=== PATIENT | female | born 1960 | race Caucasian/White ===

== ENCOUNTER 2024-01-24 06:56 | Outpatient (RCR) | payer BC, SELFPAY | END 2024-02-27 16:28 | disposition home or self-care (01) | LOC: PT 06:56 | PROVIDERS: PCP Family Medicine; Visit Provider Orthopaedic Surgery Orthopaedic Trauma | DX: M41.9 Scoliosis, unspecified (principal); M47.816 Spondylosis without myelopathy or radiculopathy, lumbar region; M19.90 Unspecified osteoarthritis, unspecified site; R29.3 Abnormal posture; R26.89 Other abnormalities of gait and mobility; R26.9 Unspecified abnormalities of gait and mobility | CPT/HCPCS: 97014; 97110; 97161 ==

== ENCOUNTER 2024-01-28 10:02 | Outpatient (OUT) | payer BC, SELFPAY ==
--- NOTE | 2024-01-28 10:11 | MM_ITS ---
Patient Name: JACK COBURN MR#: [id number] : 1960 Exam Date: 01/28/2024 Ordering Doctor: DR Antonette Gamboa M.D. RADIOLOGY REPORT PROCEDURE: MM TOMOSYNTHESIS SCREENING BI COMPARISON: MG MAMM LISY SCRN W CAD DIG, 05/25/2016. MG MAMM LISY SCRN W CAD DIG, 05/24/2015. INDICATIONS: Screening Calculator Name NCI Breast Cancer Risk Assessment Tool 5 Year Breast Cancer Risk 1.50% Lifetime Breast Cancer Risk 5.60% Personal Breast Cancer No Personal Ovarian Cancer No Treatments None Family Cancers Mother with colo-rectal cancer at age 50. LOCATION: [facility] BREAST COMPOSITION: There are scattered areas of fibroglandular density. FINDINGS: DIAGNOSTIC CATEGORY 2--BENIGN FINDING: RIGHT BREAST: No significant suspicious finding. Scattered benign-appearing calcifications are present. No significant change has occurred. LEFT BREAST: No significant suspicious finding. Scattered benign-appearing calcifications are present. No significant change has occurred. RECOMMENDATIONS: ROUTINE MAMMOGRAM AND CLINICAL EVALUATION IN 12 MONTHS. PLEASE NOTE: A NORMAL MAMMOGRAM DOES NOT EXCLUDE THE POSSIBILITY OF BREAST CANCER. A CLINICALLY SUSPICIOUS PALPABLE LUMP SHOULD BE BIOPSIED. Dictated by: Reid Vasquez M.D. on 01/28/2024 at 15:20 Approved by: Reid Vasquez M.D. on 01/28/2024 at 15:22
== END 2024-01-28 10:03 | disposition home or self-care (01) ==
LOC: MAMMO 10:04
PROVIDERS: PCP Family Medicine; Visit Provider Family Medicine
DX: Z12.31 Encounter for screening mammogram for malignant neoplasm of breast (principal); Z80.0 Family history of malignant neoplasm of digestive organs
CPT/HCPCS: 77063; 77067

== ENCOUNTER 2025-03-01 16:45 | Outpatient (OUT) | payer MEDICARE, OTHER, SELFPAY ==
--- OUTSIDE RECORDS SUMMARY | 2021-08-13 10:15 | XMS_ITS | Continuity of Care Document ---
Author Organization [employer] [facility] Address [address] [place] [address] Phone Care Team Providers Care Javascript Ui Developer Name Role Phone Jose David Connors MD Unavailable Unavailable Procedures Procedure Date OFFICE/OUTPATIENT VISIT, [facility] Advance Directives Directive Yes / No Effective Date File Name No Information Encounters Encounter Description Practice Location Reason(s) For Visit Diagnoses Date Provider Providers Copied on Encounter OFFICE/OUTPATI ENT VISIT, Identiv [facility], [address], [place], [place], [id number], tel:[phone] [facility] No Information [facility] [address]. [address], [place], [id number], [place]. tel:[phone] Referring Provider: Jose David Vance, [address], [place], [address]. tel:[phone] Family History Family Member Type Diagnosis Age At Onset No Information Payers Payer name Insurance type Covered green party ID Authoriza ticorey(s) Bind Benefits CI [id number] Social History Type Description Quantity Date Captured Comments Sex Female Smoking Status No Information Chief Complaint And Reason For Visit No Information Reason For Referral Reason For Referral No Information History Of Present Illness Encounter Date Complaint History Of Prese nt Illness No Information Functional Status Date Functional Assessmen t No Information Instructions Date Instruction Additional Infor mation No Information Assessments Type Assessment Date No Information Patient Care Teams Name Effective Dates (start - stop) Status Members No Information
--- OUTSIDE RECORDS SUMMARY | 2025-02-14 23:59 | XMS_ITS | Continuity of Care Document ---
Author Organization [facility] Address Unknown Care Team Providers Care Environmental Field Professional Name Role Phone JANNA KAITLYN Primary Care Physician Encounter FT_FIN [id number] Date(s): 02/14/25 - 02/14/[address] [id number] Encounter Diagnosis JASWINDER (obstructive sleep apnea)(Discharge Diagnosis) - 02/14/25 Discharge Disposition: Home (Routine DC) Attending Physician: Quyen BOO, Aishwarya Blanc Referring Physician: NONE, XXXX Encounter Type: Outpatient Allergies, Adverse Reactions, Alerts Substance Criticality Severity Reaction Reaction Severity Status kiwi Tongue swelling Swelling of throat Active Cats Unknown Active Dust Unknown Active amLODIPine Eruption Active FLUoxetine Wheal Active Immunizations Given and Recorded Vaccine Date Status Refusal Reason pneumococcal 20-valent conjugate vaccine 03/09/24 Recorded influenza virus vaccine, inactivated 03/09/24 Eliazar rded influenza virus vaccine, inactivated 05/16/23 Eliazar rded influenza virus vaccine, inactivated 03/17/22 Eliazar rded influenza virus vaccine, inactivated 03/2021 Eliazar rded influenza virus vaccine, inactivated 03/25/21 Eliazar rded influenza virus vaccine, inactivated 03/25/20 Eliazar rded influenza virus vaccine, inactivated 04/12/19 Eliazar rded influenza virus vaccine, inactivated 03/24/17 Eliazar rded SARSCoV2 mRNA(qrmglmoyy-zetu-agbtnu) vac 11/12/21 Recorded SARS-CoV-2 (COVID-19) mRNA BNT-162b2 vax 05/13/21 Recorded SARS-CoV-2 (COVID-19) mRNA BNT-162b2 vax 09/26/20 Recorded SARS-CoV-2 (COVID-19) mRNA BNT-162b2 vax 09/05/20 Recorded zoster vaccine, inactivated 12/18/19 Recorded zoster vaccine, inactivated 07/26/19 Recorded pneumococcal 23-valent vaccine 04/12/19 Recorded Not Given Vaccine Date Status Refusal Reason influenza virus vaccine, inactivated 02/25/22 Not Given Patient Refuses Medications Adderall 5 mg oral tablet 5 mg, 1 tab(s), Oral, qAM, Refill(s) 0, Prophylaxis Start Date: 02/23/19 Status: Ordered Repeat number: 1 busPIRone 15 mg Tab mg tab(s), Oral, BID, Refills(s) 0, Anxiety Start Date: 02/25/22 Status: Ordered Repeat number: 1 calcium-vitamin D 1 TAB, Oral, Daily Prophylaxis, Refill(s) 0 Start Date: 08/22/13 Status: Ordered Repeat number: 1 cetirizine 5 mg oral tablet 5 mg = 1 tab(s), Oral, Daily, PRN for allergy symptoms Start Date: 08/11/21 Status: Ordered Repeat number: 1 cholestyramine 4 g/9 g Oral Pwdr Oral, BID, Refill(s) 0, Diarrhea Start Date: 08/26/23 Status: Ordered Repeat number: 1 Fiber Tabs 1,250 mg, Oral, QID, PRN Constipation, Refills(s) 0 Start Date: 05/27/22 Status: Ordered Repeat number: 1 Gas-X 80 mg, Chewed, QIDPCHS, PRN Gas, Refills(s) 0 Start Date: 08/26/23 Status: Ordered Repeat number: 1 Ibgard 90 mg oral delayed release capsule 180 mg = 2 cap(s), Oral, BID, # 90 cap(s), Refills(s) 6, Pharmacy: [id number], 170,cm, 01/31/24 9:31:00 EDT, Height/Length Dosing, 95, kg, 01/31/24 9:31:00 EDT, Weight Dosing Start Date: 02/16/24 Status: Ordered Quantity: 90.0 Unit: cap(s) Repeat number: 7 Iron Chews 15 mg, Oral, Daily, Refills(s) 0, Prophylaxis Start Date: 02/09/23 Status: Ordered Repeat number: 1 losartan 100 mg Tab 100 mg = 1 tab(s), Oral, Daily, High blood pressure Start Date: 02/23/19 Status: Ordered Repeat number: 1 Miralax 3350 17 gram packet 17 gm, Oral, Daily, PRN Constipation, # 100 EA, Refills(s) 6, Pharmacy: [id number], 170, cm, 10/04/23 8:59:00 EDT, Height/Length Dosing, 97, kg, 10/04/23 8:59:00 EDT, Weight Dosing Start Date: 10/04/23 Status: Ordered Quantity: 100.0 Unit: EA Repeat number: 7 Multivitamins and Minerals 1 TAB, Oral, Daily, Refill(s) 0, Prophylaxis Start Date: 08/22/13 Status: Ordered Repeat number: 1 Nature's Bounty Probiotic Refill(s) 0, Prophylaxis Start Date: 02/09/23 Status: Ordered Repeat number: 1 Vitamin B Complex oral tablet 1 tab(s), Chewed, Daily, Refill(s) 0, Prophylaxis Start Date: 01/10/15 Status: Ordered Repeat number: 1 Vitamin D Oral, Daily, Refills(s) 0, Prophylaxis Start Date: 02/09/23 Status: Ordered Repeat number: 1 Wellbutrin SR 150 mg Tab-ER 150 mg = 1 tab(s), Oral, BID, Depression Start Date: 02/23/19 Status: Ordered Repeat number: 1 Xanax 0.5 mg Tab 0.5 mg = 1 tab(s), Oral, BID, PRN for anxiety, Refills(s) 0 Start Date: 01/10/15 Status: Ordered Repeat number: 1 Problem List Condition Confirmation Course Effective Dates Status H ealth Status Informant Bloating Confirmed Active Dyssynergic defecation Confirmed Active Constipation Confirmed Active MRSA (methicillin resistant staph aureus) culture positive Confirmed Active Renal cyst Confirmed Active Depression Confirmed Active Family history of colon cancer Confirmed Active Abdominal cramping Confirmed Resolved Acid reflux Confirmed Active History of anal cancer Confirmed Active History of colon polyps Confirmed Active Fecal incontinence Confirmed Active Irregular bowel habits Confirmed Active Loose stools Confirmed Active Lower abdominal pain Confirmed Active Cancer of anus 1 Confirmed Active Nausea Confirmed Resolved Bile salt-induced diarrhea Confirmed Active JASWINDER (obstructive sleep apnea) Confirmed Active Colon polyp Confirmed Active Recurrent UTI Confirmed Active Urinary leakage Confirmed Active UTI symptoms Confirmed Resolved 12741 Procedures Procedure Date Related Diagnosis Body Site Status Colonoscopy 04/10/24 Completed Colonoscopy 1 09/21/23 Completed Esophagogastroduodenoscopy 07/22/22 Completed Cataract extraction and inse rtion of intraocular lens 2 03/14/19 Completed Cataract extraction and inse rtion of intraocular lens 3 02/28/19 Completed Cystourethroscopy with dilat ion of urethral stricture 02/28/16 Completed removal of right ean bull jaswinder, septoplasty and bilateral inferior turbinate submucosal resection 01/10/15 C ompleted Cholecystectomy 4 06/28/07 Complet ed Cholecystectomy 05/28/07 Completed Gastric bypass 06/28/02 Completed Hysterectomy 5 06/28/00 Completed Tubal ligation 06/28/99 Completed Carpal tunnel release 6 06/28/97 C ompleted Sinus probing 06/28/97 Completed EGD (esophagogastroduodenosc opic) electrohydraulic lithotripsy of bezoar in stomach 7 Completed LEFT Knee Scope Completed 12794 2left eye 3right 4revision 5partial 6left or 2022 Social History Social History Type Response Smoking Status Former smoker, quit more than 30 days ago entered on: 04/28/24 Sex Female Sex Representation Female (finding) Hospital Discharge Instructions Follow Up Care 01/25/2025 12:56:33 With:Quyen BOO, Aishwarya Blanc, PUL, CHARITY Address: [address] [place] [address] [facility] [place] [place] [address]- When:6 weeks Patient Care team information Care Team Personnel Name: KAITLYN SALDIVAR MD Position: FT Physician Member Role: Primary Care Physician Address: [address] [place] [address]- Telecom: Care Team Related Persons Name: TRAMAINE HINKLE Name: MAINOR COBURN Name: IRISH SAVANAH Name: SAVANAH COBURN Name: SAVANAH COBURN Name: SAVANAH COBURN Insurance Providers Guarantor name: JACK COBURN Health Plan Information #: 1 Payer: [employer] Payer Identifier: [id number] Member Number: [id number] Group Number: [id number] Subscriber Identifier: [id number] Relationship to Subscriber: Self Coverage Type: PRIVATE HEALTH INSURANCE Coverage Verification Date: 25 Telecom: NA Address: [facility] [address] [place] [address] Health Plan Information #: 2 Payer: MEDICARE Payer Identifier: [id number] Member Number: [id number] Group Number: [id number] Subscriber Identifier: [id number] Relationship to Subscriber: Self Coverage Type: MEDICARE Coverage Verification Date: 25 Telecom: [phone] Address: [facility] [address] Health Plan Information #: 3 Payer: [employer] Payer Identifier: [id number] Member Number: [id number] Group Number: [id number] Subscriber Identifier: [id number] Relationship to Subscriber: spouse Coverage Type: PRIVATE HEALTH INSURANCE Coverage Verification Date: NA Telecom: [phone] Address: [facility] [address] [place] [address]
--- OUTSIDE RECORDS SUMMARY | 2025-03-01 16:58 | XMS_ITS | Clinical Summary ---
Author Organization [facility] tem Address [id number] [place] [address] Care Team Providers Care Convict Guard Name Role Phone Unavailable Primary Care Provider Unavailabl e Social History Tobacco Use Types Packs/Day Years Used Date Smoking Tobacco: Never Assessed Childcare Answer Date Recorded Childcare Unknown 12/07/2018 Employment Answer Date Recorded Employment Unknown 12/07/2018 Comments Unknown Sex and Gender Information Value Date Recorded Sex Assigned at Not on file Legal Sex Female 11:57 AM EDT Gender Identity Not on file Sexual Orientation Not on file Plan of Treatment Health Maintenance Due Date Last Done Comments Depression Screening 1970 Tobacco Screening 1970 Adult BMI Screening 1976 DTaP,Tdap and Td Vaccines (1 - Tdap) 1977 Zoster (Shingles) Vaccine (1 of 2) 2008 Colonoscopy 08/02/2016 08/02/2013 Fall Risk Screening 2023 Influenza Vaccine 02/26/2025 Medical Devices Not on file Procedures Procedure Name Priority Date/Time Associated Diagnosis Comments COLONOSCOPY Routine 08/02/2013 from Last 3 Months or Most Recently Relevant to Health Maintenance Results * COLONOSCOPY (08/02/2013) Colonoscopy COLONOSCOPY [facility] EXTERNAL NON-INTERFACE D REF LAB 08/02/2013 us Scanning Provider External HEALTH MAINTENANCE Ed ited Result - Final [facility] EXTERNAL NON-INTERFACED REF LAB [address] [facility] [place] [address] from Last 3 Months or Most Recently Relevant to Health Maintenance
--- OUTSIDE RECORDS SUMMARY | 2025-03-01 16:58 | XMS_ITS ---
Author Organization [facility] Address [address] [place] [address] Care Team Providers Care Lehr Tender Name Role Phone Antonette Gamboa MD Primary Care Provider [phone] Stefan Ortega MD Unavailable [phone] Active Problems Problem Noted Date Diagnosed Date Essential hypertension 10/08/2016 H/O gastric bypass 09/12/2015 Iron deficiency anemia 09/12/2015 Squamous cell skin cancer 08/30/2013 Chest pain 08/14/2013 Abnormal stress test 08/14/2013 Current Treatment and Therapy Plans No current plan information found. Past Treatment and Therapy Plans
--- OUTSIDE RECORDS SUMMARY | 2025-03-01 16:58 | XMS_ITS | Clinical Summary ---
Author Organization [facility] Address [address] [place] [address] Care Team Providers Care Scientific Systems Analyst Name Role Phone Unavailable Primary Care Provider Unavailabl e Social History Tobacco Use Types Packs/Day Years Used Date Smoking Tobacco: Never Assessed Comments Unknown Sex and Gender Information Value Date Recorded Sex Assigned at Not on file Legal Sex Female 9:24 PM EDT Gender Identity Not on file Sexual Orientation Not on file Last Filed Vital Signs Vital Sign Reading Time Taken Comments Blood Pressure - - Pulse - - Temperature - - Respiratory Rate - - Oxygen Saturation - - Inhaled Oxygen Concentration - - Weight 104 kg (230 lb) 06/30/2019 9:17 AM EST Height 170.2 cm (5' 7 ) 08/24/2019 1:21 PM EST Body Mass Index 36.02 06/30/2019 9:17 AM EST Plan of Treatment Not on file
--- OUTSIDE RECORDS SUMMARY | 2025-03-01 16:58 | XMS_ITS | Encounter Summary ---
Author Organization [facility] Address [address] [place] [address] Care Team Providers Care Kitchen Supervisor Name Role Phone Unavailable Primary Care Provider Unavailabl e Reason for Visit * Reason Onset Date Comments Med Refill 08/05/2024 Encounter Details Date Type Department Care Team (Late st Contact Info) Description 08/05/2024 Refill [facility] [address] [place] [id number] Destiney Hernandez PA [address] [place] [address] Social History Tobacco Use Types Packs/Day Years Used Date Smoking Tobacco: Never Smokeless Tobacco: Never Comments Unknown Sex and Gender Information Value Date Recorded Sex Assigned at Not on file Legal Sex Female 7:12 PM EDT Gender Identity Not on file Sexual Orientation Not on file documented as of this encounter Miscellaneous Notes * Telephone Encounter - Mariangel Gonzales LPN - 08/07/2024 8:58 AM EST Not prescribed by our office. documented in this encounter Plan of Treatment Upcoming Encounters Date Type Department Care Team (Late st Contact Info) Description 04/24/2025 8:20 AM EDT Office Visit [facility] [address] [place] [phone] Destiney Hernandez PA [address] [place] [address] documented as of this encounter Visit Diagnoses Not on filedocumented in this encounter
--- OUTSIDE RECORDS SUMMARY | 2025-03-01 16:58 | XMS_ITS | Clinical Summary ---
Author Organization [facility] Address [address] [place] [address] Phone Care Team Providers Care Sterile Instrument Technician Name Role Phone Antonette Gamboa MD Primary Care Provider [phone] Social History Tobacco Use Types Packs/Day Years Used Date Smoking Tobacco: Never Assessed Comments Unknown Sex and Gender Information Value Date Recorded Sex Assigned at Not on file Legal Sex Female 2:37 PM EST Gender Identity Not on file Sexual Orientation Not on file Plan of Treatment Not on file Care Teams Sterile Instrument Technician Relationship Specialty Start Date End Date Antonette Gamboa MD [address] [place] [address] [place] [address] PCP - General 12/04/13
--- OUTSIDE RECORDS SUMMARY | 2025-03-01 16:58 | XMS_ITS | Clinical Summary ---
Author Organization [facility] Address [address] [place] [address] Care Team Providers Care Tongsman Name Role Phone Antonette Gamboa MD Primary Care Provider Allergies No known active allergies Medications buPROPion (WELLBUTRIN SR) 200 MG extended release tablet Take 200 mg by mouth 2 times daily Active busPIRone (BUSPAR) 15 MG tablet Take 15 mg by mouth 3 times daily Active amphetamine-dex troamphetamine (ADDERALL) 10 MG tablet Take 10 mg by mouth daily.. Active losartan (COZAAR) 100 MG tablet Take 100 mg by mouth daily Active meloxicam (MOBIC) 15 MG tablet Take 15 mg by mouth daily Active gabapentin (NEURONTIN) 100 MG capsule Take 1 capsule by mouth 3 times daily for 30 days. 90 capsule 09/09/2018 Active Active Problems No known active problems Family History Medical History Relation Name Comments Coronary Art Dis Father Heart Disease Father High Blood Pressure Father Stroke Father Cancer Mother Relation Name Status Comments Father Mother Social History Tobacco Use Types Packs/Day Years Used Date Smoking Tobacco: Never Assessed Smokeless Tobacco: Never Comments Unknown Sex and Gender Information Value Date Recorded Sex Assigned at Not on file Legal Sex Female 7:40 PM EST Gender Identity Not on file Sexual Orientation Not on file Last Filed Vital Signs Vital Sign Reading Time Taken Comments Blood Pressure - - Pulse - - Temperature 36.7 C (98.1 F) 12/23/2018 2:06 PM EDT Respiratory Rate - - Oxygen Saturation - - Inhaled Oxygen Concentration - - Weight 106.6 kg (235 lb) 12/23/2018 2:06 PM EDT Height 171.5 cm (5' 7.5 ) 12/23/2018 2:06 PM EDT Body Mass Index 36.26 12/23/2018 2:06 PM EDT Plan of Treatment Health Maintenance Due Date Last Done Comments Depression Screen 1970 Hepatitis C screen 1976 DTaP/Tdap/Td vaccine (1 - Tdap) 1977 Lipids 1998 Colonoscopy 2003 Colorectal Cancer Screen 2003 FIT/FOBT: Average risk 2003 Fecal-DNA (Cologuard): Average risk 2003 Sigmoidoscopy/CT colonography 2003 DEXA (modify frequency per FRAX score) 2013 Breast cancer screen 08/31/2019 08/30/2017, 08/31/19 18 Pneumococcal 50+ years Vaccine (2 of 2 - PCV) 04/12/2020 04/12/2019 COVID-19 Vaccine ( - season) 2024 11/12/2021, 05/13/2021, 09/26/2020, Additional history exists Flu vaccine (#1) 01/26/2025 05/16/2023, , 03/25/2021, Additional history exists Respiratory Syncytial Virus (RSV) or age 60 yrs+ (1 - 1-dose 75+ series) 2033 Pneumococcal 0-49 years Vaccine Discontinued 04/12/2019 Shingles vaccine Completed 12/18/2019, 07/26/2019 Hepatitis A vaccine Aged Out No longe r eligible based on patient's age to complete this topic Hepatitis B vaccine Aged Out No longe r eligible based on patient's age to complete this topic Hib vaccine Aged Out No longer eligi ble based on patient's age to complete this topic Meningococcal (ACWY) vaccine Aged Out No longer eligible based on patient's age to complete this topic Meningococcal B vaccine Aged Out No l onger eligible based on patient's age to complete this topic Polio vaccine Aged Out No longer elig ible based on patient's age to complete this topic Insurance [place] [employer] [place] [id number] Care Teams Tongsman Relationship Specialty Start Date End Date Antonette Gamboa MD PCP - General Family Medicine 07/19/18
--- OUTSIDE RECORDS SUMMARY | 2025-03-01 16:58 | XMS_ITS | Encounter Summary ---
Author Organization [facility] Address [address], [address] [place] [address] Care Team Providers Care Surgery Assistant Name Role Phone Antonette Gamboa MD Primary Care Provider [phone] Reason for Referral * Imaging (Routine) - Closed Specialty Diagnoses / Procedures Referred By Contac t Referred To Contact Radiology Diagnoses Lower abdominal pain Procedures CT ABDOMEN PELVIS W IV CONTRAST Additional Contrast? None Rani Schaffer APRN - JABARI [address] [place] [address] Phone: tel: fax: Referral ID Status Reason Start Date Expiration Date Visits Re quested Visits Authorized [id number] Closed 08/27/2023 09/09/2024 1 1 Encounter Details Date Type Department Care Team ([facility] st Contact Info) Description 09/10/2023 Transcribe Orders Sharri Ballesteros Pre Access [address] [place] [address] Rani Schafefr APRN - JABARI [id number] [place] [address] Lower abdominal pain (Primary Dx) Social History Tobacco Use Types Packs/Day Years Used Date Smoking Tobacco: Never Assessed Smokeless Tobacco: Never Comments Unknown Sex and Gender Information Value Date Recorded Sex Assigned at Not on file Legal Sex Female 7:40 PM EST Gender Identity Not on file Sexual Orientation Not on file documented as of this encounter Plan of Treatment Not on file documented as of this encounter Results * CT ABDOMEN PELVIS W IV CONTRAST Additional Contrast? None (09/17/2023 2:44 PM EDT) Anatomical Region Laterality Modality Abdomen, Pelvis, Hip Computed To mography 09/17/2023 4:38 PM EDT Impressions 09/17/2023 4:40 PM EDT There is no evidence of acute abnormality. Narrative 09/17/2023 4:40 PM EDT EXAMINATION: CT OF THE ABDOMEN AND PELVIS WITH CONTRAST09/17/2023 2:42 pm TECHNIQUE: CT of the abdomen and pelvis was performed with the administration of intravenous contrast. Multiplanar reformatted images are provided for review. Automated exposure control, iterative reconstruction, and/or weight based adjustment of the mA/kV was utilized to reduce the radiation dose to as low as reasonably achievable. COMPARISON: None HISTORY: ORDERING SYSTEM PROVIDED HISTORY: Lower abdominal pain TECHNOLOGIST PROVIDED HISTORY: Additional Contrast?->None STAT Creatinine as needed:->No What reading provider will be dictating this exam?->CRC FINDINGS: There is no evidence of pulmonary nodule or pleural effusion at the level of the lung bases. The gallbladder is surgically absent and there is gastric bypass procedure change. The liver, spleen, pancreas, adrenals, abdominal aorta, kidneys and urinary bladder have an unremarkable appearance. There is no evidence of free intraperitoneal fluid or air. Vermiform appendix is not dilated. There is no evidence of large or small bowel obstruction. There is no gross evidence of bowel inflammation. No enlarged abdominal or pelvic lymph nodes are identified. There is no evidence of anterior abdominal wall hernia. Bone windows reveal no evidence of acute fracture or osteolytic/osteoblastic lesion. Moderate degenerative changes are present at the L3-4 intervertebral disc space with moderate to severe bilateral hip joint space narrowing and spur formation. Procedure Note Dalton Adam MD - 09/17/2023 EXAMINATION: CT OF THE ABDOMEN AND PELVIS WITH CONTRAST09/17/2023 2:42 pm TECHNIQUE: CT of the abdomen and pelvis was performed with the administration of intravenous contrast. Multiplanar reformatted images are provided forreview. Automated exposure control, iterative reconstruction, and/or weightbased adjustment of the mA/kV was utilized to reduce the radiation dose to aslow as reasonably achievable. COMPARISON: None HISTORY: ORDERING SYSTEM PROVIDED HISTORY: Lower abdominal pain TECHNOLOGIST PROVIDED HISTORY: Additional Contrast?->None STAT Creatinine as needed:->No What reading provider will be dictating this exam?->CRC FINDINGS: There is no evidence of pulmonary nodule or pleural effusion at the levelof the lung bases. The gallbladder is surgically absent and there is gastric bypassprocedure change. The liver, spleen, pancreas, adrenals, abdominal aorta, kidneysand urinary bladder have an unremarkable appearance. There is no evidenceof free intraperitoneal fluid or air. Vermiform appendix is not dilated.There is no evidence of large or small bowel obstruction. There is no gross evidence of bowel inflammation. No enlarged abdominal or pelvic lymphnodes are identified. There is no evidence of anterior abdominal wall hernia. Bone windowsreveal no evidence of acute fracture or osteolytic/osteoblastic lesion.Moderate degenerative changes are present at the L3-4 intervertebral disc spacewith moderate to severe bilateral hip joint space narrowing and spurformation. IMPRESSION: There is no evidence of acute abnormality. us Rani Schaffer MALTHOUSE LABORER - K [address] ORDERABLES Fin al Result documented in this encounter Visit Diagnoses Diagnosis Lower abdominal pain- Primary Abdominal pain, other specified site Lower abdominal pain Abdominal pain, other specified site documented in this encounter Care Teams Surgery Assistant Relationship Specialty Start Date End Date Antonette Gamboa MD PCP - General Family Medicine 07/19/18 documented as of this encounter
--- OUTSIDE RECORDS SUMMARY | 2025-03-01 16:58 | XMS_ITS | Clinical Summary ---
Author Organization [facility] Address [address] [place], [place] [address] Care Team Providers Care Steam Fitter Supervisor Maintenance Name Role Phone Antonette Gamboa MD Primary Care Provider [phone] Stefan Ortega MD Unavailable [phone] Allergies Active Allergy Reactions Criticality Noted Date Comments Cats Unknown 08/14/2013 Dust Unknown 08/14/2013 Amlodipine Besylate Rash 05/13/2017 Medications ALPRAZOLAM 0.5 mg tablet as needed. 07/21/2013 Active VITAMIN B COMPLEX (B COMPLEX ORAL) Take by mouth once daily. Active CALCIUM CARBONATE/VITAM IN D3 (CALCIUM + D ORAL) Take by mouth once daily. Active nitroglycerin sublingual (NITROQUICK) 0.4 mg SL tabletIndicatio ns:Precordial pain Dissolve 0.4 mg under the tongue every 5 minutes as needed. Active buPROPion XL (WELLBUTRIN XL) 300 mg 24 hr tablet Take 400 mg by mouth once daily. Active busPIRone (BUSPAR) 15 mg tablet Take 15 mg by mouth three times daily. Active ADDERALL XR 10 mg 24 hr capsule 10/02/2016 Active hydrOXYzine pamoate (VISTARIL) 25 mg capsule Take 25 mg by mouth daily at bedtime. 0 05/11/2017 Active losartan (COZAAR) 50 mg tablet Take 100 mg by mouth once daily. 0 04/09/2017 Active Active Problems Problem Noted Date Diagnosed Date Essential hypertension 10/08/2016 H/O gastric bypass 09/12/2015 Iron deficiency anemia 09/12/2015 Squamous cell skin cancer 08/30/2013 Chest pain 08/14/2013 Abnormal stress test 08/14/2013 Family History Medical History Relation Comments Cancer Brother 2 skin colon polyps Brother 3 Coronary Artery Disease Father [place] at [place] 67 Stroke Father Cancer Mother colon Colon Cancer Mother Diabetes Sister 2 Relation Status Comments Brother 1 Alive Brother 2 Brother 3 Father (Age 67) Mother (Age 50) Sister 1 Alive Sister 2 Social History Tobacco Use Types Packs/Day Years Used Date Smoking Tobacco: Former Cigarettes 0.5 25 0 06/28/1974 - 06/28/1999 Smokeless Tobacco: Never Comments:06/29 PPD/ 25 years Alcohol Use Standard Drinks/Week Comments Yes 0 (1 standard drink = 0.6 oz pur e alcohol) up to 4 drinks weekly Area Deprivation Index Answer Date Eliazar rded National Score (1-100), lower number is lower ri sk Not on file 06/05/2020 State Score (1-10), lower number is lower risk N ot on file 06/05/2020 Data from: https://www.neighborhoodatlas.medicine.[facility].edu/. 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 Not on file Not o n file Last Filed Vital Signs Vital Sign Reading Time Taken Comments Blood Pressure 129/81 05/13/2018 9:31 AM EST Pulse 80 05/13/2018 9:31 AM EST Temperature 36.7 C (98.1 F) 10/15/2016 11:06 AM EDT Respiratory Rate 18 11/10/2017 9:16 AM EDT Oxygen Saturation 97% 11/10/2017 9:16 AM EDT Inhaled Oxygen Concentration - - Weight 107 kg (236 lb) 05/13/2018 9:31 AM EST Height 171.5 cm (5' 7.5 ) 05/13/2018 9:31 AM EST Body Mass Index 36.42 05/13/2018 9:31 AM EST Plan of Treatment Health Maintenance Due Date Last Done Comments Anxiety Screening 1976 Depression Screening 1976 Hepatitis C Screening 1976 DTaP,Tdap,Td Vaccine (1 - Tdap) [address] Colonography 2003 Cologuard (FIT-DNA) 2003 Colonoscopy 2003 Colorectal Cancer Screening 2003 Diabetes Screening 2003 Fecal Occult Blood 2003 Lipid Screening 2003 Sigmoidoscopy 2003 Pneumococcal Vaccine: 50+ (1 of 1 - PCV) 2008 Shingrix Vaccine (1 of 2) 2008 Bone Density Screening 2023 Advance Directive Discussion 06/28/2024 Influenza Vaccine (#1) 2025 03/24/2017 RSV Vaccine (1 - 1-dose 75+ series) 2033 Insurance O [employer] PPO Care Teams Steam Fitter Supervisor Maintenance Relationship Specialty Start Date End Date Antonette Gamboa MD [address] [place] [address] PCP - General Family Medicine 07/21/13 Stefan Ortega MD [address] [address] Primary Staff Physician Cardiology 09/13/18
--- OUTSIDE RECORDS SUMMARY | 2025-03-01 16:58 | XMS_ITS | Clinical Summary ---
Author Organization [facility] Address [address] [place] [address] Care Team Providers Care Wet Crown Blocking Operator Name Role Phone Unavailable Primary Care Provider Unavailabl e Allergies Active Allergy Reactions Criticality Noted Date Comments Amlodipine Rash Low 05/12/2017 Amoxicillin-Pot Clavulanate Unknown 04/27/20 23 Fluoxetine Other 04/27/2023 Medications cholestyramine (Questran) 4 g packet take 1 packet ( 4 grams ) by mouth once daily 3 Active buPROPion (Wellbutrin) 75 MG tablet Active pantoprazole (ProtoNix) 40 MG EC tablet Take 40 mg by mouth in the morning. Active albuterol HFA 90 mcg/act inhaler inhale 2 puffs by mouth every 4 hours if needed 3 Active dicyclomine (Bentyl) 20 MG tablet Take 20 mg by mouth as needed in the morning and 20 mg as needed at noon and 20 mg as needed in the evening and 20 mg as needed before bedtime. 3 Active benzonatate (Tessalon) 200 MG capsule Take 200 mg by mouth as needed in the morning and 200 mg as needed at noon and 200 mg as needed in the evening. 3 Active ALPRAZolam (Xanax) 0.5 MG tablet Take 0.5 mg by mouth at bedtime Active losartan (Cozaar) 100 MG tablet Active Multiple Vitamin (MULTIVITAMIN ADULT PO) Active Calcium Citrate-Vitamin D (CALCIUM + D PO) Active Pediatric Multivitamins-I andrea (FRUITY CHEWS/IRON PO) 3 Active saccharomyces boulardii (Florastor) 250 MG capsule Take 250 mg by mouth in the morning and 250 mg before bedtime. Active Hydrocortisone Acetate 2.5 % creamIndication s:Other specified dermatitis Apply to affected areas on the face, ears, and neck bid when flared 30 g 11 3 Active hydrocortisone 2.5 % creamIndication s:Other specified dermatitis Apply topically 2 (two) times a day as needed (Rash) Apply thin layer to affected areas on the face and around the ears bid prn for flares 30 g 11 4 Active triamcinolone (Kenalog) 0.1 % creamIndication s:Other specified dermatitis Apply topically 2 (two) times a day as needed for rash Apply to affected areas on the body bid when flared. Avoid the face, armpits, and groin 240 g 11 5 Active fluocinonide (Lidex) 0.05 % external solutionIndicat ions:Other seborrheic dermatitis Apply to affected areas on the scalp, up to once a day when flared, 30 day supply 60 mL 11 5 Active Active Problems No known active problems Social History Tobacco Use Types Packs/Day Years Used Date Smoking Tobacco: Never Smokeless Tobacco: Never Comments Unknown Sex and Gender Information Value Date Recorded Sex Assigned at Not on file Legal Sex Female 7:12 PM EDT Gender Identity Not on file Sexual Orientation Not on file Last Filed Vital Signs Vital Sign Reading Time Taken Comments Blood Pressure 117/70 09/17/2021 12:00 PM EDT Pulse - - Temperature - - Respiratory Rate - - Oxygen Saturation - - Inhaled Oxygen Concentration - - Weight 102 kg (224 lb) 09/17/2021 12:00 PM EDT Height 167.6 cm (5' 6 ) 06/01/2022 12:00 PM EST Body Mass Index 36.15 09/17/2021 12:00 PM EDT Plan of Treatment Upcoming Encounters Date Type Department Care Team (Late st Contact Info) Description 04/24/2025 8:20 AM EDT Office Visit [facility] [address] [place] [id number] Destiney Hernandez, OFELIA [address] [place] [address] Health Maintenance Due Date Last Done Comments CT Colonography 1958 FIT-DNA 1958 FIT 1958 FOBT 1960 Sigmoidoscopy 1958 Mammogram 08/30/2018 08/30/2017, 08/30/2017 Influenza Vaccine (#1) 2025 4, 05/16/2023, 03/17/2022, Additional history exists Colonoscopy 04/10/2034 04/10/2024 Colorectal Cancer Screening 04/10/2034 Pneumococcal Vaccine: 65+ Years Completed 4, 04/12/2019 Procedures Procedure Name Priority Date/Time Associated Diagnosis Comments BI MAMMOGRAM SCREENING BILATERAL Routine 08/30/2017 Encounter for screening for malignant neoplasm of vagina Diffuse cystic mastopathy of right breast Encounter for gynecological examination (general) (routine) without abnormal findings Encounter for screening mammogram for malignant neoplasm of breast from Last 3 Months or Most Recently Relevant to Health Maintenance Results * Bilateral screening mammogram (08/30/2017) Anatomical Region Laterality Modality Breast Bilateral Mammography Impressions 08/30/2017 12:00 AM EST IMPRESSION:No mammographic evidence of malignancy. Routine follow-up recommended in one year. RESULT CODE: 1 Negative DENSITY CODE: 2 FOLLOW UP: 1YR THE FALSE-NEGATIVE RATE OF MAMMOGRAPHY IS APPROXIMATELY 10%. IMAGING OF A PALPABLE ABNORMALITY MUST BE BASED ON CLINICAL GROUNDS. PATIENT WAS ENTERED INTO A REMINDER SYSTEM WITH A TARGET DUE DATE FOR THE NEXT MAMMOGRAM. Dictation Location: [id number] Transcribed By: AARON 08/30/17946 Dictated By: Stefan Gross DO 08/30/17943 Signed By: <Electronically signed by Stefan Gross DO in OV> 08/30/17946 Narrative 08/30/2017 12:00 AM EST PERFORMED AT [facility] LOCATION:[address] [place] [address] [place] [address] Mammography Report Signed Patient: Kathy Juilan MR#: [id number] : 1960 Acct:[id number] Age/Sex: 57 / F ADM Date: 08/26/17 Loc: [place] Room: Type: [facility] Attending Dr: Clint New MD Ordering Physician: Francisco New MD Date of Service: 08/26/17 MM/MM screening mammo BI w/CAD: scrn Copies to: Clint New MD Bilateral Screening Full Field digital mammogram with 3-D imaging. Full field digital CC and MLO imaging performed. CAD utilized. COMPARISON: 05/25/16 HISTORY:Screening FINDINGS: Scattered fibroglandular densities of the breast parenchyma identified. No developing architectural distortion, developing focal breast asymmetry or developing malignant calcifications identified. Benign calcifications identified. Procedure Note CONVERSION, GENERIC - 01/01/2023 PERFORMED AT [facility] LOCATION:[address] [place] [address] [place] [address] Mammography Report Signed Patient: Kathy Julian MR#: [id number] : 1960 Acct:[id number] Age/Sex: 57 / F ADM Date: 08/26/17 Loc: [place] Room: Type: [facility] Attending Dr: Clint New MD Ordering Physician: Francisco New MD Date of Service: 08/26/17 MM/MM screening mammo BI w/CAD: scrn Copies to: Clint New MD Bilateral Screening Full Field digital mammogram with 3-D imaging. Full field digital CC and MLO imaging performed. CAD utilized. COMPARISON: 05/25/16 HISTORY:Screening FINDINGS: Scattered fibroglandular densities of the breast parenchymaidentified. No developing architectural distortion, developing focal breast asymmetry or developingmalignant calcifications identified. Benign calcifications identified. IMPRESSION: IMPRESSION:No mammographic evidence of malignancy. Routine follow-uprecommended in one year. RESULT CODE: 1 Negative DENSITY CODE: 2 FOLLOW UP: 1YR THE FALSE-NEGATIVE RATE OF MAMMOGRAPHY IS APPROXIMATELY 10%. IMAGING OF A PALPABLE ABNORMALITY MUST BE BASED ON CLINICAL GROUNDS. PATIENT WAS ENTERED INTO A REMINDER SYSTEM WITH A TARGET DUE DATE FOR THENEXT MAMMOGRAM. Dictation Location: [facility] Transcribed By: AARON 08/30/17 0947 Dictated By: Stefan Gross DO 08/30/17 0944 Signed By: <Electronically signed by Stefan Gross DO in OV> [address] IMG BI PROCEDURES Final Result from Last 3 Months or Most Recently Relevant to Health Maintenance Insurance [facility]
--- OUTSIDE RECORDS SUMMARY | 2025-03-01 16:58 | XMS_ITS | Encounter Summary ---
Author Organization [facility] Address [address] [place] [address] Care Team Providers Care Exhibit Specialist Name Role Phone Antonette Gamboa MD Primary Care Provider Stefan Ortega MD Unavailable [phone] Source Comments In the event this information is protected by the Federal Confidentiality of Alcohol and Drug AbusePatient Records regulations: The Federal rules restrict any use of the information to criminally investigate or prosecute any alcohol or drug abuse patient.[facility] Encounter Details Date Type Department Care Team (Late st Contact Info) Description 2023 [place] [address] Provider, [facility] Medicare Coverage of Physical Exams Social History Tobacco Use Types Packs/Day Years Used Date Smoking Tobacco: Former Cigarettes 0.5 25 0 06/28/1974 - 06/28/1999 Smokeless Tobacco: Never Comments:1/2 PPD/ 25 years Alcohol Use Standard Drinks/Week Comments Yes 0 (1 standard drink = 0.6 oz pur e alcohol) up to 4 drinks weekly Area Deprivation Index Answer Date Eliazar rded National Score (1-100), lower number is lower ri sk Not on file 06/05/2020 State Score (1-10), lower number is lower risk N ot on file 06/05/2020 Data from: https://www.neighborhoodatlas.medicine.[facility]/. 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 Answer Date of Assessment Author No 02/15/2014 3:05 PM Osmani Ness * Are you blind or do you have serious difficulty seeing, even when wearing glasses? Answer Date of Assessment Author No 02/15/2014 3:05 PM Osmani Ness ismaurizio * Do you have serious difficulty walking or climbing stairs? Answer Date of Assessment Author No 02/15/2014 3:05 PM Osmani Nesse * Do you have difficulty dressing or bathing? Answer Date of Assessment Author No 02/15/2014 3:05 PM Osmani Ness ismaurizio * Because of a physical, mental, or emotional condition, do you have difficulty doing errands alone such as visiting a doctor's office or shopping? Answer Date of Assessment Author No 02/15/2014 3:05 PM Osmani Ness documented as of this encounter Mental Status * Because of a physical, mental, or emotional condition, do you have serious difficulty concentrating, remembering, or making decisions? Answer Entry Date Author No 02/15/2014 3:05 PM Osmani Ness documented in this encounter Plan of Treatment Not on file documented as of this encounter Visit Diagnoses Not on filedocumented in this encounter Care Teams Exhibit Specialist Relationship Specialty Start Date End Date Antonette Gamboa MD [address] [place] [address] PCP - General Family Medicine 07/21/13 Stefan Ortega MD [address] [facility] [address] [place] [phone] Primary Staff Physician Cardiology 09/13/18 documented as of this encounter
--- OUTSIDE RECORDS SUMMARY | 2025-03-01 16:59 | XMS_ITS | Encounter Summary ---
Author Organization [facility] Address [address] [place], [place] [address] Care Team Providers Care Pottery Decoration Designer Name Role Phone Antonette Gamboa MD Primary Care Provider [phone] Rik Pedraza MD Unavailable Stefan Ortega MD Unavailable [phone] Stefan Ortega MD Unavailable [phone] Source Comments In the event this information is protected by the Federal Confidentiality of Alcohol and Drug AbusePatient Records regulations: The Federal rules restrict any use of the information to criminally investigate or prosecute any alcohol or drug abuse patient.[facility] Encounter Details Date Type Department Care Team (Late st Contact Info) Description 08/09/2013 Abstract Cardiology [address] [place] [address] Rik Pedraza MD [facility] [place] [address] Social History Tobacco Use Types Packs/Day Years Used Date Smoking Tobacco: Never Assessed Comments Unknown Sex and Gender Information Value Date Recorded Sex Assigned at Not on file Legal Sex Female 11:44 AM EST Gender Identity Not on file Sexual Orientation Not on file documented as of this encounter Plan of Treatment Scheduled Orders Name Type Priority Associated Diagnoses Orde r Schedule CATH PLMT L HRT & ARTS W/NJX & ANGIO IMG S&I Procedures Routine Chest pain Abnormal stress test Ordered: 08/18/2013 documented as of this encounter Visit Diagnoses Diagnosis Chest pain- Primary Chest pain, unspecified Abnormal stress test Other nonspecific abnormal cardiovascular system function study documented in this encounter Care Teams Pottery Decoration Designer Relationship Specialty Start Date End Date Antonette Gamboa MD [address] [place] [address] PCP - General Family Medicine 07/21/13 Rik Pedraza MD [address] [place] [address] Primary Staff Physician Cardiology 09/26/14 6 Stefan Ortega MD [address] [facility] [address] [place] [address] Primary Staff Physician Cardiology 09/13/1809/13 Stefan Ortega MD [address] [facility] [address] [place] [address] Primary Staff Physician Cardiology 09/13/18 documented as of this encounter
--- OUTSIDE RECORDS SUMMARY | 2025-03-01 17:02 | XMS_ITS | CCD ---
Author Organization [facility] Care Team Providers Care Business Transformation Analyst Name Role Phone STEFAN ORTEGA Unavailable Unavailab le SALDIVAR, KAITLYN Encarnacion Unavailable Unavailable STEFAN ORTEGA Unavailable Unavailab le SALDIVAR, KAITLYN Encarnacion Unavailable Unavailable Shruthi Seals Attending Unavaila ble Saldivar, Kaitlyn Becerra Primary Care Unavaila ble Manohar, Antonieta Johnston Attending Unavailable Saldivar, Kaitlyn Becerra Primary Care Unavaildamion maharaj Manohar, Antonieta Johnston Attending Unavailable Janna, Kaitlyn Becerra Primary Care Unavaila ble SaldivarKaitlyn Primary Care Provider UnavailAntonieta Chavez Provider Unavailable MISC, DR HAHN Admitting Unavailable MISC, DR HAHN Attending Unavailable SALDIVAR, DR KAITLYN Encarnacion Primary Care Unavailable MISC, DR HAHN Consulting Unavailable SALDIVAR, DR KAITLYN Encarnacion Admitting Unavailable SALDIVAR, DR AKITLYN Encarnacion Attending Unavailable SALDIVAR, DR KAITLYN Encarnacion Primary Care Unavailable SALDIVAR, DR KAITLYN Encarnacion Consulting Unavailable SALDIVAR, DR KAITLYN Encarnacion Admitting Unavailable SALDIVAR, DR KAITLYN Encarnacion Attending Unavailable SALDIVAR, DR KAITLYN Encarnacion Primary Care Unavailable SALDIVAR, DR KAITLYN Encarnacion Consulting Unavailable SALDIVAR, DR KAITLYN Encarnacion Admitting Unavailable SALDIVAR, DR KAITLYN Encarnacion Attending Unavailable SALDIVAR, DR KAITLYN Encarnacion Primary Care Unavailable SALDIVAR, DR KAITLYN Encarnacion Consulting Unavailable SALDIVAR, DR KAITLYN Encarnacion Admitting Unavailable SALDIVAR, DR KAITLYN Encarnacion Attending Unavailable SALDIVAR, DR KAITLYN Encarnacion Primary Care Unavailable SALDIVAR, DR KAITLYN Encarnacion Consulting Unavailable KAITLYN SALDIVAR Primary Care Physician Angely Alonzo Unavailable Kaitlyn Saldivar Unavailable Brit Sharif Unavailable MD Kaitlyn Saldivar Primary Care Provider MD Kaitlyn Saldivar Attending Provider Kaitlyn Saldivar MD Primary Care Provider LEONA, RANI A Referring Unavailable KAITLYN SALDIVAR Primary Care Unavailable MD Kaitlyn Saldivar Primary Care Provider DO Blaise Thompson Attending Provider MD Kaitlyn Saldivar Attending Provider MD Kaitlyn Saldivar Primary Care Provider Sarmini, Gutierrez Talal Attending Unavaila ble Sarmini, Gutierrez Talal Referring Unavaila ble Sarmini, Gutierrez Talal Attending Unavaila ble Sarmini, Gutierrez Talal Referring Unavaila ble Sarmini, Gutierrez Talal Admitting Unavaila ble Napier, Basem G. Attending Unavailable Napier, Basem G. Referring Unavailable Napier, Basem G. Attending Unavailable Napier, Basem G. Referring Unavailable Leona, Rani A Admitting Unavailable Leona, Rani A Attending Unavailable Sarmini, Gutierrez Talal Admitting Unavaila ble Sarmini, Gutierrez Talal Attending Unavaila ble Leona, Rnai A Attending Unavailable Sarmini, Gutierrez Talal Attending Unavaila ble Sarmini, Gutierrez Talal Attending Unavaila ble Unavailable Primary Care Provider Unavailabl e DESTINEY ROMERO Attending Unavailable DESTINEY ROMERO Attending Unavailable Kaitlyn Saldivar MD Primary Care Provider Kaitlyn Saldivar MD Attending Provider Lanre Coats DO Attending Provider [phone] Kaitlyn Saldivar Admitting Unavailable Kaitlyn Saldivar Attending Unavailable Lanre Coats Admitting Unavailable Lanre Coats Attending Unavailable Napier, Aishwarya GGricelda Attending Unavailable NONE, XXXX Referring Unavailable Sarmini, Gutierrez Talal Attending Unavaila ble Unavailable Unavailable Unavailable Allergies Allergy Classification Reported Allergen(s) Allergy Type Date of Onset Reaction(s) Facility (1 source) amLODIPine; Translations: [AMLODIPINE BESYLATE] Drug Allergy 7 AOF [facility] Repository (20 sources) Cat; Translations: [CATS] Propensity to adverse reactions (disorder) 4 AOF, Unknown [facility] Repository (20 sources) Dust; Translations: [DUST] Propensity to adverse reactions (disorder) 4 AOF, Unknown [facility] Repository (20 sources) amLODIPine; Translations: [Amlodipine] Drug Allergy 7 Eruption of skin (disorder), Rash [facility] Repository (20 sources) kiwi; Translations: [kiwi] Allergy to substance 0 throat swelled, Tongue swelling, Swelling of throat [facility] (18 sources) cats,dust,mites ,mold Allergy to substance 8 Watery Eye, congestion [facility] (1 source) FLUoxetine Drug Allergy [facility] Repository (20 sources) FLUoxetine; Translations: [fluoxetine] Drug Allergy 3 Weal (disorder), hives, Other [facility] Other (15 sources) Amoxicillin Drug Allergy 4 Unknown Reaction [facility] (15 sources) Clavulanate Drug Allergy 4 Unknown Reaction [facility] (2 sources) No Known Medication Allergies; Translations: [No Known Medication Allergies] Propensity to adverse reactions (disorder) [facility] Repository (6 sources) Amoxicillin-Pot Clavulanate Drug Allergy 3 Unknown [facility] Medications Current Medications Medication Drug Class(es) Dates Sig (Normalized) Sig (Original) [id number] 200 actuat albuterol 0.09 mg/actuat metered dose inhaler (6 sources) beta2-Adrenergic Agonist Start: 03-12-2023 take 2 puff(s) by mouth every four hours albuterol HFA 90 mcg/act inhaler inhale 2 puffs by mouth every 4 hours if needed 03/12/2023 Active ALPRAZolam 0.5 mg oral tablet (20 sources) Benzodiazepine Start: 03-31-2017 take 1 tablet by mouth once daily Alprazolam (Xanax) 0.5 mg Tablet Active 1 TAB PO Daily March 31, 2017 12:00am Complies with drug therapy Start: 01-10-2015 take 1 tablet by higinio twice daily as needed for anxiety Xanax 0.5 mg Tab 0.5 mg = 1 tab(s), Oral, BID, PRN for anxiety, Refills(s) 0 Start Date: 01/10/15 Status: Ordered ALPRAZolam Activ e amoxicillin 875 mg oral tablet (3 sources) Penicillin-class Antibacterial Start: 11-06-2021 take 1 tablet by mouth every twelve hours Amoxicillin 875 MG 1 tablet Orally every 12 hrs for 7 days October, Active Amphetamine / Dextroamphetamine (5 sources) Central Nervous System Stimulant Start: 02-23-2019 take 1 tablet by mouth once daily in the morning Adderall 5 mg oral tablet 5 mg, 1 tab(s), Oral, qAM, Refill(s) 0, Prophylaxis Start Date: 02/23/19 Status: Ordered Amphetamine-Dext roamphetamine Active amphetamine aspartate 1.25 mg / amphetamine sulfate 1.25 mg / dextroamphetamine saccharate 1.25 mg / dextroamphetamine sulfate 1.25 mg oral tablet (20 sources) Central Nervous System Stimulant Start: 02-22-2025 take 2 tablets by mouth once daily Dextroamphetamine-Amphetamine 5 mg tablet Active 10 MG PO Daily February 22, 2025 8:31am Complies with drug therapy Start: 10-27-2023 End: 01-12-2024 take 1 tablet by mouth once daily Dextroamphetamine-Amphetamine (Adderall) 7.5 mg tablet Discontinued 7.5 MG PO Daily October 27, 2023 12:00am January 12, 2024 9:30am Start: 02-23-2019 End: 02-22-2025 take 1 tablet by mouth once daily Dextroamphetamine-Amphetamine 5 mg table t Discontinued 5 MG PO Daily October 07, 2023 12:00am February 22, 2025 8:31am Start: 03-31-2017 End: 10-07-2023 take 1 tablet by mouth once daily Dextroamphetamine-Amphetamine (Adderall) 10 mg Tablet Discontinued 10 MG PO Daily March 31, 2017 12:00am October 07, 2023 3:15pm benzonatate 200 mg oral capsule (6 sources) Non-narcotic Antitussive Start: 03-12-2023 benzonatate (Tessalon) 200 MG capsule Take 200 mg by mouth as needed in the morning and 200 mg as needed at noon and 200 mg as needed in the evening. 03/12/2023 Active bifidobacterium infantis 4 mg oral capsule (2 sources) Start: 06-08-2022 End: 07-06-2022 take 1 capsule by mouth once daily Align 4 mg oral capsule 4 mg = 1 cap(s), Oral, Daily, Take after completing the Antibiotics course, X 28 day(s), # 28 cap(s), Refills(s) 0, Pharmacy: [facility] [place] [facility] #[id number], 170, cm, 05/27/22 9:35:00 EST, Height/Length Dosing, 106.1, kg, 05/27/22 9:35:00 EST, Weight Dosing Start Date: 06/08/22 Stop Date: 07/06/22 Status: Ordered 12 hr buPROPion hydrochloride 150 mg extended release oral tablet (20 sources) Aminoketone Start: 02-23-2019 take 1 tablet by mouth twice daily Bupropion Hcl (Wellbutrin Sr) 150 mg tablet sustained-release 12 hr Active 150 MG PO Twice daily October 07, 2023 12:00am Complies with drug therapy Start: 11-25-2017 End: 10-07-2023 Bupropion Hcl 200 mg tablet extended release 12 hr Discontinued 150 MG PO Twice daily November 25, 2017 12:00am October 07, 2023 3:15pm Start: 11-25-2017 End: 10-07-2023 take 150 mg by mouth twice daily Bupropion Hcl Discontinued 150 MG PO Twice daily November 25, 2017 12:00am October 07, 2023 3:15pm Start: 03-31-2017 End: 11-25-2017 Bupropion Hcl (Wellbutrin Sr ) 100 mg Tablet Extended Release 12 Hr Discontinued 150 MG PO Twice daily March 31, 2017 12:00am November 25, 2017 12:12pm buPROPion (Wellb utrin) 75 MG tablet Active take 1 tablet by higinio th twice daily buPROPion (WELLBUTRIN SR) 200 MG extended release tablet Take 200 mg by mouth 2 times daily 0 Active busPIRone hydrochloride 15 mg oral tablet (20 sources) Start: 03-31-2017 take 1 tablet by mouth twice daily Buspirone 15 mg Tablet Active 15 MG PO Twice daily March 31, 2017 12:00am Complies with drug therapy take 1 tablet by mouth three aimee es daily busPIRone (BUSPAR) 15 MG tablet Take 15 mg by mouth 3 times daily 0 Active BuSpar Active Calcium (11 sources) Phosphate Binder, Calcium Calcium Active calcium carbonate 1500 mg / cholecalciferol 0.01 mg oral capsule (18 sources) Vitamin D Start: 7 take 1 capsule by mouth twice daily Calcium Carbonate-Vitamin D3 600 mg(1,500mg) -400 unit Capsule Active 600 MG PO Twice daily March 31, 2017 12:00am Complies with drug therapy Calcium Citrate / Vitamin D (20 sources) Start: 4 take 1 tablet by mouth once daily calcium-vitamin D 1 TAB, Oral, Daily Prophylaxis, Refill(s) 0 Start Date: 08/22/13 Status: Ordered Calcium Citrate- Vitamin D (CALCIUM + D PO) Active Calcium Citrate- Vitamin D (CALCIUM + D PO) Calcium + D Active cetirizine hydrochloride 5 mg oral tablet (20 sources) Histamine-1 Receptor Antagonist Start: 08-11-2021 take 1 tablet by mouth once daily as needed cetirizine 5 mg oral tablet 5 mg = 1 tab(s), Oral, Daily, PRN for allergy symptoms Start Date: 08/11/21 Status: Ordered Start: 05-14-2017 End: 12-09-2017 take 1 capsule by mouth once daily as needed Cetirizine (Allergy Relief (Cetirizine)) 10 mg Capsule Discontinued 10 MG PO Daily as needed for Allergy Symptoms May 14, 2017 1:00am December 09, 2017 9:15am cholestyramine resin 4000 mg powder for oral suspension (20 sources) Bile Acid Sequestrant Start: 10-07-2023 Cholestyramine (With Sugar) Active 1 EACH PO Daily October 07, 2023 12:00am Start: 08-26-2023 cholestyramine 4 g/9 g Oral Pwdr Oral, BID, Refill(s) 0, Diarrhea Start Date: 08/26/23 Status: Ordered Start: 08-10-2022 End: 02-06-2023 Questran 4 g/9 g oral powder = 1 packet(s), Oral, Daily, X 90 day(s), # 90 packet(s), Refills(s) 1, Pharmacy: [facility] #[id number], 170, cm, 08/10/22 15:03:00 EST, Height/Length Dosing, 106.1, kg, 08/10/22 15:03:00 EST, Weight Dosing Start Date: 08/10/22 Stop Date: 02/06/23 Status: Ordered Start: 08-10-2022 Cholestyramine (With Sugar) 4 gram powder Active 1 EACH PO Daily as needed October 07, 2023 12:00am Complies with drug therapy Start: 07-30-2021 Questran 4 g/9 g oral powder = 1 packet(s), Oral, Daily, # 30 EA, Refills(s) 11, Pharmacy: [id number], 170, cm, 07/30/21 9:23:00 EST, Height/Length Dosing, 102.6, kg, 07/30/21 9:23:00 EST, Weight Dosing Start Date: 07/30/21 Status: Ordered Start: 07-30-2021 Questran 4 g/9 g oral powder = 1 packet(s), Oral, Daily, # 30 EA, Refills(s) 11, Pharmacy: [id number] [place] [id number], 170, cm, 07/30/21 9:23:00 EST, Height/Length Dosing, 102.6, kg, 07/30/21 9:23:00 EST, Weight Dosing Start Date: 07/30/21 Status: Ordered take 1 dose by mouth once daily as needed Cholestyramine 4 GM/DOSE 1 packet mixed with water or non-carbonated drink Orally Once a day prn Active Cholestyramine A ctive dicyclomine hydrochloride 20 mg oral tablet (6 sources) Anticholinergic Start: 03-12-2023 dicyclomine (Bentyl) 20 MG tablet Take 20 mg by mouth as needed in the morning and 20 mg as needed at noon and 20 mg as needed in the evening and 20 mg as needed before bedtime. 03/12/2023 Active doxycycline monohydrate 100 mg oral tablet (6 sources) Tetracycline-class Drug Start: 08-31-2024 take 1 tablet by mouth twice daily Doxycycline Monohydrate 100 mg tablet Active 100 MG PO Twice daily 08 01August 31, 2024 1:00am Complies with drug therapy ferrous sulfate 325 mg oral tablet (12 sources) Start: 01-12-2024 take 1 tablet by mouth once daily Ferrous Sulfate (Feosol) 325 mg (65 mg iron) tablet Active 325 MG PO Daily January 12, 2024 12:00am Complies with drug therapy Fiber (7 sources) take 2 tablets by mouth three times daily as needed Fiber 625 MG 2 tablets as needed Orally Three times a day Active fluocinonide 0.5 mg/ml topical solution (10 sources) Corticosteroid Start: 10-23-2024 fluocinonide (Lidex) 0.05 % external solution Indications: Other seborrheic dermatitis Apply to affected areas on the scalp, up to once a day when flared, 30 day supply 60 mL 11 10/23/2024 Active Start: 10-23-2024 fluocinonide ( Lidex) 0.05 % external solution Indications: Other seborrheic dermatitis Apply to affected areas on the scalp, up to once a day when flared, 30 day supply 60 mL 10/23/2024 Active Start: 04-27-2023 End: 10-23-2024 fluocinonide (Lidex) 0.05 % external solution Indications: Other seborrheic dermatitis Apply to affected areas on the scalp, up to once a day when flared, 30 day supply 60 mL 04/24/2024 10/23/2024 Discontinued gabapentin 100 mg oral capsule (1 source) Anti-epileptic Agent Start: 09-09-2018 take 1 capsule by mouth three times daily gabapentin (NEURONTIN) 100 MG capsule Take 1 capsule by mouth 3 times daily for 30 days. 90 capsule 0 09/09/2018 Active hydrocortisone 25 mg/ml topical cream (11 sources) Corticosteroid Start: 04-24-2024 hydrocortisone 2.5 % cream Indications: Other specified dermatitis Apply topically 2 (two) times a day as needed (Rash) Apply thin layer to affected areas on the face and around the ears bid prn for flares 30 g 04/24/2024 Active Start: 04-27-2023 Hydrocortisone Acetate 2.5 % cream Indications: Other specified dermatitis Apply to affected areas on the face, ears, and neck bid when flared 30 g 11 04/27/2023 Active Ibgard 90 mg oral delayed release capsule (5 sources) Start: 02-16-2024 take 2 capsules by mouth twice daily Ibgard 90 mg oral delayed release capsule 180 mg = 2 cap(s), Oral, BID, # 90 cap(s), Refills(s) 6, Pharmacy: [facility] #[id number], 170, cm, 01/31/24 9:31:00 EDT, Height/Length Dosing, 95, kg, 01/31/24 9:31:00 EDT, Weight Dosing Start Date: 02/16/24 Status: Ordered Start: 10-04-2023 take 2 capsules by m outh twice daily Ibgard 90 mg oral delayed release capsule 180 mg = 2 cap(s), Oral, BID, # 90 cap(s), Refills(s) 6, [id number], 170, cm, 10/04/23 8:59:00 EDT, Height/Length Dosing, 97, kg, 10/04/23 8:59:00 EDT, Weight Dosing Start Date: 10/04/23 Status: Ordered Iron Chews (9 sources) Start: 02-09-2023 take 15 mg by mouth once daily Iron Chews 15 mg, Oral, Daily, Refills(s) 0, Prophylaxis Start Date: 02/09/23 Status: Ordered Start: 02-09-2023 Iron Chews Ref ills(s) 0 Start Date: 02/09/23 Status: Ordered losartan potassium 100 mg oral tablet (20 sources) Angiotensin 2 Receptor Mike Start: 05-23-2024 End: 11-17-2024 take 1 tablet by mouth once daily Losartan 100 mg tablet Active 0 .ROUTE .COMPLEX 90 November 17, 2024 8:29am TAKE 1 TABLET BY MOUTH ONCE DAILY Complies with drug therapy Start: 02-23-2019 End: 05-23-2024 take 1 tablet by mouth once daily Losartan 100 mg tablet Discontinued 100 MG PO Daily October 07, 2023 12:00am May 23, 2024 9:32am Start: 11-25-2017 End: 10-07-2023 take 2 tablets by mouth once daily in the morning Losartan 50 mg tablet Discontinued 100 MG PO Every morning November 25, 2017 12:00am October 07, 2023 3:15pm Start: 11-25-2017 End: 10-07-2023 take 100 mg by mouth once daily in the morning Losartan Discontinued 100 MG PO Every morning November 25, 2017 12:00am October 07, 2023 3:15pm Start: 05-14-2017 End: 05-14-2017 Losartan 50 mg tablet Discon tinued May 14, 2017 1:00am May 14, 2017 12:25pm Start: 05-14-2017 End: 05-14-2017 Losartan 50 mg tablet Discon tinued TABLET May 14, 2017 1:00am May 14, 2017 12:25pm Start: 05-14-2017 End: 05-14-2017 Losartan Discontinued TABLET May 14, 2017 1:00am May 14, 2017 12:25pm Losartan Potassi um Active meloxicam 15 mg oral tablet (1 source) Nonsteroidal Anti-inflammatory Drug take 1 tablet by mouth once daily meloxicam (MOBIC) 15 MG tablet Take 15 mg by mouth daily 0 Active metroNIDAZOLE 250 mg oral tablet (2 sources) Nitroimidazole Antimicrobial Start: 06-08-20 End: 06-15-20 take 1 tablet by mouth three times daily Flagyl 250 mg Tab 250 mg = 1 tab(s), Oral, TID, X 7 day(s), # 21 tab(s), Refills(s) 0, [id number], 170, cm, 05/27/22 9:35:00 EST, Height/Length Dosing, 106.1, kg, 05/27/22 9:35:00 EST, Weight Dosing Start Date: 06/08/22 Stop Date: 06/15/22 Status: Ordered Multiple Vitamin (MULTIVITAMIN ADULT PO) (6 sources) Multiple Vitamin (MULTIVITAMIN ADULT PO) Active Multiple Vitamin (MULTIVITAMIN ADULT PO) Multivitamin Active Multivitamin Capsule (7 sources) Start: 03-31-2017 take 1 capsule by mouth once daily Multivitamin Capsule Active 1 CAP PO Daily March 31, 2017 12:00am Complies with drug therapy Start: 03-31-2017 take 1 capsule by mo uth once daily Start: 03-31-2017 take 1 capsule by mo uth once daily Multivitamin Capsule Active 1 CAP PO Daily March 31, 2017 12:00am Start: 03-31-2017 take 1 capsule by mo uth once daily Multivitamin Capsule Active 1 CAP PO Daily March 30, 2017 11:00pm Multivitamin preparation (11 sources) Start: 03-31-2017 take 1 capsule by mouth once daily Multivitamin Active 1 CAP Oral Daily March 31, 2017 4:22pm Start: 03-31-2017 take 1 capsule by mo uth once daily Multivitamin Active 1 CAP PO Daily March 31, 2017 12:00am Multivitamins (11 sources) Multivitamins Or ally Active Multivitamins and Minerals (20 sources) Start: 08-22-2013 take 1 tablet by mouth once daily Multivitamins and Minerals 1 TAB, Oral, Daily, Refill(s) 0, Prophylaxis Start Date: 08/22/13 Status: Ordered Nature's Bounty Probiotic (9 sources) Start: 02-09-2023 Nature's Bounty Probiotic Refill(s) 0, Prophylaxis Start Date: 02/09/23 Status: Ordered Start: 02-09-2023 Nature's Bount y Probiotic Refill(s) 0 Start Date: 02/09/23 Status: Ordered Pediatric Multivitamins-Iron (FRUITY CHEWS/IRON PO) (6 sources) Start: 02-09-2023 Pediatric Mult ivitamins-Iron (FRUITY CHEWS/IRON PO) 02/09/2023 Active Start: 02-09-2023 Pediatric Mult ivitamins-Iron (FRUITY CHEWS/IRON PO) Refills(s) 0 02/09/2023 Active [employer] (14 sources) Start: 11-25-2021 [facility] Oral, Daily, Refill(s) 0 Start Date: 11/25/21 Status: Ordered polyethylene glycol 3350 32631 mg powder for oral solution (5 sources) Osmotic Laxative Start: 10-04-2023 take 17 g by mouth once daily as needed for constipation Miralax 3350 17 gram packet 17 gm, Oral, Daily, PRN Constipation, # 100 EA, Refills(s) 6, Pharmacy: [facility] #[id number], 170, cm, 10/04/23 8:59:00 EDT, Height/Length Dosing, 97, kg, 10/04/23 8:59:00 EDT, Weight Dosing Start Date: 10/04/23 Status: Ordered polyethylene glycol 3350 [id number] mg / potassium chloride 1480 mg / sodium bicarbonate 5720 mg / sodium chloride 64690 mg powder for oral solution (1 source) Osmotic Laxative Start: 02-01-2024 NuLYTELY [place] oral powder for reconstitution See Instructions, 1 EA, Refill(s) 0, See physician's instruction prior to procedure., [facility] #[id number], 170, cm, 01/31/24 9:31:00 EDT, Height/Length Dosing, 95, kg, 01/31/24 9:31:00 EDT, Weight Dosing Start Date: 02/01/24 Status: Ordered saccharomyces boulardii 250 mg oral capsule (20 sources) Start: 01-12-2024 take 1 capsule by mouth twice daily Saccharomyces Boulardii (Daily Probiotic (S. Boulardii)) 250 mg capsule Active 250 MG PO Twice daily January 12, 2024 12:00am Complies with drug therapy Gas-X (7 sources) Start: 08-26-2023 Gas-X 80 mg, Chewed, QIDPCHS, PRN Gas, Refills(s) 0 Start Date: 08/26/23 Status: Ordered Start: 08-26-2023 Gas-X mg, Chew ed, QIDPCHS, Refills(s) 0 Start Date: 08/26/23 Status: Ordered triamcinolone acetonide 1 mg/ml topical cream (20 sources) Corticosteroid Start: 10-23-2024 triamcinolone (Kenalog) 0.1 % cream Indications: Other specified dermatitis Apply topically 2 (two) times a day as needed for rash Apply to affected areas on the body bid when flared. Avoid the face, armpits, and groin 240 g 11 10/23/2024 Active Start: 10-23-2024 triamcinolone (Kenalog) 0.1 % cream Indications: Other specified dermatitis Apply topically 2 (two) times a day as needed for rash Apply to affected areas on the body bid when flared. Avoid the face, armpits, and groin 240 g 11 10/23/2024 Active Start: 04-27-2023 End: 10-23-2024 triamcinolone (Kenalog) 0.1 % cream Indications: Other specified dermatitis Apply topically 2 (two) times a day as needed for rash Apply to affected areas on the body bid when flared. Avoid the face, armpits, and groin 240 g 11 04/24/2024 10/23/2024 Discontinued Start: 11-25-2017 End: 10-07-2023 Triamcinolone Acetonide 0.1 % cream Discontinued 0.1 PERCENT TOPICAL Daily as needed for Rash November 25, 2017 12:00am October 07, 2023 3:15pm Start: 05-14-2017 End: 09-13-2017 Triamcinolone Acetonide 0.1 % Cream Discontinued 1 APPLIC TOPICAL Daily May 14, 2017 1:00am September 13, 2017 11:16am vitamin b12 1 mg oral tablet (20 sources) Vitamin B12 Start: 05-14-2017 take 1 tablet by mouth once daily Cyanocobalamin (Vitamin B-12) (Vitamin B-12) 1,000 mcg Tablet Active 1000 MCG PO Daily May 14, 2017 1:00am Complies with drug therapy Vitamin B 12 Act vaishali Vitamin B Complex oral tablet (20 sources) Start: 01-10-2015 take 1 tablet by mouth once daily Vitamin B Complex oral tablet 1 tab(s), Chewed, Daily, Refill(s) 0, Prophylaxis Start Date: 01/10/15 Status: Ordered Vitamin D (20 sources) Start: 02-09-2023 Vitamin D Oral , Daily, Refills(s) 0, Prophylaxis Start Date: 02/09/23 Status: Ordered Start: 02-09-2023 Vitamin D Refi lls(s) 0 Start Date: 02/09/23 Status: Ordered Vitamin D Active Completed/Discontinued Medications Medication Drug Class(es) Dates Sig (Normalized) Sig (Original) aspirin 325 mg oral tablet (17 sources) Platelet Aggregation Inhibitor, Nonsteroidal Anti-inflammatory Drug Start: 03-31-2017 End: 05-14-2017 take 1 tablet by mouth once daily Aspirin 325 mg Tablet Discontinued 325 MG PO Daily March 31, 2017 12:00am May 14, 2017 12:25pm calcium polycarbophil 625 mg oral tablet (20 sources) Start: 10-07-2023 End: 10-27-2023 Calcium Polycarbophil (Fiber (Calcium Polycarbophil)) 625 mg tablet Discontinued 1250 MG PO Three times daily October 07, 2023 12:00am October 27, 2023 8:26am Start: 05-27-2022 take 1 tablet by higinio th four times daily as needed for constipation Fiber Tabs 1,250 mg, Oral, QID, PRN Constipation, Refills(s) 0 Start Date: 05/27/22 Status: Ordered Start: 05-27-2022 Fiber Tabs Ref ills(s) 0 Start Date: 05/27/22 Status: Ordered cephalexin 500 mg oral capsule (4 sources) Cephalosporin Antibacterial Start: 07-07-2021 take 1 capsule by mouth every eight hours Cephalexin 500 MG 1 capsule Orally three times a day for 7 days Jun, Not-Taking cyclobenzaprine hydrochloride 10 mg oral tablet (13 sources) Muscle Relaxant Start: 04-27-2024 End: 02-22-2025 take 1 tablet by mouth once Cyclobenzaprine 10 mg tablet Discontinued 10 MG PO Once 30 June 07, 2024 1:00am February 22, 2025 8:30am hydrOXYzine hydrochloride 25 mg oral tablet (17 sources) Antihistamine Start: 05-14-2017 End: 01-30-2019 take 1 tablet by mouth once daily at bedtime Hydroxyzine Hcl 25 mg Tablet Discontinued 25 MG PO Daily at bedtime May 14, 2017 1:00am January 30, 2019 10:10am iopamidol (ISOVUE-370) 76 % injection 75 mL (1 source) Start: 09-17-2023 End: 09-17-2023 iopamidol (ISOVUE-370) 76 % injection 75 mL Lactobacillus Comb No.10 (Probiotic) 20 billion cell Capsule (17 sources) Start: 05-14-2017 End: 11-25-2017 Lactobacillus Comb No.10 (Probiotic) 20 billion cell Capsule Discontinued 09543 MMU CELLS PO Daily as needed for Constipation May 14, 2017 1:00am November 25, 2017 12:14pm Start: 05-14-2017 End: 11-25-2017 Lactobacillus Comb No.10 (Pr obiotic) 20 billion cell Capsule Discontinued 75785 MMU CELLS PO Daily as needed for Constipation May 14, 2017 12:00am November 25, 2017 11:14am Start: 05-14-2017 End: 11-25-2017 Lactobacillus Comb No.10 (Pr obiotic) 20 billion cell Capsule Discontinued 54555 MMU CELLS PO Daily May 14, 2017 1:00am November 25, 2017 12:14pm loratadine 10 mg oral tablet (17 sources) Start: 02-01-2020 End: 10-07-2023 take 1 tablet by mouth once daily Loratadine 10 mg Tablet Discontinued 10 MG PO Daily February 01, 2020 12:00am October 07, 2023 3:15pm methylPREDNISolone 4 mg oral tablet (17 sources) Corticosteroid Start: 01-13-2018 End: 02-07-2018 take 1 tablet by mouth once Methylprednisolone (Medrol (Dylan)) 4 mg Tablets,Dose Pack Discontinued 0 PO per package directions January 13, 2018 12:00am February 07, 2018 12:46pm For 6 days nitroglycerin 0.4 mg sublingual tablet (17 sources) Nitrate Vasodilator Start: 03-31-2017 End: 01-30-2019 Nitroglycerin (Nitrostat) 0.4 mg Tablet, Sublingual Discontinued 0.4 MG SUBLINGUAL every 5 to 15 minutes as needed for Chest Pain March 31, 2017 12:00am January 30, 2019 10:10am nystatin 100 unt/mg topical powder (18 sources) Polyene Antifungal Start: 08-03-2019 End: 10-07-2023 Nystatin 100,000 unit/gram Powder Discontinued 1 APPLIC TOPICAL Twice daily 60 30 August 03, 2019 1:00am October 07, 2023 3:15pm pantoprazole 40 mg delayed release oral tablet (20 sources) Proton Pump Inhibitor Start: 11-09-2022 End: 02-22-2025 take 1 tablet by mouth once daily Pantoprazole 40 mg tablet,delayed release (DR/EC) Discontinued 40 MG PO Daily January 12, 2024 12:00am February 22, 2025 8:30am Start: 05-27-2022 End: 11-08-2022 take 1 tablet by mouth once daily Pantoprazole [address] Tab 40 mg = 1 tab(s), Oral, Daily, X 90 day(s), # 90 tab(s), Refills(s) 0, Pharmacy: [facility] #[id number], 170, cm, 08/10/22 15:03:00 EST, Height/Length Dosing, 106.1, kg, 08/10/22 15:03:00 EST, Weight Dosing Start Date: 08/10/22 Stop Date: 11/08/22 Status: Ordered phenazopyridine hydrochloride 200 mg oral tablet (4 sources) Start: 07-07-2021 take 1 tablet by mouth every eight hours Pyridium 200 MG 1 tablet after meals Orally Three times a day for 2 day(s) Jun, Not-Taking sulfamethoxazole 800 mg / trimethoprim 160 mg oral tablet (2 sources) Dihydrofolate Reductase Inhibitor Antibacterial, Sulfonamide Antimicrobial Start: 02-05-2025 End: 02-22-2025 take 1 tablet by mouth twice daily Sulfamethoxazole- Trimethoprim 800-160 mg tablet Discontinued 1 TAB PO Twice daily February 05, 2025 12:00am February 22, 2025 8:27am Problems Active Problems Problem Classification Problem Date Documented Da te Episodic/Chronic Abdominal pain (20 sources) Abdominal pain; Translations: [Unspecified abdominal pain] Onset: 2 Episodic Allergic reactions (4 sources) Eczema; Translations: [Other specified dermatitis] 04-24-2024 Episodic Anxiety disorders (5 sources) Anxiety; Translations: [Anxiety disorder, unspecified] Chronic Cancer of other GI organs; peritoneum (1 source) Malignant neoplasm of gastrointestinal tract; 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 Cancer of rectum and anus (14 sources) Malignant tumor of anus 08-18-2022 Chronic Comment on above: 2013 Cancer of rectum and anus (8 sources) History of malignant neoplasm of rectum; Translations: [Personal history of other malignant neoplasm of rectum, rectosigmoid junction, and anus] Onset: 4 Episodic Deficiency and other anemia (11 sources) Anemia due to blood loss; Translations: [Iron deficiency anemia secondary to blood loss (chronic)] Chronic Deficiency and other anemia (20 sources) Iron deficiency anemia; Translations: [Iron deficiency anemia, unspecified] 05-14-2017 Episodic Deficiency and other anemia (1 source) Iron deficiency anemia, unspecified; Translations: [Chronic iron deficiency anemia] Episodic Disorders of lipid metabolism (17 sources) Hyperlipidemia; Translations: [Hyperlipidemia, unspecified] Onset: 7 01-12-2024 Chronic Esophageal disorders (20 sources) Gastroesophageal reflux disease without esophagitis; Translations: [Gastro-esophageal reflux disease without esophagitis] Onset: 2 Chronic Essential hypertension (1 source) Essential (primary) hypertension; Translations: [Essential (primary) hypertension] Onset: 5 Chronic Fracture of upper limb (19 sources) Fracture of unspecified phalanx of right thumb, initial encounter for closed fracture; Translations: [Closed fracture of phalanx of thumb] 08-04-2019 Episodic Gastrointestinal hemorrhage (11 sources) Hematochezia; Translations: [Melena] Episodic Genitourinary symptoms and ill-defined conditions (15 sources) Unspecified urinary incontinence; Translations: [Urinary incontinence] Onset: 3 Chronic Genitourinary symptoms and ill-defined conditions (20 sources) Unspecified symptoms and signs involving the genitourinary system; Translations: [Dysuria] Onset: 2 Resolved: 2 Episodic Headache; including migraine (19 sources) Headache; Translations: [Chronic headache disorder] 01-30-2019 Episodic Immunizations and screening for infectious disease (2 sources) Contact with and (suspected) exposure to other viral communicable diseases Onset: 2 Resolved: 2 Episodic Mood disorders (20 sources) Depressive disorder 01-10-2015 Chronic Nausea and vomiting (20 sources) Nausea; Translations: [Nausea] Onset: 2 Episodic Nutritional deficiencies (17 sources) Vitamin D deficiency; Translations: [Vitamin D deficiency, unspecified] Onset: 5 01-12-2024 Chronic Osteoarthritis (20 sources) Osteoarthritis of hip; Translations: [Osteoarthritis of hip, unspecified] 10-08-2023 Chronic Other acquired deformities (14 sources) Scoliosis deformity of spine; Translations: [Scoliosis, unspecified] 10-27-2023 Chronic Other acquired deformities (10 sources) Scoliosis, unspecified; Translations: [Scoliosis [and kyphoscoliosis], idiopathic] 10-27-2023 Chronic Other and unspecified benign neoplasm (1 source) Benign neoplasm, unspecified site; Translations: [Tumor cells, benign] Episodic Other and unspecified benign neoplasm (20 sources) History of polyp of colon; Translations: [Personal history of colonic polyps] Onset: 2 Episodic Other and unspecified benign neoplasm (18 sources) Tubular adenoma ; Translations: [Benign neoplasm, unspecified site] 05-14-2017 Episodic Other and unspecified benign neoplasm (20 sources) Polyp of colon 08-26-2021 Episodic Other and unspecified benign neoplasm (2 sources) Melanocytic nevus of trunk; Translations: [Melanocytic nevi of trunk] 04-24-2024 Episodic Other and unspecified benign neoplasm (2 sources) Senile angioma; Translations: [Hemangioma of skin and subcutaneous tissue] 10-23-2024 Episodic Other congenital anomalies (2 sources) Porokeratosis; Translations: [Other specified congenital malformations of skin] 10-23-2024 Chronic Other connective tissue disease (1 source) Pain in left lower leg Episodic Other diseases of kidney and ureters (1 source) Acquired renal cyst without neoplastic change; Translations: [Cyst of kidney, acquired] Onset: 3 Episodic Other diseases of kidney and ureters (14 sources) Cyst of kidney 08-25-2022 Episodic Other female genital disorders (1 source) Vulvar cyst; Translations: [Pelvic hematoma in female] Episodic Other female genital disorders (18 sources) Labial cyst; Translations: [Vulvar cyst] 05-14-2017 Episodic Other gastrointestinal disorders (9 sources) Intestinal malabsorption; Translations: [Other intestinal malabsorption] Onset: 2 Chronic Other gastrointestinal disorders (5 sources) Bariatric surgery status; Translations: [Bariatric surgery status] 01-12-2024 Episodic Other gastrointestinal disorders (14 sources) H/O: GIT by-pass; Translations: [Bariatric surgery status] 04-05-2018 Episodic Other gastrointestinal disorders (4 sources) Toxic gastroenteritis and colitis; Translations: [TOXIC GASTROENTERITIS AND COLITIS] Onset: 2 Episodic Other gastrointestinal disorders (2 sources) Digestive system finding; Translations: [Other specified symptoms and signs involving the digestive system and abdomen] Onset: 2 Episodic Other gastrointestinal disorders (20 sources) Incontinence of feces; Translations: [Full incontinence of feces] Onset: 2 Episodic Other gastrointestinal disorders (20 sources) Irregular bowel habits 11-25-2021 Episodic Other gastrointestinal disorders (20 sources) Loose stool 08-26-2021 Episodic Other gastrointestinal disorders (20 sources) Non-infective diarrhea 11-25-2021 Episodic Other gastrointestinal disorders (11 sources) Diarrhea; Translations: [Diarrhea, unspecified] Episodic Other gastrointestinal disorders (4 sources) Constipation by outlet obstruction; Translations: [Outlet dysfunction constipation] Onset: 2 Episodic Other gastrointestinal disorders (1 source) Abnormal feces; Translations: [Other fecal abnormalities] Onset: 2 Episodic Other gastrointestinal disorders (19 sources) Abnormal defecation 05-27-2022 Episodic Other gastrointestinal disorders (1 source) Swollen abdomen; Translations: [Abdominal distension (gaseous)] Onset: 4 Episodic Other gastrointestinal disorders (7 sources) Abdominal bloating 08-26-2023 Episodic Other gastrointestinal disorders (3 sources) Constipation, unspecified; Translations: [Constipation, unspecified] Onset: Episodic Other gastrointestinal disorders (4 sources) Constipation 01-28-2024 Episodic Other hematologic conditions (20 sources) Personal history of diseases of the blood and blood-forming organs and certain disorders involving the immune mechanism; Translations: [H/O: anemia - iron deficient] Onset: 5 01-30-2019 Episodic Other inflammatory condition of skin (4 sources) Seborrheic dermatitis; Translations: [Other seborrheic dermatitis] 04-24-2024 Episodic Other nervous system disorders (20 sources) Chronic pain; Translations: [Other chronic pain] 11-16-2023 Chronic Other nervous system disorders (12 sources) Other chronic pain; Translations: [Other chronic pain] 11-18-2023 Chronic Other non-epithelial cancer of skin (20 sources) Squamous cell carcinoma of anal skin; Translations: [Malignant tumor of anus] 05-14-2017 Episodic Other non-traumatic joint disorders (11 sources) Elbow joint effusion; Translations: [Effusion of elbow joint, right] Episodic Other non-traumatic joint disorders (11 sources) Pain in elbow; Translations: [Elbow pain, right] Episodic Other non-traumatic joint disorders (1 source) Pain in unspecified joint Episodic Other non-traumatic joint disorders (5 sources) Pain in unspecified knee; Translations: [Knee pain] 09-27-2024 Episodic Other nutritional; endocrine; and metabolic disorders (11 sources) Obese class II; Translations: [Body mass index (BMI) 36.0-36.9, adult] Chronic Other nutritional; endocrine; and metabolic disorders (1 source) Obesity; Translations: [Class 1 obesity with body mass index (BMI) of 34.0 to 34.9 in adult] 02-22-2025 Chronic Other screening for suspected conditions (not mental disorders or infectious disease) (20 sources) Culture positive for methicillin resistant Staphylococcus aureus; Translations: [Patient encounter status] 08-18-2022 Episodic Other skin disorders (1 source) Rash and other nonspecific skin eruption Episodic Other skin disorders (4 sources) Seborrheic keratosis; Translations: [Other seborrheic keratosis] 04-24-2024 Episodic Other skin disorders (2 sources) Inflamed seborrheic keratosis; Translations: [Inflamed seborrheic keratosis] 04-24-2024 Episodic Other skin disorders (2 sources) Asteatosis cutis; Translations: [Xerosis cutis] 04-24-2024 Episodic Other skin disorders (2 sources) Skin tag; Translations: [Other hypertrophic disorders of the skin] 04-24-2024 Episodic Other upper respiratory infections (8 sources) Maxillary sinusitis; Translations: [Chronic maxillary sinusitis] 08-31-2024 Chronic Other upper respiratory infections (11 sources) Sore throat symptom; Translations: [Acute pharyngitis, unspecified] Onset: 2 Resolved: 2 Episodic Residual codes; unclassified (10 sources) Obstructive sleep apnea syndrome; Translations: [Obstructive sleep apnea (adult) (pediatric)] Onset: 3 Chronic Residual codes; unclassified (1 source) Obstructive sleep apnea (adult) (pediatric) Chronic Residual codes; unclassified (20 sources) Family history of cancer of colon; Translations: [Family history of malignant neoplasm of digestive organs] 08-04-2019 Episodic Residual codes; unclassified (4 sources) Family history of malignant neoplasm of digestive organ; Translations: [Family history of malignant neoplasm of digestive organs] Onset: 4 Episodic Residual codes; unclassified (2 sources) Menopause present; Translations: [Asymptomatic menopausal state] 02-22-2025 Episodic Spondylosis; intervertebral disc disorders; other back problems (20 sources) Cervical disc disorder, unspecified, unspecified cervical region; Translations: [Cervical disc disorder] 01-30-2019 Chronic Spondylosis; intervertebral disc disorders; other back problems (20 sources) Sacroiliac joint pain; Translations: [Sacrococcygeal disorders, not elsewhere classified] 10-27-2023 Episodic Sprains and strains (11 sources) Strain of muscle and/or tendon of elbow region; Translations: [Strain of elbow, right] Episodic Systemic lupus erythematosus and connective tissue disorders (4 sources) Other giant cell arteritis; Translations: [OTHER GIANT CELL ARTERITIS] Onset: 1 Chronic Unclassified (3 sources) CONTACT W/AND (SUSP) EXPOS COVID-19; Translations: [CONTACT W/AND (SUSP) EXPOS COVID-19] Onset: 2 Urinary tract infections (16 sources) Acute cystitis with hematuria; Translations: [Urinary tract infectious disease] Onset: 2 Resolved: 2 Episodic Past or Other Problems Problem Classification Problem Date Documented Da papito Episodic/Chronic Otitis media and related conditions (1 source) Otitis media, unspecified, right ear Onset: 11-06-2021 Resolved: 11-06-2021 Episodic Unclassified (1 source) CONTACT W/AND (SUSP) EXPOS COVID-19; Translations: [CONTACT W/AND (SUSP) EXPOS COVID-19] Onset: 07-03-2021 Unclassified (20 sources) Finding of sensation of abdomen 11-25-2021 Viral infection (2 sources) COVID-19 Results Test Name Value Interpretation Reference Range Facility Pulmonology Office/Clinic Janice ho 02-14-2025 Pulmonology Office/Clinic Note Pulmonology Office/Clinic Note History of Present Illness Here for follow-up for underlying obstructive sleep apnea. The patient reports that she continues to use her auto titrating CPAP with a pressure range of 5 to 15 cm via a fullface mask and has been tolerating relatively well. She reports that her sleep quality has improved along with her energy and daytime sleepiness. Her weight has been relatively stable since her last visit. Review of Systems Constitutional: no fever, no chills, no sweats, no weakness Skin: no Jaundice, no rash, no lesions, no petechiae ENT: no ear pain, no sore throat, no congestion, no hoarseness Respiratory: Denies shortness of breath, cough or wheezing Cardiovascular: no chest pain, no palpitations, no edema Gastrointestinal: no nausea, no vomiting, no diarrhea, no GI bleeding Genitourinary: no dysuria, no hematuria, no discharge, no pain Musculoskeletal: no back pain, no trauma Neurologic: no headache, no dizziness, no numbness, no weakness Psychiatric: no irritability, no mood swings/depression. Heme/Lymph: no bleeding tendency, no bruising tendency, no petechiae, no swollen nodes Allergy/Immunologic: no seasonal allergies, no food allergies, no recurrent infections, no impaired immunity Additional ROS info: Except as noted in the above Review of Systems and in the History of Present Illness all other systems have been reviewed and are negative or noncontributory. Physical Exam Vitals & Measurements HR: 77(Peripheral) BP: 125/78 SpO2: 99% HT: 170 cm WT: 100 kg BMI: 34.6 General: Awake and alert in no acute distress HEENT: NC, AT. Prolonged soft palate Neck: Supple no JVD Assessment/Plan 1. JASWINDER (obstructive sleep apnea) (G47.33: Obstructive sleep apnea (adult) (pediatric)) Appears to be doing well on current pressures without significant side effects with good tolerance and compliance with CPAP with a significant improvement in the apnea hypopnea index to 5/hour with mild leakage based on her most recent download from January 14, 2025 till February 12, 2025 which was reviewed with the patient today. The patient was advised to clean the machine regularly and change supplies as needed. Avoid driving while sleepy and avoid sedatives and hypnotics such as alcohol. We will continue with same pressure unless new issues develop and see the patient back after 1 year. The patient will call us back in the meantime if any issues. Follow-up With When Contact Information Quyen BOO, Aishwarya Blanc, PUL, CHARITY Within 6 weeks [address] [facility] [place] [address]- Additional Instructions: Problem List/Past Medical History Ongoing Acid reflux Bile salt-induced diarrhea Bloating Colon polyp Constipation Dyssynergic defecation Family history of colon cancer Fecal incontinence History of anal cancer History of colon polyps Irregular bowel habits Loose stools Lower abdominal pain JASWINDER (obstructive sleep apnea) Recurrent UTI Renal cyst Urinary leakage Historical Abdominal cramping Nausea UTI symptoms Procedure/Surgical History Colonoscopy (04/10/2024), Colonoscopy (09/21/2023), Esophagogastroduodenos copy (07/22/2022), Cataract extraction and insertion of intraocular lens (03/14/2019), Cataract extraction and insertion of intraocular lens (02/28/2019), Cystourethroscopy with dilation of urethral stricture (02/28/2016), removal of right ean bullosa, septoplasty and bilateral inferior turbinate submucosal resection (01/10/2015), Cholecystectomy (06/28/2007), Cholecystectomy (05/28/2007), Gastric bypass (06/28/2002), Hysterectomy (06/28/2000), Tubal ligation (06/28/1999), Carpal tunnel release (06/28/1997), Sinus probing (06/28/1997), EGD (esophagogastroduodeno scopic) electrohydraulic lithotripsy of bezoar in stomach, Knee. Medications Adderall 5 mg oral tablet, 5 mg= 1 tab(s), Oral, qAM busPIRone 15 mg Tab, Oral, BID calcium-vitamin D, 1 TAB, Oral, Daily, PRN cetirizine 5 mg oral tablet, 5 mg= 1 tab(s), Oral, Daily, PRN, Self Directed cholestyramine 4 g/9 g Oral Pwdr, Oral, BID Fiber Tabs, 1250 mg, Oral, QID, PRN, Self Directed Gas-X, 80 mg, Chewed, QIDPCHS, PRN, Self Directed Ibgard 90 mg oral delayed release capsule, 180 mg= 2 cap(s), Oral, BID, 6 refills, Not taking Iron Chews, 15 mg, Oral, Daily losartan 100 mg Tab, 100 mg= 1 tab(s), Oral, Daily Miralax 3350 17 gram packet, 17 gm, Oral, Daily, PRN, 6 refills, Self Directed Multivitamins and Minerals, 1 TAB, Oral, Daily Nature's Bounty Probiotic, Self Directed: pt does not take daily MSRN Vitamin B Complex oral tablet, 1 tab(s), Chewed, Daily Vitamin D, Oral, Daily Wellbutrin SR 150 mg Tab-ER, 150 mg= 1 tab(s), Oral, BID Xanax 0.5 mg Tab, 0.5 mg= 1 tab(s), Oral, BID, PRN, Self Directed Allergies Cats (Unknown) Dust (Unknown) FLUoxetine (Wheal) amLODIPine (Eruption) kiwi (Tongue swelling, Swelling of throat) Social History Alcohol - Low Risk, (more content not included)... Normal [facility] Comment on above: Result Comment: Elec tronically Signed By: Quyen BOO, Aishwarya Blanc\.br\Date and Time Signed: 02/14/25 11:11 EDT Alanine aminotransferase [En zymatic activity/volume] in Serum or PlasmaOrdered By: Kaitlyn Saldivar on 02-08-2025 ALT [Catalytic activity/Vol] 19 U/L 7-52 [facility] Comment on above: Performed By: #### B 12, [id number], WHITNEY, CBC, FE and TIBC, CMP, LIPID #### [facility] [address] [place] [address] Albumin [Mass/volume] in Ser um or Plasma by Bromocresol green (BCG) dye binding methoOrdered By: Kaitlyn Saldivar on 02-08-2025 Albumin BCG dye [Mass/Vol] 4.1 g/dL 3.5-5.7 [facility] Alkaline phosphatase [Enzyma tic activity/volume] in Serum or PlasmaOrdered By: Kaitlyn Saldivar on 02-08-2025 ALP [Catalytic activity/Vol] 86 U/L 34-104 [facility] Comment on above: Performed By: #### B 12, [id number], WHITNEY, CBC, FE and TIBC, CMP, LIPID #### [address] Aspartate aminotransferase [ Enzymatic activity/volume] in Serum or PlasmaOrdered By: Kaitlyn Saldivar on 02-08-2025 AST [Catalytic activity/Vol] 23 U/L 13-39 [facility] Comment on above: Performed By: #### B 12, [id number], WHITNEY, CBC, FE and TIBC, CMP, LIPID #### [facility] [address] [place] [address] [place] Basophils [#/volume] in Bloo d by Automated countOrdered By: Kaitlyn Saldivar on 02-08-2025 Basophils (Bld) [#/Vol] 0.0 10*3/uL 0.0-0.2 [facility] Comment on above: Result Comment: PERF ORMED BY: [place] [address] PATHOLOGIST [employer] RENETTA LOPES M.D. Performed By: #### B 12, [id number], WHITNEY, CBC, FE and TIBC, CMP, LIPID #### [place] [address] [place] Basophils/100 leukocytes in Blood by Automated countOrdered By: Kaitlyn Saldivar on 02-08-2025 Basophils/100 WBC (Bld) 0.4 % . [facility] Comment on above: Performed By: #### B 12, [id number], WHITNEY, CBC, FE and TIBC, CMP, LIPID #### [facility] [address] Bilirubin.total [Mass/volume ] in Serum or PlasmaOrdered By: Kaitlyn Saldivar on 02-08-2025 Bilirubin [Mass/Vol] 0.6 mg/dL 0.3-1.0 [facility] Comment on above: Performed By: #### B 12, [id number], WHITNEY, CBC, FE and TIBC, CMP, LIPID #### [facility] [address] Calcium [Mass/volume] in Ser um or PlasmaOrdered By: Kaitlyn Saldivar on 02-08-2025 Calcium [Mass/Vol] 9.2 mg/dL 8.6-10.3 [facility] Comment on above: Performed By: #### B 12, [id number], WHITNEY, CBC, FE and TIBC, CMP, LIPID #### [facility] [address] Carbon dioxide, total [Moles /volume] in Serum or PlasmaOrdered By: Kaitlyn Saldivar on 02-08-2025 CO2 [Moles/Vol] 29.2 mmol/L 21.0-31.0 [facility] Comment on above: Performed By: #### B 12, [id number], WHITNEY, CBC, FE and TIBC, CMP, LIPID #### [facility] [address] [place] [address] [place] Chloride [Moles/volume] in S yari or PlasmaOrdered By: Kaitlyn Saldivar on 02-08-2025 Chloride [Moles/Vol] 105 mmol/L 98-107 [facility] Comment on above: Performed By: #### B 12, [id number], WHITNEY, CBC, FE and TIBC, CMP, LIPID #### [facility] [address] [place] [address] Cholesterol [Mass/volume] in Serum or PlasmaOrdered By: Kaitlyn Saldivar on 02-08-2025 Cholesterol [Mass/Vol] 169 mg/dL 140-200 [facility] Comment on above: Chol less than 200 m g/dl low riskChol 201-239 mg/dl borderline riskChol 240 mg/dl and greater high risk Result Comment: Chol less than 200 mg/dl low risk Chol 201-239 mg/dl borderline risk Chol 240 mg/dl and greater high risk Performed By: #### B 12, [id number], WHITNEY, CBC, FE and TIBC, CMP, LIPID #### [facility] [address] [place] [address] [place] Cholesterol in HDL [Mass/vol ume] in Serum or PlasmaOrdered By: Kaitlyn Saldivar on 02-08-2025 Cholesterol in HDL [Mass/Vol] 49 mg/dL [facility] Comment on above: HDL CHOL ATP-III CLA SSIFICATION Cardiovascular RiskHDL > or equal to 60 mg/dL LOWHDL < 40 mg/dL HIGH Result Comment: HDL CHOL ATP-III CLASSIFICATION Cardiovascular Risk HDL > or equal to 60 mg/dL LOW HDL < 40 mg/dL HIGH Performed By: #### B 12, [id number], WHITNEY, CBC, FE and TIBC, CMP, LIPID #### [facility] [address] [place] [address] [place] Cholesterol in LDL Calc [Mas s/Vol]Ordered By: Kaitlyn Saldivar on 02-08-2025 Cholesterol in LDL [Mass/Vol] 104 mg/dL High 0-100 [facility] Comment on above: LDL ATP III CLASSIFI CATIONLDL less than 100 mg/dL OptimalLDL 100-129 mg/dL Near or above optimalLDL 130-159 mg/dL Borderline highLDL 160-189 mg/dL HighLDL greater than 189 mg/dL Very high Cholesterol in VLDL Calc [Ma ss/Vol]Ordered By: Kaitlyn Saldivar on 02-08-2025 Cholesterol in VLDL [Mass/Vol] 16 mg/dL [facility] Complete Blood Count Auto Di ffon 02-08-2025 Mean Corpuscular HGB Conc 34.3 g/dL Normal 32.0-35.0 [facility] Comment on above: Performed By: #### B 12, [id number], WHITNEY, CBC, FE and TIBC, CMP, LIPID #### [facility] [address] [place] [address] [place] NRBC% 0.2 /100{WBC} Normal 0-0.5 [facility] Comment on above: Performed By: #### B 12, [id number], WHITNEY, CBC, FE and TIBC, CMP, LIPID #### [address] White Blood Count 7.6 [CFU]/mL Normal 3.8-11.6 The Counts include 234 beds at the [facility] Comment on above: Performed By: #### B 12, [id number], WHITNEY, CBC, FE and TIBC, CMP, LIPID #### [address] Comprehensive Metabolic Pane lennie 02-08-2025 Albumin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 electrohydraulic lithotripsy of bezoar in stomach, Knee. Discharge Vitals Temperature (Temporal Artery) 36.7 ?C Heart Rate (Monitored) 67 Respiratory Rate 18 Blood Pressure 97/47 Height 170 cm Weight 95 kg BMI 32.87 What to do next Instructions From Your Doctor Event Name Event Result Discharge Activity Resume normal activities in 24 hours Discharge Restrictions No driving for 24 hrs Discharge Diet(s) Regular Call Your Doctor For Persistent or heavy bleeding Discharge Instructions Discharge Instructions New Follow Up Appointments after Discharge Follow Up with Selvin BOO, CORI Benson, [facility] When: Comments: Call for any problems. Office will call to schedule follow up appointment Where: Medications What How Much When Instructions Next Dose Changed pantoprazole (Pantoprazole [address] Tab) 1 Tablets By Mouth Every day Duration: 90 Days Unchanged alprazolam (Xanax 0.5 mg Tab) 1 Tablets By Mouth 2 times a day as needed for for anxiety Unchanged amphetamine-dextroamph etamine (Adderall 5 mg oral tablet) 1 Tablets By Mouth Once a day (in the morning) Unchanged bifidobacterium-lactob acillus (Nature's Bounty Probiotic) Unchanged buPROPion (Wellbutrin SR 150 mg Tab-ER) 1 Tablets By Mouth 2 times a day Unchanged busPIRone (busPIRone 15 mg Tab) By Mouth 2 times a day Unchanged calcium-vitamin D 1 TAB By Mouth Every day as needed for Prophylaxis Unchanged carbonyl iron (Iron Chews) 15 Milligram By Mouth Every day Unchanged cetirizine (cetirizine 5 mg oral tablet) 1 Tablets By Mouth Every day as needed for for allergy symptoms Unchanged cholestyramine (cholestyramine 4 g/ 9 g Oral Pwdr) By Mouth 2 times a day Unchanged ergocalciferol (Vitamin D) By Mouth Every day Unchanged losartan (losartan 100 mg Tab) 1 Tablets By Mouth Every day Unchanged multivitamin (Vitamin B Complex oral tablet) 1 Tablets Chewed Every day Unchanged multivitamin with minerals (Multivitamins and Minerals) 1 TAB By Mouth Every day Unchanged peppermint oil (Ibgard 90 mg oral delayed release capsule) 2 Capsules By Mouth 2 times a day Unchanged polycarbophil (Fiber Tabs) 1,250 Milligram By Mouth 4 times a day as needed for Constipation Unchanged polyethylene glycol 3350 (Miralax 3350 17 gram packet) 17 Gram By Mouth Every day as needed for Constipation Unchanged simethicone (Gas-X) 80 Milligram Chewed Four times a day (after meals and at bedtime) as needed for Gas Test Results No qualifying data available. Allergies Cats (Unknown) Dust (Unknown) FLUoxetine (Wheal) amLODIPine (Eruption) kiwi (Tongue swelling, Swelling of throat) Problems Ongoing - Any problem that you are currently receiving treatment for. Acid reflux Bile salt-induced diarrhea Bloating Colon polyp Constipation Dyssynergic defecation Family history of colon cancer Fecal incontinence History of anal (more content not included)... [facility] Comment on above: Result Comment: Elec tronically Signed By: Lily Ryan I\.br\Date and Time Signed: 04/10/24 14:25 EDT Inpatient Patient Summaryon 04-10-2024 Inpatient Patient Summary Inpatient Patient Summary [place] [id number] [facility] Clinical Discharge Instructions PERSON INFORMATION Name: KATHY JULIAN PHYSICIANS Admitting Physician: Matt Montalvo MD Attending Physician: Matt Montalvo MD PCP: KAITLYN SALDIVAR MD Discharge Diagnosis: History of anal cancer Comment: PATIENT EDUCATION INFORMATION Instructions: Medication Leaflets: Follow up: MEDICATION LIST Medications to Continue Taking That Have Changed Other Medications START: pantoprazole (Pantoprazole [address] Tab) 1 Tablets By Mouth every day for 90 Days. Refills: 3. Medications to Continue with No Changes Other Medications alprazolam (Xanax 0.5 mg Tab) 1 Tablets By Mouth 2 times a day as needed for anxiety. amphetamine-dextroamph etamine (Adderall 5 mg oral tablet) 1 Tablets By Mouth once a day (in the morning). bifidobacterium-lactob acillus (Nature's Bounty Probiotic) buPROPion (Wellbutrin SR 150 mg Tab-ER) 1 Tablets By Mouth 2 times a day. busPIRone (busPIRone 15 mg Tab) By Mouth 2 times a day. calcium-vitamin D 1 TAB By Mouth every day as needed Prophylaxis. carbonyl iron (Iron Chews) 15 Milligram By Mouth every day. cetirizine (cetirizine 5 mg oral tablet) 1 Tablets By Mouth every day as needed for allergy symptoms. cholestyramine (cholestyramine 4 g/9 g Oral Pwdr) By Mouth 2 times a day. ergocalciferol (Vitamin D) By Mouth every day. losartan (losartan 100 mg Tab) 1 Tablets By Mouth every day. multivitamin (Vitamin B Complex oral tablet) 1 Tablets Chewed every day. multivitamin with minerals (Multivitamins and Minerals) 1 TAB By Mouth every day. peppermint oil (Ibgard 90 mg oral delayed release capsule) 2 Capsules By Mouth 2 times a day. Refills: 6. polycarbophil (Fiber Tabs) 1,250 Milligram By Mouth 4 times a day as needed Constipation. polyethylene glycol 3350 (Miralax 3350 17 gram packet) 17 Gram By Mouth every day as needed Constipation. Refills: 6. simethicone (Gas-X) 80 Milligram Chewed four times a day (after meals and at bedtime) as needed Gas. Comment: [facility] Main OR PACU II Recordon Main OR PACU II Record Main OR PACU II Record PACU Phase II Document Type FT Summary Primary Physician: Matt Montalvo MD Finalized Date/Time: 04/10/24 14:54:04 Pt. Name: KATHY JULIAN/Sex: 1960 Female Med Rec #: [id number] Physician: Matt Montalvo MD Financial #: [id number] Pt. Type: O Room/Bed: / Admit/Disch: 04/10/24 12:03:56 - Institution: Case Times PACU II FT Pre-Care Text: Identifies barriers to communication and implements measures to provide psychological support and determines knowledge level Develops individualized plan of care, and ensures continuity of care Maintains patient's dignity and privacy, and maintains patient confidentiality Identifies and reports philosophical, cultural, and spiritual beliefs and values Identifies individual values and wishes concerning care administers prescribed antibiotic therapy and immunizing agents as ordered, Evaluates postoperative tissue perfusion Implements thermoregulation measures, and monitors body temperature Evaluates postoperative respiratory status Evaluates postoperative cardiac status Evaluates postoperative neurological status Assesses pain control, collaborated in initiating patient-controlled analgesia and implements alternative methods of pain control Verifies allergies, administers prescribed medications and solutions, evaluates response to medications Entry 1 In PACU II 04/10/24 14:16:00 Discharge from PACU 04/10/24 14:46:00 II Outcomes Met? Yes Last Modified By: Lily Ryan I 04/10/24 14:53:59 Post-Care Text: The patient demonstrates knowledge of the expected response to the operative or invasive procedure The patient's care is consistent with the individualized perioperative plan of care The patient's right to privacy is maintained The patient's value system, lifestyle, ethnicity, and culture are considered, respected, and incorporated into the perioperative plan of care The patient participates in decisions affecting his or her perioperative plan of care. The patient is free from signs and symptoms of infection The patient has wound/tissue perfusion consistent with or improved from baseline levels established preoperatively The patient is at or returning to normothermia at the conclusion of the immediate postoperative period The patient's respiratory function is consistent with or improved from baseline levels established preoperatively The patient's cardiovascular status is consistent with or improved from baseline levels established preoperatively The patient's neurological status is consistent with or improved from baseline levels established preoperatively The patient demonstrates and/or reports adequate pain control throughout the perioperative period The patient received appropriate medication(s), safely administered during the perioperative period Finalized By: Lily Ryan I Document Signatures Signed By: Lily Ryan I 04/10/24 14:54 [facility] Main OR Preoperative Recordo n 04-10-2024 Main OR Preoperative Record Main OR Preoperative Record Holding Area Document Type FT Summary Primary Physician: Matt Montalvo MD Finalized Date/Time: 04/10/24 12:21:20 Pt. Name: IRISHKATHY/Sex: 1960 Female Med Rec #: [id number] Physician: Matt Montalvo MD Financial #: [id number] Pt. Type: O Room/Bed: / Admit/Disch: 04/10/24 12:03:56 - Institution: Case Times Holding FT Pre-Care Text: Verifies consent for planned procedure, identifies individual values and wishes concerning care, includes family members in perioperative teaching Secures patient's records' belongings, and valuables, maintains patient's dignity and privacy, and maintains patient confidentiality Entry 1 In Holding 04/10/24 12:11:00 Outcomes Met? Yes Last Modified By: Chris SOSA, Silviano Encarnacion 04/10/24 12:11:24 Post-Care Text: The patient participates in decisions affecting his or her perioperative plan of care The patient's right to privacy is maintained Surgery Checklist FT Entry 1 Patient Birthday, ID Band Procedure History and Physical, Identification: Check, Patient Verification: Surgical Consent, With Participation Patient NPO after Midnight: No Date/Time: 04/10/24 09:00:00 Results Reviewed clear-yellow liquid Personal Items: Cataract Lens Implant, Comments: bowel reuslts Jewelry Personal Items clothing, shoes, watch, Limitations: none Comment: bilateral cataract lens implants Complaints of Pain: No Pain Comment: denies Operative Site n/a Marked By: n/a Marking: Location: n/a Availability Equipment Verified: Does Patient Smoke No Patient states Yes Comment - Adult elzbieta- son postop adult Supervision supervision available Case Cancelled in No Holding Area see comments below for reason Last Modified By: Silviano Perez RN 04/10/24 12:21:19 General Comments: pt finished bowel prep at 0900, per patient nothing to eat or drink since MSRN Finalized By: Silviano Perez RN Document Signatures Signed By: Silviano Perez RN 04/10/24 12:21 [facility] Outpatient Surgery Discharge Instructionon 04-10-2024 Outpatient Surgery Discharge Instruction Outpatient Surgery Discharge Instruction [place] [id number] Patient Discharge Instructions PERSON INFORMATION Name: KATHY JULIAN Date of : 1960 Current Date: 04/10/2024 13:51:00 PHYSICIANS Admitting Physician: Matt Montalvo MD Discharge Diagnosis: History of anal cancer KATHY JULIAN has been given the following list of follow-up instructions, prescriptions, and patient education materials: PATIENT FOLLOW-UP INFORMATION Diet: Regular Discharge Activity: Resume normal activities in 24 hours Discharge Restrictions: No driving for 24 hrs Call Your Doctor For: Persistent or heavy bleeding IF UNABLE TO CONTACT YOUR PHYSICIAN AND YOU FEEL IT IS AN EMERGENCY, GO TO THE NEAREST EMERGENCY ROOM OR CALL 911 I, KATHY JULIAN, have received the attached patient education materials/instructions and have verbalized understanding: May we do a follow up call? Yes No I was present when discharge instructions were given Patient Signature Date Clinican/Nurse Signature ___ Date Follow up: Pharmacy Information: You may receive a survey from [employer] asking you to rate your care experience. Your feedback is important and will help us understand what we do well and how we can improve the quality of care we provide to you, your loved ones and our community. It?s an honor to serve you. Thank you for choosing [facility] HERE ARE THE MEDICATION CHANGES THAT OCCURRED DURING YOUR HOSPITAL STAY Medications to Continue Taking That Have Changed Other Medications START: pantoprazole (Pantoprazole [address] Tab) 1 Tablets By Mouth every day for 90 Days. Refills: 3. Medications to Continue with No Changes Other Medications alprazolam (Xanax 0.5 mg Tab) 1 Tablets By Mouth 2 times a day as needed for anxiety. amphetamine-dextroamph etamine (Adderall 5 mg oral tablet) 1 Tablets By Mouth once a day (in the morning). bifidobacterium-lactob acillus (Nature's Bounty Probiotic) buPROPion (Wellbutrin SR 150 mg Tab-ER) 1 Tablets By Mouth 2 times a day. busPIRone (busPIRone 15 mg Tab) By Mouth 2 times a day. calcium-vitamin D 1 TAB By Mouth every day as needed Prophylaxis. carbonyl iron (Iron Chews) 15 Milligram By Mouth every day. cetirizine (cetirizine 5 mg oral tablet) 1 Tablets By Mouth every day as needed for allergy symptoms. cholestyramine (cholestyramine 4 g/9 g Oral Pwdr) By Mouth 2 times a day. ergocalciferol (Vitamin D) By Mouth every day. losartan (losartan 100 mg Tab) 1 Tablets By Mouth every day. multivitamin (Vitamin B Complex oral tablet) 1 Tablets Chewed every day. multivitamin with minerals (Multivitamins and Minerals) 1 TAB By Mouth every day. peppermint oil (Ibgard 90 mg oral delayed release capsule) 2 Capsules By Mouth 2 times a day. Refills: 6. polycarbophil (Fiber Tabs) 1,250 Milligram By Mouth 4 times a day as needed Constipation. polyethylene glycol 3350 (Miralax 3350 17 gram packet) 17 Gram By Mouth every day as needed Constipation. Refills: 6. simethicone (Gas-X) 80 Milligram Chewed four times a day (after meals and at bedtime) as needed Gas. PATIENT EDUCATION INFORMATION Instructions: Medication Leaflets: [facility] Pulmonology Office/Clinic Janice ho 02-25-2024 Pulmonology Office/Clinic Note Pulmonology Office/Clinic Note History of Present Illness Here for follow-up for underlying obstructive sleep apnea. The patient reports that she continues to use her CPAP via a fullface mask and has been tolerating relatively well after we have switched her from a pressure of 14 cm to an auto titrating mode with a pressure range of 5 to 15 cm. She reports that her sleep quality has improved along with her energy and daytime sleepiness. Her weight has been relatively stable since her last visit. Review of Systems Constitutional: no fever, no chills, no sweats, no weakness Skin: no Jaundice, no rash, no lesions, no petechiae ENT: no ear pain, no sore throat, no congestion, no hoarseness Respiratory: Denies shortness of breath, cough or wheezing Cardiovascular: no chest pain, no palpitations, no edema Gastrointestinal: no nausea, no vomiting, no diarrhea, no GI bleeding Genitourinary: no dysuria, no hematuria, no discharge, no pain Musculoskeletal: no back pain, no trauma Neurologic: no headache, no dizziness, no numbness, no weakness Psychiatric: no irritability, no mood swings/depression. Heme/Lymph: no bleeding tendency, no bruising tendency, no petechiae, no swollen nodes Allergy/Immunologic: no seasonal allergies, no food allergies, no recurrent infections, no impaired immunity Additional ROS info: Except as noted in the above Review of Systems and in the History of Present Illness all other systems have been reviewed and are negative or noncontributory. Physical Exam General: Awake and alert in no acute distress HEENT: NC, AT. Prolonged soft palate Neck: Supple no JVD Assessment/Plan 1. JASWINDER (obstructive sleep apnea) (G47.33: Obstructive sleep apnea (adult) (pediatric)) Appears to be doing well on current pressures without significant side effects with good tolerance and compliance with CPAP with a significant improvement in the apnea hypopnea index to 3.6/hour with mild leakage based on her most recent download from January 24, 2024 till February 22, 2024 which was reviewed by me today with the patient. The patient was advised to clean the machine regularly and change supplies as needed. Avoid driving while sleepy and avoid sedatives and hypnotics such as alcohol. We will continue with same pressure unless new issues develop and see the patient back after 1 year. The patient will call us back in the meantime if any issues. Follow-up With When Contact Information Quyen BOO, Aishwarya Blanc, PUL, CHARITY Within 1 year [address] [facility] [place] [address]- Additional Instructions: Problem List/Past Medical History Ongoing Acid reflux Bile salt-induced diarrhea Bloating Colon polyp Constipation Dyssynergic defecation Family history of colon cancer Fecal incontinence History of anal cancer History of colon polyps Irregular bowel habits Loose stools Lower abdominal pain JASWINDER (obstructive sleep apnea) Recurrent UTI Renal cyst Urinary leakage Historical Abdominal cramping Nausea UTI symptoms Procedure/Surgical History Esophagogastroduodenos copy (07/22/2022), Cataract extraction and insertion of intraocular lens (03/14/2019), Cataract extraction and insertion of intraocular lens (02/28/2019), Cystourethroscopy with dilation of urethral stricture (02/28/2016), removal of right ean bullosa, septoplasty and bilateral inferior turbinate submucosal resection (01/10/2015), Cholecystectomy (06/28/2007), Cholecystectomy (05/28/2007), Gastric bypass (06/28/2002), Hysterectomy (06/28/2000), Tubal ligation (06/28/1999), Carpal tunnel release (06/28/1997), Sinus probing (06/28/1997), Colonoscopy, EGD (esophagogastroduodeno scopic) electrohydraulic lithotripsy of bezoar in stomach, Knee. Medications Adderall 5 mg oral tablet, 5 mg= 1 tab(s), Oral, qAM busPIRone 15 mg Tab, Oral, BID calcium-vitamin D, 1 TAB, Oral, Daily, PRN cetirizine 5 mg oral tablet, 5 mg= 1 tab(s), Oral, Daily, PRN cholestyramine 4 g/9 g Oral Pwdr Fiber Tabs Gas-X, Chewed, QIDPCHS Ibgard 90 mg oral delayed release capsule, 180 mg= 2 cap(s), Oral, BID, 6 refills Iron Chews losartan 100 mg Tab, 100 mg= 1 tab(s), Oral, Daily Miralax 3350 17 gram packet, 17 gm, Oral, Daily, PRN, 6 refills Multivitamins and Minerals, 1 TAB, Oral, Daily Nature's Bounty Probiotic NuLYTELY [place] oral powder for reconstitution, See Instructions Pantoprazole [address] Tab, 40 mg= 1 tab(s), Oral, Daily, 3 refills Pantoprazole [address] Tab, 40 mg= 1 tab(s), Oral, Daily Vitamin B Complex oral tablet, 1 tab(s), Chewed, Daily Vitamin D Wellbutrin SR 150 mg Tab-ER, 150 mg= 1 tab(s), Oral, BID Xanax 0.5 mg Tab, 0.5 mg= 1 tab(s), Oral, BID, PRN Allergies Cats (Unknown) Dust (Unknown) FLUoxetine (Wheal) amLODIPine (Eruption) kiwi (Tongue swelling, Swelling of throat) Social History Alcohol - Low Risk, 12/25/2014 Current, Beer, Wine, 1-2 times per week, Previous treatment: None. Alcohol use interferes with work or home (more content not included)... [facility] Ambulatory Visit Summaryon 0 01-31-2024 Ambulatory Visit Summary Ambulatory Visit Summary KATHY JULIAN :1960 Visit Date:01/31/2024 Ambulatory Visit Instructions Your Diagnosis Lower abdominal pain Bile salt-induced diarrhea Acid reflux Family history of colon cancer Constipation History of anal cancer Your Care Team Attending Physician - Selvin BOO, Matt Malhotra Primary Care Physician - KAITLYN SALDIVAR MD This Is Your Medications List Contact prescribing physician if questions or concerns alprazolam (Xanax 0.5 mg Tab) amphetamine-dextroamph etamine (Adderall 5 mg oral tablet) bifidobacterium-lactob acillus (Nature's Bounty Probiotic) buPROPion (Wellbutrin SR 150 mg Tab-ER) busPIRone (busPIRone 15 mg Tab) calcium-vitamin D carbonyl iron (Iron Chews) cetirizine (cetirizine 5 mg oral tablet) cholestyramine (cholestyramine 4 g/9 g Oral Pwdr) ergocalciferol (Vitamin D) losartan (losartan 100 mg Tab) multivitamin (Vitamin B Complex oral tablet) multivitamin with minerals (Multivitamins and Minerals) pantoprazole (Pantoprazole [address] Tab) pantoprazole (Pantoprazole [address] Tab) peppermint oil (Ibgard 90 mg oral delayed release capsule) polycarbophil (Fiber Tabs) polyethylene glycol 3350 (Miralax 3350 17 gram packet) simethicone (Gas-X) Procedures Performed Esophagogastroduodenos copy (07/22/2022), Cataract extraction and insertion of intraocular lens (03/14/2019), Cataract extraction and insertion of intraocular lens (02/28/2019), Cystourethroscopy with dilation of urethral stricture (02/28/2016), removal of right ean bullosa, septoplasty and bilateral inferior turbinate submucosal resection (01/10/2015), Cholecystectomy (06/28/2007), Cholecystectomy (05/28/2007), Gastric bypass (06/28/2002), Hysterectomy (06/28/2000), Tubal ligation (06/28/1999), Carpal tunnel release (06/28/1997), Sinus probing (06/28/1997), Colonoscopy, EGD (esophagogastroduodeno scopic) electrohydraulic lithotripsy of bezoar in stomach, Knee. Discharge Vitals Heart Rate (Peripheral) 77 Blood Pressure 112/76 Height 170 cm Height 67 in Weight 95 kg Weight 209 lb BMI 32.87 What to do next Scheduled Follow-Up Appointments Wednesday 1:00 PM EDT Where: [facility] [facility] Medications What How Much When Instructions Unchanged alprazolam (Xanax 0.5 mg Tab) 1 Tablets By Mouth 2 times a day as needed for for anxiety Contact prescribing physician if questions or concerns Unchanged amphetamine-dextroamph etamine (Adderall 5 mg oral tablet) 1 Tablets By Mouth Once a day (in the morning) Contact prescribing physician if questions or concerns Unchanged bifidobacterium-lactob acillus (Nature's Bounty Probiotic) Contact prescribing physician if questions or concerns Unchanged buPROPion (Wellbutrin SR 150 mg Tab-ER) 1 Tablets By Mouth 2 times a day Contact prescribing physician if questions or concerns Unchanged busPIRone (busPIRone 15 mg Tab) By Mouth 2 times a day Contact prescribing physician if questions or concerns Unchanged calcium-vitamin D 1 TAB By Mouth Every day as needed for Prophylaxis Contact prescribing physician if questions or concerns Unchanged carbonyl iron (Iron Chews) Contact prescribing physician if questions or concerns Unchanged cetirizine (cetirizine 5 mg oral tablet) 1 Tablets By Mouth Every day as needed for for allergy symptoms Contact prescribing physician if questions or concerns Unchanged cholestyramine (cholestyramine 4 g/ 9 g Oral Pwdr) Contact prescribing physician if questions or concerns Unchanged ergocalciferol (Vitamin D) Contact prescribing physician if questions or concerns Unchanged losartan (losartan 100 mg Tab) 1 Tablets By Mouth Every day Contact prescribing physician if questions or concerns Unchanged multivitamin (Vitamin B Complex oral tablet) 1 Tablets Chewed Every day Contact prescribing physician if questions or concerns Unchanged multivitamin with minerals (Multivitamins and Minerals) 1 TAB By Mouth Every day Contact prescribing physician if questions or concerns Unchanged pantoprazole (Pantoprazole [address] Tab) 1 Tablets By Mouth Every day Contact prescribing physician if questions or concerns Unchanged pantoprazole (Pantoprazole [address] Tab) 1 Tablets By Mouth Every day Duration: 90 Days Contact prescribing physician if questions or concerns Unchanged peppermint oil (Ibgard 90 mg oral delayed release capsule) 2 Capsules By Mouth 2 times a day Contact prescribing physician if questions or concerns Unchanged polycarbophil (Fiber Tabs) Contact prescribing physician if questions or concerns Unchanged polyethylene glycol 3350 (Miralax 3350 17 gram packet) 17 Gram By Mouth Every day as needed for Constipation Contact prescribing physician if questions or concerns Unchanged simethicone (Gas-X) Chewed Four times a day (after meals and at bedtime) Contact prescribing physician if questions or concerns Allergies Cats (Unknown) Dust (Unknown) FLUoxetine (more content not included)... Normal [facility] Gastroenterology Office/Clin ic Noteon 01-31-2024 Gastroenterology Office/Clinic Note Gastroenterology Office/Clinic Note Chief Complaint Constipation- improved HPI Staff Patient is a(n) 63 year old female who presents today for a(n) 3 month follow up. Colonoscopy recall placed for 08/2028. Fhx colon cancer - mom and brother Hx anal cancer - have not re-established care with [facility] oncology. Still having constipation? improved BM's a day/week? 6 a week. Taking Citrucel, prunes and Miralax? Prunes and chewable fiber. Last visit 10/04/23 w/Dr. Montalvo: Assessment/Plan 1. Lower abdominal pain (R10.30: Lower abdominal pain, unspecified) Likely related to constipation Discussed Bloating today regarding the causes, natural history, diagnosis and treatment of bloating. Take IBgarrd, if no improvement treat constipation. 2. 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 Acid reflux (K21.9: Gastro-esophageal reflux disease without esophagitis) controlled, pantoprazole 40mg daily 4. Family history of colon cancer (Z80.0: Family history of malignant neoplasm of digestive organs) Mother and Brother w/ colon ca Repeat colon 2023, will discuss next visit 5. Constipation (K59.00: Constipation, unspecified) IBS-c or CIC If bloating doesn't improve at constipation treated, will discuss low FODMAP diet Discussed lifestyle modifications Take IBgard, if no improvement treat constipation. Take Citrucel, prunes and miralax Squatty potty 6. History of anal cancer (Z85.048: Personal history of other malignant neoplasm of rectum, rectosigmoid junction, and anus) Anal ca in 2014- treated at [facility] and then at in [place], was treated with ointment for 3-4 months Follows Dermatology annually recommend to reestablish with oncology in [place] to make sure she is up-to-date on screenings as well We discussed repeating colonoscopy with 2-day prep, will discuss at next visit History of Present Illness Improved significantly with prunes and fibers, abdominal pain significantly improved almost completely resolved, only occasional discomfort Review of Systems PHQ Score Initial Depression Screen Score: 0 SCORE Physical Exam Vitals & Measurements HR: 77(Peripheral) BP: 112/76 HT: 67 in HT: 170 cm WT: 95 kg WT: 209 lb BMI: 32.87 Assessment/Plan 1. Lower abdominal pain (R10.30: Lower abdominal pain, unspecified) Was likely due to constipation, improved with lifestyle modifications, fibers and prunes 3. Acid reflux (K21.9: Gastro-esophageal reflux disease without esophagitis) Controlled with PPI 4. Family history of colon cancer (Z80.0: Family history of malignant neoplasm of digestive organs) Brother and mother 5. Constipation (K59.00: Constipation, unspecified) CIC versus IBS-C, improved with lifestyle modifications and fibers 6. History of anal cancer (Z85.048: Personal history of other malignant neoplasm of rectum, rectosigmoid junction, and anus) Anal ca in 2013- treated at [facility] and then at in [place], was treated with ointment for 3-4 months Follows Dermatology annually recommend to reestablish with oncology in [place] to make sure she is up-to-date on screenings as well Repeat colonoscopy with 2-day prep, last colonoscopy August 2023 was inadequate prep Follow-up No qualifying data available Problem List/Past Medical History Ongoing Acid reflux Bile salt-induced diarrhea Bloating Colon polyp Constipation Dyssynergic defecation Family history of colon cancer Fecal incontinence History of anal cancer History of colon polyps Irregular bowel habits Loose stools Lower abdominal pain Recurrent UTI Renal cyst Urinary leakage Historical Abdominal cramping Nausea UTI symptoms Procedure/Surgical History Esophagogastroduodenos copy (07/22/2022), Cataract extraction and insertion of intraocular lens (03/14/2019), Cataract extraction and insertion of intraocular lens (02/28/2019), Cystourethroscopy with dilation of urethral stricture (02/28/2016), removal of right ean bullosa, septoplasty and bilateral inferior turbinate submucosal resection (01/10/2015), Cholecystectomy (06/28/2007), Cholecystectomy (05/28/2007), Gastric bypass (06/28/2002), Hysterectomy (06/28/2000), Tubal ligation (06/28/1999), Carpal tunnel release (06/28/1997), Sinus probing (06/28/1997), Colonoscopy, EGD (esophagogastroduodeno scopic) electrohydraulic lithotripsy of bezoar in stomach, Knee. Medications Adderall 5 mg oral tablet, 5 mg= 1 tab(s), Oral, qAM busPIRone 15 mg Tab, Oral, BID calcium-vitamin D, 1 TAB, Oral, Daily, PRN cetirizine 5 mg oral tablet, 5 mg= 1 tab(s), Oral, Daily, PRN cholestyramine 4 g/9 g Oral Pwdr Fiber Tabs Gas-X, Chewed, QIDPCHS Ibgard 90 mg oral delayed release capsule, 180 mg= 2 cap(s), Oral, BID, 6 refills Iron Chews losartan 100 mg Tab, 100 mg= 1 tab(s), Oral, Daily Miralax 3350 17 gram packet, 17 gm, Oral, Daily, PRN, 6 refills M (more content not included)... Normal [facility] Comment on above: Result Comment: Elec tronically Signed By: Selvin BOO, Matt Malhotra\.br\Date and Time Signed: 01/31/24 10:28 EDT Alanine aminotransferase [En zymatic activity/volume] in Serum or PlasmaOrdered By: Kaitlyn Saldivar on 01-14-2024 ALT [Catalytic activity/Vol] 17 U/L 7-52 [facility] Albumin [Mass/volume] in Ser um or Plasma by Bromocresol green (BCG) dye binding methoOrdered By: Kaitlyn Saldivar on 01-14-2024 Albumin BCG dye [Mass/Vol] 4.2 g/dL 3.5-5.7 [facility] Alkaline phosphatase [Enzyma tic activity/volume] in Serum or PlasmaOrdered By: Kaitlyn Saldivar on 01-14-2024 ALP [Catalytic activity/Vol] 86 U/L 34-104 [facility] Aspartate aminotransferase [ Enzymatic activity/volume] in Serum or PlasmaOrdered By: Kaitlyn Saldivar on 01-14-2024 AST [Catalytic activity/Vol] 18 U/L 13-39 [facility] Basophils Auto (Bld) [#/Vol] Ordered By: Kaitlyn Saldivar on 01-14-2024 Basophils (Bld) [#/Vol] 0.0 10*3/uL 0.0-0.2 [facility] Basophils/100 WBC Auto (Bld) Ordered By: Kaitlyn Saldivar on 01-14-2024 Basophils/100 WBC (Bld) 0.5 % . [facility] Bilirubin.total [Mass/volume ] in Serum or PlasmaOrdered By: Kaitlyn Saldivar on 01-14-2024 Bilirubin [Mass/Vol] 0.6 mg/dL 0.3-1.0 [facility] Calcium [Mass/volume] in Ser um or PlasmaOrdered By: Kaitlyn Saldivar on 01-14-2024 Calcium [Mass/Vol] 9.8 mg/dL 8.6-10.3 [facility] Carbon dioxide, total [Moles /volume] in Serum or PlasmaOrdered By: Kaitlyn Saldivar on 01-14-2024 CO2 [Moles/Vol] 30.8 mmol/L 21.0-31.0 [facility] Chloride [Moles/volume] in S yari or PlasmaOrdered By: Kaitlyn Saldivar on 01-14-2024 Chloride [Moles/Vol] 106 mmol/L 98-107 [facility] Cholesterol [Mass/volume] in Serum or PlasmaOrdered By: Kaitlyn Saldivar on 01-14-2024 Cholesterol [Mass/Vol] 162 mg/dL 140-200 [facility] Comment on above: Chol less than 200 m g/dl low riskChol 201-239 mg/dl borderline riskChol 240 mg/dl and greater high risk Cholesterol in LDL Calc [Mas s/Vol]Ordered By: Kaitlyn Saldivar on 01-14-2024 Cholesterol in LDL [Mass/Vol] 95 mg/dL 0-100 [facility] Comment on above: LDL ATP III CLASSIFI CATIONLDL less than 100 mg/dL OptimalLDL 100-129 mg/dL Near or above optimalLDL 130-159 mg/dL Borderline highLDL 160-189 mg/dL HighLDL greater than 189 mg/dL Very high Cholesterol in VLDL Calc [Ma ss/Vol]Ordered By: Kaitlyn Saldivar on 01-14-2024 Cholesterol in VLDL [Mass/Vol] 14 mg/dL [facility] Creatinine [Mass/volume] in Serum or PlasmaOrdered By: Kaitlyn Saldivar on 01-14-2024 Creatinine [Mass/Vol] 0.75 mg/dL 0.60-1.20 [facility] Eosinophils Auto (Bld) [#/Vo l]Ordered By: Kaitlyn Saldivar on 01-14-2024 Eosinophils (Bld) [#/Vol] 0.2 10*3/uL 0.0-0.45 [facility] Eosinophils/100 WBC Auto (Bl d)Ordered By: Kaitlyn Saldivar on 01-14-2024 Eosinophils/100 WBC (Bld) 1.7 % . [facility] Erythrocyte distribution wid th Auto (RBC) [Ratio]Ordered By: Kaitlyn Saldivar on 01-14-2024 Erythrocyte distribution width (RBC) [Ratio] 13.4 % 11.9-15.3 [facility] Ferritin [Mass/volume] in Se rum or PlasmaOrdered By: Kaitlyn Saldivar on 01-14-2024 Ferritin [Mass/Vol] 76.5 ng/mL 11.0-306.8 [facility] Globulin Calc (S) [Mass/Vol] Ordered By: Kaitlyn Saldivar on 01-14-2024 Globulin (S) [Mass/Vol] 2.3 g/dL [facility] Glucose [Mass/volume] in Ser um or PlasmaOrdered By: Kaitlyn Saldivar on 01-14-2024 Glucose [Mass/Vol] 93 mg/dL 70-100 [facility] Comment on above: ADA recommended refe rence rangeRandom Glucose Reference Range is dependent on time and content of last meal. Glucose of more than 200 mg/dL in a nonstressed, ambulatory subject supports the diagnosis of Diabetes Mellitus. Hematocrit Auto (Bld) [Volum e fraction]Ordered By: Kaitlyn Saldivar on 01-14-2024 Hematocrit (Bld) [Volume fraction] 39.3 % 34.0-46.4 [facility] Hemoglobin [Mass/volume] in BloodOrdered By: Kaitlyn Saldivar on 01-14-2024 Hemoglobin (Bld) [Mass/Vol] 13.5 g/dL 11.8-15.4 [facility] Leukocytes [#/volume] correc anabel for nucleated erythrocytes in Blood by Automated counOrdered By: Kaitlyn Saldivar on 01-14-2024 WBC corrected for nucl RBC Auto (Bld) [#/Vol] 9.5 10*3/uL 3.8-11.6 [facility] Lymphocytes Auto (Bld) [#/Vo l]Ordered By: Kaitlyn Saldivar on 01-14-2024 Lymphocytes (Bld) [#/Vol] 2.5 10*3/uL 1.00-4.8 [facility] Lymphocytes/100 WBC Auto (Bl d)Ordered By: Kaitlyn Saldivar on 01-14-2024 Lymphocytes/100 WBC (Bld) 25.9 % . [facility] MCH Auto (RBC) [Entitic mass ]Ordered By: Kaitlyn Saldivar on 01-14-2024 MCH (RBC) [Entitic mass] 31.1 pg 24.7-34.3 [facility] MCHC Auto (RBC) [Mass/Vol]Or dered By: Kaitlyn Saldivar on 01-14-2024 MCHC (RBC) [Mass/Vol] 34.2 g/dL 32.0-35.0 [facility] MCV Auto (RBC) [Entitic vol] Ordered By: Kaitlyn Saldivar on 01-14-2024 MCV (RBC) [Entitic vol] 90.8 fL 80-100 [facility] Monocytes Auto (Bld) [#/Vol] Ordered By: Kaitlyn Saldivar on 01-14-2024 Monocytes (Bld) [#/Vol] 0.5 10*3/uL 0.0-0.8 [facility] Monocytes/100 WBC Auto (Bld) Ordered By: Kaitlyn Saldivar on 01-14-2024 Monocytes/100 WBC (Bld) 5.6 % . [facility] Neutrophils Auto (Bld) [#/Vo l]Ordered By: Kaitlyn Saldivar on 01-14-2024 Neutrophils (Bld) [#/Vol] 6.3 10*3/uL 1.8-7.7 [facility] Neutrophils/100 WBC Auto (Bl d)Ordered By: Kaitlyn Saldivar on 01-14-2024 Neutrophils/100 WBC (Bld) 66.3 % . [facility] No Panel InformationOrdered By: Kaitlyn Saldivar on 01-14-2024 Estimated GFR (CKD-EPI) > 60.0 mL/Min [facility] Creatinine Clearance (Chem N/A [facility] Nucleated erythrocytes [Pres ence] in Blood by Automated countOrdered By: Kaitlyn Saldivar on 01-14-2024 Nucleated RBC Auto Ql (Bld) 0.1 /100{WBC} 0-0.5 [facility] Platelet mean volume Auto (B ld) [Entitic vol]Ordered By: Kaitlyn Saldivar on 01-14-2024 Platelet mean volume (Bld) [Entitic vol] 6.6 fL 6.3-10.7 [facility] Platelets Auto (Bld) [#/Vol] Ordered By: Kaitlyn Saldivar on 01-14-2024 Platelets (Bld) [#/Vol] 268 10*3/uL 150-450 [facility] Potassium [Moles/volume] in Serum or PlasmaOrdered By: Kaitlyn Saldivar on 01-14-2024 Potassium [Moles/Vol] 3.9 mmol/L 3.5-5.1 [facility] Protein [Mass/volume] in Ser um or PlasmaOrdered By: Kaitlyn Saldivar on 01-14-2024 Protein [Mass/Vol] 6.5 g/dL 6.4-8.9 [facility] RBC Auto (Bld) [#/Vol]Ordere d By: Kaitlyn Saldivar on 01-14-2024 RBC (Bld) [#/Vol] 4.33 10*6/uL 3.60-5.00 [facility] Serum or plasma albumin/glob ulin mass ratioOrdered By: Kaitlyn Saldivar on 01-14-2024 Albumin/Globulin [Mass ratio] 1.8 {ratio} [facility] Serum or plasma anion gap de terminationOrdered By: Kaitlyn Saldivar on 01-14-2024 Anion gap [Moles/Vol] 8.1 mmol/L 6.0-15.0 [facility] Serum or plasma high density lipoprotein (HDL) cholesterol measurementOrdered By: Kaitlyn Saldivar on 01-14-2024 Cholesterol in HDL [Mass/Vol] 52 mg/dL 23- [facility] Comment on above: HDL CHOL ATP-III CLA SSIFICATION Cardiovascular RiskHDL > or equal to 60 mg/dL LOWHDL < 40 mg/dL HIGH Serum or plasma total choles terol/high density lipoprotein (HDL) cholesterol mass ratOrdered By: Kaitlyn Saldivar on 01-14-2024 Cholesterol.total/Cho lesterol in HDL [Mass ratio] 3.1 {ratio} <5.0 [facility] Sodium [Moles/volume] in Ser um or PlasmaOrdered By: Kaitlyn Saldivar on 01-14-2024 Sodium [Moles/Vol] 141 mmol/L 136-145 [facility] Triglyceride [Mass/volume] i n Serum or PlasmaOrdered By: Kaitlyn Saldivar on 01-14-2024 Triglyceride [Mass/Vol] 73 mg/dL 0-149 [facility] Comment on above: TRIG ATP III CLASSIF ICATIONTRIG less than 150 mg/dL NormalTRIG 150-199 mg/dL Borderline highTRIG 200-500 mg/dL High TRIG greater than 500 mg/dL Very highStandard traceable to the Center for Disease Conrtrol and Prevention (CDC) test method. Urea nitrogen [Mass/volume] in Serum or PlasmaOrdered By: Kaitlyn Saldivar on 01-14-2024 Urea nitrogen [Mass/Vol] 11 mg/dL 7- [facility] Vitamin D+Metabolites [Mass/ volume] in Serum or PlasmaOrdered By: Kaitlyn Saldivar on 01-14-2024 Vitamin D+Metabolites [Mass/Vol] 59.5 ng/mL 30-100 [facility] Comment on above: VITAMIN D STATUS 25( [place])VITAMIN D RANGE (ng/mL) Deficient <20 Insufficient 20 to <30Sufficient 30 to 100Reference: Matti LEAL,Rita PATEL, Destinee FRANK, et al. Evaluation,treatment, and prevention of vitamin D deficiency; an Endocrine Society clinical practice guideline. JCEM. 2010; 96(7):1911-30. WBC Auto (Bld) [#/Vol]Ordere d By: Kaitlyn Saldivar on 01-14-2024 WBC (Bld) [#/Vol] 9.5 10*3/uL 3.8-11.6 [facility] Chlamydia trachomatis rRNA [ Presence] in Cervix by CARLENE with probe detectionOrdered By: Kaitlyn Saldivar on 01-12-2024 C. trachomatis rRNA CARLENE+probe Ql (Cvx) Negative Negative [facility] Human papilloma virus 16+18+ 31+33+35+39+45+51+52+56+58+59+66+68 DNA [Presence] in CerOrdered By: Kaitlyn Saldivar on 01-12-2024 HPV 16+18+31+33+35+39+45+ 51+52+56+58+59+66+68 DNA Probe+sig amp Ql (Cvx) Negative Negative [facility] Comment on above: This nucleic acid am plification test detects fourteen high- risk HPV types (16,18,31,33,35,39,45,51,52,56,58,59,66,68)without differentiation. Neisseria gonorrhoeae rRNA [ Presence] in Cervix by CARLENE with probe detectionOrdered By: Kaitlyn Saldivar on 01-12-2024 N. gonorrhoeae rRNA CARLENE+probe Ql (Cvx) Negative Negative [facility] No Panel InformationOrdered By: Kaitlyn Saldivar on 01-12-2024 Thin Prep Pap Screen Note . [facility] Comment on above: TESTS RESULT FLAG UN ITS REF RANGE LAB Clinician Provided Cytology Information No. of containers..01 ThinPrep VialDIAGNOSIS: 01 NEGATIVE FOR INTRAEPITHELIAL LESION OR MALIGNANCY. CELLULAR CHANGES ASSOCIATED WITH ATROPHY AND INFLAMMATION ARE PRESENT.Specimen adequacy: 01 Satisfactory for evaluation. Endocervical and/or squamous metaplastic cells (endocervical component) are present.Performed by: 01 Leonor Dennison Tap Grinder (ASCP). 01Note: Note 01 The Pap smear is a screening test designed to aid in the detection of premalignant and malignant conditions of the uterine cervix. It is not a diagnostic procedure and should not be used as the sole means of detecting cervical cancer. Both false-positive and false-negative reports do occur.Test Methodology: Note 01 The Thin Prep(R) Director Global Development was unable to read this specimen. Therefore a manual review was performed.HPV Genotype Reflex Note 01 Criteria not met, HPV Genotype not performed. ------ FLAG LEGEND: L-Low Normal,H-High Normal,LL-Alert Low,HH-Alert High <-Panic Low,>-Panic High,A-Abnormal,AA-Critical Abnormal ----Performed at:[address] [facility] [address] [place] [id number] Georgia Roth MD, Trichomonas vaginalis rRNA [ Presence] in Unspecified specimen by Probe and target ampOrdered By: Kaitlyn Saldivar on 01-12-2024 T. vaginalis rRNA CARLENE+probe Ql (Unsp spec) Negative Negative [facility] Comment on above: Performed at: WB - [facility] [address] [id number] Director: Georgia Roth MD, Phone: [phone] at: =G - [facility] [address] [place], [place] [id number] Director: Georgia Roth MD, Phone: [phone] Ambulatory Visit Summaryon 0 10-04-2023 Ambulatory Visit Summary KATHY JULIAN :1960 Visit Date:10/04/2023 Ambulatory Visit Instructions Your Diagnosis Lower abdominal pain Bile salt-induced diarrhea Acid reflux Family history of colon cancer Constipation History of anal cancer Your Care Team Attending Physician - Selvin BOO, Matt Malhotra Primary Care Physician - KAITLYN SALDIVAR MD This Is Your Medications List peppermint oil (Ibgard 90 mg oral delayed release capsule) polyethylene glycol 3350 (Miralax 3350 17 gram packet) Contact prescribing physician if questions or concerns alprazolam (Xanax 0.5 mg Tab) amphetamine-dextroamph etamine (Adderall 5 mg oral tablet) bifidobacterium-lactob acillus (Nature's Bounty Probiotic) buPROPion (Wellbutrin SR 150 mg Tab-ER) busPIRone (busPIRone 15 mg Tab) calcium-vitamin D carbonyl iron (Iron Chews) cetirizine (cetirizine 5 mg oral tablet) cholestyramine (cholestyramine 4 g/9 g Oral Pwdr) ergocalciferol (Vitamin D) losartan (losartan 100 mg Tab) multivitamin (Vitamin B Complex oral tablet) multivitamin with minerals (Multivitamins and Minerals) pantoprazole (Pantoprazole [address] Tab) pantoprazole (Pantoprazole [address] Tab) polycarbophil (Fiber Tabs) simethicone (Gas-X) Procedures Performed Esophagogastroduodenos copy (07/22/2022), Cataract extraction and insertion of intraocular lens (03/14/2019), Cataract extraction and insertion of intraocular lens (02/28/2019), Cystourethroscopy with dilation of urethral stricture (02/28/2016), removal of right ean bullosa, septoplasty and bilateral inferior turbinate submucosal resection (01/10/2015), Cholecystectomy (06/28/2007), Cholecystectomy (05/28/2007), Gastric bypass (06/28/2002), Hysterectomy (06/28/2000), Tubal ligation (06/28/1999), Carpal tunnel release (06/28/1997), Sinus probing (06/28/1997), Knee. Discharge Vitals Heart Rate (Peripheral) 78 Respiratory Rate 18 Blood Pressure 140/82 Height 67 in Height 170 cm Weight 213.4 lb Weight 97 kg BMI 33.56 What to do next You Need to Schedule the Following Appointments Follow Up with Selvin BOO, Matt Malhotra, [facility] When: Within 3 months Where: [address], [address] [phone] Medications What How Much When Instructions New peppermint oil (Ibgard 90 mg oral delayed release capsule) 2 Capsules By Mouth 2 times a day Refills: 6 Pickup at [facility] #[id number] New polyethylene glycol 3350 (Miralax 3350 17 gram packet) 17 Gram By Mouth Every day as needed for Constipation Refills: 6 Pickup at [facility] #[id number] Unchanged alprazolam (Xanax 0.5 mg Tab) 1 Tablets By Mouth 2 times a day as needed for for anxiety Contact prescribing physician if questions or concerns Unchanged amphetamine-dextroamph etamine (Adderall 5 mg oral tablet) 1 Tablets By Mouth Once a day (in the morning) Contact prescribing physician if questions or concerns Unchanged bifidobacterium-lactob acillus (Nature's Bounty Probiotic) Contact prescribing physician if questions or concerns Unchanged buPROPion (Wellbutrin SR 150 mg Tab-ER) 1 Tablets By Mouth 2 times a day Contact prescribing physician if questions or concerns Unchanged busPIRone (busPIRone 15 mg Tab) By Mouth 2 times a day Contact prescribing physician if questions or concerns Unchanged calcium-vitamin D 1 TAB By Mouth Every day as needed for Prophylaxis Contact prescribing physician if questions or concerns Unchanged carbonyl iron (Iron Chews) Contact prescribing physician if questions or concerns Unchanged cetirizine (cetirizine 5 mg oral tablet) 1 Tablets By Mouth Every day as needed for for allergy symptoms Contact prescribing physician if questions or concerns Unchanged cholestyramine (cholestyramine 4 g/ 9 g Oral Pwdr) Contact prescribing physician if questions or concerns Unchanged ergocalciferol (Vitamin D) Contact prescribing physician if questions or concerns Unchanged losartan (losartan 100 mg Tab) 1 Tablets By Mouth Every day Contact prescribing physician if questions or concerns Unchanged multivitamin (Vitamin B Complex oral tablet) 1 Tablets Chewed Every day Contact prescribing physician if questions or concerns Unchanged multivitamin with minerals (Multivitamins and Minerals) 1 TAB By Mouth Every day Contact prescribing physician if questions or concerns Unchanged pantoprazole (Pantoprazole [address] Tab) 1 Tablets By Mouth Every day Contact prescribing physician if questions or concerns Unchanged pantoprazole (Pantoprazole [address] Tab) 1 Tablets By Mouth Every day Duration: 90 Days Contact prescribing physician if questions or concerns Unchanged polycarbophil (Fiber Tabs) Contact prescribing physician if questions or concerns Unchanged simethicone (Gas-X) Chewed Four times a day (after meals and at bedtime) Contact prescribing physician if questions or concerns Pharmacy Information [id number]: [address], [place] [id number] [phone] Allergies (more content not included)... Normal [facility] Gastroenterology Office/Clin ic Noteon 10-04-2023 Gastroenterology Office/Clinic Note Chief Complaint lowre abd. pain, bile salt-induced diarrhea HPI Staff Patient is a 63 year old female who presents today for a follow up to Colonoscopy on 09/21/23. Still having abdominal pain, some fecal incontinence, gas after eating/drinking. Last visit 08/26/23 w/Rani: Assessment/Plan 1. Lower abdominal pain (R10.30: Lower abdominal pain, unspecified) Chronic. Worse in the last 3-4 months. Is having lower abdominal pain described as sharp/stabbing radiating to lower back. Lower abdominal pain is occurring 2-3 times a week. 2. Fecal incontinence (R15.9: Full incontinence of feces) Occurring rarely. 3. Bloating (R14.0: Abdominal distension (gaseous)) Occurring 2 times a week. Educated regarding use of Gas-X as needed. 4. 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 Improved with Questran as needed. 5. Dyssynergic defecation (K59.02: Outlet dysfunction constipation) Previous rectal manometry 03/2022 revealed mild type II fecal dyssynergia. 6. Acid reflux (K21.9: Gastro-esophageal reflux disease without esophagitis) Controlled. Continue Pantoprazole 40mg daily. 7. History of colon polyps (Z86.010: Personal history of colonic polyps) Previous colonoscopy 08/11/2021 revealed normal terminal ileum, mild patchy erythema in sigmoid, 5mm tubular adenoma removed from cecum, random colon biopsy within normal limits and sigmoid biopsy within normal limits. Given above worsening symptoms- see # 1, FH colon cancer, and Hx. colon polyp- will plan to repeat colonoscopy to further evaluate. 8. Family history of colon cancer (Z80.0: Family history of malignant neoplasm of digestive organs) Family history of colon cancer: Patient's mother- from colon cancer at age 50, brother- diagnosed at age 67. Colonoscopy: 1. There was significant semisolid stool through the colon prevented the procedure from being completed. Could not also evaluate for polyps 2. Random biopsies were taken to rule out microscopic colitis Pathology: Final Diagnosis (Verified) RANDOM COLON BIOPSY: ? COLONIC MUCOSA WITHIN NORMAL LIMITS. Laboratory Results CBC CMP Basophil Absolute: 0 E9/L (08/26/23) A/G Ratio: 1.5 (08/26/23) Basophil Auto: 0.4 % (08/26/23) AGAP: 9 mEq/L (08/26/23) Eos Absolute: 0.4 E9/L (08/26/23) Albumin Lvl: 4.2 gm/dL (08/26/23) Eos Auto: 3.8 % (08/26/23) Alk Phos: 91 Int._Unit/L (08/26/23) Hct: 41.1 % (08/26/23) ALT: 15 Int._Unit/L (08/26/23) HGB: 13.5 gm/dL (08/26/23) AST: 17 Int._Unit/L (08/26/23) Lymph Absolute: 2.7 E9/L (08/26/23) Bili Total: 0.4 mg/dL (08/26/23) Lymph Auto: 29.7 % (08/26/23) BUN: 8 mg/dL (08/26/23) MCH: 29.9 pg (08/26/23) BUN/Creat Ratio: 11 (08/26/23) MCHC: 32.9 gm/dL (08/26/23) Calcium Lvl: 9.7 mg/dL (08/26/23) MCV: 90.9 fL (08/26/23) Chloride: 105 mmol/L (08/26/23) [place] Absolute: 0.6 E9/L (08/26/23) CO2: 29 mmol/L (08/26/23) [place] Auto: 6.4 % (08/26/23) Creatinine: 0.7 mg/dL (08/26/23) MPV: 7 fL (08/26/23) Globulin: 2.8 gm/dL (08/26/23) Neutro Absolute: 5.5 E9/L (08/26/23) Glucose Lvl: 85 mg/dL (08/26/23) Neutro Auto: 59.7 % (08/26/23) Potassium Lvl: 4 mmol/L (08/26/23) Platelet: 284 E9/L (08/26/23) Sodium Lvl: 139 mmol/L (08/26/23) RBC: 4.5 E12/L (08/26/23) Total Protein: 7 gm/dL (08/26/23) RDW: 13 % (08/26/23) WBC: 9.2 E9/L (08/26/23) History of Present Illness Abdominal pain/cramping- lower quad, radiates to back- 2 years BM varies between constipation and loose stools (2-3 BM) Loose stools occurs 1-2x a week Gas/Bloating after eating or drinking Took Benefiber for constipation, caused bloating Taking pantoprazole 40mg CT abd/pel completed in [facility]- August 2022; normal Colonoscopy reviewed and discussed with patient- poor prep but bx were taken, neg for microscopic colitis Anal ca in 2013- treated at [facility] and then at in [place], was treated with ointment for 3-4 months Follows Dermatology annually Review of Systems PHQ Score Initial Depression Screen Score: 0 SCORE All systems reviewed, negative; Except for above Physical Exam Vitals & Measurements HR: 78(Peripheral) RR: 18 BP: 140/82 HT: 67 in HT: 170 cm WT: 97 kg WT: 213.4 lb BMI: 33.56 General: in Nad Abdomen: Soft, NTND Assessment/Plan 1. Lower abdominal pain (R10.30: Lower abdominal pain, unspecified) Likely related to constipation Discussed Bloating today regarding the causes, natural history, diagnosis and treatment of bloating. Take IBgarrd, if no improvement treat constipation. 2. 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 Acid reflux (K21.9: Gastro-esophageal reflux disease without esophagitis) controlled, pantoprazole 40mg daily 4. Family history of colon cancer (Z80.0: Family history of malignant neoplasm of digestive organs) Mot (more content not included)... Normal [facility] Comment on above: Result Comment: Elec tronically Signed By: Matt Montalvo MD\.br\Date and Time Signed: 10/04/23 09:29 EDT\.br\Electronically Co-Signed By: Basia Patterson MA\.br\Date and Time Co-Signed: 10/04/23 09:25 EDT Reminderson 10-04-2023 Reminders - From: Clarisse Love To: [facility] - Reminders/Recalls; Sent: 10/04/2023 11:20:59 EDT Show up: 07/29/2028 11:20:00 EST Subject: Ambulatory Reminder Due Date/Time: 08/26/2028 11:20:00 EST Reminder/Recall Addendum by Clarisse Love on October 04, 2023 11:19:51 EDT 09/20/2028 From: Matt Montalvo MD To: Clarisse Love; Sent: 10/04/2023 09:03:13 EDT Subject: General Message Caller Name: KATHY JULIAN; Caller Number: H Colonoscopy 5 years please [facility] Outside Colonoscopyon 2023 Outside Colonoscopy [id number]#2. 00TIFF Normal [facility] Physician Orderon 09-22-2023 Physician Order [id number]#1. 00TIFF [facility] RAD - CT Reporton 09-20-2023 RAD - CT Report [id number]#1.0 0TIFF [facility] CT ABDOMEN PELVIS W IV CONTR Bam 09-17-2023 CT ABDOMEN PELVIS W IV CONTRAST EXAMINATION: CT OF THE ABDOMEN AND PELVIS [...] reveal no evidence of acute fracture or osteolytic/osteoblasti c lesion. Moderate degenerative changes are present at the L3-4 intervertebral disc space with moderate to severe bilateral hip joint space narrowing and spur formation. IMPRESSION: There is no evidence of acute abnormality. Interpreted by: Dalton Adam MD Signed by: Dalton Adam MD 09/17/23 Final result Normal [facility] CT Abdomen and Pelvis W cont rast Demond 09-17-2023 There is no evidence of acute abnormality. [facility] RADIOLOGY EXAMINATION: CT OF THE ABDOMEN AND PELVIS [...] reveal no evidence of acute fracture or osteolytic/osteoblasti c lesion. Moderate degenerative changes are present at the L3-4 intervertebral disc space with moderate to severe bilateral hip joint space narrowing and spur formation. [facility] RADIOLOGY Dalton Adam MD - 09/17/2023 EXAMINATION: CT [...] reveal no evidence of acute fracture or osteolytic/osteoblasti c lesion. Moderate degenerative changes are present at the L3-4 intervertebral disc space with moderate to severe bilateral hip joint space narrowing and spur formation. IMPRESSION: There is no evidence of acute abnormality. [facility] Radiology Study observation (narrative) [facility] CT Abdomen and Pelvis W cont rast IVOrdered By: Dalton Adam on 09-17-2023 [facility] Work Phone: POCT Venouson 09-17-2023 Creatinine [Mass/Vol] 0.7 mg/dL Normal 0.6-1.2 [facility] Comment on above: Performed By: #### P MARTHA #### [facility] [address] [place] [address] GFR >60 Normal >60 [facility] Comment on above: Result Comment: Raghu atric calculator link https://www.kidney.org/professionals/kdoqi/gfr_calculatorped Effective Mar 30, 2022 These results are not intended for use in patients <18 years of age. eGFR results are calculated without a race factor using the 2020 CKD-EPI equation. Careful clinical correlation is recommended, particularly when comparing to results calculated using previous equations. The CKD-EPI equation is less accurate in patients with extremes of muscle mass, extra-renal metabolism of creatinine, excessive creatinine ingestion, or following therapy that affects renal tubular secretion. Performed By: #### P MARTHA #### [facility] [address] [place] [address] POC Performed on SEE BELOW Normal [facility] Comment on above: Result Comment: Perf ormed on POC Performed By: #### P MARTHA #### [facility] [address] [place] [address] POC Sample Type MARTHA Normal [facility] Comment on above: Performed By: #### P MARTHA #### [facility] [address] [place] [address] Creatinine [Mass/Vol] 0.7 mg/dL 0.6 - 1.2 mg/dL [facility] Rentalutions GFR/1.73 sq M.predicted among non-blacks MDRD (S/P/Bld) [Vol rate/Area] 60 - [facility] Comment on above: Pediatric calculator link https://www.kidney.org/professionals/kdoqi/gfr_calculatorped Effective Mar 30, 2022 These results are not intended for use in patients <18 years of age. eGFR results are calculated without a race factor using the 2020 CKD-EPI equation. Careful clinical correlation is recommended, particularly when comparing to results calculated using previous equations. The CKD-EPI equation is less accurate in patients with extremes of muscle mass, extra-renal metabolism of creatinine, excessive creatinine ingestion, or following therapy that affects renal tubular secretion. Performed on SEE BELOW [facility] Comment on above: Performed on POC Sample Type [facility] Insurance Correspondenceon 0 08-30-2023 Insurance Correspondence [id number]#1. 00TIFF [facility] Pre-Certification Formon Pre-Certification Form [id number]#1.0 0TIFF [facility] Consent for Procedure/Surger yon 08-27-2023 Consent for Procedure/Surgery [id number]#1.0 0TIFF [facility] Ambulatory Visit Summaryon 0 08-26-2023 Ambulatory Visit Summary KATHY JULIAN :1960 Visit Date:08/26/2023 Ambulatory Visit Instructions Your Diagnosis Lower abdominal pain Fecal incontinence Bloating Bile salt-induced diarrhea Dyssynergic defecation Acid reflux History of colon polyps Family history of colon cancer Your Care Team Attending Physician - Rani Delgadillo CNP Primary Care Physician - KAITLYN SALDIVAR MD This Is Your Medications List Contact prescribing physician if questions or concerns alprazolam (Xanax 0.5 mg Tab) amphetamine-dextroamph etamine (Adderall 5 mg oral tablet) bifidobacterium-lactob acillus (Nature's Bounty Probiotic) buPROPion (Wellbutrin SR 150 mg Tab-ER) busPIRone (busPIRone 15 mg Tab) calcium-vitamin D carbonyl iron (Iron Chews) cetirizine (cetirizine 5 mg oral tablet) cholestyramine (cholestyramine 4 g/9 g Oral Pwdr) ergocalciferol (Vitamin D) losartan (losartan 100 mg Tab) multivitamin (Vitamin B Complex oral tablet) multivitamin with minerals (Multivitamins and Minerals) pantoprazole (Pantoprazole [address] Tab) pantoprazole (Pantoprazole [address] Tab) polycarbophil (Fiber Tabs) simethicone (Gas-X) Procedures Performed Esophagogastroduodenos copy (07/22/2022), Cataract extraction and insertion of intraocular lens (03/14/2019), Cataract extraction and insertion of intraocular lens (02/28/2019), Cystourethroscopy with dilation of urethral stricture (02/28/2016), removal of right ean bullosa, septoplasty and bilateral inferior turbinate submucosal resection (01/10/2015), Cholecystectomy (06/28/2007), Cholecystectomy (05/28/2007), Gastric bypass (06/28/2002), Hysterectomy (06/28/2000), Tubal ligation (06/28/1999), Carpal tunnel release (06/28/1997), Sinus probing (06/28/1997), Knee. Discharge Vitals Temperature (Temporal Artery) 36.3 ?C Heart Rate (Peripheral) 71 Blood Pressure 131/83 Height 170 cm Height 67 in Weight 98.7 kg Weight 217.14 lb BMI 34.15 What to do next You Need to Schedule the Following Appointments Follow Up with Rani Delgadillo CNP When: Within 1 to 2 weeks Comments: Following colonoscopy. Where: You Need to Complete the Following CBC w/ Auto Diff, Blood, Routine collect, 08/26/23, Order for future visit, Lab Collect, Lower abdominal pain Invalid Interpretation Code Family history of colon cancer, Print Label By Order Location\.br\ Comprehensive Metabolic Panel, Blood, Routine collect, 08/26/23, Order for future visit, Lab Collect, Lower abdominal pain [facility] CBC w/ Auto Diffon 4 Basophils/100 WBC (Bld) 0.4 % Normal 0.0-2.0 [facility] Comment on above: Performed By: #### 2 [id number], 4851858, [id number] ####[facility] [address] [place] [address] Basophils/Leukocytes Auto (Bld) [Pure # fraction] 0.0 E9/L Normal 0.0-0.2 [facility] Comment on above: Performed By: #### 2 706964, 7302109, [id number] ####[facility] [address] [place] [address] Eosinophils (Bld) [#/Vol] 0.4 E9/L Normal 0.0-0.5 [facility] Comment on above: Performed By: #### 2 367774, 5628638, 38914529 ####[address] [address] Eosinophils/100 WBC (Bld) 3.8 % Normal 0.0-8.0 [facility] Comment on above: Performed By: #### 2 847240, 6177990, 95171579 ####[address] [address] Erythrocyte distribution width (RBC) [Ratio] 13.0 % Normal 10.9-14.2 [facility] Comment on above: Performed By: #### 2 402840, 4115544, 69572586 ####[address] [address] Hematocrit (Bld) [Volume fraction] 41.1 % Normal 34.0-46.0 [facility] Comment on above: Performed By: #### 2 347345, 5703517, 88307199 ####[address] [address] Hemoglobin (Bld) [Mass/Vol] 13.5 g/dL Normal 12.0-16.0 [facility] Comment on above: Performed By: #### 2 806433, 5313235, 12730988 ####[address] [address] Lymphocytes (Bld) [#/Vol] 2.7 E9/L Normal 1.0-4.0 [facility] Comment on above: Performed By: #### 2 080584, 6675211, 44936074 ####[address] [address] Lymphocytes/100 WBC (Bld) 29.7 % Normal 14.0-50.0 [facility] Comment on above: Performed By: #### 2 239934, 3956845, 61339239 ####[address] [address] MCH (RBC) [Entitic mass] 29.9 pg Normal 27.0-34.0 [facility] Comment on above: Performed By: #### 2 930614, 1525432, 31092541 ####[address] [address] MCHC (RBC) [Mass/Vol] 32.9 g/dL Normal 31.4-36.0 [facility] Comment on above: Performed By: #### 2 818299, 6854951, 24628007 ####[address] [address] MCV (RBC) [Entitic vol] 90.9 fL Normal 80.0-100.0 [facility] Comment on above: Performed By: #### 2 904342, 7964343, 57503274 ####[address] [address] Monocytes (Bld) [#/Vol] 0.6 E9/L Normal 0.2-1.0 [facility] Comment on above: Performed By: #### 2 055224, 4908115, 15537193 ####[address] [address] Neutrophils (Bld) [#/Vol] 5.5 E9/L Normal 2.0-7.5 [facility] Comment on above: Performed By: #### 2 818977, 7733310, 91297644 ####[address] [address] Neutrophils/100 WBC (Bld) 59.7 % Normal 36.0-75.0 [facility] Comment on above: Performed By: #### 2 644272, 5052802, 31024026 ####[address] [address] Platelet mean volume (Bld) [Entitic vol] 7.0 fL Normal 6.4-10.8 [facility] Comment on above: Performed By: #### 2 411481, 6158010, 64108460 ####[address] [place] [address] Platelets (Bld) [#/Vol] 284.0 E9/L Normal 150.0-500.0 [facility] Comment on above: Performed By: #### 2 856285, 8362943, 75584353 ####[facility] [address] [place] [address] RBC (Bld) [#/Vol] 4.5 E12/L Normal 4.3-5.9 [facility] Comment on above: Performed By: #### 2 711875, 6507371, 75445150 ####[address] [place] [address] WBC corrected for nucl RBC Auto (Bld) [#/Vol] 9.2 E9/L Normal 4.0-11.0 [facility] Comment on above: Performed By: #### 2 600537, 2104379, 05509012 ####[facility] [address] [place] [address] CHEMISTRYOrdered By: SYSTEM SYSTEM on 08-26-2023 Albumin [Mass/Vol] 4.2 g/dL Normal 3.3 - 5.0 gm/dL Remisol Chem Albumin/Globulin [Mass ratio] 1.5 {ratio} Normal 1.1 - 2.2 Rem[facility] ALP [Catalytic activity/Vol] 91 [iU]/d Normal 21 - 98 Int._Unit/L Remisol Chem ALT No additional P-5'-P [Catalytic activity/Vol] 15 [iU]/d Normal 6 - 46 Int._Unit/L Rem[facility] Chem Anion gap [Moles/Vol] 9 mmol/L Normal 6 - 16 mEq/L R emisol Chem AST [Catalytic activity/Vol] 17 [iU]/d Normal 5 - 43 Int._Unit/L Rem[facility] Chem Bilirubin [Mass/Vol] 0.4 mg/dL Normal 0.0 - 1 .1 mg/dL [facility] Calcium [Mass/Vol] 9.7 mg/dL Normal 8.9 - 11. 1 mg/dL [facility] Chloride [Moles/Vol] 105 mmol/L Normal 101 - 1 11 mmol/L [facility] CO2 [Moles/Vol] 29 mmol/L Normal 21 - 31 mmol/L Remis ol Chem Creatinine [Mass/Vol] 0.7 mg/dL Normal 0.5 - 1.3 mg/dL Rem[facility] Chem eGFR 96 mL/min/1.73 m2 Normal >=59mL/min /1.7 3 m2 [facility] Globulin (S) [Mass/Vol] 2.8 g/dL Normal 1.4 - 4.0 gm/dL Rem[facility] Glucose [Mass/Vol] 85 mg/dL Normal 55 - 199 mg/dL Re misol Chem Potassium [Moles/Vol] 4.0 mmol/L Normal 3.5 - 5.3 mmol/L Remisol Chem Protein [Mass/Vol] 7.0 g/dL Normal 6.0 - 7.8 gm/dL [facility] Chem Sodium [Moles/Vol] 139 mmol/L Normal 135 - 145 mmol/L Rem[facility] Chem Urea nitrogen [Mass/Vol] 8 mg/dL Normal 5 - 21 mg/dL Rem[facility] Chem Urea nitrogen/Creatinine [Mass ratio] 11 mg/mg Normal 10 - 20 Rem[facility] Chem CMPon 08-26-2023 Albumin [Mass/Vol] 4.2 g/dL Normal 3.3-5.0 [facility] Comment on above: Performed By: #### 2 934043, 0643803, 94014138 ####[facility] [address] [place] [address] Albumin/Globulin (S) [Mass conc ratio] 1.5 Normal 1.1-2.2 [facility] Comment on above: Performed By: #### 2 443655, 7810550, 49564152 ####[facility] [address] [place] [address] ALP [Catalytic activity/Vol] 91 Int._Unit/L Normal 21-98 [facility] Comment on above: Performed By: #### 2 238147, 9454872, 21340604 ####[facility] [address] [place] [address] ALT No additional P-5'-P [Catalytic activity/Vol] 15 Int._Unit/L Normal 6-46 [facility] Comment on above: Performed By: #### 2 207593, 5031862, 39886503 ####[facility] [address] [place] [address] Anion gap [Moles/Vol] 9 mmol/L Normal 6-16 [facility] Comment on above: Performed By: #### 2 134900, 9050122, 70501699 ####[facility] [address] [place] [address] AST [Catalytic activity/Vol] 17 Int._Unit/L Normal 5-43 [facility] Comment on above: Performed By: #### 2 884644, 9048594, 52620107 ####[facility] [address] [place] [address] Bilirubin [Mass/Vol] 0.4 mg/dL Normal 0.0-1.1 [facility] Comment on above: Performed By: #### 2 765109, 9343596, 93698536 ####[facility] [address] [place] [address] Calcium [Mass/Vol] 9.7 mg/dL Normal 8.9-11.1 [facility] Comment on above: Performed By: #### 2 035623, 4827867, 48197057 ####[facility] [address] [place] [address] Chloride [Moles/Vol] 105 mmol/L Normal 101-111 [facility] Comment on above: Performed By: #### 2 064218, 7229239, 68182489 ####[facility] [address] [place] [address] CO2 [Moles/Vol] 29 mmol/L Normal 21-31 [facility] Comment on above: Performed By: #### 2 078287, 7565426, 32476354 ####[facility] [address] [place] [address] Creatinine [Mass/Vol] 0.7 mg/dL Normal 0.5-1.3 [facility] Comment on above: Performed By: #### 2 954800, 8068924, 63912326 ####[facility] [address] [place] [address] Globulin (S) [Mass/Vol] 2.8 g/dL Normal 1.4-4.0 [facility] Comment on above: Performed By: #### 2 874208, 4696241, 55341064 ####[facility] [address] [place] [address] Glucose [Mass/Vol] 85 mg/dL Normal 55-199 [facility] Comment on above: Performed By: #### 2 177701, 3891629, 72825206 ####[facility] [address] [place] [address] Potassium [Moles/Vol] 4.0 mmol/L Normal 3.5-5.3 [facility] Comment on above: Performed By: #### 2 908400, 0742685, 53995934 ####[facility] [address] [place] [address] Protein [Mass/Vol] 7.0 g/dL Normal 6.0-7.8 [facility] Comment on above: Performed By: #### 2 038840, 5663727, 73991478 ####[facility] [address] [place] [address] Sodium [Moles/Vol] 139 mmol/L Normal 135-145 [facility] Comment on above: Performed By: #### 2 804304, 7999229, 84870941 ####[facility] [address] [place] [address] Urea nitrogen [Mass/Vol] 8 mg/dL Normal 5-21 [facility] Comment on above: Performed By: #### 2 988991, 8190306, 36544825 ####[facility] [address] [place] [address] Urea nitrogen/Creatinine [Mass ratio] 11 No Units Normal 10-20 [facility] Comment on above: Performed By: #### 2 114492, 7490628, 56164980 ####[facility] [address] [place] [address] Consent for Treatmenton 07-30 Consent for Treatment [id number] 0TIFF Normal [facility] Gastroenterology Office/Clin ic Noteon 08-26-2023 Gastroenterology Office/Clinic Note Chief Complaint Fecal incontinence, cramping, abdominal pain, gas/bloating. HPI Staff This is a 63 year old female who presents today for a follow-up from 02/09/23 office visit. History of Present Illness Patient is a 63-year-old female who presents for follow-up. Patient was previously evaluated 01/2023 and has history of acid reflux?she is currently taking 40 mg of pantoprazole daily. Patient also with history of gastric bypass. Hx. JASWINDER, anxiety, and HTN- managed by patient's PCP. Patient with history of bile salt induced diarrhea and previously reported taking Questran 2-3 times a week and 3 capsules of fiber 2 times a week. Previous rectal manometry 03/2022 that revealed mild type II fecal dyssynergia. Previous colonoscopy 08/11/2021 revealed normal terminal ileum, mild patchy erythema in sigmoid, 5mm tubular adenoma removed from cecum, random colon biopsy within normal limits and sigmoid biopsy within normal limits?was recommended to have repeat colonoscopy in 2026. Please note, patient has previously requested repeat colonoscopy in 2 years?2023. Will discuss with patient further today. Previous ultrasound of abdomen in 2021 revealed bilateral renal cysts-patient to follow-up with PCP regarding. Labs completed 05/2022 revealed normal H&H, normal BUN, normal creatinine, normal LFTs. Stool testing 05/2022 was shown to be positive for WBC lactoferrin and patient was treated with Flagyl/align, otherwise, stool testing was negative for infectious process at that time. EGD completed with Dr. Negron 07/22/2022 revealed normal esophagus, evidence of prior gastric bypass surgery with normal gastric pouch. Patient reported during most recent visit with me that she recently had sleep study completed 11/2022 and was told she was belching a lot. She indicated pantoprazole 40mg daily was helping her acid reflux and belching. She also previously reported fiber and cholestyramine which she was reportedly taking a few times a week was helping her bowels. She previously indicated she was having 1-2 formed bowel movements daily. Previously reported rare occasions of fecal incontinence and loose/diarrhea stools. Family history of colon cancer: Patient's mother- from colon cancer at age 50, brother- diagnosed with colon cancer at age 67. Family history of colon polyps: Denies. Personal history of colon cancer: Denies. Personal history of colon polyps: yes, see above. Anticoagulation therapy: Denies. Antiplatelet therapy: Denies. During today's visit, patient reports having lower abdominal pain described as sharp/stabbing radiating to lower back that started 8 months ago and worse over the last 3-4 months. Lower abdominal pain is occurring 2-3 times a week that occurs without regard to food. Rates lower abdominal pain 6/10. At times, moving helps abdominal pain and at times abdominal pain improves after having a BM. Has rare occasions of loose stools with abdominal pain. Is having 1 primarily formed BM daily. Is taking Questran 1 packet 2 times a week that helps fecal incontinence. Performs kegel exercises occasionally. Uses imodium rarely as needed for fecal incontinence. Has rare occasions of fecal incontinence described as soft BM in undergarments. Is also having gas/bloating that has improves after stopping fiber, occurring 3 times a week. Is eating a high fiber diet. She explains acid reflux is well-controlled with pantoprazole 40mg daily. Denies having any other GI complaints. Review of Systems PHQ Score Initial Depression Screen Score: 0 SCORE ROS - Provider Constitutional: no fever, no chills. Skin: no Jaundice. ENMT: Denies dysphagia and heartburn. Respiratory: no shortness of breath. Cardiovascular: no chest pain. Gastrointestinal: no nausea, no vomiting, no diarrhea, no GI bleeding. Physical Exam Vitals & Measurements T: 36.3 ?C(Temporal Artery) HR: 71(Peripheral) BP: 131/83 HT: 67 in HT: 170 cm WT: 98.7 kg WT: 217.14 lb BMI: 34.15 General: Well developed, well nourished, in no acute distress Head: Normocephalic/atraumat ic Lungs: Normal respiratory effort and clear to auscultation Cardio: Regular rate and rhythm, normal S1 and S2, no murmur, no rub Abdomen: Soft, non-distended, non-tender. Normoactive bowel sounds present in all 4 abdominal quadrants, bilaterally. Mental Status: Alert and oriented x3. Normal mood and affect Assessment/Plan 1. Lower abdominal pain (R10.30: Lower abdominal pain, unspecified) Chronic. Worse in the last 3-4 months. Is having lower abdominal pain described as sharp/stabbing radiating to lower back. Lower abdominal pain is occurring 2-3 times a week. Ordered CBC/CMP. Ordered CT A/P to evaluate for acute process. Ordered Colonoscopy to further evaluate for colon polyps/cancer, inflammatory process. Ordered: CBC w/ Auto Diff Colonoscopy (Hospital Procedure) Comprehensive Metabolic Panel 2. Fecal incontinence (R15.9: Full incontinence of feces) Occurring rarely. Pr (more content not included)... Normal [facility] Comment on above: Result Comment: Elec tronically Signed By: Rani Delgadillo CNP\.br\Date and Time Signed: 08/26/23 16:24 EST HEMATOLOGYOrdered By: SYSTEM SYSTEM on 08-26-2023 Basophils/100 WBC (Bld) 0.4 % Normal 0.0 - 2.0 % Remisol Heme Basophils/Leukocytes Auto (Bld) [Pure # fraction] 0.0 E9/L Normal 0.0 - 0.2 E9/L Rem[facility] Heme Eosinophils (Bld) [#/Vol] 0.4 E9/L Normal 0.0 - 0.5 E9/L Rem[facility] Heme Eosinophils/100 WBC (Bld) 3.8 % Normal 0.0 - 8.0 % Rem[facility] Heme Erythrocyte distribution width (RBC) [Ratio] 13.0 % Normal 10.9 - 14.2 % Rem[facility] Heme Hematocrit (Bld) [Volume fraction] 41.1 % Normal 34.0 - 46.0 % Remisol Heme Hemoglobin (Bld) [Mass/Vol] 13.5 g/dL Normal 12.0 - 16.0 gm/dL Rem[facility] Heme Lymphocytes (Bld) [#/Vol] 2.7 E9/L Normal 1.0 - 4.0 E9/L [facility] Heme Lymphocytes/100 WBC (Bld) 29.7 % Normal 14.0 - 50.0 % Rem[facility] Heme MCH (RBC) [Entitic mass] 29.9 pg Normal 27.0 - 34.0 pg Remisol Heme MCHC (RBC) [Mass/Vol] 32.9 g/dL Normal 31.4 - 36.0 gm/dL Rem[facility] Heme MCV (RBC) [Entitic vol] 90.9 fL Normal 80.0 - 100.0 fL Rem[facility] Heme Monocytes (Bld) [#/Vol] 0.6 E9/L Normal 0.2 - 1.0 E9/L [facility] Heme Monocytes/100 WBC (Bld) 6.4 % Normal 4.0 - 14.0 % [facility] Heme Neutrophils (Bld) [#/Vol] 5.5 E9/L Normal 2.0 - 7.5 E9/L [facility] Heme Neutrophils/100 WBC (Bld) 59.7 % Normal 36.0 - 75.0 % [facility] Heme Platelet mean volume (Bld) [Entitic vol] 7.0 fL Normal 6.4 - 10.8 fL [facility] Heme Platelets (Bld) [#/Vol] 284.0 E9/L Normal 150.0 - 500.0 E9/L [facility] Heme RBC (Bld) [#/Vol] 4.5 E12/L Normal 4.3 - 5.9 E12/L [facility] Heme WBC corrected for nucl RBC Auto (Bld) [#/Vol] 9.2 E9/L Normal 4.0 - 11.0 E9/L [facility] Heme Patient Educationon 08-26-19 Patient Education Gastroenterology Abdominal Pain, Adult Pain in the abdomen (abdominal pain) can be caused by many things. Often, abdominal pain is not serious and it gets better with no treatment or by being treated at home. However, sometimes abdominal pain is serious. Your health care provider will ask questions about your medical history and do a physical exam to try to determine the cause of your abdominal pain. Follow these instructions at home: Medicines ? Take cqhe-bdu-czgyvef and prescription medicines only as told by your health care provider. ? Do not take a laxative unless told by your health care provider. General instructions ? Watch your condition for any changes. ? Drink enough fluid to keep your urine pale yellow. ? Keep all follow-up visits as told by your health care provider. This is important. Contact a health care provider if: ? Your abdominal pain changes or gets worse. ? You are not hungry or you lose weight without trying. ? You are constipated or have diarrhea for more than 2?3 days. ? You have pain when you urinate or have a bowel movement. ? Your abdominal pain wakes you up at night. ? Your pain gets worse with meals, after eating, or with certain foods. ? You are vomiting and cannot keep anything down. ? You have a fever. ? You have blood in your urine. Get help right away if: ? Your pain does not go away as soon as your health care provider told you to expect. ? You cannot stop vomiting. ? Your pain is only in areas of the abdomen, such as the right side or the left lower portion of the abdomen. Pain on the right side could be caused by appendicitis. ? You have bloody or black stools, or stools that look like tar. ? You have severe pain, cramping, or bloating in your abdomen. ? You have signs of dehydration, such as: ? Dark urine, very little urine, or no urine. ? Cracked lips. ? Dry mouth. ? Sunken eyes. ? Sleepiness. ? Weakness. ? You have trouble breathing or chest pain. Summary ? Often, abdominal pain is not serious and it gets better with no treatment or by being treated at home. However, sometimes abdominal pain is serious. ? Watch your condition for any changes. ? Take eapl-hmw-ymwcxfa and prescription medicines only as told by your health care provider. ? Contact a health care provider if your abdominal pain changes or gets worse. ? Get help right away if you have severe pain, cramping, or bloating in your abdomen. This information is not intended to replace advice given to you by your health care provider. Make sure you discuss any questions you have with your health care provider. Document Revised: 08/02/2020 Document Reviewed: 10/23/2019 [employer] Patient Education ? 2022 [employer] Normal [facility] eGFRon 08-26-2023 eGFR 96 mL/min/1.73 m2 Normal >=59 [facility] Comment on above: Order Comment: Order added by Discern Expert. Performed By: #### [id number] ####[facility] [id number] [place] [address] Patient Eval Forms Officeon 05-17-2023 Patient Eval Forms Office [id number]#[id number] 0TIFF Normal [facility] Prescriptions/Work Noteson 1 07-17-2022 Prescriptions/Work Notes [id number]#[id number] 0TIFF Normal [facility] Consent for Treatmenton 04-28 Consent for Treatment [id number] 0TIFF Normal [facility] Sleep Office/Clinic Noteon 1 07-14-2022 Sleep Office/Clinic Note History of Present Illness Here to establish care for underlying obstructive sleep apnea. The patient reports that she was diagnosed with obstructive sleep apnea many years ago and was using BiPAP at that time. Subsequently she underwent gastric bypass surgery and had lost significant amount of weight and stopped using her machine. She also had some sinus surgery which helped with her snoring and her sleep quality. Recently she had significant weight gain again with recurrent snoring, pauses of breathing while asleep, disrupted sleep, fatigue, daytime sleepiness and morning headaches. Given the above she underwent a sleep study which confirmed underlying obstructive sleep apnea. We have started the patient on CPAP at a pressure of 14 cm which she has been using since then via a fullface mask but has been having difficulties with the high pressures. She reports that her mask keeps leaking from the high pressures and the pressure along with the leakage wakes her up frequently at night as well. Review of Systems Constitutional: no fever, no chills, no sweats, no weakness Skin: no Jaundice, no rash, no lesions, no petechiae ENT: no ear pain, no sore throat, no congestion, no hoarseness Respiratory: Denies shortness of breath, cough or wheezing Cardiovascular: no chest pain, no palpitations, no edema Gastrointestinal: no nausea, no vomiting, no diarrhea, no GI bleeding Genitourinary: no dysuria, no hematuria, no discharge, no pain Musculoskeletal: no back pain, no trauma Neurologic: no headache, no dizziness, no numbness, no weakness Psychiatric: no irritability, no mood swings/depression. Heme/Lymph: no bleeding tendency, no bruising tendency, no petechiae, no swollen nodes Allergy/Immunologic: no seasonal allergies, no food allergies, no recurrent infections, no impaired immunity Additional ROS info: Except as noted in the above Review of Systems and in the History of Present Illness all other systems have been reviewed and are negative or noncontributory. Physical Exam General: Awake, alert, in no acute distress Skin: warm, dry Head: no trauma, normocephalic. Prolonged soft palate Neck: Trachea midline, no adenopathy, no tenderness Eye: normal conjunctiva, sclera clear ENMT: TM's clear, oral mucosa moist, no pharyngeal erythema or exudate Cardiovascular: regular rate and rhythm, normal peripheral perfusion Respiratory: Good breath sounds to both lung ibrahim without wheezing or crackles. Gastrointestinal: soft, non distended, no tenderness, no guarding. Back: No tenderness, Normal ROM, Normal alignment. Extremities: no deformity, no trauma Neurological: oriented x 4, LOC appropriate for age, CN II-XII intact, motor strength equal & normal bilaterally, sensation equal & normal bilaterally, speech normal Psychiatric: cooperative, affect appropriate for age, normal judgement, normal psychiatric thoughts. Assessment/Plan 1. JASWINDER (obstructive sleep apnea) (G47.33: Obstructive sleep apnea (adult) (pediatric)) The patient's sleep study was reviewed and results were discussed with the patient in details. Evidence of moderate underlying obstructive sleep apnea with an apnea hypotony index of 21.8/hour with moderate oxygen desaturation noted. The etiology of obstructive sleep apnea and methods of treatment were discussed with the patient in details. Suboptimal CPAP titration at a pressure of 14 cm appeared to be adequate pressure, however the patient feels that the pressure is too high and having difficulties maintaining a good seal on her mask. I have reviewed the patient's CPAP download from April 13, 2023 to May 12, 2023. She has excellent compliance with CPAP with a reduction in the apnea hypopnea index to 4.6/hour however with high leak is a 57 L/min. I think the patient would benefit from a change in her mask with different type of full facemask. I will also switch her pressure to an auto titrating mode with a pressure range of 5 to 15 cm and reevaluate with another download of her machine in 6 to 8 weeks. She will call me back in the meantime if any issues. Follow-up With When Contact Information Aishwarya Napier MD, PUL, CHARIYT Within 6 weeks [address] [facility] [place] [address]- Additional Instructions: Problem List/Past Medical History Ongoing Acid reflux Bile salt-induced diarrhea Colon polyp Dyssynergic defecation Fecal incontinence History of colon polyps Irregular bowel habits Loose stools Recurrent UTI Renal cyst Urinary leakage Historical Abdominal cramping Nausea UTI symptoms Procedure/Surgical History Esophagogastroduodenos copy (07/22/2022), Cataract extraction and insertion of intraocular lens (03/14/2019), Cataract extraction and insertion of intraocular lens (02/28/2019), Cystourethroscopy with dilation of urethral stricture (02/28/2016), removal of right ean bullosa, septoplasty and bilateral inferior turbinate submucosal resect (more content not included)... Normal [facility] Comment on above: Result Comment: Elec tronically Signed By: Aishwarya Napier MD\.br\Date and Time Signed: 05/14/23 09:44 EST Basophils Auto (Bld) [#/Vol] Ordered By: Kaitlyn Saldivar on 10-14-2022 Basophils (Bld) [#/Vol] 0.1 10*3/uL 0.0-0.2 [facility] Basophils/100 WBC Auto (Bld) Ordered By: Kaitlyn Saldivar on 10-14-2022 Basophils/100 WBC (Bld) 0.7 % . [facility] Eosinophils Auto (Bld) [#/Vo l]Ordered By: Kaitlyn Saldivar on 10-14-2022 Eosinophils (Bld) [#/Vol] 0.3 10*3/uL 0.0-0.45 [facility] Eosinophils/100 WBC Auto (Bl d)Ordered By: Kaitlyn Saldivar on 10-14-2022 Eosinophils/100 WBC (Bld) 3.1 % . [facility] Erythrocyte distribution wid th Auto (RBC) [Ratio]Ordered By: Kaitlyn Saldivar on 10-14-2022 Erythrocyte distribution width (RBC) [Ratio] 13.1 % 11.9-15.3 [facility] Erythrocyte sedimentation ra te by Photometric methodOrdered By: Kaitlyn Saldivar on 10-14-2022 ESR Photometric method (Bld) [Velocity] 13 mm/hr 0-29 [facility] Hematocrit Auto (Bld) [Volum e fraction]Ordered By: Kaitlyn Saldivar on 10-14-2022 Hematocrit (Bld) [Volume fraction] 39.7 % 34.0-46.4 [facility] Hemoglobin [Mass/volume] in BloodOrdered By: Kaitlyn Saldivar on 10-14-2022 Hemoglobin (Bld) [Mass/Vol] 13.2 g/dL 11.8-15.4 [facility] Leukocytes [#/volume] correc anabel for nucleated erythrocytes in Blood by Automated counOrdered By: Kaitlyn Saldivar on 10-14-2022 WBC corrected for nucl RBC Auto (Bld) [#/Vol] 10.7 10*3/uL 3.8-11.6 [facility] Lymphocytes Auto (Bld) [#/Vo l]Ordered By: Kaitlyn Saldivar on 10-14-2022 Lymphocytes (Bld) [#/Vol] 3.1 10*3/uL 1.00-4.8 [facility] Lymphocytes/100 WBC Auto (Bl d)Ordered By: Kaitlyn Saldivar on 10-14-2022 Lymphocytes/100 WBC (Bld) 28.8 % . [facility] MCH Auto (RBC) [Entitic mass ]Ordered By: Kaitlyn Saldivar on 10-14-2022 MCH (RBC) [Entitic mass] 30.4 pg 24.7-34.3 [facility] MCHC Auto (RBC) [Mass/Vol]Or dered By: Kaitlyn Saldivar on 10-14-2022 MCHC (RBC) [Mass/Vol] 33.4 g/dL 32.0-35.0 [facility] MCV Auto (RBC) [Entitic vol] Ordered By: Kaitlyn Saldivar on 10-14-2022 MCV (RBC) [Entitic vol] 91.0 fL 80-100 [facility] Monocytes Auto (Bld) [#/Vol] Ordered By: Kaitlyn Saldivar on 10-14-2022 Monocytes (Bld) [#/Vol] 0.6 10*3/uL 0.0-0.8 [facility] Monocytes/100 WBC Auto (Bld) Ordered By: Kaitlyn Saldivar on 10-14-2022 Monocytes/100 WBC (Bld) 5.4 % . [facility] Neutrophils Auto (Bld) [#/Vo l]Ordered By: Kaitlyn Saldivar on 10-14-2022 Neutrophils (Bld) [#/Vol] 6.6 10*3/uL 1.8-7.7 [facility] Neutrophils/100 WBC Auto (Bl d)Ordered By: Kaitlyn Saldivar on 10-14-2022 Neutrophils/100 WBC (Bld) 62.0 % . [facility] Nucleated erythrocytes [Pres ence] in Blood by Automated countOrdered By: Kaitlyn Saldiavr on 10-14-2022 Nucleated RBC Auto Ql (Bld) 0.1 /100{WBC} 0-0.5 [facility] Platelet mean volume Auto (B ld) [Entitic vol]Ordered By: Kaitlyn Saldivar on 10-14-2022 Platelet mean volume (Bld) [Entitic vol] 7.4 fL 6.3-10.7 [facility] Platelets Auto (Bld) [#/Vol] Ordered By: Kaitlyn Saldivar on 10-14-2022 Platelets (Bld) [#/Vol] 305 10*3/uL 150-450 [facility] RBC Auto (Bld) [#/Vol]Ordere d By: Kaitlyn Saldivar on 10-14-2022 RBC (Bld) [#/Vol] 4.36 10*6/uL 3.60-5.00 [facility] WBC Auto (Bld) [#/Vol]Ordere d By: Kaitlyn Saldivar on 10-14-2022 WBC (Bld) [#/Vol] 10.7 10*3/uL 3.8-11.6 [facility] SARS-CoV-2 (COVID-19) RNA NA A+probe Ql (Resp)on 09-25-2022 SARS-CoV-2 (COVID-19) RNA CARLENE+probe Ql (Unsp spec) Positive [employer] Other CHEMISTRYOrdered By: SYSTEM SYSTEM on 06-08-2022 Albumin [Mass/Vol] 4.2 g/dL Normal 3.3 - 5.0 gm/dL [facility] Remisol Albumin/Globulin [Mass ratio] 1.4 {ratio} Normal 1.1 - 2.2 [facility] Remisol ALP [Catalytic activity/Vol] 87 [iU]/d Normal 21 - 98 Int._Unit/L [facility] Remisol ALT No additional P-5'-P [Catalytic activity/Vol] 23 [iU]/d Normal 6 - 46 Int._Unit/L [facility] Remisol Anion gap [Moles/Vol] 12 mmol/L Normal 6 - 16 mEq/L [facility] Remisol AST [Catalytic activity/Vol] 24 [iU]/d Normal 5 - 43 Int._Unit/L [facility] Remisol Bilirubin [Mass/Vol] 0.5 mg/dL Normal 0.0 - 1 .1 mg/dL [facility] Remisol Calcium [Mass/Vol] 9.6 mg/dL Normal 8.9 - 11. 1 mg/dL [facility] Remisol Chloride [Moles/Vol] 101 mmol/L Normal 101 - 1 11 mmol/L [facility] Remisol CO2 [Moles/Vol] 28 mmol/L Normal 21 - 31 mmol/L [facility] Remisol Creatinine [Mass/Vol] 0.7 mg/dL Normal 0.5 - 1.3 mg/dL [facility] Remisol GFR/1.73 sq M.predicted among blacks MDRD (S/P/Bld) [Vol rate/Area] mL/min/1.73 m2 Normal >=59mL/min/1.7 3 m2 [facility] Chem S GFR/1.73 sq M.predicted among non-blacks MDRD (S/P/Bld) [Vol rate/Area] mL/min/1.73 m2 Normal >=59mL/min/1.7 3 m2 [facility] Chem S Globulin (S) [Mass/Vol] 3.1 g/dL Normal 1.4 - 4.0 gm/dL [facility]isol Glucose [Mass/Vol] 88 mg/dL Normal 55 - 199 mg/dL [facility] Potassium [Moles/Vol] 4.1 mmol/L Normal 3.5 - 5.3 mmol/L [facility] Protein [Mass/Vol] 7.3 g/dL Normal 6.0 - 7.8 gm/dL [facility] Sodium [Moles/Vol] 137 mmol/L Normal 135 - 145 mmol/L [facility]isol Urea nitrogen [Mass/Vol] 14 mg/dL Normal 5 - 21 mg/dL [facility] Remisol Urea nitrogen/Creatinine [Mass ratio] 20 mg/mg Normal 10 - 20 [facility] Remisol Cholesterol [Mass/Vol] 197 mg/dL Normal 120 - 200 mg/dL [facility] Remisol Cholesterol in HDL [Mass/Vol] 51 mg/dL Invalid Interpretation Code [facility] Remisol Cholesterol in LDL [Mass/Vol] 134 mg/dL High <=129mg/dL [facility] Remisol Cholesterol in VLDL [Mass/Vol] 22 mg/dL Normal 7 - 40 mg/dL [facility] Remisol Ferritin [Mass/Vol] 60 ng/mL Normal 11 - 307 ng/mL [facility] Triglyceride [Mass/Vol] 111 mg/dL Normal <=149mg/dL [facility]isol TSH Qn 2.77 m[IU]/L Normal 0.34 - 5.60 mcIU/mL [facility] Remisol HEMATOLOGYOrdered By: SYSTEM SYSTEM on 06-08-2022 Basophils/100 WBC (Bld) 0.6 % Normal 0.0 - 2.0 % [facility] HemeAutoSS Basophils/Leukocytes Auto (Bld) [Pure # fraction] 0.1 E9/L Normal 0.0 - 0.2 E9/L [facility] HemeAutoSS Eosinophils/100 WBC (Bld) 3.0 % Normal 0.0 - 8.0 % [facility] HemeAutoSS Eosinophils/Leukocyte s Auto (Bld) [Pure # fraction] 0.3 E9/L Normal 0.0 - 0.5 E9/L [facility] HemeAutoSS Lymphocytes/100 WBC (Bld) 30.1 % Normal 14.0 - 50.0 % [facility] HemeAutoSS Lymphocytes/Leukocyte s Auto (Bld) [Pure # fraction] 2.9 E9/L Normal 1.0 - 4.0 E9/L [facility] HemeAutoSS Monocytes/100 WBC (Bld) 6.8 % Normal 4.0 - 14.0 % [facility] HemeAutoSS Monocytes/Leukocytes Auto (Bld) [Pure # fraction] 0.7 E9/L Normal 0.2 - 1.0 E9/L [facility] HemeAutoSS Neutrophils/100 WBC (Bld) 59.5 % Normal 36.0 - 75.0 % [facility] HemeAutoSS Neutrophils/Leukocyte s Auto (Bld) [Pure # fraction] 5.7 E9/L Normal 2.0 - 7.5 E9/L [facility] HemeAutoSS HEMATOLOGYOrdered By: Brooke Mills on 06-08-2022 Erythrocyte distribution width (RBC) [Ratio] 13.0 % Normal 10.9 - 14.2 % [facility] HemeAutoSS Hematocrit (Bld) [Volume fraction] 42.7 % Normal 34.0 - 46.0 % [facility] HemeAutoSS Hemoglobin (Bld) [Mass/Vol] 14.2 g/dL Normal 12.0 - 16.0 gm/dL [facility] HemeAutoSS MCH (RBC) [Entitic mass] 30.7 pg Normal 27.0 - 34.0 pg [facility]eAutoSS MCHC (RBC) [Mass/Vol] 33.3 g/dL Normal 31.4 - 36.0 gm/dL [facility] HemeAutoSS MCV (RBC) [Entitic vol] 92.2 fL Normal 80.0 - 100.0 fL [facility]eAutoSS Platelet mean volume (Bld) [Entitic vol] 7.1 fL Normal 6.4 - 10.8 fL [facility] HemeAutoSS Platelets (Bld) [#/Vol] 314.0 E9/L Normal 150.0 - 500.0 E9/L [facility] HemeAutoSS RBC (Bld) [#/Vol] 4.6 E12/L Normal 4.3 - 5.9 E12/L [facility] HemeAutoSS WBC corrected for nucl RBC Auto (Bld) [#/Vol] 9.7 E9/L Normal 4.0 - 11.0 E9/L [facility] HemeAutoSS MICRO OTHER TESTSOrdered By: Stephanie Araujo on 06-08-2022 Fecal WBC Lactoferrin Positive *ABN* (06/08/22 9:22 AM) Invalid Interpretation Code Negative [facility] Man Sero URINALYSISOrdered By: Pb Colvin on 06-08-2022 Bilirubin Ql (U) Negative (06/08/22 9:01 AM) Normal Negative [facility] UA Auto SS Clarity (U) Clear (06/08/22 9:01 AM) Normal Clear [facility] UA Auto SS Color (U) Yellow (06/08/22 9:01 AM) Normal Yellow [facility] UA Auto SS Epithelial cells.squamous LM.HPF (Urine sed) [#/Area] 0-2 /HPF Normal 0-2/HPF [facility] UA Aut o SS Glucose Test strip (U) [Mass/Vol] Negative (06/08/22 9:01 AM) Normal Negative [facility] UA Auto SS Hemoglobin Ql (U) 1+ *ABN* (06/08/22 9:01 AM) Invalid Interpretation Code Negative [facility] UA Auto SS Ketones (U) [Mass/Vol] Negative (06/08/22 9:01 AM) Normal Negative [facility] UA Auto SS [place].plasma/Lithiu m.RBC (Bld) [Mass ratio] 0-3 /HPF Normal 0-3/HPF [facility] UA Auto SS Nitrite Ql (U) Negative (06/08/22 9:01 AM) Normal Negative [facility] UA Auto SS pH (U) 5.5 *NA* (06/08/22 9:01 AM) Invalid Interpretation Code 5.0 - 9.0 [facility] UA Auto SS Protein (U) [Mass/Vol] Negative (06/08/22 9:01 AM) Normal Negative [facility] UA Auto SS Specific gravity (U) [Rel density] <=1.005 *NA* (06/08/22 9:01 AM) Invalid Interpretation Code 1.005 - 1.030 [facility] UA Auto SS UA Spec Desc Clean Catch (06/08/22 9:01 AM) Normal [facility] UA Auto SS Urobilinogen Qn (U) [id number] {Renee'U}/dL Normal 0.0 - 1.0 EU/dL [facility] UA Auto SS WBC Auto Ql (U) Negative (06/08/22 9:01 AM) Normal Negative [facility] UA Auto SS WBC LM.HPF (Urine sed) [#/Area] 0-5 /HPF Normal 0-5/HPF [facility] UA Auto SS COVID/FLU/RSV RT-PCRon 11-06 SARS-CoV-2 (COVID-19) RNA CARLENE+probe Ql (Unsp spec) Negative [employer] Other COVID/FLU/RSV RT-PCR Negative [place] Other Quick Strepon 11-06-2021 S. pyogenes Org specific cx Ql (Throat) Negative [employer] Other Quick Strep [employer] [facility] [employer] Other CLOSTRIDIUM DIFFICILE PCRon 07-26-2021 C difficile T[employer] Gene CARLENE Negative Normal Negative [facility] Comment on above: Performed By: #### C DIFNAA #### [facility] [address] [place] [address] Dr. Conchita Tripathi CULTURE URINEon 07-22-2021 CULTURE URINE Culture Observations : NO GROWTH. Normal [facility] Comment on above: Performed By: #### U RCX #### [facility] [address] [place] [address] Dr. Conchita Tripahti UA RANDOM W/MICROSCOPICon BACTERIA NONE SEEN Normal NONE SEEN [facility] Comment on above: Performed By: #### U AMIC #### [facility] [address] [place] [address] Dr. Conchita Tripathi Bilirubin Ql (U) Negative Normal NEGATIVE [facility] Comment on above: Performed By: #### U AMIC #### [facility] [address] [place] [address] Dr. Conchita Tripathi CAST NONE SEEN Normal NONE SEEN [facility] Comment on above: Performed By: #### U AMIC #### [facility] [address] [place] [address] Dr. Conchita Tripathi Clarity (U) CLEAR Normal CLEAR [facility] Comment on above: Performed By: #### U AMIC #### [facility] [address] [place] [address] Dr. Conchita Tripathi Color (U) LT. YELLOW Normal YELLOW [facility] Comment on above: Performed By: #### U AMIC #### [facility] [address] [place] [address] Dr. Conchita Tripathi Crystals LM Nom (Urine sed) NONE SEEN Normal NONE SEEN [facility] Comment on above: Performed By: #### U AMIC #### [facility] [address] [place] [address] Dr. Conchita Tripathi Epithelial cells LM Ql (Urine sed) RARE Normal NONE SEEN /RARE [facility] Comment on above: Performed By: #### U AMIC #### [facility] [address] [address] [address] Conchita Tripathi Glucose Ql (U) Negative Normal NEGATIVE [facility] Comment on above: Performed By: #### U AMIC #### [facility] [address] [address] [address] Conchita Tripathi Hemoglobin Ql (U) TRACE-INTACT Abnormal NEGATIVE [facility] Comment on above: Performed By: #### U AMIC #### [facility] [address] [address] [address] Conchita Tripathi Ketones Ql (U) Negative Normal NEGATIVE [facility] Comment on above: Performed By: #### U AMIC #### [facility] [address] [address] [address] Conchita Tripathi LEUKOCYTES Negative Normal NEGATIVE [facility] Comment on above: Performed By: #### U AMIC #### [facility] [address] [address] [address] Conchita Tripathi MUCOUS NONE SEEN Normal NONE SEEN [facility] Comment on above: Performed By: #### U AMIC #### [facility] [address] [address] [address] Conchita Tripathi Nitrite Ql (U) Negative Normal NEGATIVE [facility] Comment on above: Performed By: #### U AMIC #### [facility] [address] [address] [address] Conchita Tripathi pH (U) 6.0 [pH] Normal 5-9 [facility] Comment on above: Performed By: #### U AMIC #### [facility] [address] [address] [address] Conchita Tripathi RBC 0-2 Normal 0-2 [facility] Comment on above: Performed By: #### U AMIC #### [facility] [address] [address] [address] Conchita Tripathi SPEC GRAVITY <=1.005 Abnormal 1.005-<=1.025 [facility] Comment on above: Performed By: #### U AMIC #### [facility] [address] [address] [address] Conchita Tripathi UA PROTEIN Negative Normal NEGATIVE/ TRACE [facility] Comment on above: Performed By: #### U AMIC #### [facility] [address] [address] [address] Conchita Tripathi Urobilinogen Qn (U) 0.2 {Renee'U}/dL Normal 0.2 - 1. 0 [facility] Comment on above: Performed By: #### U AMIC #### [facility] [address] [place] [address] Dr. Conchita Tripathi WBC NONE SEEN Normal NONE SEEN [facility] Comment on above: Performed By: #### U AMIC #### [facility] [address] [address] [address] Conchita Tripathi Covid-19 PCR (CVDTB)on SARS-CoV-2 (COVID-19) RNA CARLENE+probe Ql (Unsp spec) Not detected Normal NOT DETECTED [facility] Comment on above: Result Comment: This test is not yet approved or cleared by the [place] FDA. When there are no FDA-approved or cleared tests available, and other criteria are met, FDA can make tests available under an emergency access mechanism called an Emergency Use Authorization (EUA). The EUA for this test is supported by the Immunopathologist of Health and Human Service's (HHS's) declaration that circumstances exist to justify the emergency use of in vitro diagnostics for the detection and/or diagnosis of the virus that causes COVID-19. This EUA will remain in effect (meaning this test can be used) for the duration of the COVID-19 declaration justifying emergency of IVDs, unless it is terminated or revoked by FDA (after which the test may no longer be used). When diagnostic testing is negative, the possibility of a false negative should be considered in the context of a patient's recent exposures and the presence of clinical signs and symptoms consistent with SARS-CoV-2. Performed By: #### C VDTBH #### [facility] [address] [place] [address] Dr. Conchita Tripathi Covid-19 PCR (CVDTB)on SARS-CoV-2 (COVID-19) RNA CARLENE+probe Ql (Unsp spec) Not detected Normal NOT DETECTED [facility] Comment on above: Result Comment: This test is not yet approved or cleared by the [place] FDA. When there are no FDA-approved or cleared tests available, and other criteria are met, FDA can make tests available under an emergency access mechanism called an Emergency Use Authorization (EUA). The EUA for this test is supported by the Immunopathologist of Health and Human Service's (HHS's) declaration that circumstances exist to justify the emergency use of in vitro diagnostics for the detection and/or diagnosis of the virus that causes COVID-19. This EUA will remain in effect (meaning this test can be used) for the duration of the COVID-19 declaration justifying emergency of IVDs, unless it is terminated or revoked by FDA (after which the test may no longer be used). When diagnostic testing is negative, the possibility of a false negative should be considered in the context of a patient's recent exposures and the presence of clinical signs and symptoms consistent with SARS-CoV-2. Performed By: #### C VDTBH #### [facility] [address] [place] [address] Dr. Conchita Tripathi CRPon 08-24-2020 CRP 0.5 mg/dL Normal <=1.0 [facility] Comment on above: Performed By: #### C RP #### [facility] [address] [place] [address] [place] [place] PLATELET COUNTon 08-24-2020 PLT 293 103/ul Normal 150-450 [facility] Comment on above: Performed By: #### P LT #### [facility] [address] [place] [address] [place] SED RATE WESTERGRENon 2020 SED RATE 17 mm/hr Normal <=30 [facility] Comment on above: Performed By: #### S EDR #### [facility] [address] [place] [address] [place] [place] Albumin [Mass/volume] in Ser um or Plasmaon 08-02-2019 Albumin [Mass/Vol] 3.8 g/dL 3.2-5.5 [facility] Automated basophil %on 08-02 Basophils/100 WBC (Bld) 0.9 % [facility] Automated basophil counton 0 08-02-2019 Basophils (Bld) [#/Vol] 0.1 10*3/uL 0.0-0.2 [facility] Automated blood lymphocyte c ount (number/volume)on 08-02-2019 Lymphocytes (Bld) [#/Vol] 2.5 10*3/uL 1.00-4.8 [facility] Automated blood lymphocyte c ount as percentage of total leukocyteson 08-02-2019 Lymphocytes/100 WBC (Bld) 28.3 % [facility] Automated blood monocyte cou nton 08-02-2019 Monocytes (Bld) [#/Vol] 0.5 10*3/uL 0.0-0.8 [facility] Automated blood platelet cou nt (count/volume)on 08-02-2019 Platelets (Bld) [#/Vol] 320 10*3/uL 150-450 [facility] Automated blood platelet marilia n volume measurementon 08-02-2019 Platelet mean volume (Bld) [Entitic vol] 7.8 fL 6.3-10.7 [facility] Automated eosinophil %on Eosinophils/100 WBC (Bld) 3.8 % [facility] Automated eosinophil counton 08-02-2019 Eosinophils (Bld) [#/Vol] 0.3 10*3/uL 0.0-0.45 [facility] Automated erythrocyte distri bution width ratioon 08-02-2019 Erythrocyte distribution width (RBC) [Ratio] 12.9 % 11.9-15.3 [facility] Automated erythrocyte mean c orpuscular hemoglobin (mass per erythrocyte)on 08-02-2019 MCH (RBC) [Entitic mass] 31.2 pg 24.7-34.3 [facility] Automated erythrocyte mean c orpuscular hemoglobin concentration measurement (mass/volon 08-02-2019 MCHC (RBC) [Mass/Vol] 34.5 g/dL 32.0-35.0 [facility] Automated erythrocyte mean c orpuscular volumeon 08-02-2019 MCV (RBC) [Entitic vol] 90.5 fL 80-100 [facility] Automated monocyte %on 08-02 Monocytes/100 WBC (Bld) 6.0 % [facility] Automated neutrophil %on Neutrophils/100 WBC (Bld) 61.0 % [facility] Blood erythrocytes automated count (number/volume)on 08-02-2019 RBC (Bld) [#/Vol] 4.53 10*6/uL 3.60-5.00 [facility] Blood hemoglobin measurement (mass/volume)on 08-02-2019 Hemoglobin (Bld) [Mass/Vol] 14.1 g/dL 11.8-15.4 [facility] Blood leukocytes automated c ount (number/volume)on 08-02-2019 WBC (Bld) [#/Vol] 8.7 10*3/uL 3.8-11.6 [facility] Blood neutrophil count by au tomated method (number/volume)on 08-02-2019 Neutrophils (Bld) [#/Vol] 5.3 10*3/uL 1.8-7.[address] [facility] [address] biopsyon 08-02-2019 Transferrin [Mass/Vol] 285 mg/dL 180-380 [facility] Estimated glomerular filtrat ion rate (GFR) non- Americanon 08-02-2019 GFR/1.73 sq M predicted among non-blacks MDRD (S/P/Bld) [Vol rate/Area] mL/min/{1.73_m2} [facility] Ferritin [Mass/volume] in Se rum or Plasmaon 08-02-2019 Ferritin [Mass/Vol] 25.9 ng/mL 11-306.8 [facility] Hematocrit [Volume Fraction] of Blood by Automated counton 08-02-2019 Hematocrit (Bld) [Volume fraction] 41.0 % 34.0-46.4 [facility] Iron [Mass/volume] in Serum or Plasmaon 08-02-2019 Iron [Mass/Vol] 88 ug/dL 40-150 [facility] Iron binding capacity [Mass/ volume] in Serum or Plasmaon 08-02-2019 Iron binding capacity [Mass/Vol] 399 ug/dL 255-450 [facility] Iron saturation [Mass Fracti on] in Serum or Plasmaon 08-02-2019 Iron saturation [Mass fraction] 22.0 % 20-50 [facility] Otheron 08-02-2019 GFR/1.73 sq M.predicted MDRD (S/P/Bld) [Vol rate/Area] mL/min/{1.73_m2} [facility] Comment on above: GFR estimated refere nce range: According to KDOQI guidelines, <60 ml/min/1.73m2 is sufficient to diagnose a patient with chronic kidney disease. Nucleated RBC/100 WBC (Bld) [Ratio] 0.1 % 0-0.5 [facility] Creatinine Clearance (Chem [id number] [facility] Protein [Mass/volume] in Ser um or Plasmaon 08-02-2019 Protein [Mass/Vol] 6.4 g/dL 6.1-7.9 [facility] Serum globulin measurement b y calculation (mass/volume)on 08-02-2019 Globulin (S) [Mass/Vol] 2.6 g/dL [facility] Serum or plasma alanine crowe otransferase measurement without P-5'-P (enzymatic activion 08-02-2019 ALT No additional P-5'-P [Catalytic activity/Vol] 18 U/L 10-60 [facility] Serum or plasma albumin/glob ulin mass ratioon 08-02-2019 Albumin/Globulin [Mass ratio] 1.5 {ratio} [facility] Serum or plasma alkaline wilbur sphatase measurement (enzymatic activity/volume)on 08-02-2019 ALP [Catalytic activity/Vol] 81 U/L 32-92 [facility] Serum or plasma aspartate am inotransferase measurement (enzymatic activity/volume)on 08-02-2019 AST [Catalytic activity/Vol] 21 U/L 10-42 [facility] Serum or plasma calcium amy urement (mass/volume)on 08-02-2019 Calcium [Mass/Vol] 9.5 mg/dL 8.2-10.2 [facility] Serum or plasma chloride marilia surement (moles/volume)on 08-02-2019 Chloride [Moles/Vol] 103 mmol/L 95-114 [facility] Serum or plasma creatinine m easurement with calculation of estimated glomerular filtron 08-02-2019 Creatinine [Mass/Vol] 0.77 mg/dL 0.44-1.03 [facility] Serum or plasma glucose amy urement (mass/volume)on 08-02-2019 Glucose [Mass/Vol] 96 mg/dL 70-100 [facility] Comment on above: ADA recommended refe rence rangeRandom Glucose Reference Range is dependent on time and content of last meal. Glucose of more than 200 mg/dL in a nonstressed, ambulatory subject supports the diagnosis of Diabetes Mellitus. Serum or plasma potassium me asurement (moles/volume)on 08-02-2019 Potassium [Moles/Vol] 3.5 mmol/L 3.5-5.1 [facility] Serum or plasma sodium measu rement (moles/volume)on 08-02-2019 Sodium [Moles/Vol] 137 mmol/L 136-146 [facility] Serum or plasma total biliru bin measurement (mass/volume)on 08-02-2019 Bilirubin [Mass/Vol] 0.5 mg/dL 0.3-1.2 [facility] Serum or plasma total carbon dioxide measurement (moles/volume)on 08-02-2019 CO2 [Moles/Vol] 27.4 mmol/L 22.0-30.[address] [facility] Serum or plasma urea nitroge n measurement (mass/volume)on 08-02-2019 Urea nitrogen [Mass/Vol] 6 mg/dL 9-23 [facility] FINGER RIGHT MIN 2 VWSon FINGER RIGHT MIN 2 VWS [facility] Department of Radiology [address] [place] [id number] ======== Patient Name: KATHY JULIAN : 1960 Sex: F Age: Race: Other Pt. Location: Patient Status: O Ordered Date: 07/28/2019 11:15:00 AM Completed Date: 07/28/2019 11:22 AM Requesting Provider: SUNIL VILLEGAS Attending Provider: SUNIL VILLEGAS Report Copy To: Signs & Symptoms: M84.441A Pathological fracture, right hand, init encntr for fracture I10 History: Trupti Comments: , right thumb , Views (X-RAY, FINGER(S)): Radiologic Protocol , With or Without Brace/Cast/Collar: Without , right thumb , Views (X-RAY, FINGER(S)): Radiologic Protocol , With or Without Brace/Cast/Collar: Without , , , Ordering Provider - Damion CASAS , Exam: FINGER RIGHT MIN 2 VWS ======== FINGER RIGHT MIN 2 VWS 07/28/2019 11:22 AM SIGNS AND SYMPTOMS: M84.KatheA Pathological fracture, right hand, init encntr for fracture I10 TECHNOLOGIST COMMENTS: right thumb pain distal phalanx QUESTION FOR THE RADIOLOGIST: , right thumb , Views (X-RAY, FINGER(S)): Radiologic Protocol , With or Without Brace/Cast/Collar: Without , right thumb , Views (X-RAY, FINGER(S)): Radiologic Protocol , With or Without Brace/Cast/Collar: Without , , , Ordering Provider - Damion CASAS , PROTOCOL: AP,Lateral and Oblique views were obtained. COMPARISON: None FINDINGS: Soft tissues: No acute findings Bones: Pathological fracture through lytic lesion in the thumb distal phalanx Joints: Mild arthritis IMPRESSION: Healing pathological fracture distal phalanx of thumb through an expansile lytic lesion, probably, but not definitively, enchondroma Electronically signed: Yovany Del Angel. Transcribed by: [id number], User Resident: Electronically Signed by: YOVANY DEL ANGEL @ 07/28/2019 03:17 PM Normal [facility] Comment on above: Order Comment: , rig ht thumb , Views (X-RAY, FINGER(S)): Radiologic Protocol , With or Without Brace/Cast/Collar: Without , right thumb , Views (X-RAY, FINGER(S)): Radiologic Protocol , With or Without Brace/Cast/Collar: Without , , , Ordering Provider - Damion VILLEGAS MD [facility] , Glucose mean value [Mass/vol ume] in Blood Estimated from glycated hemoglobinon 01-27-2019 Average glucose Estimated from glycated hemoglobin mass conc (Bld) 114 mg/dL [facility] Metabolic Panelon 01-27-2019 HbA1c (Bld) [Mass fraction] 5.6 % 4.3-5.6 [facility] Comment on above: Increased risk for d iabetes: 5.7 - 6.4diabetes: >6.4glycemic control for adults with diabetes: <7.0 CNOVon 05-13-2018 CNOV Office Visit (CARDFT) KATHY JULIAN ([id number]) 1960 FDate Time Provider Cezpfoyqpn97/16/18 9:30 AM STEFAN ORTEGA During your visit today, we recorded the following information about you: Pulse Blood pressure Weight Height 80/minute 129/81 107 kg 1.715 Ayla Ortega MD 05/13/2018 10:08 AM [facility] Department of Cardiovascular MedicineOUTPATIENT VISIT DATE 05/13/18OUTPATIENT VISIT TYPE ESTABLISHEDPRCROSSBR[facility] PHYS[facility]IAN:Kaitlyn Saldivar MD[address] [facility] [id number]: [phone]: [phone] COMPLAINT:Patient presents with:Follow UpHISTORY OF PRESENT ILLNESS:Kathy Julian is a 56 year old female with a past medical history of chestdiscomfort leading to a nuclear stress evaluation showing a fixed apicaldefect, normal cardiac catheterization following the abnormal stressevaluation, essential hypertension in the past prior to weight loss, diabetesmellitus, obstructive sleep apnea, and multiple other medical problems.10/08/2016The patient presents today for an evaluation of chest discomfort. She statesthat 2 weeks ago while sitting working at her computer at 2:30 in the morning,she developed a substernal chest discomfort. It was associated with nausea,cold diaphoresis, radiation of the discomfort to the left arm and jaw. Itlasted for approximately 20-30 minutes. She took aspirin for this. The jawpain continued through and into the next day. The chest discomfort graduallyresolved. She did have some associated shortness of breath and a slightfeeling of lightheadedness. The discomfort is described as an achingsensation. It was not related to exertion. The patient has had some similarepisodes about every 3-4 days since that time. The following episodes were notas intense as the original one. She states that she also has had some visionchanges where it feels like she cannot get her eyes to focus. She feels thather symptoms have been worse recently with exertion. She states that thediscomfort seems different than when she was evaluated over 3 years ago here.The chest discomfort 2 weeks ago with severe. It was in the context of sittingand working on her computer. The patient does admit to being under a greatdeal of stress at work. Her blood pressure was up here at this visit. She hasa history of hypertension that resolved after bariatric surgery.11/09/2016The patient presents today for a 1 month follow-up. We had started her onamlodipine at her last visit in an effort to better control her blood pressureand possibly help with chest symptoms. She is doing much better. Her bloodpressure has improved. Her chest discomfort has diminished greatly. She seemsto be tolerating the amlodipine quite well. Her biggest complaint today is Les and possibly a left eye infection. She denies any new cardiac symptoms.05/13/2017The patient presents today for a 6 month follow-up. Apparently she developed jany while taking amlodipine and this was discontinued. It was felt to be anallergic reaction to that medication. The patient was changed to losartan 50mg daily. The patient states that her chest discomfort is still much better.It seems to have pretty much resolved. She has seen no change after heramlodipine was discontinued. She has been fairly active at home with no newchest symptoms. Her blood pressure is pretty well controlled today. The rashdid resolve after discontinuing amlodipine.11/10/2017T he patient presents today for a 6 month follow-up visit. She is doing fairlywell from a cardiac standpoint but has increased stress in her life again withwork. Her chest discomfort seems to be better than it was last year. Herblood pressure is creeping up slightly. She may need to increase hermedication in the future. She is excited that her son is graduating from [employer] and is going to be going to [employer].05/13/2018The patient presents today for a 6 month follow-up visit. She is feeling well. She is no longer working in [employer]. Her stress level has decreasedtremendously. Her blood pressure is much improved on 100 mg of losartan dailyand with less stress. She denies any chest discomfort, palpitations, syncopalor near syncopal episodes. 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 HistorySubstance Use Topics- Smoking status: Former Smoker Packs/day: 0.50 Years: 25.00 Types: Cigarettes Quit date: 06/28/1999- Smokeless tobacco: Never Used Comment: 06/29 PPD/ years- Alcohol use Yes Comment: up to 4 drinks weeklyFAMILY HISTORYProblem Relation Age of Onset- Cancer Mother colon- Colon Cancer Mother- Coronary Artery Disease Father CT at age 67- Stroke Father- Cancer Brother skin- other (colon polyps) Brother- Diabetes SisterALLERGIES:ALLERG IESAllergen Reactions- Cats Unknown- Dust Unknown- Norvasc [Amlodipine* RashMEDICATIONS:hydrOX Yzine pamoate (VISTARIL) 25 mg capsule Take 25 mg by mouth daily atbedtime.losartan (COZAAR) 50 mg tablet Take 100 mg by mouth once daily.ADDERALL XR 10 mg 24 hr capsulenitroglycerin sublingual (NITROQUICK) 0.4 mg SL tablet Dissolve 0.4 mg underthe tongue every 5 minutes as needed.buPROPion XL (WELLBUTRIN XL) 300 mg 24 hr tablet Take 400 mg by mouth oncedaily.busPIRone (BUSPAR) 15 mg tablet Take 15 mg by mouth three times daily.VITAMIN B COMPLEX (B COMPLEX ORAL) Take by mouth once daily.CALCIUM CARBONATE/VITAMIN D3 (CALCIUM + D ORAL) Take by mouth once daily.ALPRAZOLAM 0.5 mg tablet as needed.REVIEW OF SYSTEMS:GENERAL: Negative for: Fever. + Fatigue. Increased stress.CARDIAC: See HPI above.HEENT: Negative for: Ringing in Ears, nosebleeds, bleeding gums. + Poordentition. Positive for possible left eye infectionNECK: Negative for: Pain, stiffnessRESPIRATORY: Negative for: Blood in sputum, wheezing.GASTROINTESTI NAL: Negative for: Trouble swallowing, blood in stoolMUSCULOSKELETAL: Negative for: Joint stiffness and painNEUROLOGIC: Negative for: Numbness, tremorsPSYCHIATRIC: Negative for: Anxiety, depressionSKIN: Negative for: Rashes, itchingHEMATOLOGICAL/L YMPHATIC: Negative for: Easy bruising, easy bleeding, painfullymph nodesI personally interviewed, confirmed and edited the above information ifobtained by others.PHYSICAL EXAMINATION:BP 129/81 (BP Site: Left Arm, BP Position: Sitting, BP Cuff Size: RegularAdult) Pulse 80 Ht 171.5 cm (5' 7.5 ) Wt 107 kg (236 lb) BMI 36.42kg/m?General: Well appearing, in no acute distress.Eyes: Extra ocular movements intact, sclera normalNeck: No jugular venous distention, no palpable thyromegaly.Heart: Regular rhythm, S1, S2 normal, no S3, no S4. No murmur.Respiratory: Clear to auscultation bilaterally. Good respiratory effort.GI: Soft, nontender, bowel sounds normal, no palpable hepatosplenomegalyExtr emities: Normal pulses in distal lower extremities. Absent lower extremityedemaNeuro: Oriented to person, place and time, alert, cooperative.Psych: Pleasant and cooperative.Skin: No clubbing, no cyanosis.CARDIOVASCULA R MEDICINE TESTING:Electrocardiog abimbola: 10/08/16 normal sinus rhythm at 67 bpm. This is a normalECG. There is no change from her previous ECG of 12/25/2014.Echocardiogr am: None.Stress Test: Previous nuclear stress evaluation revealed a fixed apical defect. The left ventricular systolic function was normal.Cardiac Catheterization: A cardiac catheterization performed in 2013 revealednormal coronary arteries. There was normal left ventricular systolic function.I have personally reviewed the above Cardiovascular Medicine Testing.IMPRESSION:1. Recurrent precordial chest discomfort in a patient with normal coronaryarteries by catheterization in 2013, consider related to stress and anxietyversus microvascular angina. Her chest discomfort seems to be stable. Sheuses sublingual nitroglycerin as needed. Feels better currently.2. Essential hypertension, blood pressure is much improved today.PLAN:Continue current medical regimen.Low-sodium diet.Low-cholesterol, low-fat diet.Continue with weight loss.Regular aerobic exercise as able.Patient will follow-up with primary care physician and cardiology as needed.This document was generated utilizing [employer] dictation. I have reviewed andverified that the contents of the document are accurate with the exception ofminor grammatical, spelling and punctuation errors.CONTACT INFORMATION:Thank you for allowing us to assist in the care your patient. As always pleasedo not hesitate to contact us with further questions or concerns.Stefan Ortega MD, FACCRobert and Emily LaurenDeunm sandoval regional medical centerment of Cardiovascular MedicineOhiohealth Grove City Methodist Hospitalrt and Vascular InstituteFaith Ville [address], [place] [address]Cywqfg: [phone] Referring Provider: KAITLYN SALDIVAR [[id number]]Allergies As of Date: 05/13/2018 Noted Allergy ReactionCATS 08/14/2013 16 - UnknownDUST 08/14/2013 16 - UnknownNORVASC (AMLODIPINE BESYLATE) 05/13/2017 2 - RashDate Reviewed: 05/13/2018Reviewed by: Stefan Ortega - Fully AssessedReason for Visit: Follow Up [171]Reason For Visit History RecordedPrimary Visit Diagnosis:Precordial pain [R07.2] Other Visit Diagnosis:Essential hypertension [I10]Prescriptions as of 05/13/2018 Sig: HYDROXYZINE PAMOATE 25 MG CAP* Take 25 mg by mouth daily at * LOSARTAN 50 MG TABLET Take 100 mg by mouth once dieudonne* ADDERALL XR 10 MG CAPSULE,EXT* NITROGLYCERIN 0.4 MG SUBLINGU* Dissolve 0.4 mg under the ton* BUPROPION XL 300 MG 24 HR TAB Take 400 mg by mouth once dieudonne* BUSPIRONE 15 MG TABLET Take 15 mg by mouth three aimee* B COMPLEX ORAL Take by mouth once daily. CALCIUM + D ORAL Take by mouth once daily. ALPRAZOLAM 0.5 MG TABLET as needed.Problem List As Of Date 05/13/2018 Noted Resolved Chest pain [R07.9] INVALID FOR* Abnormal stress test [R94.39] INVALID FOR* Squamous cell skin cancer [C44.92] INVALID FOR* H/O gastric bypass [Z98.84] INVALID FOR* Iron deficiency anemia [D50.9] INVALID FOR* Essential hypertension [I10] INVALID FOR* Status:Closed by MARIANN ORTEGA MD on 05/13/18 [facility] PROGRESSon 05-13-2018 Protein mass conc HNO ID: [id number]: Stefan Garciaervice: (none)Author Type: PhysicianType: Progress NotesFiled: 05/13/2018 10:08 AMNote Text:Heart and Vascular InstituteJames B. Haggin Memorial Hospitalswetha and Emily Lauren Department of Cardiovascular MedicineOUTPATIENT VISIT DATE 05/13/18OUTPATIENT VISIT TYPEESTABLISHEDPRIMARY CARE PHYSICIAN:Kaitlyn Saldivar MD[address] [facility] [id number]: [phone]: [phone] COMPLAINT:Patient presents with:Follow UpHISTORY OF PRESENT ILLNESS:Kathy Julian is a 56 year old female with a past medical history ofchest discomfort leading to a nuclear stress evaluation showing a fixedapical defect, normal cardiac catheterization following the abnormalstress evaluation, essential hypertension in the past prior to weightloss, diabetes mellitus, obstructive sleep apnea, and multiple othermedical problems.10/08/2016The patient presents today for an evaluation of chest discomfort. Shestates that 2 weeks ago while sitting working at her computer at 2:30 inthe morning, she developed a substernal chest discomfort. It wasassociated with nausea, cold diaphoresis, radiation of the discomfort tothe left arm and jaw. It lasted for approximately 20-30 minutes. Shetook aspirin for this. The jaw pain continued through and into the nextday. The chest discomfort gradually resolved. She did have someassociated shortness of breath and a slight feeling of lightheadedness.The discomfort is described as an aching sensation. It was not related toexertion. The patient has had some similar episodes about every 3-4 dayssince that time. The following episodes were not as intense as theoriginal one. She states that she also has had some vision changes whereit feels like she cannot get her eyes to focus. She feels that hersymptoms have been worse recently with exertion. She states that thediscomfort seems different than when she was evaluated over 3 years agohere. The chest discomfort 2 weeks ago with severe. It was in thecontext of sitting and working on her computer. The patient does admit tobeing under a great deal of stress at work. Her blood pressure was uphere at this visit. She has a history of hypertension that resolved afterbariatric surgery.11/09/2016The patient presents today for a 1 month follow-up. We had started her onamlodipine at her last visit in an effort to better control her bloodpressure and possibly help with chest symptoms. She is doing much better. Her blood pressure has improved. Her chest discomfort has diminishedgreatly. She seems to be tolerating the amlodipine quite well. Herbiggest complaint today is a URI and possibly a left eye infection. Shedenies any new cardiac symptoms.05/13/2017The patient presents today for a 6 month follow-up. Apparently shedeveloped a rash while taking amlodipine and this was discontinued. Itwas felt to be an allergic reaction to that medication. The patient waschanged to losartan 50 mg daily. The patient states that her chestdiscomfort is still much better. It seems to have pretty much resolved.She has seen no change after her amlodipine was discontinued. She hasbeen fairly active at home with no new chest symptoms. Her blood pressureis pretty well controlled today. The rash did resolve after discontinuingamlodipin e.11/10/2017The patient presents today for a 6 month follow-up visit. She is doingfairly well from a cardiac standpoint but has increased stress in her lifeagain with work. Her chest discomfort seems to be better than it was lastyear. Her blood pressure is creeping up slightly. She may need toincrease her medication in the future. She is excited that her son isgraduating from high school and is going to be going to [employer].05/13/2018The patient presents today for a 6 month follow-up visit. She is feelingwell. She is no longer working in [employer]. Her stress level has decreasedtremendously. Her blood pressure is much improved on 100 mg of losartandaily and with less stress. She denies any chest discomfort,palpitation s, syncopal or near syncopal episodes. 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 HistorySubstance Use Topics- Smoking status: Former Smoker Packs/day: 0.50 Years: 25.00 Types: Cigarettes Quit date: 06/28/1999- Smokeless tobacco: Never Used Comment: 06/29 PPD/ 25 years- Alcohol use Yes Comment: up to 4 drinks weeklyFAMILY HISTORYProblem Relation Age of Onset- Cancer Mother colon- Colon Cancer Mother- Coronary Artery Disease Father CT at age 67- Stroke Father- Cancer Brother skin- other (colon polyps) Brother- Diabetes SisterALLERGIES:ALLERG IESAllergen Reactions- Cats Unknown- Dust Unknown- Norvasc [Amlodipine* RashMEDICATIONS:hydrOX Yzine pamoate (VISTARIL) 25 mg capsule Take 25 mg by mouth daily atbedtime.losartan (COZAAR) 50 mg tablet Take 100 mg by mouth once daily.ADDERALL XR 10 mg 24 hr capsulenitroglycerin sublingual (NITROQUICK) 0.4 mg SL tablet Dissolve 0.4 mgunder the tongue every 5 minutes as needed.buPROPion XL (WELLBUTRIN XL) 300 mg 24 hr tablet Take 400 mg by mouth oncedaily.busPIRone (BUSPAR) 15 mg tablet Take 15 mg by mouth three times daily.VITAMIN B COMPLEX (B COMPLEX ORAL) Take by mouth once daily.CALCIUM CARBONATE/VITAMIN D3 (CALCIUM + D ORAL) Take by mouth once daily.ALPRAZOLAM 0.5 mg tablet as needed.REVIEW OF SYSTEMS:GENERAL: Negative for: Fever. + Fatigue. Increased stress.CARDIAC: See HPI above.HEENT: Negative for: Ringing in Ears, nosebleeds, bleeding gums. + Poordentition. Positive for possible left eye infectionNECK: Negative for: Pain, stiffnessRESPIRATORY: Negative for: Blood in sputum, wheezing.GASTROINTESTI NAL: Negative for: Trouble swallowing, blood in stoolMUSCULOSKELETAL: Negative for: Joint stiffness and painNEUROLOGIC: Negative for: Numbness, tremorsPSYCHIATRIC: Negative for: Anxiety, depressionSKIN: Negative for: Rashes, itchingHEMATOLOGICAL/L YMPHATIC: Negative for: Easy bruising, easy bleeding,painful lymph nodesI personally interviewed, confirmed and edited the above information ifobtained by others.PHYSICAL EXAMINATION:BP 129/81 (BP Site: Left Arm, BP Position: Sitting, BP Cuff Size: RegularAdult) Pulse 80 Ht 171.5 cm (5' 7.5 ) Wt 107 kg (236 lb) BMI36.42 kg/m?General: Well appearing, in no acute distress.Eyes: Extra ocular movements intact, sclera normalNeck: No jugular venous distention, no palpable thyromegaly.Heart: Regular rhythm, S1, S2 normal, no S3, no S4. No murmur.Respiratory: Clear to auscultation bilaterally. Good respiratory effort.GI: Soft, nontender, bowel sounds normal, no palpable hepatosplenomegalyExtr emities: Normal pulses in distal lower extremities. Absent lowerextremity edemaNeuro: Oriented to person, place and time, alert, cooperative.Psych: Pleasant and cooperative.Skin: No clubbing, no cyanosis.CARDIOVASCULA R MEDICINE TESTING:Electrocardiog abimbola: 10/08/16 normal sinus rhythm at 67 bpm. This is anormal ECG. There is no change from her previous ECG of 12/25/2014.Echocardiogr am: None.Stress Test: Previous nuclear stress evaluation revealed a fixed apicaldefect. The left ventricular systolic function was normal.Cardiac Catheterization: A cardiac catheterization performed in 2013revealed normal coronary arteries. There was normal left ventricularsystolic function.I have personally reviewed the above Cardiovascular Medicine Testing.IMPRESSION:1. Recurrent precordial chest discomfort in a patient with normalcoronary arteries by catheterization in 2013, consider related to stressand anxiety versus microvascular angina. Her chest discomfort seems to bestable. She uses sublingual nitroglycerin as needed. Feels bettercurrently.2. Essential hypertension, blood pressure is much improved today.PLAN:Continue current medical regimen.Low-sodium diet.Low-cholesterol, low-fat diet.Continue with weight loss.Regular aerobic exercise as able.Patient will follow-up with primary care physician and cardiology asneeded.This document was generated utilizing Algaeonon dictation. I have reviewedand verified that the contents of the document are accurate with theexception of minor grammatical, spelling and punctuation errors.CONTACT INFORMATION:Thank you for allowing us to assist in the care your patient. As alwaysplease do not hesitate to contact us with further questions or concerns.Stefan Ortega MD, FACCRobert and Emily LaurenDepartment of Cardiovascular MedicineOhiohealth Grove City Methodist Hospitalrt and Vascular InstituteFaith Ville [address], [place] [address]Dioowr: [phone] [facility] Vielka 03-23-2018 CNPN Telephone (CARDFT) KATHY JULIAN ([id number]) 1960 FDate Time Provider Department03/23/18 STEFAN ORTEGA During your visit today, we recorded the following information about you:Melissa Bravo Adm 03/23/2018 4:04 PM SignedPatient called and states her systolic number has been high. Yesterday her BPwas 155/92. She is having blurred vision and headache. She did have a BP logjust not with her.I did recommend she go to the emergency room. She did verbally state sheunderstood and was going. She did not have any other questions.Stefan Ortega MD 03/24/2018 9:32 AM SignedSpoke with patient. She was evaluated in the emergency room. She was treatedfor a possible migraine headache. Her blood pressure improved. Today shefeels better. She has an appointment with her primary care physician today.Recommendations: If blood pressure remains elevated today at primary care office then considerincreasing losartan to 100 mg by mouth daily.If blood pressure controlled then can monitor at home and increase dose whenneeded.Allergies As of Date: 03/23/2018 Noted Allergy ReactionCATS 08/14/2013 16 - UnknownDUST 08/14/2013 16 - UnknownNORVASC (AMLODIPINE BESYLATE) 05/13/2017 2 - RashDate Reviewed: 11/10/2017Reviewed by: Stefan Ortega - Fully AssessedReason for Visit: Blood Pressure [15]Prescriptions as of 03/23/2018 Sig: HYDROXYZINE PAMOATE 25 MG CAP* Take 25 mg by mouth daily at * LOSARTAN 50 MG TABLET Take by mouth once daily. ADDERALL XR 10 MG CAPSULE,EXT* NITROGLYCERIN 0.4 MG SUBLINGU* Dissolve 0.4 mg under the ton* BUPROPION XL 300 MG 24 HR TAB Take 400 mg by mouth once dieudonne* BUSPIRONE 15 MG TABLET Take 15 mg by mouth three aimee* B COMPLEX ORAL Take by mouth once daily. CALCIUM + D ORAL Take by mouth once daily. ALPRAZOLAM 0.5 MG TABLET as needed.Problem List As Of Date 03/23/2018 Noted Resolved Chest pain [R07.9] INVALID FOR* Abnormal stress test [R94.39] INVALID FOR* Squamous cell skin cancer [C44.92] INVALID FOR* H/O gastric bypass [Z98.84] INVALID FOR* Iron deficiency anemia [D50.9] INVALID FOR* Essential hypertension [I10] INVALID FOR* Status:Closed by MELISSA ROLDAN on 03/24/18 [facility] CNOVon 11-10-2017 CNOV Office Visit (CARDFT) KATHY JULIAN ([id number]) 1960 [facility] Department11/10/17 9:00 AM STEFAN ORTEGA During your visit today, we recorded the following information about you: Pulse Respiration Blood pressure Weight 99/minute 18/minute 140/83 106.6 kg Height 1.702 Ayla Ortega MD 11/10/2017 9:35 AM [facility] Department of Cardiovascular MedicineOUTPATIENT VISIT DATE 11/10/17OUTPATIENT VISIT TYPE ESTABLISHEDBASTR[facility] C[facility] PHYSICIAN:Kaitlyn Saldivar MD[address] [facility] [address]Mylcc: [phone]: [phone] COMPLAINT:Patient presents with:Follow UpHISTORY OF PRESENT ILLNESS:Kathy Julian is a 56 year old female with a past medical history of chestdiscomfort leading to a nuclear stress evaluation showing a fixed apicaldefect, normal cardiac catheterization following the abnormal stressevaluation, essential hypertension in the past prior to weight loss, diabetesmellitus, obstructive sleep apnea, and multiple other medical problems.10/08/2016The patient presents today for an evaluation of chest discomfort. She statesthat 2 weeks ago while sitting working at her computer at 2:30 in the morning,she developed a substernal chest discomfort. It was associated with nausea,cold diaphoresis, radiation of the discomfort to the left arm and jaw. Itlasted for approximately 20-30 minutes. She took aspirin for this. The jawpain continued through and into the next day. The chest discomfort graduallyresolved. She did have some associated shortness of breath and a slightfeeling of lightheadedness. The discomfort is described as an achingsensation. It was not related to exertion. The patient has had some similarepisodes about every 3-4 days since that time. The following episodes were notas intense as the original one. She states that she also has had some visionchanges where it feels like she cannot get her eyes to focus. She feels thather symptoms have been worse recently with exertion. She states that thediscomfort seems different than when she was evaluated over 3 years ago here.The chest discomfort 2 weeks ago with severe. It was in the context of sittingand working on her computer. The patient does admit to being under a greatdeal of stress at work. Her blood pressure was up here at this visit. She hasa history of hypertension that resolved after bariatric surgery.11/09/2016The patient presents today for a 1 month follow-up. We had started her onamlodipine at her last visit in an effort to better control her blood pressureand possibly help with chest symptoms. She is doing much better. Her bloodpressure has improved. Her chest discomfort has diminished greatly. She seemsto be tolerating the amlodipine quite well. Her biggest complaint today is Les and possibly a left eye infection. She denies any new cardiac symptoms.05/13/2017The patient presents today for a 6 month follow-up. Apparently she developed jany while taking amlodipine and this was discontinued. It was felt to be anallergic reaction to that medication. The patient was changed to losartan 50mg daily. The patient states that her chest discomfort is still much better.It seems to have pretty much resolved. She has seen no change after heramlodipine was discontinued. She has been fairly active at home with no newchest symptoms. Her blood pressure is pretty well controlled today. The rashdid resolve after discontinuing amlodipine.11/10/2017T he patient presents today for a 6 month follow-up visit. She is doing fairlywell from a cardiac standpoint but has increased stress in her life again withwork. Her chest discomfort seems to be better than it was last year. Herblood pressure is creeping up slightly. She may need to increase hermedication in the future. She is excited that her son is graduating from [employer] and is going to be going to [employer].PAST MEDICAL HISTORYDiagnosis Date- Bipolar affective disorder (HCC)- Colon cancer (HCC)- Colonic mass- DM (diabetes mellitus) (HCC)- HTN (hypertension)- Obesity- JASWINDER (obstructive sleep apnea) BiPAP- Smoking- TachycardiaPAST SURGICAL HISTORYProcedure Laterality Date- CARDIAC CATH 08/23/13 Normal coronaries.- CARPAL TUNNEL 1996- COLONOSCOPY AND POLYPECTOMY- GASTRIC BYPASS HX 2002- HYSTERECTOMY HX 2000- LAPAROSCOPIC CHOLEYCYSTECTOMY 2006- PAST SURGICAL HISTORY OF 2007 open gastric surgery- SINUS SURGERY PROC UNLISTED 1997- [facility] 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 HistorySubstance Use Topics- Smoking status: Former Smoker Packs/day: 0.50 Years: 25.00 Types: Cigarettes Quit date: 06/28/1999- Smokeless tobacco: Never Used Comment: 06/29 years- Alcohol use Yes Comment: up to 4 drinks weeklyFAMILY HISTORYProblem Relation Age of Onset- Cancer Mother colon- Coronary Artery Disease Father CT at age 67- Stroke Father- Colon Cancer Mother- Cancer Brother skin- colon polyps [Other] [OTHER] Brother- Diabetes SisterALLERGIES:ALLERG IESAllergen Reactions- Cats Unknown- Dust Unknown- Norvasc [Amlodipine* RashMEDICATIONS:hydrOX Yzine pamoate (VISTARIL) 25 mg capsule Take 25 mg by mouth daily atbedtime.losartan (COZAAR) 50 mg tablet Take by mouth once daily.ADDERALL XR 10 mg 24 hr capsulebuPROPion XL (WELLBUTRIN XL) 300 mg 24 hr tablet Take 400 mg by mouth oncedaily.busPIRone (BUSPAR) 15 mg tablet Take 15 mg by mouth three times daily.VITAMIN B COMPLEX (B COMPLEX ORAL) Take by mouth once daily.CALCIUM CARBONATE/VITAMIN D3 (CALCIUM + D ORAL) Take by mouth once daily.ALPRAZOLAM 0.5 mg tablet as needed.nitroglycerin sublingual (NITROQUICK) 0.4 mg SL tablet Dissolve 0.4 mg underthe tongue every 5 minutes as needed.REVIEW OF SYSTEMS:GENERAL: Negative for: Fever. + Fatigue. Increased stress.CARDIAC: See HPI above.HEENT: Negative for: Ringing in Ears, nosebleeds, bleeding gums. + Poordentition. Positive for possible left eye infectionNECK: Negative for: Pain, stiffnessRESPIRATORY: Negative for: Blood in sputum, wheezing.GASTROINTESTI NAL: Negative for: Trouble swallowing, blood in stoolMUSCULOSKELETAL: Negative for: Joint stiffness and painNEUROLOGIC: Negative for: Numbness, tremorsPSYCHIATRIC: Negative for: Anxiety, depressionSKIN: Negative for: Rashes, itchingHEMATOLOGICAL/L YMPHATIC: Negative for: Easy bruising, easy bleeding, painfullymph nodesI personally interviewed, confirmed and edited the above information ifobtained by others.PHYSICAL EXAMINATION:BP 140/83 Pulse 99 Resp 18 Ht 170.2 cm (5' 7 ) Wt 106.6 kg (235 lb) SpO2 97% BMI 36.81 kg/m?General: Well appearing, in no acute distress.Eyes: Extra ocular movements intact, sclera normalNeck: No jugular venous distention, no palpable thyromegaly.Heart: Regular rhythm, S1, S2 normal, no S3, no S4. No murmur.Respiratory: Clear to auscultation bilaterally. Good respiratory effort.GI: Soft, nontender, bowel sounds normal, no palpable hepatosplenomegalyExtr emities: Normal pulses in distal lower extremities. Absent lower extremityedemaNeuro: Oriented to person, place and time, alert, cooperative.Psych: Pleasant and cooperative.Skin: No clubbing, no cyanosis.CARDIOVASCULA R MEDICINE TESTING:Electrocardiog abimbola: 10/08/16 normal sinus rhythm at 67 bpm. This is a normalECG. There is no change from her previous ECG of 12/25/2014.Echocardiogr am: None.Stress Test: Previous nuclear stress evaluation revealed a fixed apical defect. The left ventricular systolic function was normal.Cardiac Catheterization: A cardiac catheterization performed in 2013 revealednormal coronary arteries. There was normal left ventricular systolic function.I have personally reviewed the above Cardiovascular Medicine Testing.IMPRESSION:1. Recurrent precordial chest discomfort in a patient with normal coronaryarteries by catheterization in 2013, consider related to stress and anxietyversus microvascular angina. Her chest discomfort seems to be stable. Sheuses sublingual nitroglycerin as needed.2. Essential hypertension, slightly increased blood pressure here today.PLAN:Continue losartan 50 mg daily. Consider increasing to 100 mg daily if bloodpressure remains elevated.Low-sodium diet.Low-cholesterol, low-fat diet.Continue with weight loss.Regular aerobic exercise as able.I have asked the patient to return to the office in 6 months or sooner ifnecessary.This document was generated utilizing Algaeonon dictation. I have reviewed andverified that the contents of the document are accurate with the exception ofminor grammatical, spelling and punctuation errors.CONTACT INFORMATION:Thank you for allowing us to assist in the care your patient. As always pleasedo not hesitate to contact us with further questions or concerns.Stefan Ortega MD, [facility] and Emily LaurenCapartment of Cardiovascular MedicineOhiohealth Grove City Methodist Hospitalrt and Vascular Institute[address] [address]Loiulx: [phone] Referring Provider: KAITLYN SALDIVAR [[id number]]Allergies As of Date: 11/10/2017 Noted Allergy ReactionCATS 08/14/2013 16 - UnknownDUST 08/14/2013 16 - UnknownNORVASC (AMLODIPINE BESYLATE) 05/13/2017 2 - RashDate Reviewed: 11/10/2017Reviewed by: Stefan Ortega - Fully AssessedReason for Visit: Follow Up [171]Primary Visit Diagnosis:Precordial pain [R07.2] Other Visit Diagnosis:Essential hypertension [I10]Prescriptions as of 11/10/2017 Sig: HYDROXYZINE PAMOATE 25 MG CAP* Take 25 mg by mouth daily at * LOSARTAN 50 MG TABLET Take by mouth once daily. ADDERALL XR 10 MG CAPSULE,EXT* BUPROPION XL 300 MG 24 HR TAB Take 400 mg by mouth once dieudonne* BUSPIRONE 15 MG TABLET Take 15 mg by mouth three aimee* B COMPLEX ORAL Take by mouth once daily. CALCIUM + D ORAL Take by mouth once daily. ALPRAZOLAM 0.5 MG TABLET as needed. NITROGLYCERIN 0.4 MG SUBLINGU* Dissolve 0.4 mg under the ton*Problem List As Of Date 11/10/2017 Noted Resolved Chest pain [R07.9] INVALID FOR* Abnormal stress test [R94.39] INVALID FOR* Squamous cell skin cancer [C44.92] INVALID FOR* H/O gastric bypass [Z98.84] INVALID FOR* Iron deficiency anemia [D50.9] INVALID FOR* Essential hypertension [I10] INVALID FOR*Medications Discontinued During This Encounter ALLERGY RELIEF, CETIRIZINE, 10 mg ta* 0 04/08/2017 11/10/2017 Class: Historical Med Route: ORAL Sig: Take by mouth once daily. Disc: Reason for discontinue is not on file. [id number] AMETH 3.5 MG/M* 08/27/2016 11/10/2017 Class: Historical Med Sig: Disc: Reason for discontinue is not on file. triamcinolone acetonide (KENALOG) 0.* 0 03/25/2017 11/10/2017 Class: Historical Med Sig: apply to BACK twice a day for 14 days THEN NEEDED Disc: Reason for discontinue is not on file. Status:Closed by MARIANN ORTEGA MD on 11/10/17 [facility] PROGRESSon 11-10-2017 Protein mass conc HNO ID: [id number]: Stefan Garciaervice: (none)Author Type: PhysicianType: Progress NotesFiled: 11/10/2017 9:35 AMNote Text:Heart and Vascular [facility] Department of Cardiovascular MedicineOUTPATIENT VISIT DATE 11/10/17OUTPATIENT VISIT TYPE ESTABLISHEDPRCROSSBRIDGE [facility] PHYSICIAN:Kaitlyn Saldivar MD[address] [facility] [id number]: [phone]: [phone] COMPLAINT:Patient presents with:Follow UpHISTORY OF PRESENT ILLNESS:Kathy Julian is a 56 year old female with a past medical history ofchest discomfort leading to a nuclear stress evaluation showing a fixedapical defect, normal cardiac catheterization following the abnormalstress evaluation, essential hypertension in the past prior to weightloss, diabetes mellitus, obstructive sleep apnea, and multiple othermedical problems.10/08/2016The patient presents today for an evaluation of chest discomfort. Shestates that 2 weeks ago while sitting working at her computer at 2:30 inthe morning, she developed a substernal chest discomfort. It wasassociated with nausea, cold diaphoresis, radiation of the discomfort tothe left arm and jaw. It lasted for approximately 20-30 minutes. Shetook aspirin for this. The jaw pain continued through and into the nextday. The chest discomfort gradually resolved. She did have someassociated shortness of breath and a slight feeling of lightheadedness.The discomfort is described as an aching sensation. It was not related toexertion. The patient has had some similar episodes about every 3-4 dayssince that time. The following episodes were not as intense as theoriginal one. She states that she also has had some vision changes whereit feels like she cannot get her eyes to focus. She feels that hersymptoms have been worse recently with exertion. She states that thediscomfort seems different than when she was evaluated over 3 years agohere. The chest discomfort 2 weeks ago with severe. It was in thecontext of sitting and working on her computer. The patient does admit tobeing under a great deal of stress at work. Her blood pressure was uphere at this visit. She has a history of hypertension that resolved afterbariatric surgery.11/09/2016The patient presents today for a 1 month follow-up. We had started her onamlodipine at her last visit in an effort to better control her bloodpressure and possibly help with chest symptoms. She is doing much better. Her blood pressure has improved. Her chest discomfort has diminishedgreatly. She seems to be tolerating the amlodipine quite well. Herbiggest complaint today is a URI and possibly a left eye infection. Shedenies any new cardiac symptoms.05/13/2017The patient presents today for a 6 month follow-up. Apparently shedeveloped a rash while taking amlodipine and this was discontinued. Itwas felt to be an allergic reaction to that medication. The patient waschanged to losartan 50 mg daily. The patient states that her chestdiscomfort is still much better. It seems to have pretty much resolved.She has seen no change after her amlodipine was discontinued. She hasbeen fairly active at home with no new chest symptoms. Her blood pressureis pretty well controlled today. The rash did resolve after discontinuingamlodipin e.11/10/2017The patient presents today for a 6 month follow-up visit. She is doingfairly well from a cardiac standpoint but has increased stress in her lifeagain with work. Her chest discomfort seems to be better than it was lastyear. Her blood pressure is creeping up slightly. She may need toincrease her medication in the future. She is excited that her son isgraduating from high school and is going to be going to [employer].PAST MEDICAL HISTORYDiagnosis Date- Bipolar affective disorder (HCC)- Colon cancer (HCC)- Colonic mass- DM (diabetes mellitus) (HCC)- HTN (hypertension)- Obesity- JASWINDER (obstructive sleep apnea) BiPAP- Smoking- TachycardiaPAST SURGICAL HISTORYProcedure Laterality Date- CARDIAC CATH 08/23/13 Normal coronaries.- CARPAL TUNNEL 1996- COLONOSCOPY AND POLYPECTOMY- GASTRIC BYPASS HX 2002- HYSTERECTOMY HX 2000- LAPAROSCOPIC CHOLEYCYSTECTOMY 2006- PAST SURGICAL HISTORY OF 2007 open gastric surgery- SINUS SURGERY PROC UNLISTED 1997- [facility] 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 HistorySubstance Use Topics- Smoking status: Former Smoker Packs/day: 0.50 Years: 25.00 Types: Cigarettes Quit date: 06/28/1999- Smokeless tobacco: Never Used Comment: 06/29 years- Alcohol use Yes Comment: up to 4 drinks weeklyFAMILY HISTORYProblem Relation Age of Onset- Cancer Mother colon- Coronary Artery Disease Father CT at age 67- Stroke Father- Colon Cancer Mother- Cancer Brother skin- colon polyps [Other] [OTHER] Brother- Diabetes SisterALLERGIES:ALLERG IESAllergen Reactions- Cats Unknown- Dust Unknown- Norvasc [Amlodipine* RashMEDICATIONS:hydrOX Yzine pamoate (VISTARIL) 25 mg capsule Take 25 mg by mouth daily atbedtime.losartan (COZAAR) 50 mg tablet Take by mouth once daily.ADDERALL XR 10 mg 24 hr capsulebuPROPion XL (WELLBUTRIN XL) 300 mg 24 hr tablet Take 400 mg by mouth oncedaily.busPIRone (BUSPAR) 15 mg tablet Take 15 mg by mouth three times daily.VITAMIN B COMPLEX (B COMPLEX ORAL) Take by mouth once daily.CALCIUM CARBONATE/VITAMIN D3 (CALCIUM + D ORAL) Take by mouth once daily.ALPRAZOLAM 0.5 mg tablet as needed.nitroglycerin sublingual (NITROQUICK) 0.4 mg SL tablet Dissolve 0.4 mgunder the tongue every 5 minutes as needed.REVIEW OF SYSTEMS:GENERAL: Negative for: Fever. + Fatigue. Increased stress.CARDIAC: See HPI above.HEENT: Negative for: Ringing in Ears, nosebleeds, bleeding gums. + Poordentition. Positive for possible left eye infectionNECK: Negative for: Pain, stiffnessRESPIRATORY: Negative for: Blood in sputum, wheezing.GASTROINTESTI NAL: Negative for: Trouble swallowing, blood in stoolMUSCULOSKELETAL: Negative for: Joint stiffness and painNEUROLOGIC: Negative for: Numbness, tremorsPSYCHIATRIC: Negative for: Anxiety, depressionSKIN: Negative for: Rashes, itchingHEMATOLOGICAL/L YMPHATIC: Negative for: Easy bruising, easy bleeding,painful lymph nodesI personally interviewed, confirmed and edited the above information ifobtained by others.PHYSICAL EXAMINATION:BP 140/83 Pulse 99 Resp 18 Ht 170.2 cm (5' 7 ) Wt 106.6 kg(235 lb) SpO2 97% BMI 36.81 kg/m?General: Well appearing, in no acute distress.Eyes: Extra ocular movements intact, sclera normalNeck: No jugular venous distention, no palpable thyromegaly.Heart: Regular rhythm, S1, S2 normal, no S3, no S4. No murmur.Respiratory: Clear to auscultation bilaterally. Good respiratory effort.GI: Soft, nontender, bowel sounds normal, no palpable hepatosplenomegalyExtr emities: Normal pulses in distal lower extremities. Absent lowerextremity edemaNeuro: Oriented to person, place and time, alert, cooperative.Psych: Pleasant and cooperative.Skin: No clubbing, no cyanosis.CARDIOVASCULA R MEDICINE TESTING:Electrocardiog abimbola: 10/08/16 normal sinus rhythm at 67 bpm. This is anormal ECG. There is no change from her previous ECG of 12/25/2014.Echocardiogr am: None.Stress Test: Previous nuclear stress evaluation revealed a fixed apicaldefect. The left ventricular systolic function was normal.Cardiac Catheterization: A cardiac catheterization performed in 2013revealed normal coronary arteries. There was normal left ventricularsystolic function.I have personally reviewed the above Cardiovascular Medicine Testing.IMPRESSION:1. Recurrent precordial chest discomfort in a patient with normalcoronary arteries by catheterization in 2013, consider related to stressand anxiety versus microvascular angina. Her chest discomfort seems to bestable. She uses sublingual nitroglycerin as needed.2. Essential hypertension, slightly increased blood pressure here today.PLAN:Continue losartan 50 mg daily. Consider increasing to 100 mg daily ifblood pressure remains elevated.Low-sodium diet.Low-cholesterol, low-fat diet.Continue with weight loss.Regular aerobic exercise as able.I have asked the patient to return to the office in 6 months or sooner ifnecessary.This document was generated utilizing [employer] dictation. I have reviewedand verified that the contents of the document are accurate with theexception of minor grammatical, spelling and punctuation errors.CONTACT INFORMATION:Thank you for allowing us to assist in the care your patient. As alwaysplease do not hesitate to contact us with further questions or concerns.Stefan Ortega MD, FACCRobert and Emily Jenkinspartment of Cardiovascular MedicineOhiohealth Grove [facility] [address]Tsanqo: [phone] Normal [facility] Vital Signs Date Time Vital Sign Value Performing Clinician Facility 02-22-2025 08:26040 Body height 170.18 cm Kaitlyn Saldivar MD Work Phone: [facility] 02-22-2025 08:26-0400 Body mass index (BMI) [Ratio] 34.8 kg/m2 Kaitlyn Saldivar MD Work Phone: [facility] 02-22-2025 08:26-040 Body weight 100.81 kg Kaitlyn Saldivar MD Work Phone: [facility] 02-22-2025 08:26-0400 Diastolic blood pressure 78 mm[Hg] Kaitlyn Saldivar MD Work Phone: [facility] 02-22-2025 08:26-0400 Heart rate 82 /min Kaitlyn Saldivar MD Work Phone: [facility] 02-22-2025 08:26-0400 Respiratory rate 14 /min Kaitlyn Saldivar MD Work Phone: [facility] 02-22-2025 08:26-0400 SaO2% (BldA) [Mass fraction] 99 % Kaitlyn Saldivar MD Work Phone: [facility] 02-22-2025 08:26-0400 Systolic blood pressure 130 mm[Hg] Kaitlyn Saldivar MD Work Phone: [facility] 08-31-2024 10:42-0500 Body height 170.18 cm [facility] 08-31-2024 10:42-0500 Body mass index (BMI) [Ratio] 33.8 kg/m2 [facility] 08-31-2024 10:42-0500 Body temperature 98.5 [degF] [facility] 08-31-2024 10:42-0500 Body weight 97.97 kg [facility] 08-31-2024 10:42-0500 Diastolic blood pressure 84 mm[Hg] [facility] 08-31-2024 10:42-0500 Heart rate 87 /min [facility] 08-31-2024 10:42-0500 SaO2% (BldA) [Mass fraction] 97 % [facility] 08-31-2024 10:42-0500 Systolic blood pressure 136 mm[Hg] [facility] 06-07-2024 08:18-0500 Body height 170.18 cm [facility] 06-07-2024 08:18-0500 Body mass index (BMI) [Ratio] 32.8 kg/m2 [facility] 06-07-2024 08:18-0500 Body weight 95 kg [facility] 04-28-2024 10:46-0400 Blood Pressure Location Gutierrez Nikkykelli [facility] 04-28-2024 10:46-0400 Diastolic blood pressure 109 mm[Hg] Gutierrez Sarmini [facility] 04-28-2024 10:46-0400 Heart rate 54 /min Gutierrez Sarmini [facility] 04-28-2024 10:46-0400 Respiratory rate 16 /min Gutierrez Sarmini [facility] 04-28-2024 10:46-0400 Systolic blood pressure 148 mm[Hg] Gutierrez Sarmini [facility] 04-10-2024 14:41-0400 Diastolic blood pressure 65 mm[Hg] Gutierrez Sarmini [facility] 04-10-2024 14:41-0400 Heart rate 72 /min Gutierrez Sarmini [facility] 04-10-2024 14:41-0400 Mean blood pressure 82 mm[Hg] Gutierrez Sarmini [facility] 04-10-2024 14:41-0400 Respiratory rate 15 /min Gutierrez Sarmini [facility] 04-10-2024 14:41-0400 SaO2% (BldA) [Mass fraction] 96 % Gutierrez Sarmini [facility] 04-10-2024 14:41-0400 Systolic blood pressure 116 mm[Hg] Gutierrez Sarmini [facility] 04-10-2024 14:25-0400 Diastolic blood pressure 60 mm[Hg] Gutierrez Sarmini [facility] 04-10-2024 14:25-0400 Heart rate 64 /min Gutierrez Sarmini [facility] 04-10-2024 14:25-0400 Mean blood pressure 75 mm[Hg] Gutierrez Sarmini [facility] 04-10-2024 14:25-0400 Respiratory rate 18 /min Gutierrez Sarmini [facility] 04-10-2024 14:25-0400 SaO2% (BldA) [Mass fraction] 99 % Gutierrez Sarmini [facility] 04-10-2024 14:25-0400 Systolic blood pressure 106 mm[Hg] Gutierrez Sarmini [facility] 04-10-2024 14:16-0400 Body temperature 98.06 [degF] Gutierrez Sarmini [facility] 04-10-2024 14:16-0400 Diastolic blood pressure 47 mm[Hg] Gutierrez Sarmini [facility] 04-10-2024 14:16-0400 Heart rate 67 /min Gutierrez Sarmini [facility] 04-10-2024 14:16-0400 Mean blood pressure 64 mm[Hg] Gutierrez Sarmini [facility] 04-10-2024 14:16-0400 Respiratory rate 18 /min Gutierrez Sarmini [facility] 04-10-2024 14:16-0400 SaO2% (BldA) [Mass fraction] 97 % Gutierrez Sarmini [facility] 04-10-2024 14:16-0400 Systolic blood pressure 97 mm[Hg] Gutierrez Sarmini [facility] 04-10-2024 14:10-0400 Respiratory rate 16 /min Gutierrez Sarmini [facility] 04-10-2024 14:05-0400 Respiratory rate 16 /min Gutierrez Sarmini [facility] 04-10-2024 12:22-0400 Blood Pressure Location Gutierrez Sarmini [facility] 04-10-2024 12:21-0400 Blood Pressure Location Gutierrez Sarmini [facility] 04-10-2024 12:21-0400 Body temperature 97.88 [degF] Gutierrez Sarmini [facility] 01-31-2024 09:25-0400 Blood Pressure Location Gutierrez Sarmini [facility] 01-31-2024 09:25-0400 Diastolic blood pressure 76 mm[Hg] Gutierrez Sarmini [facility] 01-31-2024 09:25-0400 Heart rate 77 /min Gutierrez Sarmini [facility] 01-31-2024 09:25-0400 Systolic blood pressure 112 mm[Hg] Gutierrez Sarmini [facility] 01-12-2024 09:25-0400 Body height 170.18 cm MD Kaitlyn Saldivar Work Phone: [facility] 01-12-2024 09:25-0400 Body mass index (BMI) [Ratio] 32.8 kg/m2 MD Kaitlyn Saldivar Work Phone: [facility] 01-12-2024 09:25-0400 Body weight 95.25 kg MD Kaitlyn Saldivar Work Phone: [facility] 01-12-2024 09:25-0400 Diastolic blood pressure 85 mm[Hg] MD Kaitlyn Saldivar Work Phone: [facility] 01-12-2024 09:25-0400 Heart rate 77 /min MD Kaitlyn Saldivar Work Phone: [facility] 01-12-2024 09:25-0400 Systolic blood pressure 135 mm[Hg] MD Kaitlyn Saldivar Work Phone: [facility] 10-08-2023 14:38-0400 Body height 170.18 cm [facility] 10-08-2023 14:38-0400 Body mass index (BMI) [Ratio] 33.8 kg/m2 [facility] 10-08-2023 14:38-0400 Body weight 97.97 kg [facility] 10-08-2023 14:38-0400 Diastolic blood pressure 82 mm[Hg] [facility] 10-08-2023 14:38-0400 Heart rate 70 /min [facility] 10-08-2023 14:38-0400 Systolic blood pressure 142 mm[Hg] [facility] 10-04-2023 09:00-0400 Diastolic blood pressure 82 mm[Hg] Gutierrez Sarmini [facility] 10-04-2023 09:00-0400 Mean blood pressure 101 mm[Hg] Gutierrez Sarmini [facility] 10-04-2023 09:00-0400 Systolic blood pressure 140 mm[Hg] Gutierrez Sarmini [facility] 10-04-2023 08:49-0400 Blood Pressure Location Gutierrez Sarmini [facility] 10-04-2023 08:49-0400 Diastolic blood pressure 86 mm[Hg] Gutierrez Sarmini [facility] 10-04-2023 08:49-0400 Heart rate 78 /min Gutierrez Sarmini [facility] 10-04-2023 08:49-0400 Respiratory rate 18 /min Gutierrez Sarmini [facility] 10-04-2023 08:49-0400 Systolic blood pressure 142 mm[Hg] Gutierrez Sarmini [facility] 08-26-2023 15:49-0500 Blood Pressure Location Rani Leona [facility] 08-26-2023 15:49-0500 Body temperature 97.34 [degF] Rani Leona [facility] 08-26-2023 15:49-0500 Diastolic blood pressure 83 mm[Hg] Rani Leona [facility] 08-26-2023 15:49-0500 Heart rate 71 /min Rani Leona [facility] 08-26-2023 15:49-0500 Systolic blood pressure 131 mm[Hg] Rani Leona [facility] 02-09-2023 14:52-0400 Blood Pressure Location Rani Leona [facility] 02-09-2023 14:52-0400 Body temperature 96.8 [degF] Rani Leona [facility] 02-09-2023 14:52-0400 Diastolic blood pressure 81 mm[Hg] Rani Leona [facility] 02-09-2023 14:52-0400 Heart rate 71 /min Rani Leona [facility] 02-09-2023 14:52-0400 Systolic blood pressure 121 mm[Hg] Rani Delgadillo [facility] 11-09-2022 15:31-0400 Blood Pressure Location Rani Delgadillo [facility] 11-09-2022 15:31-0400 Body temperature 98.06 [degF] Rani Delgadillo [facility] 11-09-2022 15:31-0400 Diastolic blood pressure 79 mm[Hg] Rani Delgadillo [facility] 11-09-2022 15:31-0400 Heart rate 82 /min Rani Delgadillo [facility] 11-09-2022 15:31-0400 Respiratory rate 16 /min Rani Delgadillo [facility] 11-09-2022 15:31-0400 SaO2% (BldA) [Mass fraction] 95 % Rani Delgadillo [facility] 11-09-2022 15:31-0400 Systolic blood pressure 115 mm[Hg] Rani Delgadillo [facility] 10-26-2022 11:15-0400 Body height 170.18 cm Kaitlyn Saldivar Other [employer] Other 10-26-2022 11:15-0400 Body mass index (BMI) [Ratio] 36.65 kg/m2 Kaitlyn Saldivar Other [employer] Other 10-26-2022 11:15-0400 Body weight 106.14 kg Kaitlyn Saldivar Other [employer] Other 10-26-2022 11:15-0400 Diastolic blood pressure 80 mm[Hg] Kaitlyn Saldivar Other [employer] Other 10-26-2022 11:15-0400 SaO2% (BldA) [Mass fraction] 92 % Kaitlyn Saldivar Other [employer] Other 10-26-2022 11:15-0400 Systolic blood pressure 124 mm[Hg] Kaitlyn Saldivar Other [employer] Other 09-25-2022 15:10-0400 Body height 170.18 cm Brit Sharif Other [employer] Other 09-25-2022 15:10-0400 Body mass index (BMI) [Ratio] 36.66 kg/m2 Birt Piedramond Other [employer] Other 09-25-2022 15:10-0400 Body temperature 96 [degF] Brit Chante Other [employer] Other 09-25-2022 15:10-0400 Body weight 106.19 kg Brit Chante Other [employer] Other 09-25-2022 15:10-0400 Diastolic blood pressure 78 mm[Hg] Brit Chante Other [employer] Other 09-25-2022 15:10-0400 Respiratory rate 18 /min Brit Chante Other [employer] Other 09-25-2022 15:10-0400 SaO2% (BldA) [Mass fraction] 99 % Brit Chante Other [employer] Other 09-25-2022 15:10-0400 Systolic blood pressure 128 mm[Hg] Brit Sharif Other [employer] Other 08-25-2022 09:35-0500 Blood Pressure Location MELISSA HALLRY [facility] 08-25-2022 09:35-0500 Diastolic blood pressure 75 mm[Hg] MELISSA SAE [facility] 08-25-2022 09:35-0500 Heart rate 80 /min MELISSA SAE [facility] 08-25-2022 09:35-0500 Respiratory rate 16 /min MELISSA SAE [facility] 08-25-2022 09:35-0500 Systolic blood pressure 129 mm[Hg] MELISSA SAE [facility] 08-10-2022 15:03-0500 Diastolic blood pressure 83 mm[Hg] Rani Leona [facility] 08-10-2022 15:03-0500 Mean blood pressure 100 mm[Hg] Rani Leona [facility] 08-10-2022 15:03-0500 Systolic blood pressure 133 mm[Hg] Rani Leona [facility] 08-10-2022 15:00-0500 Blood Pressure Location Rani Leona [facility] 08-10-2022 15:00-0500 Body temperature 96.62 [degF] Rani Leona [facility] 08-10-2022 15:00-0500 Diastolic blood pressure 89 mm[Hg] Ranirosanne HernándezLeona [facility] 08-10-2022 15:00-0500 Heart rate 71 /min Rani Leona [facility] 08-10-2022 15:00-0500 Respiratory rate 14 /min Ranirosanne HernándezLeona [facility] 08-10-2022 15:00-0500 Systolic blood pressure 148 mm[Hg] Ranirosanne HernándezLeona [facility] 07-22-2022 14:30-0500 Diastolic blood pressure 81 mm[Hg] Palma SALAM [facility] 07-22-2022 14:30-0500 Heart rate 62 /min Palma SALAM [facility] 07-22-2022 14:30-0500 Mean blood pressure 100 mm[Hg] Palma SALAM [facility] 07-22-2022 14:30-0500 Respiratory rate 13 /min Palma SALAM [facility] 07-22-2022 14:30-0500 SaO2% (BldA) [Mass fraction] 100 % Palma SALAM [facility] 07-22-2022 14:30-0500 Systolic blood pressure 138 mm[Hg] Palma SALAM [facility] 07-22-2022 14:20-0500 Diastolic blood pressure 80 mm[Hg] Palma SALAM [facility] 07-22-2022 14:20-0500 Heart rate 67 /min Palma SALAM [facility] 07-22-2022 14:20-0500 Mean blood pressure 101 mm[Hg] Palma SALAM [facility] 07-22-2022 14:20-0500 Respiratory rate 11 /min Palma SALAM [facility] 07-22-2022 14:20-0500 SaO2% (BldA) [Mass fraction] 99 % Palma SALAM [facility] 07-22-2022 14:20-0500 Systolic blood pressure 143 mm[Hg] Palma SALAM [facility] 07-22-2022 14:15-0500 Diastolic blood pressure 124 mm[Hg] Palma SALAM [facility] 07-22-2022 14:15-0500 Heart rate 62 /min Palma SALAM [facility] 07-22-2022 14:15-0500 Mean blood pressure 130 mm[Hg] Palma SALAM [facility] 07-22-2022 14:15-0500 Respiratory rate 20 /min Palma SALAM [facility] 07-22-2022 14:15-0500 SaO2% (BldA) [Mass fraction] 98 % Palma SALAM [facility] 07-22-2022 14:15-0500 Systolic blood pressure 143 mm[Hg] Palma SALAM [facility] 07-22-2022 14:05-0500 Body temperature 98.24 [degF] Palma SALAM [facility] 07-22-2022 12:33-0500 Blood Pressure Location Palma SALAM [facility] 07-22-2022 12:33-0500 Body temperature 98.06 [degF] Palma SALAM [facility] 05-27-2022 09:32-0500 Blood Pressure Location Ranirosanne HernándezLeona [facility] 05-27-2022 09:32-0500 Body temperature 97.52 [degF] Rani Leona [facility] 05-27-2022 09:32-0500 Diastolic blood pressure 75 mm[Hg] Rani Leona [facility] 05-27-2022 09:32-0500 Heart rate 73 /min Rani Leona [facility] 05-27-2022 09:32-0500 Systolic blood pressure 109 mm[Hg] Rani Leona [facility] 02-25-2022 15:36-0400 Blood Pressure Location Rani Leona [facility] 02-25-2022 15:36-0400 Body temperature 97.34 [degF] Rani Leona [facility] 02-25-2022 15:36-0400 Diastolic blood pressure 72 mm[Hg] Rani Leona [facility] 02-25-2022 15:36-0400 Heart rate 71 /min Rani Leona [facility] 02-25-2022 15:36-0400 Systolic blood pressure 109 mm[Hg] Rani Leona [facility] 11-25-2021 15:31-0400 Blood Pressure Location Rani Leona [facility] 11-25-2021 15:31-0400 Body temperature 97.16 [degF] Rani Delgadillo [facility] 11-25-2021 15:31-0400 Diastolic blood pressure 76 mm[Hg] Rani Delgadillo [facility] 11-25-2021 15:31-0400 Heart rate 70 /min Rani Delgadillo [facility] 11-25-2021 15:31-0400 SaO2% (BldA) [Mass fraction] 97 % Rani Delgadillo [facility] 11-25-2021 15:31-0400 Systolic blood pressure 112 mm[Hg] Rani Delgadillo [facility] 11-06-2021 17:20-0400 Body height 170.18 cm Angely Alonzo Other [employer] Other 11-06-2021 17:20-0400 Body mass index (BMI) [Ratio] 34.45 kg/m2 Angely Alonzo Other [employer] Other 11-06-2021 17:20-0400 Body temperature 98.9 [degF] Angely Alonzo Other [employer] Other 11-06-2021 17:20-0400 Body weight 99.79 kg Angely Alonzo Other [employer] Other 11-06-2021 17:20-0400 Respiratory rate 18 /min Angely Alonzo Other [employer] Other 11-06-2021 17:20-0400 SaO2% (BldA) [Mass fraction] 98 % Angely Alonzo Other [employer] Other 07-07-2021 17:00-0500 Body height 170.18 cm Angely Alonzo Other [employer] Other 07-07-2021 17:00-0500 Body mass index (BMI) [Ratio] 34.45 kg/m2 Angely Alonzo Other [employer] Other 07-07-2021 17:00-0500 Body temperature 96.9 [degF] Angely Alonzo Other [employer] Other 07-07-2021 17:00-0500 Body weight 99.79 kg Angely Alonzo Other [employer] Other 07-07-2021 17:00-0500 SaO2% (BldA) [Mass fraction] 96 % Angely Alonzo Other [employer] Other 08-03-2019 15:44-0500 Body Temperature 98.4 [degF] Kaitlyn [facility] 08-03-2019 15:44-0500 Body weight 108 kg [facility] 08-03-2019 15:44-0500 BP Diastolic 81 mm[Hg] [facility] 08-03-2019 15:44-0500 BP Systolic 134 mm[Hg] [facility] 08-03-2019 15:44-0500 Pulse (Heart Rate) 83 /[facility] 08-03-2019 15:44-0500 Pulse Oximetry 96 % Kaitlyn Saldivar [facility] 08-03-2019 15:44-0500 Respiratory Rate 20 /min Kaitlyn Saldivar [facility] 09-29-2018 08:28-0400 Height 171.5 cm Kaitlyn Saldivar [facility] Encounters Encounter Date Encounter Type Care Provider Facility Start: 02-22-2025 End: 02-22-2025 ambulatory Kaitlyn Saldivar MD Work Phone: [place] Work Phone: Start: 02-22-2025 End: 02-22-2025 Patient encounter procedure Kaitlyn Saldivar MD -[facility] Work Phone: Start: 02-14-2025 End: 02-14-2025 ambulatory Aishwarya LawsonGricelda Napier Facility[facility] Start: 02-08-2025 End: 02-08-2025 Patient encounter procedure Lanre Coats DO -Lab [place] Work Phone: Start: 02-08-2025 End: 02-08-2025 ambulatory Kaitlyn Saldivar MD Work Phone: [facility] Work Phone: Start: 02-02-2025 End: 02-02-2025 Departed Referred Kaitlyn Saldivar MD -Lab [facility] Work Phone: Start: 02-02-2025 End: 02-02-2025 ambulatory Kaitlyn Saldivar MD Work Phone: [place] Work Phone: Start: 02-02-2025 End: 02-02-2025 Patient encounter procedure Kaitlyn Saldivar MD -[facility] Work Phone: Start: 10-23-2024 End: 10-23-2024 Bamboo flowsheet Destiney Romero PA Work Phone: [facility] Start: 10-23-2024 End: 10-23-2024 Bamboo flowsheet Destiney Romero PA Work Phone: [facility] Start: 10-23-2024 End: 10-23-2024 ambulatory DESTINEY ROMERO Not Available Start: 10-23-2024 End: 10-23-2024 Office outpatient visit 15 minutes Destiney GILBERT Work Phone: [facility] Comment on above: Other specified derm atitis (Primary Dx); Porokeratosis; Edwards angioma; Seborrheic keratosis; Other seborrheic dermatitis Start: 09-27-2024 End: 09-27-2024 ambulatory [facility] Work Phone: Start: 09-27-2024 End: 09-27-2024 Patient encounter procedure [facility] Work Phone: Start: 08-31-2024 End: 08-31-2024 ambulatory [facility] Work Phone: Start: 08-31-2024 End: 08-31-2024 Patient encounter procedure [facility] Work Phone: Start: 06-07-2024 End: 06-07-2024 Patient encounter procedure [facility] Work Phone: Start: 05-17-2024 End: 05-17-2024 ambulatory [facility] Work Phone: Start: 05-17-2024 End: 05-17-2024 Patient encounter procedure [facility] Work Phone: Start: 04-28-2024 End: 04-28-2024 ambulatory Gutierrez Talal Sarmini Facility:[facility] Start: 04-28-2024 End: 04-28-2024 Patient encounter procedure Gutierrez Talal Sarmini [facility] Start: 04-27-2024 End: 04-27-2024 ambulatory [facility] Work Phone: Start: 04-27-2024 End: 04-27-2024 Patient encounter procedure [facility] Work Phone: Start: 04-24-2024 End: 04-24-2024 Office outpatient visit 25 minutes Destiney GILBERT Work Phone: [facility] Comment on above: Melanocytic nevus of trunk (Primary Dx); Seborrheic keratosis; Personal history of squamous cell carcinoma of skin; Other seborrheic dermatitis; Other specified dermatitis; Inflamed seborrheic keratosis; Xerosis cutis; Skin tag Start: 04-24-2024 End: 04-24-2024 ambulatory DESTINEY ROMERO Not Available Start: 04-24-2024 End: 04-24-2024 Bamboo flowsheet Destiney Romero PA Work Phone: [facility] Start: 04-24-2024 End: 04-24-2024 Bamboo flowsheet Destiney Romero PA Work Phone: [facility] Start: 04-10-2024 End: 04-10-2024 ambulatory Matt Keanei Facility:[facility] Start: 04-10-2024 End: 04-10-2024 Patient encounter procedure Matt Montalvo [facility] Start: 02-25-2024 End: 02-25-2024 ambulatory Aishwarya Napier Facility:[facility] Start: 02-25-2024 End: 02-25-2024 Patient encounter procedure Aishwarya Napier [facility] Start: 02-14-2024 End: 02-14-2024 ambulatory MD Kaitlyn Saldivar Work Phone: [place] Work Phone: Start: 02-14-2024 End: 02-14-2024 Patient encounter procedure MD Kaitlyn Saldivar Work Phone: [facility] Work Phone: Start: 01-31-2024 End: 01-31-2024 ambulatory Matt Montalvo Facility:[facility] Start: 01-31-2024 End: 01-31-2024 Patient encounter procedure Matt Montalvo [facility] Start: 01-14-2024 End: 01-14-2024 ambulatory MD Kaitlyn Saldivar Work Phone: [facility] Work Phone: Start: 01-14-2024 End: 01-14-2024 Patient encounter procedure MD Kaitlyn Saldivar Work Phone: [facility] [place] Work Phone: Start: 01-12-2024 End: 01-12-2024 Patient encounter procedure MD Kaitlyn Saldivar Work Phone: [facility] Work Phone: Start: 01-12-2024 End: 01-12-2024 ambulatory MD Kaitlyn Saldivar Work Phone: [place] Work Phone: Start: 01-12-2024 End: 01-12-2024 Departed Referred MD Kaitlyn Saldivar Work Phone: [facility] [place] Work Phone: Start: 01-05-2024 End: 01-05-2024 ambulatory MD Kaitlyn Saldivar Work Phone: [place] Work Phone: Start: 01-05-2024 End: 01-05-2024 Patient encounter procedure MD Kaitlyn Saldivar Work Phone: [facility] [place] [facility] Work Phone: Start: 11-18-2023 End: 11-18-2023 ambulatory MD Kaitlyn Saldivar Work Phone: [place] Work Phone: Start: 11-18-2023 End: 11-18-2023 Patient encounter procedure MD Kaitlyn Saldivar Work Phone: [facility] Work Phone: Start: 10-27-2023 End: 10-27-2023 Patient encounter procedure MD Kaitlyn Saldivar Work Phone: [facility] Work Phone: Start: 10-08-2023 End: 10-08-2023 ambulatory [facility] Work Phone: Start: 10-08-2023 End: 10-08-2023 Patient encounter procedure [facility] Work Phone: Start: 10-04-2023 End: 10-04-2023 ambulatory Gutierrez Talal Sarmini Facility:[facility] Start: 10-04-2023 End: 10-04-2023 Patient encounter procedure Gutierrez Talal Sarmini [facility] Start: 09-21-2023 End: 09-21-2023 ambulatory Gutierrez Talal Sarmini Facility[facility] Start: 09-21-2023 End: 09-21-2023 ambulatory Gutierrez Talal Sarmini Facility:[id number] Start: 09-17-2023 End: 09-20-2023 ambulatory RANI DELGADILLO [facility] Start: 09-17-2023 End: 09-19-2023 Subsequent hospital visit by physician [address] Room 1 [facility] CT Scan Comment on above: Lower abdominal pain Start: 08-26-2023 End: 08-26-2023 ambulatory Rani Delgadillo Facility:[facility] Start: 08-26-2023 End: 08-26-2023 Patient encounter procedure Rani Delgadillo [facility] Start: 08-26-2023 End: 08-26-2023 ambulatory Rani Delgadillo Facility:[facility] Start: 08-26-2023 End: 08-26-2023 Patient encounter procedure Rani Delgadillo [facility] Start: 05-14-2023 End: 05-14-2023 ambulatory Aishwarya Napier Facility:[facility] Start: 05-14-2023 End: 05-14-2023 Patient encounter procedure Aishwarya Coronad [facility] Start: 02-09-2023 End: 02-09-2023 Patient encounter procedure Rani Delgadillo [facility] Start: 12-30-2022 End: 12-30-2022 Patient encounter procedure Aishwarya Napier [facility] Start: 11-26-2022 End: 11-26-2022 Patient encounter procedure Aishwarya Coronad [facility] Start: 11-17-2022 End: 11-17-2022 ambulatory Kaitlyn Saldivar Other [employer] Other Start: 11-17-2022 Telephone encounter Kaitlyn Saldivar [facility] Start: 11-13-2022 End: 11-13-2022 ambulatory Kaitlyn Saldivar Other [employer] Other Start: 11-13-2022 Telephone encounter Kaitlyn Saldivar [facility] Start: 11-09-2022 End: 11-09-2022 Patient encounter procedure Ranirosanne Israelz [facility] Start: 11-02-2022 End: 11-02-2022 ambulatory Kaitlyn Saldivar Other [employer] Other Start: 11-02-2022 Telephone encounter Kaitlyn Saldivar [facility] Start: 10-30-2022 End: 10-30-2022 Patient encounter procedure KAITLYN SALDIVAR [facility] Start: 10-26-2022 End: 10-26-2022 ambulatory Kaitlyn Saldivar Other [employer] Other Start: 10-26-2022 Office outpatient vi sit 15 minutes Kaitlyn Saldivar [facility] Start: 10-20-2022 End: 10-20-2022 ambulatory Kaitlyn Saldivar Other [employer] Other Start: 10-20-2022 Telephone encounter Kaitlyn Saldivar [facility] Start: 10-14-2022 End: 10-14-2022 ambulatory MD Kaitlyn Saldivar Work Phone: [facility] Work Phone: Start: 10-14-2022 End: 10-14-2022 Patient encounter procedure MD Kaitlyn Saldivar Work Phone: [facility] [place] Work Phone: Start: 09-28-2022 (Televisit) Televisit Kaitlyn Saldivar [facility] Start: 09-28-2022 End: 09-28-2022 ambulatory Kaitlyn Saldivar Other [employer] Other Start: 09-25-2022 End: 09-25-2022 ambulatory Brit Sharif Other [employer] Other Start: 09-25-2022 Office outpatient vi sit 15 minutes Brit Sharif [facility] Start: 09-08-2022 End: 09-08-2022 ambulatory Kaitlyn Saldivar Other [employer] Other Start: 09-08-2022 Telephone encounter Kaitlyn Janna [facility] Start: 08-25-2022 End: 08-25-2022 Patient encounter procedure MELISSA HALLRY [facility] Start: 08-10-2022 End: 08-10-2022 Patient encounter procedure Rani Delgadillo [facility] Start: 07-22-2022 End: 07-22-2022 Patient encounter procedure Palma SALAM [facility] Start: 07-02-2022 End: 07-02-2022 ambulatory Kaitlyn Janna Other [employer] Other Start: 07-02-2022 Telephone encounter Kaitlyn Janna [facility] Start: 06-08-2022 End: 06-08-2022 Patient encounter procedure KAITLYN JANNA [facility] Start: 05-27-2022 End: 05-27-2022 Patient encounter procedure Rani Damion HernándezLeona [facility] Start: 04-09-2022 End: 04-09-2022 Patient encounter procedure Palma SALAM [facility] Start: 02-25-2022 End: 02-25-2022 Patient encounter procedure Rani A Leona [facility] Start: 11-25-2021 End: 11-25-2021 Patient encounter procedure Rani Delgadillo [facility] Start: 11-06-2021 End: 11-06-2021 ambulatory Angely Alonzo Other [employer] Other Start: 11-06-2021 Office outpatient vi sit 15 minutes Angely Alonzo [facility] Start: 07-23-2021 End: 07-23-[address] KAITLYN SALDIVAR Facility:[facility] Start: 07-22-2021 End: 07-22-[address] KAITLYN SALDIVAR Facility:[facility] Start: 07-07-2021 (URG) Urgent Care Visit Angely madrigal [facility] Start: 07-07-2021 End: 07-07-2021 ambulatory Angely Alonzo Other [employer] Other Start: 07-03-2021 End: 07-03-[address] KAITLYN SALDIVAR Facility:[facility] Start: 07-01-2021 End: 07-01-[address] KAITLYN SALDIVAR Facility:[facility] Start: 08-24-2020 End: 08-25-[address] DOCTOR ESQUIVEL Facility:[facility] Start: 08-03-2019 Registered Recurring Kaitlyn Saldivar [facility] Start: 09-29-2018 Patient encounter procedure Antonieta Villela Facility:[id number] Start: 09-02-2018 End: 09-02-2018 Patient encounter procedure Kaitlyn Saldivar -[facility] [address] Start: 05-13-2018 End: 05-13-2018 Patient encounter procedure STEFAN ORTEGA [facility] Start: 04-05-2018 Patient encounter procedure Antonieta Villela Facility:[id number] Start: 01-13-2018 Patient encounter procedure Shruthi Cooleyshanice Seals Facility:[id number] Start: 11-10-2017 End: 11-15-2017 [facility] Procedures Date Procedure Procedure Detail Performing Clinician Start: 02-02-2025 Urine culture Kaitlyn Saldivar MD Work Phone: Start: 04-24-2024 CRYOTHERAPY SKIN LESION Destiney GILBERT Work Phone: Start: 04-10-2024 Colonoscopy Destiney GILBERT Work Phone: Start: 04-10-2024 Colonoscopy Matt Montalvo Start: 10-27-2023 X-ray of both knees MD Kaitlyn Saldivar Work Phone: Start: 10-27-2023 X-ray of lumbar spine, four views MD Mary Saldivar Work Phone: Start: 10-27-2023 Plain x-ray of pelvis and lower extremity MD Kaitlyn Saldivar Work Phone: Start: 09-17-2023 Ct abdomen & pelvis w/contrast material Rani Delgadillo Work Phone: Start: 09-17-2023 POCT VENOUS Unknown Provider Result Start: 07-22-2022 Esophagogastroduodenoscopy Minerva NEGRON Start: 03-14-2019 Cataract extraction and insertion of intraocular lens Rani Leona Comment on above: left eye Start: 02-28-2019 Cataract extraction and insertion of intraocular lens Rani Leona Comment on above: right Start: 10-11-2018 Dual energy X-ray photon absorptiometry Kaitlyn Saldivar Start: 08-30-2017 Mammography Destiney GILBERT Work Phone: Start: 02-28-2016 Cystourethroscopy with dilation of urethral stricture MELISSA QUEVEDO Start: 01-10-2015 removal of right ean bullosa, septoplasty and bilateral inferior turbinate submucosal resection Rani Delgadillo Start: 06-28-2007 Cholecystectomy Rani Delgadillo Comment on above: revision Start: 05-28-2007 Cholecystectomy Ranirosanne HernnádezLeona Start: 06-28-2002 Bypass of stomach Rani Delgadillo Start: 06-28-2000 Hysterectomy Rani Delgadillo Comment on above: partial Start: 06-28-1999 Ligation of fallopian tube Rani gonzalez Start: 06-28-1997 Decompression of median nerve Rani espino Comment on above: left Start: 06-28-1997 Sinus probing Rani Delgadillo Colonoscopy Matt Keane i Comment on above: 2023 Esophagogastroduoden oscopic electrohydraulic lithotripsy of bezoar in stomach Matt Keanei Comment on above: 2021 or 2022 History of gastroint estinal tract bypass History of Nunu-en-Y gastric bypass Knee region structur e (body structure) MELISSA QUEVEDO Plan of Treatment Date Care Activity Detail Author Start: 04-10-2034 Screening for malign ant neoplasm of colon [facility] Start: 04-24-2025 End: 04-24-2025 Patient encounter procedure 04/24/2025 8:20 AM EDT Office Visit [facility] [address] [place] [address] Destiney Romero PA [address] [place] [address] [facility] Start: 02-02-2025 Bacteria identified in Urine by Culture Urine Culture [facility] Start: 02-02-2025 Urine culture [facility] Start: 10-23-2024 End: 10-23-2024 Patient encounter procedure 10/23/2024 8:20 AM EDT Office Visit [facility] [address] [place] [address] Destiney Romero PA [address] [place] [address] [facility] Start: 04-24-2024 End: 04-24-2024 Patient encounter procedure 04/24/2024 2:50 PM EDT Office Visit [facility] [address] [place] [id number] Destiney Romero, PA [address] [place] [address] Arrived [facility] Comment on above: Arrived Start: 01-12-2024 [facility] Start: 10-08-2023 Patient referral [facility] Work Phone: Start: 2023 Pneumococcal 65+ yea rs Vaccine (2 of 2 - PCV) Pneumococcal 65+ years Vaccine (2 of 2 - PCV) [facility] [employer] Start: 02-26-2023 COVID-19 Vaccine ( season) COVID-19 Vaccine ( season) [facility] [employer] Start: 08-31-2019 Screening for malign ant neoplasm of breast Breast cancer screen [facility] Start: 08-30-2018 Screening for malign ant neoplasm of breast Mammogram [facility] Start: 2018 Respiratory Syncytia l Virus (RSV) or age 60 yrs+ (1 - 1-dose 60+ series) Respiratory Syncytial Virus (RSV) or age 60 yrs+ (1 - 1-dose 60+ series) [facility] [employer] Start: 2013 Screening for osteoporosis DEXA (modify frequency per FRAX score) [facility] Start: 2003 Screening for malign ant neoplasm of colon [facility] Start: 1998 Lipid panel Lipids [facility] [employer] Start: 1988 Screening for malign ant neoplasm of cervix [facility] [employer] Start: 1979 Screening for malign ant neoplasm of cervix Pap smear [facility] [employer] Start: 1977 DTaP/Tdap/Td vaccine (1 - Tdap) DTaP/Tdap/Td vaccine (1 - Tdap) [facility] Start: 1976 Hepatitis C screening Hepatitis C sc reen [facility] Start: 1973 HIV screening HIV screen [facility] Start: 1970 Depression Screen Depression Screen [facility] Start: 1958 Screening for malign ant neoplasm of colon [facility] Chlamydia trachomati s rRNA [Presence] in Cervix by CARLENE with probe detection [facility] Comprehensive metabo lic 2000 panel - Serum or Plasma [facility] DXA Skeletal system.axial Views for bone density [facility] Human papilloma viru s 16+18+31+33+35+39+45+51+ 52+56+58+59+66+68 DNA [Presence] in Cervix by Probe with signal amplification [facility] MG Breast - bilatera l Screening [facility] MG Breast - bilatera l Screening [facility] Neisseria gonorrhoea e rRNA [Presence] in Cervix by CARLENE with probe detection [facility] Patient Education Low back pain in adults [place] Work Phone: Patient referral [facility] Work Phone: End: 09-17-2023 POCT Creatinine POCT Creatinine Point of Care Testing Routine One Time for 1 Occurrences starting 09/17/2023 until 09/17/2023 [facility] Work Phone: Comment on above: One Time for 1 Occur rences starting 09/17/2023 until 09/17/2023 Trichomonas vaginali s rRNA [Presence] in Unspecified specimen by CARLENE with probe detection [facility] Immunizations Immunization Date Immunization Notes Care Provider Fa cility 03-09-2024 influenza virus vaccine, unspecified formulation Matt Montalvo [facility] 03-09-2024 pneumococcal 20-mekhi nt conjugate vaccine Gutierrez Nikkymini [facility] 05-16-2023 influenza virus vaccine, unspecified formulation Rani Delgadillo [facility] 03-17-2022 influenza virus vaccine, unspecified formulation Rani Leona [facility] 11-12-2021 COVID-19 mRNA, Comirnaty (Pfizer) [facility] 11-12-2021 SARS-CoV-2 mRNA (lioghxploug-pjgx-vftrz se) vaccine Rani Leona [facility] 05-13-2021 SARS-CoV-2 (COVID-19 ) mRNA BNT-162b2 vax Ranirosanne HernándezLeona [facility] 03-28-2021 influenza virus vaccine, unspecified formulation Rani Leona [facility] 03-25-2021 influenza virus vaccine, unspecified formulation Rani Leona [facility] 09-26-2020 SARS-CoV-2 (COVID-19 ) mRNA BNT-162b2 vax [employer] [facility] 09-05-2020 SARS-CoV-2 (COVID-19 ) mRNA BNT-162b2 vax Rani Leona [facility] 03-25-2020 influenza virus vaccine, unspecified formulation Rani Leona [facility] 12-18-2019 zoster vaccine recombinant Rani Loena [facility] 12-18-2019 zoster vaccine, live [facility] 07-26-2019 zoster vaccine recombinant Rani Leona [facility] 04-12-2019 influenza virus vaccine, unspecified formulation Rani Leona [facility] 04-12-2019 pneumococcal polysaccharide vaccine, 23 valent Rani Israelz [facility] 03-24-2017 influenza virus vaccine, unspecified formulation Rani Israelz [facility] 03-30-2014 tetanus and diphther ia toxoids, adsorbed, preservative free, for adult use (5 Lf of tetanus toxoid and 2 Lf of diphtheria toxoid) [facility] 07-13-2013 tetanus and diphther ia toxoids, adsorbed, preservative free, for adult use (5 Lf of tetanus toxoid and 2 Lf of diphtheria toxoid) [facility] NEGATED: Highlighted row has not occurred!02-25-2022 influenza virus vaccine, unspecified formulation Rani Delgadillo [facility] Payers Date Payer Category Payer Medicare [id number] 2023 Private Health Insurance [id number] 2023 Unknown [id number] 2023 Unknown [id number] 2022 [facility] Blue [facility] [id number] 2022 Unknown [id number] 1959 Unknown [id number] 1959 Unknown [id number] 1958 Unknown [id number] 1958 Unknown [id number] 1958 Unknown [id number] 1958 Unknown [id number] 1958 Unknown [id number] 1958 Unknown [id number] 1958 Unknown [id number] 1958 Unknown [id number] 1958 Unknown [id number] 1960 Unknown [id number] 2.16.840.1.560590.3.579.2.727 1960 Unknown [id number] 2.16.840.1.529465.3.579.2.72 1960 Unknown [id number] 2.16.840.1.567101.3.579.2.727 1960 Unknown [id number] 2.16.840.1.997796.3.579.2.727 1960 Unknown [id number] 2.16.840.1.498259.3.579.2.727 1960 Unknown [id number] 2.16.840.1.156272.3.579.2.727 1960 Unknown [id number] 2.16.840.1.856130.3.579.2.727 1960 Unknown [id number] 2.16.840.1.277699.3.579.2.72 1960 Unknown [id number] 2.16.840.1.459403.3.579.2.727 1960 Unknown [id number] 2.16.840.1.733119.3.579.2.1259 1960 Unknown [id number] 2.16.840.1.261823.3.579.2.1259 1960 Unknown [id number] 2.16.840.1.824539.3.579.2.727 1960 Unknown [id number] 2.16.840.1.043470.3.579.2.727 1960 Unknown [id number] 2.16.840.1.286739.3.579.2.72 [facility] [id number] [id number] Self-pay Unknown [id number] Unknown Regular Insurance [id number] Unknown [employer] [id number] Social History Date Type Detail Facility Start: 08-04-2019 End: 10-26-2022 Tobacco smoking status NCIS Ex-smoker (finding) [facility] Start: 1960 Sex Assigned At Female F [facility] Start: 08-10-2022 Tobacco smoking status Never [facility] Start: 01-25-2019 End: 10-23-2024 Sex Assigned At Female [facility] Other Start: 09-09-2018 Tobacco smoking status [facility] Tobacco smoking consumption unknown [facility] [employer] [facility] [employer] Start: 09-09-2018 End: 04-27-2023 Tobacco use and exposure Smokeless tobacco non-user [facility] Start: 01-25-2019 End: 10-23-2024 History of Social function [facility] [employer] [employer] Start: 1960 Sex Assigned At Not on file [facility] [employer] [facility] [employer] Start: 04-27-2023 Tobacco smoking status NHIS Never smoked tobacco [facility] Start: 05-18-2024 End: 09-27-2024 Sex Female (finding) [facility] Goals Date Patient Goal Desired Activity /State Functional Status Date Assessment Result Facility 04-28-2024 Functional Status N/A [facility] 04-10-2024 Functional Status N/A [facility] 01-31-2024 Functional Status N/A [facility] 10-04-2023 Functional Status N/A [facility] 08-26-2023 Functional Status N/A [facility] 02-09-2023 Functional Status N/A [facility] 11-09-2022 Functional Status N/A [facility] 08-25-2022 Functional Status N/A [facility] 08-10-2022 Functional Status Yes [facility] 07-22-2022 Functional Status N/A [facility] 05-27-2022 Functional Status N/A [facility] 02-25-2022 Functional Status N/A [facility] Clinical Notes 07-07-2021 to 02-02-2025 Note Date & Type Note Facility 02-02-2025 Evaluation note Diagnosis Onset Date Resolution Dysuria acute February 02 8:15am [facility] Work Phone: 1(982) 390-997608-08-2025 Evaluation note* Diagnosis Onset Date Resolution Status Admit Date Dysuria acute February 02 8:15am Menopause acute February 22, 2 025 8:25am Screening mammogram for [facility] cancer acute February 22 8:25am [place] Work Phone: 1(507) 535-997804-28-2025 History of Present illness Narrative* OFELIA Evans - 10/23/2024 8:20 AM EDT Follow up #1 Diagnosis: Atopic Dermatitis Location: neck, chest, abdomen, arms Last visit: 6 months ago Symptoms: patient reports there are a couple of spots on the left forearm today Status: stable with treatment Current treatment: Hydrocortisone 2.5% cream (neck) and TAC 0.1% cream (body); Recommended patient continue washing with Dove soap and moisturizing daily with Cetaphil cream. Recommended GoldBond with corn start powder for patient to use in creases of the body to help with perspiration All pertinent medical history, medications, and allergies were reviewed. General Exam: alert, oriented to person, place, and time, normal affect, well appearing Unaccompanied A focused exam completed based on patient reported problems, see below: Skin Exam 1. OTHER SPECIFIED DERMATITIS Left Upper Cutaneous Lip, Neck - Anterior Less scaly erythematous plaques with dyspigmentation, lichenification, excoriations. Stable At this time as patient is improved with treatment, plan to continue Hydrocortisone 2.5% cream and TAC 0.1% cream bid prn when flared. Refills prescribed today. Paitnet to continue washing with Dove soap and moisturizing daily with Cetaphil cream for prevention. Plan to follow up in 6 months at skin exam. Related Medications Hydrocortisone Acetate 2.5 % cream Apply to affected areas on the face, ears, and neck bid when flared hydrocortisone 2.5 % cream Apply topically 2 (two) times a day as needed (Rash) Apply thin layer to affected areas on the faceand around the ears bid prn for flares triamcinolone (Kenalog) 0.1 % cream Apply topically 2 (two) times a day as needed for rash Apply to affected areas on the body bid whenflared. Avoid the face, armpits, and groin 2. POROKERATOSIS Left Forearm - Anterior Erythematous macule with fine hyperkeratotic rim Reassurance given. Ok to use TAC 0.1% cream when flared, hold when clear. 3. EDWARDS ANGIOMA Right Forearm - Anterior Scattered edwards-red papule(s). The patient was informed that angiomas are benign growths on the the skin. No treatment is necessary. 4. SEBORRHEIC KERATOSIS (2) Left Forearm - Anterior, Right Forearm - Anterior Stuck on verrucous, variably pigmented papules and plaques. Patient was counseled regarding these benign growths. Removal is normally not necessary, but they may be removed if they are symptomatic or for cosmetic reasons. 5. OTHER SEBORRHEIC DERMATITIS Left Alar Crease, Left Buccal Cheek, Right Alar Crease, Right Buccal Cheek, Scalp Erythema and scale. Improved today At this time as patient is improved but not at treatment goal, plan to continue current treatment. . Plan to follow up in a year for refills Related Medications fluocinonide (Lidex) 0.05 % external solution Apply to affected areas on the scalp, up to once a day when flared, 30 day supply Next Visit: as scheduled (skin exam//atopic derm and armida derm follow up) documented in this encounterSt. [facility] [id number] Evaluation note* Diagnosis Onset Date Resolution Status Admit Date Maxillary sinusitis acute August 31, 2024 10:36am Chronic pain acute September 27, 2 025 8:08am Other low back pain acute September 27, 2024 8:08am Sacroiliitis, not elsewhere classified acute September 27, 2024 8:08am [place] Work Phone: 1(607) 783-195212-11-2024 Evaluation note* Diagnosis Onset Date Resolution Status Admit Date Chronic pain acute May 8:16am Other low back pain acute Decem john 2023 8:16am Sacroiliitis, not elsewhere classified acute June 07, 2 024 8:16am Maxillary sinusitis acute August 31, 2024 10:36am [place] Work Phone: 1([phone]) 157-170410-31-2024 Evaluation note* Diagnosis Onset Date Resolution Status Admit Date Chronic pain acute March 9:47am Other low back pain acute Octob er 2023 9:47am Sacroiliitis, not elsewhere classified acute April 27 9:47am [place] Work Phone: 1(369) 809-229510-28-2024 History of Present illness Narrative* OFELIA Evans - 04/24/2024 2:50 PM EDT Skin Check Location: Patient requests a full body skin examination Dermatologic history: history of Actinic Keratosis, history of Squamous Cell Carcinoma (rectal) Last visit: 1 year ago Follow up #1 Diagnosis: Atopic Dermatitis Location: neck, chest, abdomen Last visit: 1 year ago Symptoms: less red, less scaly, occasionally itchy; has a known cat allergy and was around a cat atclisoheila's house Status: controlled Current treatment: Hydrocortisone 2.5% cream (neck) and TAC 0.1% cream (body); Recommended patient continue washing with Dove soap and moisturizing daily with Cetaphil cream. Recommended GoldBond with corn start powder for patient to use in creases of the body to help with perspiration Follow up #2 Diagnosis: Seborrheic Dermatitis Location: scalp Last visit: 1 year ago Symptoms: occasional flare ups Status: controlled Current treatment: Fluocinonide solution and Hydrocortisone cream Lesion Location: left abdomen Duration: months Quality: itchy Modifying factors: aggravated by picking Associated symptoms: rough, raised Treatments: none All pertinent medical history, medications, and allergies were reviewed. General Exam: alert, oriented to person, place, and time, normal affect, well appearing Scalp, Examined Right leg Examined Head, Face Examined Left leg Examined Neck Examined Right foot Examined Chest Examined Left foot Examined Back Examined Buttocks Examined Abdomen Examined Digits,nails: Examined Right arm Examined Left arm Examined Lymphatics: Not examined Hands Examined 1. Melanocytic nevus of trunk Scattered benign appearing, regular brown to light brown melanocytic papules and macules with similar morphology Counseled regarding these benign growths. Rarely, a nevus can develop into malignant melanoma, so any changing nevi should be promptly re-evaluated. 2. Seborrheic keratosis Stuck on verrucous, variably pigmented papules and plaques. Patient was counseled regarding these benign growths. Removal is normally not necessary, but they may be removed if they are symptomatic or for cosmetic reasons. 3. Personal history of squamous cell carcinoma of skin Gluteal Crease No evidence of recurrence The patient was counseled that scars from excisional sites of nonmelanoma skin cancers should be monitored closely for recurrence. The patient was instructed to contact the office for any new, changing, or symptomatic moles. The patient was also instructed to contact the office for any new lesions that develop within or around the previous surgery scar. 4. Other seborrheic dermatitis Left Alar Crease, Left Buccal Cheek, Right Alar Crease, Right Buccal Cheek, Scalp Erythema and scale. Improved today At this time as patient is improved but not at treatment goal, plan to continue current treatment. Refills prescribed today. Plan to follow up in a year for refills Related Medications fluocinonide (Lidex) 0.05 % external solution Apply to affected areas on the scalp, up to once a day when flared, 30 day supply 5. Other specified dermatitis Left Upper Cutaneous Lip, Neck - Anterior Less scaly erythematous plaques with dyspigmentation, lichenification, excoriations. Flaring today At this time as patient is improved with treatment, plan to continue Hydrocortisone 2.5% cream and TAC 0.1% cream bid prn when flared. Refills prescribed today. Paitnet to continue washing with Dove soap and moisturizing daily with Cetaphil cream for prevention. Plan to follow up in a year Related Medications Hydrocortisone Acetate 2.5 % cream Apply to affected areas on the face, ears, and neck bid when flared triamcinolone (Kenalog) 0.1 % cream Apply topically 2 (two) times a day as needed for rash Apply to affected areas on the body bid whenflared. Avoid the face, armpits, and groin hydrocortisone 2.5 % cream Apply topically 2 (two) times a day as needed (Rash) Apply thin layer to affected areas on the faceand around the ears bid prn for flares 6. Inflamed seborrheic keratosis Left Flank Inflamed seborrheic keratoses: pink and brown stuck on verrucous scaly papule with surrounding erythema and bloody crust. The patient was informed that symptomatic seborrheic keratoses are benign growths that become inflamed, itchy, tender, traumatized, caught on clothing, or bleed. Symptomatic lesions can be treated with cryotherapy or curretage. Thicker lesions treated with cryotherapy may require more than one treatment. The patient was instructed to notify the office if abnormal redness or tenderness develops atthe treatment site. Cryotherapy today, see procedure note. Diagnosis: Inflamed seborrheic keratosis Indication: Inflamed Consent: Verbal consent was obtained and risks were discussed, including, but not limited to risks of scarring, darker or waste chopper pigmentary changes, recurrence, incomplete removal and infection. Method: Liquid nitrogen was used to treat the lesion(s) with two 5-10 second freeze-thaw cycles Number of lesions treated: 1 Post-procedure instructions: Instructions were given orally and in writing. The office will be contacted if the lesion fails to resolve despite treatment, or if a side effect develops such as abnormal crusting, scabbing, redness or tenderness Cryotherapy, skin lesion - Left Flank 7. Xerosis cutis (3) Generalized, Left Hand - Posterior, Right Hand - Posterior Generalized dry skin Counseled on appropriate soaps and moisturizers. Handout given with recommendations highlighted. 8. Skin tag Right Axilla Fleshy, skin-colored sessile and pedunculated papules. The patient was informed that skin tags are benign growths usually found around the neck or in the axillae. No treatment is necessary, but at times they can get caught on jewelry or clothing or become inflamed. Skin tags can be removed with scissors or liquid nitrogen. Next Visit: 6 months for atopic derm follow up AND 1 year skin check documented in this encounterSt. [facility] [id number] NoteProgress Note-Physician Patient: KTAHY JULIAN Age: 63 years Sex: Female : 1960 Associated Diagnoses: None Author: Darrion Gomez Jr, DO Preoperative Information Anesthesia Preop Info: Time patient last ate or drank 04/10/2024 00:00:00. Anesthesia history: Patient history: None. Family history+: None. Informed consent: Signed by patient. Re-evaluation prior to induction: Initial evaluation reviewed: No significant change. Review of Systems Eye: Negative except as documented in history of present illness. Ear/Nose/Mouth/Throat: Negative except as documented in history of present illness. Respiratory: Negative except as documented in history of present illness. Cardiovascular: Negative except as documented in history of present illness. Musculoskeletal: Negative except as documented in history of present illness. Neurologic: Negative except as documented in history of present illness. Health Status Allergies: Allergic Reactions (Selected) Severity Not Documented AmLODIPine- Eruption. Cats- Unknown. Dust- Unknown. FLUoxetine- Wheal. Kiwi- Swelling of throat and tongue swelling. Problem list: All Problems Urinary leakage / SNOMED CT 7924481947 / Confirmed Recurrent UTI / SNOMED CT 658046805 / Confirmed Colon polyp / SNOMED CT 947781238 / Confirmed JASWINDER (obstructive sleep apnea) / SNOMED CT 477028570 / Confirmed Obesity / ICD-9-CM 278.00 / Possible Bile salt-induced diarrhea / SNOMED CT 373200996 / Confirmed Cancer of anus / SNOMED CT 457791502 / Confirmed 2014 Lower abdominal pain / SNOMED CT 34447750 / Confirmed Loose stools / SNOMED CT 7215970267 / Confirmed Irregular bowel habits / SNOMED CT 6946803254 / Confirmed Fecal incontinence / SNOMED CT 494674139 / Confirmed History of colon polyps / SNOMED CT 3768702220 / Confirmed History of anal cancer / SNOMED CT 2158017168 / Confirmed Acid reflux / SNOMED CT 874246947 / Confirmed Family history of colon cancer / SNOMED CT 028007963 / Confirmed Depression / SNOMED CT 23959553 / Confirmed Renal cyst / SNOMED CT 1197045418 / Confirmed MRSA (methicillin resistant staph aureus) culture positive / SNOMED CT 5514536049 / Confirmed Constipation / SNOMED CT 51622245 / Confirmed Dyssynergic defecation / SNOMED CT 695518452 / Confirmed Bloating / SNOMED CT 672102965 / Confirmed Resolved: UTI symptoms / SNOMED CT 136664106 Resolved: Nausea / SNOMED CT 0191655173 Resolved: Abdominal cramping / SNOMED CT 216501880 Histories Procedure history: Esophagogastroduodenoscopy ([id number]) on 07/22/2022 at 62 Years. Cataract extraction and insertion of intraocular lens ([id number]) on 03/14/2019 at 58 Years. Comments: 03/14/2019 13:26 EDT - Katherine Alberts LPN left eye Cataract extraction and insertion of intraocular lens ([id number]) on 02/28/2019 at 58 Years. Comments: 02/28/2019 9:55 EDT - James SOSA, Angi Mccabe right Cystourethroscopy with dilation of urethral stricture ([id number]) on 02/28/2016 at 55 Years. removal of right ean bullosa, septoplasty and bilateral inferior turbinate submucosal resection on 01/10/2015 at 54 Years. Cholecystectomy ([id number]) on 06/28/2007 at 46 Years. Comments: 08/21/2013 15:08 EST Abbey Bourne RN revision Cholecystectomy ([id number]) on 05/28/2007 at 46 Years. Gastric bypass (1198006087) on 06/28/2002 at 41 Years. Hysterectomy ([id number]) on 06/28/2000 at 39 Years. Comments: 08/21/2013 15:07 Abbey Murillo RN partial Tubal ligation ([id number]) on 06/28/1999 at 38 Years. Sinus probing (246604954) on 06/28/1997 at 36 Years. Carpal tunnel release (075845556) on 06/28/1997 at 36 Years. Comments: 08/21/2013 15:09 Abbey Murillo RN left LEFT Knee Scope ([id number]). Colonoscopy ([id number]). Comments: 01/31/2024 9:26 Heidy Jama 2023 EGD (esophagogastroduodenoscopic) electrohydraulic lithotripsy of bezoar in stomach ([id number]). Comments: 01/31/2024 9:27 Heidy Jama 2021 or 2022 Social History Social & Psychosocial Habits Alcohol 01/31/2024 Use: Current Type: Beer, Wine Frequency: 1-2 times per week Previous treatment: None Has alcohol use interfered with work or home life? No Do you ever drink more than intended? No Has anyone been hurt or at risk by your drinking? No Ready to change: No Concerns about alcohol use in household: No 01/31/2024 Risk Assessment: Low Risk Substance Abuse 01/31/2024 Risk Assessment: Denies Substance Abuse Tobacco 01/31/2024 Risk Assessment: Denies Tobacco Use 01/31/2024 Tobacco Use: Former smoker, quit more Smokeless tobacco use: Never Type: Cigarettes . Physical Examination Airway: Mallampati classification: II (soft palate, fauces, uvula visible). Respiratory: adequate air exchange. Cardiovascular: Regular rhythm. Plan [place] [employer] Anesthesiologists (ASA) physical status classification: Class III. Anesthetic Preoperative (more content not included)...[facility] HospitalComment on above:Result Comment: Electronically Signed By: Darrion Gomez Jr, DO\pilar\Date and Time Signed: 04/12/24 08:12 [id number] NoteProgress Note-Physician Patient: KATHY JULIAN Age: 63 years Sex: Female : 1960 Associated Diagnoses: None Author: Darrion Gomez Jr, DO Postoperative Information Postoperative disposition: Postoperative disposition: To PACU. Optimetrix number: Optimetrix number [id number]. Anesthetic utilized: General. Health Status Allergies: Allergic Reactions (Selected) Severity Not Documented AmLODIPine- Eruption. Cats- Unknown. Dust- Unknown. FLUoxetine- Wheal. Kiwi- Swelling of throat and tongue swelling. Physical Examination Vital Signs 04/10/2024 14:41 EDT Heart Rate Monitored 72 bpm Respiratory Rate Monitored 15 br/min Systolic Blood Pressure 116 mmHg Diastolic Blood Pressure 65 mmHg Mean Arterial Pressure, Cuff 82 mmHg SpO2 96 % 04/10/2024 14:25 EDT Heart Rate Monitored 64 bpm Respiratory Rate Monitored 18 br/min Systolic Blood Pressure 106 mmHg Diastolic Blood Pressure 60 mmHg Mean Arterial Pressure, Cuff 75 mmHg SpO2 99 % 04/10/2024 14:16 EDT Temperature Temporal Artery 36.7 DegC Heart Rate Monitored 67 bpm Respiratory Rate Monitored 18 br/min Systolic Blood Pressure 97 mmHg Diastolic Blood Pressure 47 mmHg LOW Mean Arterial Pressure, Cuff 64 mmHg SpO2 97 % Pain Assessment: Controlled. General: Awake, Alert, Appropriate. Respiratory: Adequate air exchange. Cardiovascular: Stable, Normal peripheral perfusion. Neurological: Normal sensory function, Normal motor function. Assessment Anesthetic outcome No anesthetic complications noted. Adequate pain relief. able to void without difficulty, able to ambulate with assist, tolerating PO intake, no N/V. Review / Management Condition: Stable. Plan Transfer/Discharge: Transfer/Discharge Discharge when meets criteria ( To home ).[facility] HospitalComment on above:Result Comment: Electronically Signed By: Darrion Gomez Jr, DO\.br\Date and Time Signed: 04/12/24 08:11 EDT 04-10-2024 Hospital Discharge instructions Patient Education 04/10/2024 14:24:43 Hemorrhoids, Agin-la-Qyax Hemorrhoids Hemorrhoids are swollen veins that may form: In the butt (rectum). These are called internal hemorrhoids. Around the opening of the butt (anus). These are called external hemorrhoids. Most hemorrhoids do not cause very bad problems. They often get better with changes to your lifestyle and what you eat. What are the causes? Having trouble pooping (constipation) or watery poop (diarrhea). Pushing too hard when you poop. . Being very overweight (obese). Sitting for too long. Riding a bike for a long time. Heavy lifting or other things that take a lot of effort. Anal sex. What are the signs or symptoms? Pain. Itching or soreness in the butt. Bleeding from the butt. Leaking poop. Swelling. One or more lumps around the opening of your butt. How is this treated? In most cases, hemorrhoids can be treated at home. You may be told to: Change what you eat. Make changes to your lifestyle. If these treatments do not help, you may need to have a procedure done. Your doctor may need to: Place rubber bands at the bottom of the hemorrhoids to make them fall off. Put medicine into the hemorrhoids to shrink them. Shine a type of light on the hemorrhoids to cause them to fall off. Do surgery to get rid of the hemorrhoids. Follow these instructions at home: Medicines Take pqyg-xsc-waxvddm and prescription medicines only as told by your doctor. Use creams with medicine in them or medicines that you put in your butt as told by your doctor. Eating and drinking Eat foods that have a lot of fiber in them. These include whole grains, beans, nuts, fruits, and vegetables. Ask your doctor about taking products that have fiber added to them (fibersupplements). Take in less fat. You can do this by: ?Eating low-fat dairy products. ?Eating less red meat. ?Staying away from processed foods. Drink enough fluid to keep your pee (urine) pale yellow. Managing pain and swelling Take a warm-water bath (sitz bath) for 20 minutes to ease pain. Do this 3 4 times a day. You may dothis in a bathtub. You may also use a portable sitz bath that fits over the toilet. If told, put ice on the painful area. It may help to use ice between your warm baths. ?Put ice in a plastic bag. ?Place a towel between your skin and the bag. ?Leave the ice on for 20 minutes, 2 3 times a day. If your skin turns bright red, take off the ice right away to prevent skin damage. The risk of damage is higher if you cannot feel pain, heat, or cold. General instructions Exercise. Ask your doctor how much and what kind of exercise is best for you. Go to the bathroom when you need to poop. Do not wait. Try not to push too hard when you poop. Keep your butt dry and clean. Use wet toilet paper or moist towelettes after you poop. Do not sit on the toilet for a long time. Contact a doctor if: You have pain and swelling that do not get better with treatment. You have trouble pooping. You cannot poop. You have pain or swelling outside the area of the hemorrhoids. Get help right away if: You have bleeding from the butt that will not stop. This information is not intended to replace advice given to you by your health care provider. Make sure you discuss any questions you have with your health care provider. Document Revised: 02/24/2023 Document Reviewed: 02/24/2023 [employer] Patient Education 2023 Epoch. 04/10/2024 14:24:39 Colon Polyps Colon Polyps Colon polyps are tissue growths inside the colon, which is part of the large intestine. They are one of the types of polyps that can grow in the body. A polyp may be a round bump or a mushroom-shapedgrowth. You could have one polyp or more than one. Most colon polyps are noncancerous (benign). However, some colon polyps can become cancerous over time. Finding and removing the polyps early can help prevent this. What are the causes? The exact cause of colon polyps is not known. What increases the risk? The following factors may make you more likely to develop this condition: Having a family history of colorectal cancer or colon polyps. Being older than 45 years of age. Being younger than 45 years of age and having a significant family history of colorectal cancer or colon polyps or a genetic condition that puts you at higher risk of getting colon polyps. Having inflammatory bowel disease, such as ulcerative colitis or Crohn's disease. Having certain conditions passed from parent to child (hereditary conditions), such as: ?Familial adenomatous polyposis (FAP). ?Humphries syndrome. ?Turcot syndrome. ?Peutz Jeghers syndrome. ?MUTYH-associated polyposis (MAP). Being overweight. Certain lifestyle factors. These include smoking cigarettes, drinking too much alcohol, not gettingenough exercise, and eating a diet that is high in fat and red meat and low in fiber. Having had childhood cancer that was treated with radiation of the abdomen. What are the signs or symptoms? Many times, there are no symptoms. If you have symptoms, they may include: Blood coming from the rectum during a bowel movement. Blood in the stool (feces). The blood may be bright red or very dark in color. Pain in the abdomen. A change in bowel habits, such as constipation or diarrhea. How is this diagnosed? This condition is diagnosed with a colonoscopy. This is a procedure in which a lighted, flexible scope is inserted into the opening between the buttocks (anus) and then passed into the colon to examine the area. Polyps are sometimes found when a colonoscopy is done as part of routine cancer screening tests. How is this treated? This condition is treated by removing any polyps that are found. Most polyps can be removed during a colonoscopy. Those polyps will then be tested for cancer. Additional treatment may be needed depending on the results of testing. Follow these instructions at home: Eating and drinking Eat foods that are high in fiber, such as fruits, vegetables, and whole grains. Eat foods that are high in calcium and vitamin D, such as milk, cheese, yogurt, eggs, liver, fish, and broccoli. Limit foods that are high in fat, such as fried foods and desserts. Limit the amount of red meat, precooked or cured meat, or other processed meat that you eat, such as hot dogs, sausages, hanley, or meat loaves. Limit sugary drinks. Lifestyle Maintain a healthy weight, or lose weight if recommended by your health care provider. Exercise every day or as told by your health care provider. Do not use any products that contain nicotine or tobacco, such as cigarettes, e- cigarettes, and chewing tobacco. If you need help quitting, ask your health care provider. Do not drink alcohol if: ?Your health care provider tells you not to drink. ?You are , may be , or are planning to become . If you drink alcohol: ?Limit how much you use to: ?0 1 drink a day for women. ?0 2 drinks a day for men. ?Know how much alcohol is in your drink. In the [place] one drink equals one 12 oz bottle of beer (355 mL), one 5 oz glass of wine (148 mL), or one 1 oz glass of hard liquor (44 mL). General instructions Take txxe-mcn-sxgueqo and prescription medicines only as told by your health care provider. Keep all follow-up visits. This is important. This includes having regularly scheduled colonoscopies. Talk to your health care provider about when you need a colonoscopy. Contact a health care provider if: You have new or worsening bleeding during a bowel movement. You have new or increased blood in your stool. You have a change in bowel habits. You lose weight for no known reason. Summary Colon polyps are tissue growths inside the colon, which is part of the large intestine. They are one type of polyp that can grow in the body. Most colon polyps are noncancerous (benign), but some can become cancerous over time. This condition is diagnosed with a colonoscopy. This condition is treated by removing any polyps that are found. Most polyps can be removed during a colonoscopy. This information is not intended to replace advice given to you by your health care provider. Make sure you discuss any questions you have with your health care provider. Document Revised: 10/02/2020 Document Reviewed: 10/02/2020 [employer] Patient Education 2023 Epoch. 04/10/2024 14:24:31 Colonoscopy, Care After Surgery Salam (CUSTOM) Colonoscopy Care After Surgery Please read the instructions outlined below and refer to this sheet in the next few weeks. These discharge instructions provide you with general information on caring [facility] Your doctor may also give you specific instructions. While your treatment has been planned according to the most current medical practices available, unavoidable complications occasionally occur. If you have any problems or questions after discharge, please call your doctor. ACTIVITY You may resume your regular activity, but move at a slower pace for the next 24 hours. Take frequent rest periods for the next 24 hours. Walking will help get rid of the air and reduce the bloated feeling in your abdomen (belly). No driving for 24 hours (because of the anesthesia (medicine) used during the test). You may shower. Do not sign any important legal documents or operate any machinery for 24 hours (because of the anesthesia used during the test). NUTRITION Drink plenty of fluids. You may resume your normal diet as instructed by your doctor. Begin with a light meal and progress to your normal diet. Heavy or fried foods are harder to digestand may make you feel nauseated (sick to your stomach). Avoid alcoholic beverages for 24 hours or as instructed. MEDICATIONS You may resume your normal medications unless your doctor tells you otherwise. WHAT YOU CAN EXPECT TODAY Some feelings of bloating in the abdomen. Passage of more gas than usual. Spotting of blood in your stool or on the toilet paper. FOLLOW-UP Your doctor will discuss the results of your test with you. SEEK IMMEDIATE MEDICAL ATTENTION IF: There is more than a spotting of blood in your stool. There is abdominal distention (your abdomen is swollen). There is vomiting. You have a temperature over 101.5 F. There is abdominal pain or discomfort that is severe or gets worse throughout the day. Follow Up Care 01/31/2024 10:45:57 With:Selvin BOO, CORI Benson, [facility] Address: When: Unknown Comments:Call for any problems. Office will call to schedule follow up appointment [facility] 10-14-2024 NotePatient Education - Text Colonoscopy Care After Surgery Please read the instructions outlined below and refer to this sheet in the next few weeks. These discharge instructions provide you with general information on caring for [facility] Your doctor may also give you specific instructions. While your treatment has been planned according to the most current medical practices available, unavoidable complications occasionally occur. If you have any problems or questions after discharge, please call your doctor. ACTIVITY You may resume your regular activity, but move at a slower pace for the next 24 hours. Take frequent rest periods for the next 24 hours. Walking will help get rid of the air and reduce the bloated feeling in your abdomen (belly). No driving for 24 hours (because of the anesthesia (medicine) used during the test). You may shower. Do not sign any important legal documents or operate any machinery for 24 hours (because of the anesthesia used during the test). NUTRITION Drink plenty of fluids. You may resume your normal diet as instructed by your doctor. Begin with a light meal and progress to your normal diet. Heavy or fried foods are harder to digestand may make you feel nauseated (sick to your stomach). Avoid alcoholic beverages for 24 hours or as instructed. MEDICATIONS You may resume your normal medications unless your doctor tells you otherwise. WHAT YOU CAN EXPECT TODAY Some feelings of bloating in the abdomen. Passage of more gas than usual. Spotting of blood in your stool or on the toilet paper. FOLLOW-UP Your doctor will discuss the results of your test with you. SEEK IMMEDIATE MEDICAL ATTENTION IF: There is more than a spotting of blood in your stool. There is abdominal distention (your abdomen is swollen). There is vomiting. You have a temperature over 101.5 F. There is abdominal pain or discomfort that is severe or gets worse throughout the day. Gastroenterology Hemorrhoids Hemorrhoids are swollen veins that may form: ? In the butt (rectum). These are called internal hemorrhoids. ? Around the opening of the butt (anus). These are called external hemorrhoids. Most hemorrhoids do not cause very bad problems. They often get better with changes to your lifestyle and what you eat. What are the causes? ? Having trouble pooping (constipation) or watery poop (diarrhea). ? Pushing too hard when you poop. ? . ? Being very overweight (obese). ? Sitting for too long. ? Riding a bike for a long time. ? Heavy lifting or other things that take a lot of effort. ? Anal sex. What are the signs or symptoms? ? Pain. ? Itching or soreness in the butt. ? Bleeding from the butt. ? Leaking poop. ? Swelling. ? One or more lumps around the opening of your butt. How is this treated? In most cases, hemorrhoids can be treated at home. You may be told to: ? Change what you eat. ? Make changes to your lifestyle. If these treatments do not help, you may need to have a procedure done. Your doctor may need to: ? Place rubber bands at the bottom of the hemorrhoids to make them fall off. ? Put medicine into the hemorrhoids to shrink them. ? Shine a type of light on the hemorrhoids to cause them to fall off. ? Do surgery to get rid of the hemorrhoids. Follow these instructions at home: Medicines ? Take ekgz-bkd-loahbui and prescription medicines only as told by your doctor. ? Use creams with medicine in them or medicines that you put in your butt as told by your doctor. Eating and drinking ? Eat foods that have a lot of fiber in them. These include whole grains, beans, nuts, fruits, and vegetables. ? Ask your doctor about taking products that have fiber added to them (fibersupplements). ? Take in less fat. You can do this by: ? Eating low-fat dairy products. ? Eating less red meat. ? Staying away from processed foods. ? Drink enough fluid to keep your pee (urine) pale yellow. Managing pain and swelling ? Take a warm-water bath (sitz bath) for 20 minutes to ease pain. Do this 3?4 times a day. You may do this in a bathtub. You may also use a portable sitz bath that fits over the toilet. ? If told, put ice on the painful area. It may help to use ice between your warm baths. ? Put ice in a plastic bag. ? Place a towel between your skin and the bag. ? Leave the ice on for 20 minutes, 2?3 times a day. ? If your skin turns bright red, take off the ice right away to prevent skin damage. The risk of damage is higher if you cannot feel pain, heat, or cold. General instructions ? Exercise. Ask your doctor how much and what kind of exercise is best for you. ? Go to the bathroom when you need to poop. Do not wait. ? Try not to push too hard when you poop. ? Keep your butt dry and clean. Use wet toilet paper or moist towe (more content not included)...[facility]10-14-20[facility] NoteEndoscopic Procedure Report - Other Patient: KATHY JULIAN Age: 63 years Sex: Female : 1960 Associated Diagnoses: None Author: Matt Montalvo MD Pre-Procedure Procedure Date 04/10/2024 14:13:00 . Procedure Type: Colonoscopy with removal of tumor(s), polyp(s), or other lesion(s) by cold snare technique. Procedure provider Performed by Matt Montalvo MD. Current history and physical Reviewed. Esophagogastroduodenoscopy ([id number]) on 07/22/2022 at 62 Years. Cataract extraction and insertion of intraocular lens ([id number]) on 03/14/2019 at 58 Years. Comments: 03/14/2019 13:26 EDT - Lexus BUSCHKatherine left eye Cataract extraction and insertion of intraocular lens ([id number]) on 02/28/2019 at 58 Years. Comments: 02/28/2019 9:55 EDT - James SOSA, Angi Mccabe right Cystourethroscopy with dilation of urethral stricture ([id number]) on 02/28/2016 at 55 Years. removal of right ean bullosa, septoplasty and bilateral inferior turbinate submucosal resection on 01/10/2015 at 54 Years. Cholecystectomy ([id number]) on 06/28/2007 at 46 Years. Comments: 08/21/2013 15:08 Abbey Murillo RN revision Cholecystectomy ([id number]) on 05/28/2007 at 46 Years. Gastric bypass ([id number]) on 06/28/2002 at 41 Years. Hysterectomy ([id number]) on 06/28/2000 at 39 Years. Comments: 08/21/2013 15:07 Abbey Murillo RN partial Tubal ligation ([id number]) on 06/28/1999 at 38 Years. Sinus probing ([id number]) on 06/28/1997 at 36 Years. Carpal tunnel release ([id number]) on 06/28/1997 at 36 Years. Comments: 08/21/2013 15:09 Abbey Murillo RN left LEFT Knee Scope ([id number]). Colonoscopy ([id number]). Comments: 01/31/2024 9:26 Heidy Jama 2023 EGD (esophagogastroduodenoscopic) electrohydraulic lithotripsy of bezoar in stomach ([id number]). Comments: 01/31/2024 9:27 Heidy Jama 2021 or 2022. Past Medical History Resolved Abdominal cramping ([id number]): Resolved. Nausea ([id number]): Resolved. UTI symptoms ([id number]): Resolved.. Family History Primary malignant neoplasm of colon Mother Brother . Procedure History Esophagogastroduodenoscopy ([id number]) on 07/22/2022 at 62 Years. Cataract extraction and insertion of intraocular lens ([id number]) on 03/14/2019 at 58 Years. Comments: 03/14/2019 13:26 INGRID Alberts LPKatherine De La Garza left eye Cataract extraction and insertion of intraocular lens ([id number]) on 02/28/2019 at 58 Years. Comments: 02/28/2019 9:55 EDT - Angi Ramirez RN right Cystourethroscopy with dilation of urethral stricture ([id number]) on 02/28/2016 at 55 Years. removal of right ean bullosa, septoplasty and bilateral inferior turbinate submucosal resection on 01/10/2015 at 54 Years. Cholecystectomy ([id number]) on 06/28/2007 at 46 Years. Comments: 08/21/2013 15:08 Abbey Murillo RN revision Cholecystectomy ([id number]) on 05/28/2007 at 46 Years. Gastric bypass ([id number]) on 06/28/2002 at 41 Years. Hysterectomy ([id number]) on 06/28/2000 at 39 Years. Comments: 08/21/2013 15:07 Abbey Murillo RN partial Tubal ligation ([id number]) on 06/28/1999 at 38 Years. Sinus probing ([id number]) on 06/28/1997 at 36 Years. Carpal tunnel release ([id number]) on 06/28/1997 at 36 Years. Comments: 08/21/2013 15:09 Abbey Murillo RN left LEFT Knee Scope ([id number]). Colonoscopy ([id number]). Comments: 01/31/2024 9:26 Heidy Jama 2023 EGD (esophagogastroduodenoscopic) electrohydraulic lithotripsy of bezoar in stomach ([id number]). Comments: 01/31/2024 9:27 Heidy Jama 2021 or 2022. Colorectal neoplasm risk assessment High risk Previous history of renal cancer, strong family history of colon cancer. . Informed Consent After discussing the rationale, risks and benefits, and alternatives to this procedure, the patient provided signed consent for the procedure. Pre-procedure diagnosis: History of colon polyps. Medications (Selected) Inpatient Medications Ordered Lactated Ringers IV Doreen 1000 mL 1,000 mL: 1,000 mL, IV, 100 mL/hr, Routine, Start date 04/10/24 12:04:00 EDT, 10 hour(s), Total volume (mL): 1,000 Sodium Chloride 0.9% IV Doreen 1000 mL 1,000 mL: 1,000 mL, IV, 20 mL/hr, Routine, Start date 04/10/24 8:32:00 EDT, 50 hour(s), Total volume (mL): 1,000 Prescriptions Prescribed Ibgard 90 mg oral delayed release capsule: 180 mg = 2 cap(s), Oral, BID, # 90 cap(s), Refills(s) 6,Pharmacy: [facility] #72, 170, cm, 01/31/24 9:31:00 EDT, Height/Length Dosing, 95, kg, 01/31/24 9:31:00 EDT, Weight Dosing Miralax 3350 17 gram packet: 17 gm, Oral, Daily, PRN Constipation, # 100 EA, Refills(s) 6, Pharmacy: [facility] #[id number], 170, cm, 10/04/23 8:59:00 EDT, Height/Length Dosing, 97, kg, 10/04/23 8:59:00 EDT, Weight Dosing Pantoprazole [address] Tab: 40 mg = 1 tab(s), Oral, Daily, X 90 day(s), # 90 tab(s), Refills(s) 3, Pharmacy: [facility] #[id number], 170, cm, 02/09/23 14:54:00 EDT, Height (more content not included)...[facility] Comment: Electronically Signed By: Matt Montalvo MD\.br\Date and Time Signed: 04/10/24 14:15 [id number] Evaluation + Plan noteExtracted from: Title:1Preop H&P Author:Matt Montalvo MD Date:04/10/24 Impression and Plan Impression: Personal history of anal cancer, family history of colon cancer Plan: -Colonoscopy [facility] 10-14-2024 NoteHistory and Physical Patient: KATHY JULIAN Age: 63 years Sex: Female : 1960 Associated Diagnoses: None Author: Matt Montalvo MD Preoperative Information Indication for procedure and diagnosis: Personal history of anal cancer, family history of colon cancer Chief Complaint as above Review of Systems All systems reviewed, negative except as mentioned above Health Status Current medications: (Selected) Inpatient Medications Ordered Lactated Ringers IV Doreen 1000 mL 1,000 mL: 1,000 mL, IV, 100 mL/hr, Routine, Start date 04/10/24 12:04:00 EDT, 10 hour(s), Total volume (mL): 1,000 Sodium Chloride 0.9% IV Doreen 1000 mL 1,000 mL: 1,000 mL, IV, 20 mL/hr, Routine, Start date 04/10/24 8:32:00 EDT, 50 hour(s), Total volume (mL): 1,000 Prescriptions Prescribed Ibgard 90 mg oral delayed release capsule: 180 mg = 2 cap(s), Oral, BID, # 90 cap(s), Refills(s) 6,Pharmacy: [facility] #72, 170, cm, 01/31/24 9:31:00 EDT, Height/Length Dosing, 95, kg, 01/31/24 9:31:00 EDT, Weight Dosing Miralax 3350 17 gram packet: 17 gm, Oral, Daily, PRN Constipation, # 100 EA, Refills(s) 6, Pharmacy: [facility] #[id number], 170, cm, 10/04/23 8:59:00 EDT, Height/Length Dosing, 97, kg, 10/04/23 8:59:00 EDT, Weight Dosing Pantoprazole [address] Tab: 40 mg = 1 tab(s), Oral, Daily, X 90 day(s), # 90 tab(s), Refills(s) 3, Pharmacy: [facility] #[id number], 170, cm, 02/09/23 14:54:00 EDT, Height/Length Dosing, 107.5, kg, 02/09/23 14:54:00 EDT, Weight Dosing Documented Medications Documented Adderall 5 mg oral tablet: 5 mg, 1 tab(s), Oral, qAM, Refill(s) 0, Prophylaxis Fiber Tabs: 1,250 mg, Oral, QID, PRN Constipation, Refills(s) 0 Gas-X: 80 mg, Chewed, QIDPCHS, PRN Gas, Refills(s) 0 Iron Chews: 15 mg, Oral, Daily, Refills(s) 0, Prophylaxis Multivitamins and Minerals: 1 TAB, Oral, Daily, Refill(s) 0, Prophylaxis Nature's Bounty Probiotic: Refill(s) 0, Prophylaxis Vitamin B Complex oral tablet: 1 tab(s), Chewed, Daily, Refill(s) 0, Prophylaxis Vitamin D: Oral, Daily, Refills(s) 0, Prophylaxis Wellbutrin SR 150 mg Tab-ER: 150 mg = 1 tab(s), Oral, BID, Depression Xanax 0.5 mg Tab: 0.5 mg = 1 tab(s), Oral, BID, PRN for anxiety, Refills(s) 0 busPIRone 15 mg Tab: mg tab(s), Oral, BID, Refills(s) 0, Anxiety calcium-vitamin D: 1 TAB, Oral, Daily Prophylaxis, Refill(s) 0 cetirizine 5 mg oral tablet: 5 mg = 1 tab(s), Oral, Daily, PRN for allergy symptoms cholestyramine 4 g/9 g Oral Pwdr: Oral, BID, Refill(s) 0, Diarrhea losartan 100 mg Tab: 100 mg = 1 tab(s), Oral, Daily, High blood pressure, Home Medications (18) Active Adderall 5 mg oral tablet 5 mg = 1 tab(s), Oral, qAM busPIRone 15 mg Tab , Oral, BID calcium-vitamin D 1 TAB, PRN, Oral, Daily cetirizine 5 mg oral tablet 5 mg = 1 tab(s), PRN, Oral, Daily cholestyramine 4 g/9 g Oral Pwdr , Oral, BID Fiber Tabs 1,250 mg, PRN, Oral, QID Gas-X 80 mg, PRN, Chewed, QIDPCHS Ibgard 90 mg oral delayed release capsule 180 mg = 2 cap(s), Oral, BID Iron Chews 15 mg, Oral, Daily losartan 100 mg Tab 100 mg = 1 tab(s), Oral, Daily Miralax 3350 17 gram packet 17 gm, PRN, Oral, Daily Multivitamins and Minerals 1 TAB, Oral, Daily Nature's Bounty Probiotic Pantoprazole [address] Tab 40 mg = 1 tab(s), Oral, Daily Vitamin B Complex oral tablet 1 tab(s), Chewed, Daily Vitamin D , Oral, Daily Wellbutrin SR 150 mg Tab-ER 150 mg = 1 tab(s), Oral, BID Xanax 0.5 mg Tab 0.5 mg = 1 tab(s), PRN, Oral, BID Problem list: All Problems Obesity / ICD-9-CM 278.00 / Possible Colon polyp / SNOMED CT 462742563 / Confirmed Loose stools / SNOMED CT 6449824287 / Confirmed Bile salt-induced diarrhea / SNOMED CT 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 / Confirmed Irregular bowel habits / SNOMED CT 9790352223 / Confirmed Fecal incontinence / SNOMED CT 455323300 / Confirmed History of colon polyps / SNOMED CT 0996071828 / Confirmed 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 / Confirmed Acid reflux / SNOMED CT 886461987 / Confirmed Recurrent UTI / SNOMED CT 129197997 / Confirmed Renal cyst / SNOMED CT 6313857995 / Confirmed Urinary leakage / SNOMED CT 9207359220 / Confirmed Lower abdominal pain / SNOMED CT 82281223 / Confirmed Bloating / SNOMED CT 099208264 / Confirmed Family history of colon cancer / SNOMED CT 351235082 / Confirmed Constipation / SNOMED CT 79381229 / Confirmed History of anal cancer / SNOMED CT 7864204128 / Confirmed JASWINDER (obstructive sleep apnea) / SNOMED CT 491878488 / Confirmed Depression / SNOMED CT 73326784 / Confirmed Cancer of anus / SNOMED CT 514968190 / Confirmed 2013 MRSA (methicillin resistant staph aureus) culture positive / SNOMED CT 1889774280 / Confirmed Histories Past Medical History: Resolved Abdominal cramping (470066924): Resolved. Nausea (2915709259): Resolved. UTI symptoms (692013231): Resolved. Family History: Mother Primary malignant neoplasm of colon Brother Primary malignant neoplasm of colon Procedur (more content not included)...[facility]Result Comment: Electronically Signed By: Selvin BOO, Matt Malhotra\.br\Date and Time Signed: 04/10/24 13:50 [id number] Hospital Discharge instructions Follow Up Care 02/04/2024 12:35:37 With:Quyen BOO, Aishwarya Blanc, PUL, CHARITY Address: [address] [facility] [place] [address]- When:1 year [facility] 04-12-2024 Hospital Discharge instructionsAmbulatory Orders* Referral to Orthopedic Surgery Time Frame: 10/08/23, Location: [facility] Work Phone: 1(906) 857-703104-03-2024 Hospital Discharge instructions Follow Up Care 09/29/2023 10:09:00 With:Selvin BOO, Matt Malhotra, [facility], [facility] Address: [address] [place] [address], [address] [facility] [address] [place] [phone] When:3 months [facility] 02-29-2024 Hospital Discharge instructions Patient Education 08/26/2023 16:23:16 Abdominal Pain, Adult Abdominal Pain, Adult Pain in the abdomen (abdominal pain) can be caused by many things. Often, abdominal pain is not serious and it gets better with no treatment or by being treated at home. However, sometimes abdominal pain is serious. Your health care provider will ask questions about your medical history and do a physical exam to try to determine the cause of your abdominal pain. Follow these instructions at home: Medicines Take vvsq-uhh-vwgueuf and prescription medicines only as told by your health care provider. Do not take a laxative unless told by your health care provider. General instructions Watch your condition for any changes. Drink enough fluid to keep your urine pale yellow. Keep all follow-up visits as told by your health care provider. This is important. Contact a health care provider if: Your abdominal pain changes or gets worse. You are not hungry or you lose weight without trying. You are constipated or have diarrhea for more than 2 3 days. You have pain when you urinate or have a bowel movement. Your abdominal pain wakes you up at night. Your pain gets worse with meals, after eating, or with certain foods. You are vomiting and cannot keep anything down. You have a fever. You have blood in your urine. Get help right away if: Your pain does not go away as soon as your health care provider told you to expect. You cannot stop vomiting. Your pain is only in areas of the abdomen, such as the right side or the left lower portion of the abdomen. Pain on the right side could be caused by appendicitis. You have bloody or black stools, or stools that look like tar. You have severe pain, cramping, or bloating in your abdomen. You have signs of dehydration, such as: ?Dark urine, very little urine, or no urine. ?Cracked lips. ?Dry mouth. ?Sunken eyes. ?Sleepiness. ?Weakness. You have trouble breathing or chest pain. Summary Often, abdominal pain is not serious and it gets better with no treatment or by being treated at home. However, sometimes abdominal pain is serious. Watch your condition for any changes. Take qwjq-exf-fjlscke and prescription medicines only as told by your health care provider. Contact a health care provider if your abdominal pain changes or gets worse. Get help right away if you have severe pain, cramping, or bloating in your abdomen. This information is not intended to replace advice given to you by your health care provider. Make sure you discuss any questions you have with your health care provider. Document Revised: 08/02/2020 Document Reviewed: 10/23/2019 [employer] Patient Education 2022 Epoch. Follow Up Care 08/20/2023 10:20:51 With:Rani Delgadillo CNP Address: When:1 to 2 weeks Comments:Following colonoscopy. [facility] 02-29-2024 Evaluation + Plan note Future Scheduled Tests Radiology* CT Abdomen/Pelvis w/ Contrast 08/26/23 [facility] 10-09-2023 Hospital Discharge instructions Follow Up Care 04/05/2023 14:08:32 With:Quyen BOO, Aishwarya Blanc, PUL, CHARITY Address: [address] [place] [address] [facility] ([facility] [place] [address]- When:6 weeks [facility]08-15-2023 Hospital Discharge instructions Patient Education 02/09/2023 15:16:42 Food Choices for Gastroesophageal Reflux Disease, Adult Food Choices for Gastroesophageal Reflux Disease, Adult When you have gastroesophageal reflux disease (GERD), the foods you eat and your eating habits are very important. Choosing the right foods can help ease the discomfort of GERD. Consider working witha dietitian to help you make healthy food choices. What are tips for following this plan? Reading food labels Look for foods that are low in saturated fat. Foods that have less than 5% of daily value (DV) of fat and 0 g of trans fats may help with your symptoms. Cooking Cook foods using methods other than frying. This may include baking, steaming, grilling, or broiling. These are all methods that do not need a lot of fat for cooking. To add flavor, try to use herbs that are low in spice and acidity. Meal planning Choose healthy foods that are low in fat, such as fruits, vegetables, whole grains, low-fat dairy products, lean meats, fish, and poultry. Eat frequent, small meals instead of three large meals each day. Eat your meals slowly, in a relaxed setting. Avoid bending over or lying down until 2 3 hours after eating. Limit high-fat foods such as fatty meats or fried foods. Limit your intake of fatty foods, such as oils, butter, and shortening. Avoid the following as told by your health care provider: ?Foods that cause symptoms. These may be different for different people. Keep a food diary to keep track of foods that cause symptoms. ?Alcohol. ?Drinking large amounts of liquid with meals. ?Eating meals during the 2 3 hours before bed. Lifestyle Maintain a healthy weight. Ask your health care provider what weight is healthy for you. If you need to lose weight, work with your health care provider to do so safely. Exercise for at least 30 minutes on 5 or more days each week, or as told by your health care provider. Avoid wearing clothes that fit tightly around your waist and chest. Do not use any products that contain nicotine or tobacco. These products include cigarettes, chewing tobacco, and vaping devices, such as e-cigarettes. If you need help quitting, ask your health careprovider. Sleep with the head of your bed raised. Use a wedge under the mattress or blocks under the bed frame to raise the head of the bed. Chew sugar-free gum after mealtimes. What foods should I eat? Eat a healthy, well-balanced diet of fruits, vegetables, whole grains, low-fat dairy products, leanmeats, fish, and poultry. Each person is different. Foods that may trigger symptoms in one person may not trigger any symptoms in another person. Work with your health care provider to identify foodsthat are safe for you. The items listed above may not be a complete list of recommended foods and beverages. Contact a dietitian for more information. What foods should I avoid? Limiting some of these foods may help manage the symptoms of GERD. Everyone is different. Consult adietitian or your health care provider to help you identify the exact foods to avoid, if any. Fruits Any fruits prepared with added fat. Any fruits that cause symptoms. For some people this may include citrus fruits, such as oranges, grapefruit, pineapple, and dimitrios. Vegetables Deep-fried vegetables. Georgian fries. Any vegetables prepared with added fat. Any vegetables that cause symptoms. For some people, this may include tomatoes and tomato products, chili peppers, onions and garlic, and horseradish. Grains Pastries or quick breads with added fat. Meats and other proteins High-fat meats, such as fatty beef or pork, hot dogs, ribs, ham, sausage, salami, and hanley. Fried meat or protein, including fried fish and fried chicken. Nuts and nut butters, in large amounts. Dairy Whole milk and chocolate milk. Sour cream. Cream. Ice cream. Cream cheese. Milkshakes. Fats and oils Butter. Margarine. Shortening. Ghee. Beverages Coffee and tea, with or without caffeine. Carbonated beverages. Sodas. Energy drinks. Fruit juice made with acidic fruits, such as orange or grapefruit. Tomato juice. Alcoholic drinks. Sweets and desserts Chocolate and cocoa. Donuts. Seasonings and condiments Pepper. Peppermint and spearmint. Added salt. Any condiments, herbs, or seasonings that cause symptoms. For some people, this may include kerns, hot sauce, or vinegar-based salad dressings. The items listed above may not be a complete list of foods and beverages to avoid. Contact a dietitian for more information. Questions to ask your health care provider Diet and lifestyle changes are usually the first steps that are taken to manage symptoms of GERD. If diet and lifestyle changes do not improve your symptoms, talk with your health care provider abouttaking medicines. Where to find more information International Foundation for Gastrointestinal Disorders: aboutgerd.org Summary When you have gastroesophageal reflux disease (GERD), food and lifestyle choices may be very helpful in easing the discomfort of GERD. Eat frequent, small meals instead of three large meals each day. Eat your meals slowly, in a relaxed setting. Avoid bending over or lying down until 2 3 hours after eating. Limit high-fat foods such as fatty meats or fried foods. This information is not intended to replace advice given to you by your health care provider. Make sure you discuss any questions you have with your health care provider. Document Revised: 12/23/2020 Document Reviewed: 12/23/2020 [employer] Patient Education 2022 Epoch. Follow Up Care 11/09/2022 15:56:57 With:Rani Delgadillo CNP Address: When:6 months [facility] 05-15-2023 Hospital Discharge instructions Patient Education 11/09/2022 15:50:49 Food Choices for Gastroesophageal Reflux Disease, Adult Food Choices for Gastroesophageal Reflux Disease, Adult When you have gastroesophageal reflux disease (GERD), the foods you eat and your eating habits are very important. Choosing the right foods can help ease the discomfort of GERD. Consider working witha dietitian to help you make healthy food choices. What are tips for following this plan? Reading food labels Look for foods that are low in saturated fat. Foods that have less than 5% of daily value (DV) of fat and 0 g of trans fats may help with your symptoms. Cooking Cook foods using methods other than frying. This may include baking, steaming, grilling, or broiling. These are all methods that do not need a lot of fat for cooking. To add flavor, try to use herbs that are low in spice and acidity. Meal planning Choose healthy foods that are low in fat, such as fruits, vegetables, whole grains, low-fat dairy products, lean meats, fish, and poultry. Eat frequent, small meals instead of three large meals each day. Eat your meals slowly, in a relaxed setting. Avoid bending over or lying down until 2 3 hours after eating. Limit high-fat foods such as fatty meats or fried foods. Limit your intake of fatty foods, such as oils, butter, and shortening. Avoid the following as told by your health care provider: ?Foods that cause symptoms. These may be different for different people. Keep a food diary to keep track of foods that cause symptoms. ?Alcohol. ?Drinking large amounts of liquid with meals. ?Eating meals during the 2 3 hours before bed. Lifestyle Maintain a healthy weight. Ask your health care provider what weight is healthy for you. If you need to lose weight, work with your health care provider to do so safely. Exercise for at least 30 minutes on 5 or more days each week, or as told by your health care provider. Avoid wearing clothes that fit tightly around your waist and chest. Do not use any products that contain nicotine or tobacco. These products include cigarettes, chewing tobacco, and vaping devices, such as e-cigarettes. If you need help quitting, ask your health careprovider. Sleep with the head of your bed raised. Use a wedge under the mattress or blocks under the bed frame to raise the head of the bed. Chew sugar-free gum after mealtimes. What foods should I eat? Eat a healthy, well-balanced diet of fruits, vegetables, whole grains, low-fat dairy products, leanmeats, fish, and poultry. Each person is different. Foods that may trigger symptoms in one person may not trigger any symptoms in another person. Work with your health care provider to identify foodsthat are safe for you. The items listed above may not be a complete list of recommended foods and beverages. Contact a dietitian for more information. What foods should I avoid? Limiting some of these foods may help manage the symptoms of GERD. Everyone is different. Consult adietitian or your health care provider to help you identify the exact foods to avoid, if any. Fruits Any fruits prepared with added fat. Any fruits that cause symptoms. For some people this may include citrus fruits, such as oranges, grapefruit, pineapple, and dimitrios. Vegetables Deep-fried vegetables. Georgian fries. Any vegetables prepared with added fat. Any vegetables that cause symptoms. For some people, this may include tomatoes and tomato products, chili peppers, onions and garlic, and horseradish. Grains Pastries or quick breads with added fat. Meats and other proteins High-fat meats, such as fatty beef or pork, hot dogs, ribs, ham, sausage, salami, and hanley. Fried meat or protein, including fried fish and fried chicken. Nuts and nut butters, in large amounts. Dairy Whole milk and chocolate milk. Sour cream. Cream. Ice cream. Cream cheese. Milkshakes. Fats and oils Butter. Margarine. Shortening. Ghee. Beverages Coffee and tea, with or without caffeine. Carbonated beverages. Sodas. Energy drinks. Fruit juice made with acidic fruits, such as orange or grapefruit. Tomato juice. Alcoholic drinks. Sweets and desserts Chocolate and cocoa. Donuts. Seasonings and condiments Pepper. Peppermint and spearmint. Added salt. Any condiments, herbs, or seasonings that cause symptoms. For some people, this may include kerns, hot sauce, or vinegar-based salad dressings. The items listed above may not be a complete list of foods and beverages to avoid. Contact a dietitian for more information. Questions to ask your health care provider Diet and lifestyle changes are usually the first steps that are taken to manage symptoms of GERD. If diet and lifestyle changes do not improve your symptoms, talk with your health care provider abouttaking medicines. Where to find more information International Foundation for Gastrointestinal Disorders: aboutgerd.org Summary When you have gastroesophageal reflux disease (GERD), food and lifestyle choices may be very helpful in easing the discomfort of GERD. Eat frequent, small meals instead of three large meals each day. Eat your meals slowly, in a relaxed setting. Avoid bending over or lying down until 2 3 hours after eating. Limit high-fat foods such as fatty meats or fried foods. This information is not intended to replace advice given to you by your health care provider. Make sure you discuss any questions you have with your health care provider. Document Revised: 12/23/2020 Document Reviewed: 12/23/2020 [employer] Patient Education 2022 Epoch. Follow Up Care 08/10/2022 15:31:25 With:Rani Delgadillo CNP Address: When:3 months [facility] 05-01-2023 Evaluation note* Encounter Date Diagnosis Assessment Notes Treatment Notes Treatment Clinical Notes October, Pain of left calf (ICD-10 - M79.662) pt requests test at [facility] October, JASWINDER (obstructive sleep apnea) (ICD-10 - G47.33) pt requests [facility] - referral faxed to sleep center. October, Anxiety (ICD-10 - F41.9) discussed multiple causes. For the word finding, consider Neurology workup, but pt would prefer to start with the Sleep testing first. [facility] Other 04-03-2023 Evaluation note* Encounter Date Diagnosis Assessment Notes Treatment Notes Treatment Clinical Notes Sep, COVID-19 (ICD-10 - U07.1) Pt states symptoms are improving and she is past the timing for paxlovid overall Sep, Facial rash (ICD-10 - R21) Will start lupus panel and other related labs. Sep, Arthralgia, unspecified joint (ICD-10 - M25.50) Will assess labs as requested [facility] Other 03-31-2023 Evaluation note* Encounter Date Diagnosis Assessment Notes Treatment Notes Treatment Clinical Notes Aug, Exposure to COVID-19 virus (ICD-10 - Z20.828) Aug, COVID-19 (ICD-10 - U07.1) Discharge Instructions for COVID-19 (Suspected or Confirmed ) material was printed Drink plenty fluids, get plenty of rest. Take Tylenol or Motrin as needed for aches pains or fevers. Follow-up with your family physician if no improvement in 2 to 3 days. You must quarantine for 5 days after the onset of your symptoms of COVID [facility] Other 02-28-2023 Hospital Discharge instructions Patient Education 08/25/2022 09:53:42 Infection Prevention in the Home Infection Prevention in the Home If you have an infection, may have been exposed to an infection, or are taking care of someone who has an infection, it is important to know how to keep the infection from spreading. Follow your health care provider's instructions and use these guidelines to help stop the spread of infection. How infections are spread In order for an infection to spread, the following must be present: A germ. This may be a virus, bacteria, fungus, or parasite. A place for the germ to live. This may be: ?On or in a person, animal, plant, or food. ?In soil or water. ?On surfaces, such as a door handle. A person or animal who can develop a disease if the germ enters the body (host). The host does not have resistance to the germ. A way for the germ to enter the host. This may occur by: ?Direct contact with an infected person or animal. This can happen through shaking hands or hugging. Some germs can also travel through the air and spread to others. This can happen when an infected person coughs or sneezes on or near other people. ?Indirect contact. This occurs when the germ enters the host through contact with an infected object. Examples include: ?Eating or drinking food or water that has the germ (is contaminated). ?Touching a contaminated surface with your hands, and then touching your face, eyes, nose, or mouth. Supplies needed: Soap. Alcohol-based hand talent management specialist. Standard cleaning products. Disinfectants, such as bleach. Reusable cleaning cloths, sponges, or paper towels. Disposable or reusable utility gloves. How to prevent infection from spreading There are several things that you can do to help prevent infection from spreading. Take these general actions Everyone should take the following actions to prevent the spread of infection: Wash your hands often with soap and water for at least 20 seconds. If soap and water are not available, use alcohol-based hand talent management specialist. Avoid touching your face, mouth, nose, or eyes. Cough or sneeze into a tissue, sleeve, or elbow instead of into your hand or into the air. ?If you cough or sneeze into a tissue, throw it away immediately and wash your hands. Keep your bathroom clean Provide soap. Change towels and washcloths frequently. Change toothbrushes often and store them separately in a clean, dry place. Clean and disinfect all surfaces, including the toilet, floor, tub, shower, and sink. Do not share personal items, such as razors, toothbrushes, deodorant, peace, brushes, towels, and washcloths. Maintain hygiene in the kitchen Wash your hands before and after preparing food and before you eat. Clean the inside of your refrigerator each week. Keep your refrigerator set at 40 F (4 C) or less, and set your freezer at 0 F ( 18 C) or less. Keep work surfaces clean. Disinfect them regularly. Wash your dishes in hot, soapy water. Air-dry your dishes or use a box truck driver. Do not share dishes or eating utensils. Handle food safely Store food carefully. Refrigerate leftovers promptly in covered containers. Throw out stale or spoiled food. Thaw foods in the refrigerator or microwave, not at room temperature. Serve foods at the proper temperature. Do not eat raw meat. Make sure it is cooked to the appropriate temperature. Cook eggs until they are firm. Wash fruits and vegetables under running water. Use separate cutting boards, plates, and utensils for raw foods and cooked foods. Use a clean spoon each time you sample food while cooking. Do laundry the right way Wear gloves if laundry is visibly soiled. Do not shake soiled laundry. Doing that may send germs into the air. Wash laundry in hot water. If you cannot wash the laundry right away, place it in a plastic bag and wash it as soon as possible. Be careful around animals and pets Wash your hands before and after touching animals. If you have a pet, ensure that your pet stays clean. Do not let people with weak immune systems touch bird droppings, fish tank water, or a litter box. ?If you have a pet cage or litter box, be sure to clean it every day. If you are sick, stay away from animals and have someone else care for them if possible. How to clean and disinfect objects and surfaces Precautions Some disinfectants work for certain germs and not others. Read the tobacco cutter's instructions or read online resources to determine if the product you are using will work for the germ you are tryingto remove. If you choose to use bleach, use it safely. Never mix it with other cleaning products, especially those that contain ammonia. This mixture can create a dangerous gas that may be deadly. Keep proper movement of fresh air in your home (ventilation). Pour used mop water down the utility sink or toilet. Do not pour this water down the kitchen sink. Objects and surfaces If surfaces are visibly soiled, clean them first with soap and water before disinfecting. Disinfect surfaces that are frequently touched every day. This may include: ?Counters. ?Tables. ?Doorknobs. ?Sinks and faucets. ?Electronics, such as: ?Phones. ?Remote controls. ?Keyboards. ?Computers and tablets. Cleaning supplies Some cleaning supplies can breed germs. Take good care of them to prevent germs from spreading. To do this: Soak toilet brushes, mops, and sponges in bleach and water for 5 minutes after each use, or according to tobacco cutter's instructions. Wash reusable cleaning cloths and sanitize sponges after each use. Throw away disposable gloves after one use. Replace reusable utility gloves if they are cracked or torn or if they start to peel. Additional actions if you are sick If you live with other people: Avoid close contact with those around you. Stay at least 3 ft (1 m) away from others, if possible. Use a separate bathroom, if possible. If possible, sleep in a separate bedroom or in a separate bed to prevent infecting other household members. ?Change bedroom linens each week or whenever they are soiled. Have everyone in the household wash hands often with soap and water. If soap and water are not available, use alcohol-based hand talent management specialist. In general: Stay home except to get medical care. Call ahead before visiting your health care provider. Ask others to get groceries and household supplies and to refill prescriptions for you. Avoid public areas. Try not to take public transportation. If you can, wear a mask if you need to go out of the house, or if you are in close contact with someone who is not sick. Avoid visitors until you have completely recovered, or until you have no signs and symptoms of infection. Avoid preparing food or providing care for others. If you must prepare food or provide care for others, wear a mask and wash your hands before and after doing these things. Where to find more information Centers for Disease Control and Prevention: www.cdc.gov/nonpharmaceutical-interventions/index.html World Health Organization (WHO): www.who.int/infection-prevention/about/en/ Association for Professionals in Infection Control and Epidemiology: professionals.site.[facility].org/mbeyznol-am-jsdy/qqi-ggmwesejxi-urzmhxs/home/ Summary It is important to know how to keep the infection from spreading. Make sure everyone in your household washes their hands often with soap and water. Disinfect surfaces that are frequently touched every day. If you are sick, stay home except to get medical care. This information is not intended to replace advice given to you by your health care provider. Make sure you discuss any questions you have with your health care provider. Document Released: 03/23/2009 Document Revised: 10/10/2019 Document Reviewed: 09/08/2019 [employer] Patient Education 2019 Epoch. Follow Up Care 06/03/2022 14:37:27 With:MELISSA QUEVEDO PA-C, URL Address: [address] [place] [address] When: only if needed Comments:[facility] 02-13-2023 Hospital Discharge instructions Patient Education 08/10/2022 15:03:31 Gastroesophageal Reflux Disease, Adult Gastroesophageal Reflux Disease, Adult Gastroesophageal reflux (RICKY) happens when acid from the stomach flows up into the tube that connects the mouth and the stomach (esophagus). Normally, food travels down the esophagus and stays in thestomach to be digested. However, when a person has RICKY, food and stomach acid sometimes move back up into the esophagus. If this becomes a more serious problem, the person may be diagnosed with a disease called gastroesophageal reflux disease (GERD). GERD occurs when the reflux: Happens often. Causes frequent or severe symptoms. Causes problems such as damage to the esophagus. When stomach acid comes in contact with the esophagus, the acid may cause soreness (inflammation) in the esophagus. Over time, GERD may create small holes (ulcers) in the lining of the esophagus. What are the causes? This condition is caused by a problem with the muscle between the esophagus and the stomach (lower esophageal sphincter, or LES). Normally, the LES muscle closes after food passes through the esophagus to the stomach. When the LES is weakened or abnormal, it does not close properly, and that allowsfood and stomach acid to go back up into the esophagus. The LES can be weakened by certain dietary substances, medicines, and medical conditions, including: Tobacco use. . Having a hiatal hernia. Alcohol use. Certain foods and beverages, such as coffee, chocolate, onions, and peppermint. What increases the risk? You are more likely to develop this condition if you: Have an increased body weight. Have a connective tissue disorder. Use NSAID medicines. What are the signs or symptoms? Symptoms of this condition include: Heartburn. Difficult or painful swallowing. The feeling of having a lump in the throat. A bitter taste in the mouth. Bad breath. Having a large amount of saliva. Having an upset or bloated stomach. Belching. Chest pain. Different conditions can cause chest pain. Make sure you see your health care provider if you experience chest pain. Shortness of breath or wheezing. Ongoing (chronic) cough or a night-time cough. Wearing away of tooth enamel. Weight loss. How is this diagnosed? Your health care provider will take a medical history and perform a physical exam. To determine if you have mild or severe GERD, your health care provider may also monitor how you respond to treatment. You may also have tests, including: A test to examine your stomach and esophagus with a small camera (endoscopy). A test that measures the acidity level in your esophagus. A test that measures how much pressure is on your esophagus. A barium swallow or modified barium swallow test to show the shape, size, and functioning of your esophagus. How is this treated? The goal of treatment is to help relieve your symptoms and to prevent complications. Treatment for this condition may vary depending on how severe your symptoms are. Your health care provider may recommend: Changes to your diet. Medicine. Surgery. Follow these instructions at home: Eating and drinking Follow a diet as recommended by your health care provider. This may involve avoiding foods and drinks such as: ?Coffee and tea (with or without caffeine). ?Drinks that contain alcohol. ?Energy drinks and sports drinks. ?Carbonated drinks or sodas. ?Chocolate and cocoa. ?Peppermint and mint flavorings. ?Garlic and onions. ?Horseradish. ?Spicy and acidic foods, including peppers, chili powder, kerns powder, vinegar, hot sauces, and barbecue sauce. ?[place] fruit juices and citrus fruits, such as oranges, dimitrios, and limes. ?Tomato-based foods, such as red sauce, chili, salsa, and pizza with red sauce. ?Fried and fatty foods, such as donuts, irish fries, potato chips, and high-fat dressings. ?High-fat meats, such as hot dogs and fatty cuts of red and white meats, such as rib eye steak, sausage, ham, and hanley. ?High-fat dairy items, such as whole milk, butter, and cream cheese. Eat small, frequent meals instead of large meals. Avoid drinking large amounts of liquid with your meals. Avoid eating meals during the 2 3 hours before bedtime. Avoid lying down right after you eat. Do not exercise right after you eat. Lifestyle Do not use any products that contain nicotine or tobacco, such as cigarettes, e- cigarettes, and chewing tobacco. If you need help quitting, ask your health care provider. Try to reduce your stress by using methods such as yoga or meditation. If you need help reducing stress, ask your health care provider. If you are overweight, reduce your weight to an amount that is healthy for you. Ask your health care provider for guidance about a safe weight loss goal. General instructions Pay attention to any changes in your symptoms. Take hdwu-pyw-ybxuyzw and prescription medicines only as told by your health care provider. Do not take aspirin, ibuprofen, or other NSAIDs unless your health care provider told you to do so. Wear loose-fitting clothing. Do not wear anything tight around your waist that causes pressure on your abdomen. Raise (elevate) the head of your bed about 6 inches (15 cm). Avoid bending over if this makes your symptoms worse. Keep all follow-up visits as told by your health care provider. This is important. Contact a health care provider if: You have: ?New symptoms. ?Unexplained weight loss. ?Difficulty swallowing or it hurts to swallow. ?Wheezing or a persistent cough. ?A hoarse voice. Your symptoms do not improve with treatment. Get help right away if you: Have pain in your arms, neck, jaw, teeth, or back. Feel sweaty, dizzy, or light-headed. Have chest pain or shortness of breath. Vomit and your vomit looks like blood or coffee grounds. Faint. Have stool that is bloody or black. Cannot swallow, drink, or eat. Summary Gastroesophageal reflux happens when acid from the stomach flows up into the esophagus. GERD is a disease in which the reflux happens often, causes frequent or severe symptoms, or causes problems such as damage to the esophagus. Treatment for this condition may vary depending on how severe your symptoms are. Your health care provider may recommend diet and lifestyle changes, medicine, or surgery. Contact a health care provider if you have new or worsening symptoms. Take disa-fcm-bxphcug and prescription medicines only as told by your health care provider. Do not take aspirin, ibuprofen, or other NSAIDs unless your health care provider told you to do so. Keep all follow-up visits as told by your health care provider. This is important. This information is not intended to replace advice given to you by your health care provider. Make sure you discuss any questions you have with your health care provider. Document Released: 03/24/2006 Document Revised: 12/21/2018 Document Reviewed: 12/21/2018 [employer] Patient Education 2020 Epoch. Follow Up Care 06/09/2022 11:14:12 With:Rani Delgadillo CNP Address: When:1 month [facility] 01-25-2023 Hospital Discharge instructions Patient Education 07/22/2022 14:10:23 Endoscopy, Care After Procedure [facility] [place]) Endoscopy Care After Procedure Please read the instructions outlined below and refer to this sheet in the next few weeks. These discharge instructions provide you with general information on caring [facility] Your doctor may also give you specific instructions. While your treatment has been planned according to the most current medical practices available, unavoidable complications occasionally occur. If you have any problems or questions after discharge, please call your doctor. ACTIVITY You may resume your regular activity but move at a slower pace for the next 24 hours. Take frequent rest periods for the next 24 hours. Walking will help expel (get rid of) the air and reduce the bloated feeling in your abdomen. No driving for 24 hours (because of the anesthesia (medicine) used during the test). You may shower. Do not sign any important legal documents or operate any machinery for 24 hours (because of the anesthesia used during the test). NUTRITION Drink plenty of fluids. You may resume your normal diet. Begin with a light meal and progress to your normal diet. Avoid alcoholic beverages for 24 hours or as instructed by your caregiver. MEDICATIONS You may resume your normal medications unless your caregiver tells you otherwise. WHAT YOU CAN EXPECT TODAY You may experience abdominal discomfort such as a feeling of fullness or gas pains. FOLLOW-UP Your doctor will discuss the results of your test with you. SEEK IMMEDIATE MEDICAL ATTENTION IF ANY OF THE FOLLOWING OCCUR: Excessive nausea (feeling sick to your stomach) and/or vomiting. Severe abdominal pain and distention (swelling). Trouble swallowing. Temperature over 100 F (37.8 C). Rectal bleeding or vomiting of blood. Document Released: 01/26/2005 Document Re-Released: 12/06/2006 ExitCare Patient Information 2009 [employer]. Follow Up Care 05/27/2022 10:09:45 With:Minerva NEGRON Address: [address] [place] [address] [facility] (1) When:1 to 2 weeks Comments:Call for any problems. Office will call to schedule follow up appointment [facility]11-30-2022 Hospital Discharge instructions Patient Education 05/27/2022 09:25:08 High-Fiber Diet High-Fiber Diet Fiber, also called dietary fiber, is a type of carbohydrate that is found in fruits, vegetables, whole grains, and beans. A high-fiber diet can have many health benefits. Your health care provider may recommend a high-fiber diet to help: Prevent constipation. Fiber can make your bowel movements more regular. Lower your cholesterol. Relieve the following conditions: ?Swelling of veins in the anus (hemorrhoids). ?Swelling and irritation (inflammation) of specific areas of the digestive tract (uncomplicated diverticulosis). ?A problem of the large intestine (colon) that sometimes causes pain and diarrhea (irritable bowel syndrome, IBS). Prevent overeating as part of a weight-loss plan. Prevent heart disease, type 2 diabetes, and certain cancers. What is my plan? The recommended daily fiber intake in grams (g) includes: 38 g for men age 50 or younger. 30 g for men over age 50. 25 g for women age 50 or younger. 21 g for women over age 50. You can get the recommended daily intake of dietary fiber by: Eating a variety of fruits, vegetables, grains, and beans. Taking a fiber supplement, if it is not possible to get enough fiber through your diet. What do I need to know about a high-fiber diet? It is better to get fiber through food sources rather than from fiber supplements. There is not a lot of research about how effective supplements are. Always check the fiber content on the nutrition facts label of any prepackaged food. Look for foodsthat contain 5 g of fiber or more per serving. Talk with a diet and sports nutritionist (dietitian) if you have questions about specific foods that are recommended or not recommended for your medical condition, especially if those foods are not listed below. Gradually increase how much fiber you consume. If you increase your intake of dietary fiber too quickly, you may have bloating, cramping, or gas. Drink plenty of water. Water helps you to digest fiber. What are tips for following this plan? Eat a wide variety of high-fiber foods. Make sure that half of the grains that you eat each day are whole grains. Eat breads and cereals that are made with whole-grain flour instead of refined flour or white flour. Eat brown rice, bulgur wheat, or millet instead of white rice. Start the day with a breakfast that is high in fiber, such as a cereal that contains 5 g of fiber or more per serving. Use beans in place of meat in soups, salads, and pasta dishes. Eat high-fiber snacks, such as berries, raw vegetables, nuts, and popcorn. Choose whole fruits and vegetables instead of processed forms like juice or sauce. What foods can I eat? Fruits Berries. Pears. Apples. Oranges. Avocado. Prunes and raisins. Dried figs. Vegetables Sweet potatoes. Spinach. Kale. Artichokes. Cabbage. Broccoli. Cauliflower. Green peas. Carrots. Squash. Grains Whole-grain breads. Multigrain cereal. Oats and oatmeal. Brown rice. Barley. Bulgur wheat. Millet. Quinoa. Bran muffins. Popcorn. [place] wafer crackers. Meats and other proteins Adwolf, kidney, and choi beans. Soybeans. Split peas. Lentils. Nuts and seeds. Dairy Fiber-fortified yogurt. Beverages Fiber-fortified soy milk. Fiber-fortified orange juice. Other foods Fiber bars. The items listed above may not be a complete list of recommended foods and beverages. Contact a dietitian for more options. What foods are not recommended? Fruits Fruit juice. Cooked, strained fruit. Vegetables Fried potatoes. Canned vegetables. Well-cooked vegetables. Grains White bread. Pasta made with refined flour. White rice. Meats and other proteins Fatty cuts of meat. Fried chicken or fried fish. Dairy Milk. Yogurt. Cream cheese. Sour cream. Fats and oils [place]. Beverages Soft drinks. Other foods Cakes and pastries. The items listed above may not be a complete list of foods and beverages to avoid. Contact a dietitian for more information. Summary Fiber is a type of carbohydrate. It is found in fruits, vegetables, whole grains, and beans. There are many health benefits of eating a high-fiber diet, such as preventing constipation, lowering blood cholesterol, helping with weight loss, and reducing your risk of heart disease, diabetes, and certain cancers. Gradually increase your intake of fiber. Increasing too fast can result in cramping, bloating, and gas. Drink plenty of water while you increase your fiber. The best sources of fiber include whole fruits and vegetables, whole grains, nuts, seeds, and beans. This information is not intended to replace advice given to you by your health care provider. Make sure you discuss any questions you have with your health care provider. Document Released: 06/14/2006 Document Revised: 04/18/2018 Document Reviewed: 04/18/2018 [employer] Patient Education 2020 Epoch. Follow Up Care 02/25/2022 16:24:49 With:Rani Delgadillo CNP Address: When:3 months [facility] 08-31-2022 Hospital Discharge instructions Patient Education 02/25/2022 15:38:55 Fecal Incontinence Fecal Incontinence Fecal incontinence, also called accidental bowel leakage, is not being able to control your bowels.This condition happens because the nerves or muscles around the anus do not work the way they should. This affects their ability to hold stool (feces). What are the causes? This condition may be caused by: Damage to the muscles at the end of the rectum (sphincter). Damage to the nerves that control bowel movements. Diarrhea. Chronic constipation. Pelvic floor dysfunction. This means the muscles in the pelvis do not work well. Loss of bowel storage capacity. This occurs when the rectum can no longer stretch in size in order to store feces. Inflammatory bowel disease (IBD), such as Crohn's disease. Irritable bowel syndrome (IBS). What increases the risk? You are more likely to develop this condition if you: Were born with bowels or a pelvis that did not form correctly. Have had rectal surgery. Have had radiation treatment for certain cancers. Have been , had a vaginal delivery, or had surgery that damaged the pelvic floor muscles. Had a complicated childbirth, spinal cord injury, or other trauma that caused nerve damage. Have a condition that can affect nerve function, such as diabetes, Parkinson's disease, or multiplesclerosis. Have a condition where the rectum drops down into the anus or vagina (prolapse). Are 65 years of age or older. What are the signs or symptoms? The main symptom of this condition is not being able to control your bowels. You also might not be able to get to the bathroom before a bowel movement. How is this diagnosed? This condition is diagnosed with a medical history and physical exam. You may also have other tests, including: Blood tests. Urine tests. A rectal exam. Ultrasound. MRI. Colonoscopy. This is an exam that looks at your large intestine (colon). Anal manometry. This is a test that measures the strength of the anal sphincter. Anal electromyogram (EMG). This is a test that uses small electrodes to check for nerve damage. How is this treated? Treatment for this condition depends on the cause and severity. Treatment may also focus on addressing any underlying causes of this condition. Treatment may include: Medicines. This may include medicines to: ?Prevent diarrhea. ?Help with constipation (bulk-forming laxatives). ?Treat any underlying conditions. Biofeedback therapy. This can help to retrain muscles that are affected. Fiber supplements. These can help manage your bowel movements. Nerve stimulation. Injectable gel to promote tissue growth and better muscle control. Surgery. You may need: ?Sphincter repair surgery. ?Diversion surgery. This procedure lets feces pass out of your body through a hole in your abdomen. Follow these instructions at home: Eating and drinking Follow instructions from your health care provider about any eating or drinking restrictions. ?Work with a dietitian to come up with a healthy diet that will help you avoid the foods that can make your condition worse. ?Keep a diet diary to find out which foods or drinks could be making your condition worse. Drink enough fluid to keep your urine pale yellow. Lifestyle Do not use any products that contain nicotine or tobacco, such as cigarettes and e-cigarettes. If you need help quitting, ask your health care provider. This may help your condition. If you are overweight, talk with your health care provider about how to safely lose weight. This may help your condition. Increase your physical activity as told by your health care provider. This may help your condition.Always talk with your health care provider before starting a new exercise program. Carry a change of clothes and supplies to clean up quickly if you have an episode of incontinence. Consider joining a fecal incontinence support group. You can find a support group online or in yourcal community. General instructions Take cgdu-iko-dalaxkv and prescription medicines only as told by your health care provider. This includes any supplements. Apply a moisture barrier, such as petroleum jelly, to your rectum. This protects the skin from irritation caused by ongoing leaking or diarrhea. Tell your health care provider if you are upset or depressed about your condition. Keep all follow-up visits as told by your health care provider. This is important. Where to find more information [employer] Gastrointestinal Disorders: iffgd.org [employer]: patients.gi.org Contact a health care provider if: You have a fever. You have redness, swelling, or pain around your rectum. Your pain is getting worse or you lose feeling in your rectal area. You have blood in your stool. You feel sad or hopeless. You avoid social or work situations. Get help right away if: You stop having bowel movements. You cannot eat or drink without vomiting. You have rectal bleeding that does not stop. You have severe pain that is getting worse. You have symptoms of dehydration, including: ?Sleepiness or fatigue. ?Producing little or no urine, tears, or sweat. ?Dizziness. ?Dry mouth. ?Unusual irritability. ?Headache. ?Inability to think clearly. Summary Fecal incontinence, also called accidental bowel leakage, is not being able to control your bowels.This condition happens because the nerves or muscles around the anus do not work the way they should. Treatment varies depending on the cause and severity of your condition. Treatment may also focus onaddressing any underlying causes of this condition. Follow instructions from your health care provider about any eating or drinking restrictions, lifestyle changes, and skin care. Take itzw-tqh-cfiyrod and prescription medicines only as told by your health care provider. This includes any supplements. Tell your health care provider if your symptoms worsen or if you are upset or depressed about your condition. This information is not intended to replace advice given to you by your health care provider. Make sure you discuss any questions you have with your health care provider. Document Released: 05/26/2005 Document Revised: 10/27/2018 Document Reviewed: 10/27/2018 [employer] Patient Education 2020 Epoch. Follow Up Care 11/25/2021 15:52:19 With:Rani Delgadillo CNP Address: When:3 months [facility] 05-12-2022 Evaluation note* Encounter Date Diagnosis Assessment Notes Treatment Notes Treatment Clinical Notes October, Sore throat (ICD-10 - J02.9) Today test was performed in office. Results are currently negative. That does not mean that you will not develop COVID or do not currently have a low viral count of COVID. The rapid test works best if symptoms have been over 72 hours and the results can vary if you are asymptomatic There is a higher chance of false negative results to occur if testing is performed too soon. It is recommended that even if results are negative and you have been exposed to someone that has COVID that you follow current CDC recommendations. These can be found at CDC.GOV. Follow up with primary care provider if symptoms persist or do not improve *VIRAL URI HANOUT GIVEN ON OTC TREATMENTS, FOLLOW UP AND WHEN TO SEEK EMERGENCY TREATMENT October, Right acute otitis media (ICD-10 - H66.91) Ear infections are often a secondary infection caused from an URI, the flu or allergies. Take medication as directed. Complete all doses, even if you feel better. Tylenol or ibuprofen can help with pain. Warm pack to area for comfort helps as well. Follow up with primary care provider if no improvement of symptoms. [employer] Other 03-16-2022 NotePROCEDURE: [employer] HDXT 1.5 Sagittal T1, T2, STIR and axial T1 and T2 contiguous and cone down images through the brain/sella were performed with and without contrast administration. HISTORY: Abnormal sella turcica on outside CT. FINDINGS: Mildly prominent sella turcica with no sellar or suprasellar mass, borderline empty sella appearance. No significant displacement of the infundibulum. No mass effect upon the optic chiasm. No abnormal enhancement. Normal supratentorial and posterior fossa contents. No evidence of acute or subacute major vessel ischemia, intra-axial edema, intracranial hemorrhage or mass effect. Normal mastoid air cells and paranasal sinuses. No significant paranasal sinus fluid collections or osteomeatal unit compromise. Normal corpus callosum, miranda, mid brain, medulla and visualized cervical spinal cord. IMPRESSION: 1. Empty sella appearance, no mass or evidence of mass effect, edema or hemorrhage. Report reported and signed by Edd Martini on 09/10/2021 [facility] Hospital Discharge instructions Follow Up Care 08/26/2021 09:35:27 With:Rani Delgadillo CNP Address: When:3 months [facility] 01-10-2022 Evaluation note* Encounter Date Diagnosis Assessment Notes Treatment Notes Treatment Clinical Notes Jun, Contact with and (suspected) exposure to other viral communicable diseases (ICD-10 - Z20.828) Even though COVID RAPID test is NEGATIVE, I am highly suspicious at this time you may be positive due to the symptoms. Recommend patient follow Quarantine guidelines until you follow up with PCP.. Recommend OTC medication such as Mucinex, Sea salt nasal spray, Cepecol, Tylenol, Zyrtec, as they can help with symptoms VIRAL URI HANDOUT GIVEN TO PATIENT THAT RECOMMENDS OTC MEDICATIONS, FOLLOW UP AND WHEN TO SEEK EMERGENCY TREATMENT Jun, Dysuria (ICD-10 - R30.0) Jun, Acute cystitis with hematuria (ICD-10 - N30.01) Take medication as directed. Urine analysis shows abnormalities today in office. Urine culture will be sent to lab. Will call with results if warranted. Increase fluid intake. Follow hygiene guidelines such as wiping front to back, avoid using perfumed lotions, bath beads, bubble bath. Recommend follow up with primary care provider. If you find that you are unable to urinate then recommend go to the EMERGENCY ROOM. Jun, Other Additional time spent conducting pre-visit phone call, screening for symptoms, instructions on social distancing, application and removal of PPE, and cleaning of examination room, equipment and supplies was preformed. Patient education given for testing methodology and results. Patient care instructions given in writting by [facility] document. Additional time spent conducting pre-visit phone call, screening for symptoms, instructions on social distancing, application and removal of PPE, and cleaning of examination room, equipment and supplies was preformed. Patient education given for testing methodology and results. Patient care instructions given in writting by [facility] document. [employer] Other Chief complaint+Reason for visit Narrative* Chief Complaint LEFT SI JOINT INJECT ION WITH ULTRASOUND FOLLOW UP FROM PROCEDURE Encounter for well woman exam wellness, Pap E78.5;E55.9 CONSULT TERRY DICUSS RFA INJECTIONS Reason for Visit Chronic pain Inflammation of left sacroiliac joint Pain of left sacroiliac joint Arthritis, lumbar spine Bilateral hip joint arthritis Degenerative arthritis of knee, bilateral Degenerative disc disease, lumbar Pain of left sacroiliac joint Scoliosis History of iron deficiency anemia History of Nunu-en-Y gastric bypass Hyperlipidemia, unspecified Screening mammogram for breast cancer Vitamin D deficiency Well woman exam Chronic pain Other low back pain Sacroiliitis, not elsewhere classified [place] Work Phone: Evaluation + Plan note Future Appointments Appointment Date:02/25/2022 03:20:00 PM Scheduled Provider:Rani Delgadillo CNP [place] [facility]ment Type:[facility] Follow Up [facility] Evaluation + Plan note Future Appointments Appointment Date:03/19/2022 08:00:00 AM Scheduled Provider: Location:[facility] Surgical Services Appointment Type:Surgery FT Appointment Date:03/19/2022 08:00:00 AM Scheduled Provider: Location:.[facility] Appointment Type:US Abdominal/Pelvis (FT) Appointment Date:05/27/2022 09:20:00 AM Scheduled Provider:Rani Delgadillo CNP [place] App[facility]ment Type:[facility] Follow Up Future Scheduled Tests Radiology* US Abdomen Complete 03/19/22 [facility] Evaluation + Plan note Future Appointments Appointment Date:05/27/2022 09:20:00 AM Scheduled Provider:Rani Delgadillo CNP Location:[facility] [place] [facility] App[facility]ments Appointment Date:07/22/2022 01:00:00 PM Scheduled Provider: Location:[facility] Surgical Services Appointment Type:Surgery FT Future Scheduled Tests Laboratory* Fecal WBC Lactoferrin 05/27/22 * Giardia lamblia, Direct Detection EIA 05/27/22 * O & P Exam, Routine 05/27/22 * Clostridium Difficile PCR 05/27/22 * Enteric Panel by PCR 05/27/22 * CBC w/ Auto Diff 05/27/22 * Comprehensive Metabolic Panel 05/27/22 [facility] Dig[facility]ive [facility] Gencia[facility] + Plan note Future Appointments Appointment Date:07/06/2022 01:00:00 PM Scheduled Provider:French LEE MD Location:[facility] Appointment Type:URO New Patient Appointment Date:07/22/2022 01:00:00 PM Scheduled Provider: Location:[facility] Future Appointments Appointment Date:07/06/2022 01:00:00 PM Scheduled Provider:French LEE MD Location:[facility] Appointment Type:URO New Patient Appointment Date:07/22/2022 01:00:00 PM Scheduled Provider: Location:[facility] Appointment Type:Surgery FT Diagnostic Tests Pending * O & P Exam, Routine 06/08/22 * Giardia lamblia, Direct Detection EIA 06[facility]08/22 [facility] Future Appointments Appointment Date:08/10/2022 09:00:00 AM Scheduled Provider:Rani Delgadillo CNP Location[place] [place] [facility] Appointment Type:BAD Follow Up Appointment Date:08/10/2022 02:00:00 PM Scheduled Provider:French LEE MD Location:[facility] Future Appointments Appointment Date:08/25/2022 09:30:00 AM Scheduled Provider:MELISSA QUEVEDO PA-C Location:[facility] Appointment Type:URO New Patient Appointment Date:11/09/2022 03:20:00 PM Scheduled Provider:Rani Delgadillo CNP [place] [place] [facility]ment Type:[facility] Follow Up [facility] Evaluation + Plan note Future Appointments Appointment Date:11/09/2022 03:20:00 PM Scheduled Provider:Rani Delgadillo CNP Location[place] [place] [facility] Appointment Type:[facility] Follow Up [facility] evaluation + Plan note Future Appointments Appointment Date:02/09/2023 02:40:00 PM Scheduled Provider:Rani Delgadillo CNP [place] [place] [facility]ment Type:[facility] Follow Up [facility] Evaluation + Plan note Future Appointments Appointment Date:07/02/2023 11:00:00 AM Scheduled Provider: [facility] Future Appointments Appointment Date:01/03/2024 08:45:00 AM Scheduled Provider:Matt Montalvo MD Location:[facility] [place] [facility] App[facility]ment Type:[facility] Follow Up [facility] Evaluation + Plan note Future Appointments Appointment Date:04/10/2024 01:00:00 PM Scheduled Provider: Location:[facility] Surgical Services Appointment Type:Surgery FT [facility] evaluation noteNo InformationNort Diana Other evaluation noteNo assessment information available [facility] Work Phone: evaluation note* Diagnosis Lower abdominal pain Abdominal pain, other specified site documented in this encounter [facility] Diagnosis Onset Date Resolution Status Hip osteoarthritis acute [place] Work Phone: Evaluation note* Diagnosis Onset Date Resolution Status Hip osteoarthritis acute Arthritis, lumbar spine acut e Bilateral hip joint arthritis acute Degenerative arthritis of knee, bilateral acute Degenerative disc disease, lumbar acute Pain of left sacroiliac joint acute Scoliosis acute Chronic pain acute Inflammation of left sacroiliac joint acute Pain of left sacroiliac joint acute [place] Work Phone: Evaluation note* Diagnosis Onset Date Resolution Status Hip osteoarthritis acute Arthritis, lumbar spine acut e Bilateral hip joint arthritis acute Degenerative arthritis of knee, bilateral acute Degenerative disc disease, lumbar acute Pain of left sacroiliac joint acute Scoliosis acute Chronic pain acute Inflammation of left sacroiliac joint acute Pain of left sacroiliac joint acute Arthritis, lumbar spine acut e Bilateral hip joint arthritis acute Degenerative arthritis of knee, bilateral acute Degenerative disc disease, lumbar acute Pain of left sacroiliac joint acute Scoliosis acute [place] Work Phone: Evaluation note* Diagnosis Onset Date Resolution Status Arthritis, lumbar spine acut e Bilateral hip joint arthritis acute Degenerative arthritis of knee, bilateral acute Degenerative disc disease, lumbar acute Pain of left sacroiliac joint acute Scoliosis acute Chronic pain acute Inflammation of left sacroiliac joint acute Pain of left sacroiliac joint acute Arthritis, lumbar spine acut e Bilateral hip joint arthritis acute Degenerative arthritis of knee, bilateral acute Degenerative disc disease, lumbar acute Pain of left sacroiliac joint acute Scoliosis acute History of iron deficiency anemia acute History of Nunu-en-Y gastric bypass acute Hyperlipidemia, unspecified February 25, 2017 acute Screening mammogram for breast cancer acute Vitamin D deficiency acute Well woman exam acute [place] Work Phone: Evaluation note* Diagnosis Onset Date Resolution Status Chronic pain acute Inflammation of left sacroiliac joint acute Pain of left sacroiliac joint acute Arthritis, lumbar spine acut e Bilateral hip joint arthritis acute Degenerative arthritis of knee, bilateral acute Degenerative disc disease, lumbar acute Pain of left sacroiliac joint acute Scoliosis acute History of iron deficiency anemia acute History of Nunu-en-Y gastric bypass acute Hyperlipidemia, unspecified February 25, 2017 acute Screening mammogram for breast cancer acute Vitamin D deficiency acute Well woman exam acute Chronic pain acute Other low back pain acute Sacroiliitis, not elsewhere classified acute [place] Work Phone: Evaluation note* Diagnosis Melanocytic nevus of trunk- Primary Benign neoplasm of skin of trunk, except scrotum Seborrheic keratosis Personal history of squamous cell carcinoma of skin Personal history of other malignant neoplasm of skin Other seborrheic dermatitis Other specified dermatitis Inflamed seborrheic keratosis Xerosis cutis Other specified disease of sebaceous glands Skin tag Unspecified hypertrophic and atrophic condition of skin documented in this encounter [facility] Healthcare[facility]* Diagnosis Onset Date Resolution Status Chronic pain acute Other low back pain acute Sacroiliitis, not elsewhere classified acute Chronic pain acute Other low back pain acute Sacroiliitis, not elsewhere classified acute [place] Work Phone: Evaluation note* Diagnosis Other specified dermatitis- Primary 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 Seborrheic keratosis Other seborrheic dermatitis documented in this encounter [facility] HealthcareEvaluation note* Diagnosis Onset Date Resolution Status Admit Date Dysuria acute February 02 8:15am [place] Work Phone: History general Narrative - Reported* Type Description Date Medical History Depression Medical History Seasonal allergies Medical History anemia Medical History anal cancer Medical History anxiety Medical History HTN Surgical History cholecystectomy 2006 Surgical History partial hysterectomy Surgical History gastric bypass 2000 Surgical History colonoscopy Surgical History CTS Surgical History sinus surgery Surgical History knee arthroscopy Hospitalization History see above surgical histo ry [facility] Other Hospital course Narrative No data available for this section [facility] Hospital Discharge instructions No data available for this section [facility] No data available for this section [facility] Reason for referral (narrative)No reason for referral information available[place] Work Phone: Summary Purpose Family History No Family History Records Found Relationship Condition Age at Onset Recorded Date/T mimi brother Malignant neoplasm of colon Unknown Not Specified Malignant neoplasm of colon Unknown Relationship Condition Age at Onset Recorded Date/T mimi brother Malignant neoplasm of colon Unknown Not Specified Malignant neoplasm of colon Unknown brother Malignant neoplasm Unknown father Heart disease Unknown History of stroke Unknown Unknown Not Specified Malignant neoplasm Unknown Family history of colon cancer Unknown sister Diabetes mellitus Unknown Relationship Condition Age at Onset Recorded Date/T mimi brother Malignant neoplasm of colon Unknown mother Malignant neoplasm of colon Unknown brother Malignant neoplasm Unknown father Heart disease Unknown History of stroke Unknown Unknown mother Malignant neoplasm Unknown Family history of colon cancer Unknown sister Diabetes mellitus Unknown Advance Directives No Advanced Directives Records Found Advance Directive Response Recorded Date/ Time Advance Directives No November 24 4:43pm Advance Directive Response Recorded Date/ Time Advance Directives No November 24 3:43pm Chief Complaint and Reason for Visit Chief Complaint Admit Date UA:Frequency/Burning February 02, 2025 8: 15am R30.0 February 02, 2025 8:2 0am Reason for Visit Admit Date Dysuria February 02, 2025 8:1 5am Chief Complaint 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 Reason for Visit Cervical disc diseas e Chronic right-sided headache Fracture of thumb, right, closed History of Nunu-en-Y gastric bypass History of iron deficiency anemia Iron deficiency anemia following bariatric surgery Sebaceous cyst of labia Tubular adenoma Squamous cell carcinoma of perianal region Chief Complaint review results Reason for Visit Hip osteoarthritis Chief Complaint review results CONSULT DR KAITLYN NICHOLSON HIP PAIN M25.551 - Pain in right hip LEFT SI JOINT INJECTION WITH ULTRASOUND Reason for Visit Hip osteoarthritis Arthritis, lumbar spine Bilateral hip joint arthritis Degenerative arthritis of knee, bilateral Degenerative disc disease, lumbar Pain of left sacroiliac joint Scoliosis Chronic pain Inflammation of left sacroiliac joint Pain of left sacroiliac joint Chief Complaint review results CONSULT DR KAITLYN NICHOLSON HIP PAIN M25.551 - Pain in right hip LEFT SI JOINT INJECTION WITH ULTRASOUND FOLLOW UP FROM PROCEDURE Reason for Visit Hip osteoarthritis Arthritis, lumbar spine Bilateral hip joint arthritis Degenerative arthritis of knee, bilateral Degenerative disc disease, lumbar Pain of left sacroiliac joint Scoliosis Chronic pain Inflammation of left sacroiliac joint Pain of left sacroiliac joint Arthritis, lumbar spine Bilateral hip joint arthritis Degenerative arthritis of knee, bilateral Degenerative disc disease, lumbar Pain of left sacroiliac joint Scoliosis Chief Complaint CONSULT DR KAITLYN BR AUN BILAT HIP PAIN M25.551 - Pain in right hip LEFT SI JOINT INJECTION WITH ULTRASOUND FOLLOW UP FROM PROCEDURE wellness, Pap Reason for Visit Arthritis, lumbar sp ine Bilateral hip joint arthritis Degenerative arthritis of knee, bilateral Degenerative disc disease, lumbar Pain of left sacroiliac joint Scoliosis Chronic pain Inflammation of left sacroiliac joint Pain of left sacroiliac joint Arthritis, lumbar spine Bilateral hip joint arthritis Degenerative arthritis of knee, bilateral Degenerative disc disease, lumbar Pain of left sacroiliac joint Scoliosis History of iron deficiency anemia History of Nunu-en-Y gastric bypass Hyperlipidemia, unspecified Screening mammogram for breast cancer Vitamin D deficiency Well woman exam Chief Complaint CONSULT DR KAITLYN RICHARDS BILAT HIP PAIN M25.551 - Pain in right hip LEFT SI JOINT INJECTION WITH ULTRASOUND FOLLOW UP FROM PROCEDURE Encounter for well woman exam wellness, Pap Reason for Visit Arthritis, lumbar sp ine Bilateral hip joint arthritis Degenerative arthritis of knee, bilateral Degenerative disc disease, lumbar Pain of left sacroiliac joint Scoliosis Chronic pain Inflammation of left sacroiliac joint Pain of left sacroiliac joint Arthritis, lumbar spine Bilateral hip joint arthritis Degenerative arthritis of knee, bilateral Degenerative disc disease, lumbar Pain of left sacroiliac joint Scoliosis History of iron deficiency anemia History of Nunu-en-Y gastric bypass Hyperlipidemia, unspecified Screening mammogram for breast cancer Vitamin D deficiency Well woman exam Chief Complaint CONSULT DR KAITLYN RICHARDS BILAT HIP PAIN M25.551 - Pain in right hip LEFT SI JOINT INJECTION WITH ULTRASOUND FOLLOW UP FROM PROCEDURE Encounter for well woman exam wellness, Pap E78.5;E55.9 Reason for Visit Arthritis, lumbar sp ine Bilateral hip joint arthritis Degenerative arthritis of knee, bilateral Degenerative disc disease, lumbar Pain of left sacroiliac joint Scoliosis Chronic pain Inflammation of left sacroiliac joint Pain of left sacroiliac joint Arthritis, lumbar spine Bilateral hip joint arthritis Degenerative arthritis of knee, bilateral Degenerative disc disease, lumbar Pain of left sacroiliac joint Scoliosis History of iron deficiency anemia History of Nunu-en-Y gastric bypass Hyperlipidemia, unspecified Screening mammogram for breast cancer Vitamin D deficiency Well woman exam Chief Complaint CONSULT TERRY SILVA INJECTIONS DISCUSS ADDITIONAL TX OPTIONS Reason for Visit Chronic pain Other low back pain Sacroiliitis, not elsewhere classified Chronic pain Other low back pain Sacroiliitis, not elsewhere classified Chief Complaint Admit Date DISCUSS ADDITIONAL TX OPTIONS April 272023 9:47am LEFT SACROILIAC JOINT INJ/CJ May 17, 2024 2:36pm Reason for Visit Admit Date Chronic pain April 27, 2024 9 :47am Other low back pain April 27, 2024 9 :47am Sacroiliitis, not elsewhere classified O ctober 2023 9:47am Chief Complaint Admit Date F/U LEFT SI JOINT INJ June 07 8:16am Sinus Infection August 31, 2024 10:3 6am Reason for Visit Admit Date Chronic pain June 07, 2024 8:16am Other low back pain June 07, 2024 8:16am Sacroiliitis, not elsewhere classified D ecember 2023 8:16am Maxillary sinusitis August 31, 2024 10:3 6am Chief Complaint Admit Date Sinus Infection August 31, 2024 10:3 6am 3-4 MONTHS September 27, 2024 8:08 am Reason for Visit Admit Date Maxillary sinusitis August 31, 2024 10:3 6am Chronic pain September 27, 2024 8:08 am Other low back pain September 27, 2024 8:08 am Sacroiliitis, not elsewhere classified A pril 2024 8:08am Chief Complaint Admit Date UA:Frequency/Burning February 02, 2025 8: 15am Chief Complaint Admit Date UA:Frequency/Burning February 02, 2025 8: 15am R30.0 February 02, 2025 8:2 0am Z86.2 February 08, 2025 7: 53am Wellness February 22, 2025 8: 25am Reason for Visit Admit Date Dysuria February 02, 2025 8:1 5am Menopause February 22, 2025 8: 25am Screening mammogram for breast cancer [facility] 2024 8:25am Assessments Diagnosis Onset Date Resolution Status Cervical disc disease chroni c Chronic right-sided headache chronic Fracture of thumb, right, closed chronic History of Nunu-en-Y gastric bypass chronic History of iron deficiency anemia chronic Iron deficiency anemia following bariatric surgery chronic 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 None [place]ani [place] [address] Referral ID Status Reason Start Date Expiration Date Visits Re quested Visits Authorized [id number] Closed 08/27/2023 09/09/2024 1 1 Additional Source Comments INFORMATION SOURCE (unrecogn ized section and content) DATE CREATED AUTHOR 06/06/2018 [facility] DATE CREATED AUTHOR AUTHOR'S ORGANIZ ATION 10/11/2018 [facility] DATE CREATED AUTHOR AUTHOR'S ORGANIZ ATION 08/02/2019 [facility] DATE CREATED AUTHOR AUTHOR'S ORGANIZ ATION 08/13/2021 [facility] DATE CREATED AUTHOR AUTHOR'S ORGANIZ ATION 09/11/2021 [facility] DATE CREATED AUTHOR AUTHOR'S ORGANIZ ATION 09/20/2023 [facility] DATE CREATED AUTHOR AUTHOR'S ORGANIZ ATION 04/14/2024 [facility] DATE CREATED AUTHOR AUTHOR'S ORGANIZ ATION 10/23/2024 [facility] EPIC DATE CREATED AUTHOR AUTHOR'S ORGANIZ ATION 02/10/2025 [facility] DATE CREATED AUTHOR AUTHOR'S ORGANIZ ATION 02/22/2025 [facility] REASON FOR VISIT (unrecogniz ed section and content) Specialty Diagnoses / Procedures Referred By Contac t Referred To Contact Radiology Diagnoses Lower abdominal pain Procedures CT ABDOMEN PELVIS W IV CONTRAST Additional Contrast? 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 Relationship Specialty Start Date End Date Kaitlyn Saldivar MD PCP - General Family Medicine 07/19/18 Team Status: Inactive Member Role Status Sienna Saldivar MD Primary Care Provide r, Attending Provider Active Start: October 08, 2023 End: October 08, 2023 Team Status: Inactive Member Role Status Dates Kaitlyn Saldivar MD Primary Care Provider Active Start: October 27, 2023 End: October 27, 2023 Blaise Thompson , DO Attending Provider Active S tart: October 27, 2023 End: October 27, 2023 Team Status: Inactive Member Role Status Sienna Saldivar MD Primary Care Provider Active Start: November 18, 2023 End: November 18, 2023 Harshad Alonso MD Attending Provider Active Sta rt: November 18, 2023 End: November 18, 2023 Team Status: Inactive Member Role Status Sienna Saldivar MD Primary Care Provider Active Start: January 05, 2024 End: January 05, 2024 lBaise Thompson , DO Attending Provider Active S tart: January 05, 2024 End: January 05, 2024 Team Status: Inactive Member Role Status Sienna Saldivar MD Primary Care Provide r, Attending Provider Active Start: January 12, 2024 End: January 12, 2024 Team Status: Inactive Member Role Status Sienna Saldivar MD Primary Care Provide r, Attending Provider Active Start: January 14, 2024 End: January 14, 2024 Team Status: Inactive Member Role Status Sienna Saldivar MD Primary Care Provider Active Start: February 14, 2024 End: February 14, 2024 Harshad Alonso MD Attending Provider Active Sta rt: February 14, 2024 End: February 14, 2024 Team Status: Inactive Member Role Status Sienna Saldivar MD Primary Care Provider Active Start: April 27, 2024 End: April 27, 2024 Harshad Alonso MD Attending Provider Active Sta rt: April 27, 2024 End: April 27, 2024 Team Status: Inactive Member Role Status Sienna Saldivar MD Primary Care Provider Active Start: May 17, 2024 End: May 17, 2024 Harshad Alonso MD Attending Provider Active Sta rt: May 17, 2024 End: May 17, 2024 Team Status: Inactive Member Role Status Sienna Saldivar MD Primary Care Provider Active Start: June 07, 2024 End: June 07, 2024 Harshad Alonso MD Attending Provider Active Sta rt: June 07, 2024 End: June 07, 2024 Team Status: Inactive Member Role Status Dates Kaitlyn Saldivar MD Primary Care Provider Active Start: August 31, 2024 End: August 31, 2024 Melissa Mortensen APRN NP-C Attending Provider Act vaishali Start: August 31, 2024 End: August 31, 2024 Team Status: Inactive Member Role Status Dates Kaitlyn Saldivar MD Primary Care Provider Active Start: September 27, 2024 End: September 27, 2024 Harshad Alonso MD Attending Provider Active Sta rt: September 27, 2024 End: September 27, 2024 Team Status: Inactive Member Role Status Dates Kaitlyn Saldivar MD Primary Care Provider Active Start: February 02, 2025 End: February 02, 2025 Kaitlyn Saldivar MD Attending Provider Active St art: February 02, 2025 End: February 02, 2025 Team Status: Inactive Member Role Status Dates Kaitlyn Saldivar MD Attending Provider Active St art: February 02, 2025 End: February 02, 2025 Team Status: Inactive Member Role Status Dates Lanre Coats DO Attending Provider Active Start: February 08, 2025 End: February 08, 2025 Team Status: Inactive Member Role Status Dates Kaitlyn Saldivar MD Primary Care Provider Active Start: February 22, 2025 End: February 22, 2025 Kaitlyn Saldivar MD Attending Provider Active St art: February 22, 2025 End: February 22, 2025 Goals (unrecognized section and content) Goals may be documented in a n alternate section FOR RECORDS PERTAINING TO PATIENTS WHO ARE OR HAVE BEEN ENROLLED IN A CHEMICAL DEPENDENCY/SUBSTANCEABUSE PROGRAM, SOME INFORMATION MAY BE OMITTED. This clinical summary was aggregated from multiple sources. Caution should be exercised in using it in the provision of clinical care. This summary normalizes information from multiple sources, and as a consequence, information in this document may materially change the coding, format and clinical context of patient data. In addition, data may be omitted in some cases. CLINICAL DECISIONS SHOULD BE BASED ON THE PRIMARY CLINICAL RECORDS. [facility]. provides no warranty or guarantee of the accuracy or completeness of information in this document.
--- NOTE | 2025-03-01 17:42 | MM_ITS ---
Patient Name: JACK COBURN MR#: [id number] : 1960 Exam Date: 03/01/2025 Ordering Doctor: DR KAITLYN SALDIVAR M.D. RADIOLOGY REPORT PROCEDURE: MM TOMOSYNTHESIS SCREENING BI COMPARISON: MM TOMOSYNTHESIS SCREENING BI, 01/28/2024. MG MAMM LISY SCRN W CAD DIG, 05/25/2016. MG MAMM LISY SCRN W CAD DIG, 05/24/2015. INDICATIONS: Screening for breast cancer Calculator Name NCI Breast Cancer Risk Assessment Tool 5 Year Breast Cancer Risk 1.80% Lifetime Breast Cancer Risk 6.40% Personal Breast Cancer No Personal Ovarian Cancer No Treatments None Family Cancers Mother with colo-rectal cancer at age 50; Brother with colon cancer at age 66. LOCATION: [facility] BREAST COMPOSITION: There are scattered areas of fibroglandular density. FINDINGS: DIAGNOSTIC CATEGORY 2--BENIGN FINDING. NO CHANGE FROM COMPARISON. RIGHT BREAST: No significant suspicious finding. Benign-appearing calcifications are present. There is a similar focal asymmetry . LEFT BREAST: No significant suspicious finding. Benign-appearing calcifications are present. There is a similar focal asymmetry . RECOMMENDATIONS: ROUTINE MAMMOGRAM AND CLINICAL EVALUATION IN 12 MONTHS. Dictated by: Phil Christiansen MD on 03/02/2025 at 12:18 Approved by: Phil Christiansen MD on 03/02/2025 at 13:13
== END 2025-03-01 16:46 | disposition home or self-care (01) ==
PROVIDERS: PCP Family Medicine; Visit Provider Family Medicine
DX: Z12.31 Encounter for screening mammogram for malignant neoplasm of breast (principal); Z78.0 Asymptomatic menopausal state; Z80.0 Family history of malignant neoplasm of digestive organs; M85.88 Other specified disorders of bone density and structure, other site
CPT/HCPCS: 77063; 77067; 77080